=== PATIENT | female | born 1945 | race Caucasian/White ===

== ENCOUNTER 2017-10-28 09:04 | Emergency (ER) | payer MEDICARE, MEDICAID, SELFPAY ==
[2017-10-28 09:17] VITALS: BP 138/69; PULSE 60; RESP 16; TEMP 36.4; O2SAT 98
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
[2017-10-28 11:17] LABS: Abs Immature Grans 0.01 k/cumm (0.0-0.09); Absolute Basophil Count 0.02 k/cumm (0.0-0.2); Absolute Eosinophil Count 0.27 k/cumm (0.0-0.7); Absolute Lymphocyte Count 2.53 k/cumm (1.2-3.4); Absolute Monocyte Count 0.52 k/cumm (0.11-0.7); Absolute Neutrophil Count 2.47 k/cumm (1.2-6.7); Basophils % 0.3; Eosinophils % 4.6; HCT 39.9 % (36.0-46.0); HGB 12.8 g/dL (12.0-15.5); Immature Grans % 0.2; Lymphocytes % 43.5; Mean Corp. HGB Concentration 32.1 g/dL (32.0-36.0); Mean Corpuscular Hemoglobin 30.3 pg (27.0-33.0); Mean Corpuscular Volume 94.3 fL (80-95); Mean Platelet Volume 10.3 fL (8.0-11.0); Monocytes % 8.9; Neutrophils % 42.5; Platelet Count 126 x1000/uL (130-400); RBC 4.23 m/cumm (4.00-5.20); RBC Distribution Width 13.3 % (11.7-14.6); White Blood Cell Count 5.82 k/cumm (4.4-10.8)
[2017-10-28 11:35] LABS: ALT 21 U/L (12-78); AST 25 U/L (15-37); Albumin 3.7 g/dL (3.4-5.0); Alkaline Phosphatase 86 U/L (46-116); Anion Gap 8.3 mmol/L (3-11); BUN 22 mg/dL (7-18); Bilirubin, Total 0.6 mg/dL (0.2-1.0); CO2 27.7 mmol/L (21.0-32.0); CREATININE 1.34 mg/dL (0.55-1.02); Calcium 8.8 mg/dL (8.5-10.1); Chloride 104 mmol/L (98-107); Estimated GFR 38.66 (mL/min/1.73m2); Glucose 89 mg/dL (70-100); Potassium 4.3 mmol/L (3.5-5.1); Sodium 140 mmol/L (136-145); Total Protein 7.4 g/dL (6.4-8.2)
[2017-10-28 11:36] LABS: Troponin I < 0.02 ng/mL (0.00-0.06)
--- NOTE | 2017-10-28 11:37 | DI.RAD_ITS ---
SYMPTOM/DIAGNOSIS: LT ARM PAIN, NO TRAUMA LEFT SHOULDER: Five views. There are mild degenerative changes seen at the acromioclavicular joint. The glenohumeral joint appears well maintained. The bones are intact and normally mineralized. No suspicious lytic or sclerotic lesions are seen. The soft tissues are unremarkable. IMPRESSION: Mild degenerative changes of the left AC joint. LEFT HUMERUS: Two views. No bone or joint abnormality is identified. The soft tissues are unremarkable. IMPRESSION: Negative examination. PA AND LATERAL CHEST: Comparison is made with 04/23/14. Heart size and pulmonary vasculature are stable and within normal limits. The lungs appear clear. No effusions or pneumothoraces are identified. Degenerative changes are seen in the spine. IMPRESSION: No acute pulmonary process.
[2017-10-28 11:43] LABS: TSH (W/Ref FT4) 3.13 uIU/mL (0.358-3.74)
--- NOTE | 2017-10-28 14:11 | DI.US_ITS ---
SYMPTOMS/DIAGNOSIS: LEFT ARM PAIN, ? DVT LEFT UPPER EXTREMITY ULTRASOUND: The deep veins of the left upper extremity show normal compression, augmentation and color flow. No evidence of a deep venous thrombus is seen. The superficial veins of the left upper extremity are patent. IMPRESSION: No evidence of a left upper extremity deep venous thrombus.
[2017-10-28] MEDS: Ibuprofen 400 MG TAB PO (15:25)
== END 2017-10-28 15:39 | disposition home or self-care (01) ==
PROVIDERS: Emergency Provider Student in an Organized Health Care Education/Training Program; PCP Nurse Practitioner
DX: M79.602 Pain in left arm (principal); I10 Essential (primary) hypertension
CPT/HCPCS: 80053; 93005; 99284; 71046; 73030; 73060; 84443; 84484; 85025; 93010; 93971; 99285

== ENCOUNTER 2017-11-06 06:02 | Day surgery (SDC) | payer MEDICARE, MEDICAID, SELFPAY ==
[2017-11-06 06:24] VITALS: BP 158/82; PULSE 53; RESP 18; TEMP 36.3; O2SAT 98
[2017-11-06] MEDS: Lactated Ringers 1,000 ML 80 ML IV (06:35)
[2017-11-06] MEDS: Povidone-Iodine Soln. 118 ML BTL TP (06:35)
[2017-11-06] MEDS: Bupivacaine 0.5% Pres-Free 30 ML VIAL (07:51)
[2017-11-06] MEDS: Lidocaine 1% Pres-Free 5 ML VIAL 15 ML (07:51)
[2017-11-06] MEDS: Dexamethasone 4 MG/ML VIAL (07:51)
--- NOTE | 2017-11-06 08:15 | W.PM.DSUDISC ---
Discharge Plan Disposition Patient Disposition: HOME Condition: Good Discharge Details Reason For Visit: LAURAE (R) 3 Attending Provider: Uche Guzman Primary Care Provider: Kelsi Bhagat Home Meds and New Rx's Prescriptions: No Action aspirin 81 MG tablet,delayed release (DR/EC) 81 mg PO DAILY RF: 0 levothyroxine 25 MCG tablet 25 mcg PO DAILY RF: 0 furosemide 20 MG tablet 20 mg PO BID RF: 0 atenolol 50 MG tablet 50 mg PO DAILY RF: 0 aripiprazole [Abilify] 5 MG tablet 5 mg PO DAILY RF: 0 bupropion HCl [Wellbutrin XL] 300 MG tablet extended release 24 hr 300 mg PO DAILY RF: 0 calcium carbonate-vitamin D3 [Oyst-Sudhir-D 500] 1 TAB tablet 2 ea PO DAILY RF: 0 cholecalciferol (vitamin D3) [Vitamin D3] 2,000 UNIT capsule 1,000 unit PO DAILY RF: 0 ibuprofen 600 MG tablet 600 mg PO Q6H PRN PRN (Reason: Pain) Qty: 20 RF: 0 losartan 25 MG tablet 50 mg PO DAILY RF: 0 acetaminophen [Tylenol 8 Hour] 650 mg tablet extended release 650 mg PO Q8H PRN (Reason: pain) Qty: 15 RF: 0 Discharge Instructions Activity:: Activity as Tolerated Remove Dressings/Wound Care:: Do Not Remove Diet:: Normal Diet Discharge Orders Discharge Orders: Discharge Order (Routine); Ordered 11/06/17 Ordered By: Uche Guzman DS: Diagnosis Discharge Diagnosis (1) Hammertoe of right foot: Status: Acute Asessment and Plan: A: Hammertoe deformity right 3rd toe P: Arthroplasty right 3rd toe with 0.062K-wire fixation
[2017-11-06 08:44] VITALS: BP 137/73; PULSE 58; RESP 18; TEMP 36; O2SAT 100
--- NOTE | 2017-11-06 11:56 | ROE_ITS ---
DATE OF PROCEDURE: November 06, 2017 PREOPERATIVE DIAGNOSIS: Symptomatic right third hammertoe. POSTOPERATIVE DIAGNOSIS: Same. PROCEDURE: Arthroplasty of the right third toe with .062 K-Wire fixation. ANESTHESIA: Monitored Anesthesia with local block of the third ray utilizing 8 cc's of a 50/50 mixtu re 1% Lidocaine plain, 0.5% Marcaine plain. ANESTHESIA PROVIDER: Poncho Gagnon CRNA SURGEON: Uche Guzman D.P.M. OPERATIVE INDICATIONS: 72-year-old female with chronic pain associated with a right third hammertoe deformity which is exacerbated by shoe gear, interfering with comfortable ambulation. Conservative n onoperative treatments have failed to provide relief of symptoms. Arlin understands the risks and com plications of surgery pertaining to pain, scarring, infection, stiffness of the joint, floating of th e toe, over or undercorrection of the deformity. Informed consent has been obtained. There are no p romises made to the final outcome of surgery. REPORT OF OPERATION: Arlin was brought to the operative suite and placed in the supine position where the right foot is prepped and draped in the usual sterile podiatric fashion. A time-out was perform ed. The patient was appropriately identified, allergies reviewed. Anesthesia being obtained, the [facility] foot was exsanguinated; a well-padded ankle tourniquet inflated 250 mmHg. Attention was directed to the right third toe. Two converging semi-elliptical incisions were placed over the PIPJ. A skin wedge was excised. Soft tissue mobilization performed. A transverse tenotomy capsulotomy was performed at the PIPJ level. Medial and lateral collaterals were released and the h ead of the proximal phalanx delivered into the wound. Degenerative changes of the joint were appreci ated. The head was resected at its surgical neck. All rough and bony edges rasped smooth. Contract ure at the MPJ persisted. A stab incision was now made dorsomedial over the third MPJ. A 15 scalpel was inserted down to the joint level. The blade was placed against the dorsal aspect of the third M PJ and the digit was plantarflexed and a capsulotomy was achieved. The medial and lateral aspects of the joint were also teased and the toe sat in a more relaxed position. A .062 K-Wire was then utili zed in retrograde fashion to stabilize the third toe. Irrigation was performed. The extensor tendon was shortened and primarily repaired end-to-end with #3-0 Vicryl. The skin was then closed with sim ple interrupted suture #4-0 nylon. The stab incision was closed with a single #4-0 nylon suture. Fo ur milligrams of Dexamethasone Phosphate was administered IV. Betadine ointment applied to the K-wir e; Xeroform applied to the wounds. Gauze fluff compression dressings applied. The tourniquet was re leased at eighteen minutes with vascularity returning immediately to all toes. The patient left the OR with vital signs stable, vascular status intact. Sharp and sponge counts were correct. The patie nt will be followed by me in the office next week. cc: Yissel Bain N.P.
== END 2017-11-06 09:25 | disposition home or self-care (01) ==
PROVIDERS: PCP Nurse Practitioner; Visit Provider Podiatrist
PROC: (CPT 28285; principal; 2017-11-06 07:30)
DX: M20.41 Other hammer toe(s) (acquired), right foot (principal); I10 Essential (primary) hypertension
CPT/HCPCS: 28285; J1100

== ENCOUNTER → 2018-01-21 09:39 | Outpatient (BNVA) | payer MEDICARE, MEDICAID, SELFPAY | PROVIDERS: PCP Nurse Practitioner; Referring Provider Nurse Practitioner; Visit Provider Orthopaedic Surgery | DX: M65.812 Other synovitis and tenosynovitis, left shoulder (principal); M19.012 Primary osteoarthritis, left shoulder; I10 Essential (primary) hypertension | CPT/HCPCS: 20610; 99201; 99214; J1040 ==

== ENCOUNTER → 2018-03-04 09:37 | Outpatient (BNVA) | payer MEDICARE, MEDICAID, SELFPAY | PROVIDERS: PCP Nurse Practitioner; Referring Provider Nurse Practitioner; Visit Provider Orthopaedic Surgery | DX: M25.512 Pain in left shoulder (principal); M75.82 Other shoulder lesions, left shoulder | CPT/HCPCS: 99213 ==

== ENCOUNTER 2018-04-06 17:48 | Emergency (ER) | payer MEDICARE, MEDICAID, SELFPAY ==
[2018-04-06 17:54] VITALS: BP 142/72; PULSE 67; RESP 20; TEMP 36.3; O2SAT 98
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
[2018-04-06 18:25] VITALS: BP 142/72; PULSE 67; RESP 20; TEMP 36.3; O2SAT 98
== END 2018-04-06 18:26 | disposition home or self-care (01) ==
PROVIDERS: Emergency Provider Emergency Medicine; PCP Nurse Practitioner
DX: M79.674 Pain in right toe(s) (principal); S90.111A Contusion of right great toe without damage to nail, initial encounter; X58.XXXA Exposure to other specified factors, initial encounter
CPT/HCPCS: 29515; 99283; 99282

== ENCOUNTER 2018-07-20 09:17 | Outpatient (REF) | payer OTHER, MEDICAID, SELFPAY ==
[2018-07-20 14:13] LABS: ALT 34 U/L (12-78); AST 33 U/L (15-37); Albumin 3.5 g/dL (3.4-5.0); Alkaline Phosphatase 96 U/L (46-116); BUN 23 mg/dL (7-18); Bilirubin, Total 0.4 mg/dL (0.2-1.0); Chloride 105 mmol/L (98-107); Estimated GFR 48.55 (mL/min/1.73m2); Glucose 89 mg/dL (70-100); Potassium 4.5 mmol/L (3.5-5.1); Sodium 138 mmol/L (136-145); TSH (W/Ref FT4) 3.91 uIU/mL (0.358-3.74); Total Protein 6.7 g/dL (6.4-8.2)
[2018-07-20 14:32] LABS: FREE T4 1.36 ng/dL (0.76-1.46)
== END 2018-07-20 09:37 ==
LOC: NCHCN 09:17
PROVIDERS: PCP Nurse Practitioner; Visit Provider Nurse Practitioner
DX: I10 Essential (primary) hypertension (principal); E03.9 Hypothyroidism, unspecified
CPT/HCPCS: 80053; 84439; 84443

== ENCOUNTER 2018-08-20 10:00 | Emergency (ER) | payer OTHER, MEDICAID, SELFPAY ==
[2018-08-20 10:07] VITALS: BP 130/53; PULSE 58; RESP 16; TEMP 36.4; O2SAT 98
--- NOTE | 2018-08-20 10:55 | ED.GENADUL_ITS ---
Discharge Plan Disposition Patient Disposition: HOME Discharge Details Chief Complaint: Cellulitis Clinical Impression: Cellulitis of foot, left Primary Care Provider: Kelsi Bhagat ED Provider: Lamberto Song Home Meds and New Rx's Prescriptions: New amoxicillin-pot clavulanate [Augmentin] 875-125 mg tablet 1 tab PO BID Qty: 19 RF: 0 Continued aspirin 81 MG tablet,delayed release (DR/EC) 81 mg PO DAILY RF: 0 levothyroxine 25 MCG tablet 25 mcg PO DAILY RF: 0 furosemide 20 MG tablet 20 mg PO BID RF: 0 atenolol 50 MG tablet 50 mg PO DAILY RF: 0 aripiprazole [Abilify] 5 MG tablet 5 mg PO DAILY RF: 0 bupropion HCl [Wellbutrin XL] 300 MG tablet extended release 24 hr 300 mg PO DAILY RF: 0 calcium carbonate-vitamin D3 [Oyst-Sudhir-D 500] 1 TAB tablet 2 ea PO DAILY RF: 0 cholecalciferol (vitamin D3) [Vitamin D3] 2,000 UNIT capsule 1,000 unit PO DAILY RF: 0 ibuprofen 600 MG tablet 600 mg PO Q6H PRN PRN (Reason: Pain) Qty: 20 RF: 0 losartan 25 MG tablet 50 mg PO DAILY RF: 0 hydrocodone-acetaminophen 5-325 mg Tablet 1 tab PO Q4H PRN PRNQty: 7 RF: 0 ibuprofen [IBU] 600 mg Tablet 600 mg PO QID PRN PRNQty: 40 RF: 0 acetaminophen [Tylenol 8 Hour] 650 mg tablet extended release 650 mg PO Q8H PRN (Reason: pain) Qty: 15 RF: 0 Discharge Instructions Instructions: Cellulitis (ED) Additional Instructions: Please follow-up with podiatry. Call today to schedule an appointment to be seen as soon as possible next week. Return to the ER for any worsening or new concerning symptoms. Referrals: Kelsi Bhagat [Primary Care Provider] - Uche Guzman DPM [[facility] STAFF PHYSICIAN] - Discharge Data Discharge Date/Time-TO BE ENTERED AT DEPARTURE: 08/20/18 11:06 Medical Decision Making 72-year-old female resents approximately 1 month status post left great toenail removal, complicated by cellulitis, treated with Keflex and Bactrim, completed course and now having recurrent redness of the toe and swelling of her foot. She has no posterior lower leg or calf tenderness or swelling. Concern for recurrent mild cellulitis. Plan to treat Augmentin and have the patient follow-up with podiatry on Thursday. Usual customary discharge instructions were provided the patient HPI General Mode of arrival: ambulatory . Date/Time Provider Initiated Documentation: 08/20/18 10:12 . Limitations to Documentation: no limitations . Information obtained by: patient . HPI Narrative: 72-year-old female resents approximately 1 month status post left great toenail removal, complicated by cellulitis, treated with Keflex and Bactrim, completed course and now having recurrent redness of the toe and swelling of her foot. Symptoms are moderate. No modifiers. No associated numbness. No other rash. No fever. Related Data Home Medications Medication Instructions Recorded Confirmed aripiprazole [Abilify] 5 mg PO DAILY 10/19/12 08/21/18 aspirin 81 mg PO DAILY 10/19/12 08/21/18 atenolol 50 mg PO DAILY 10/19/12 08/21/18 bupropion HCl [Wellbutrin XL] 300 mg PO DAILY 10/19/12 08/21/18 calcium carbonate-vitamin D3 2 ea PO DAILY 10/19/12 08/21/18 [Oyst-Sudhir-D 500] cholecalciferol (vitamin D3) 1,000 unit PO DAILY 10/19/12 08/21/18 [Vitamin D3] furosemide 20 mg PO BID 10/19/12 08/21/18 levothyroxine 25 mcg PO DAILY 10/19/12 08/21/18 ibuprofen 600 mg PO Q6H PRN PRN #20 tab 09/29/14 08/21/18 losartan 50 mg PO DAILY 12/12/15 08/21/18 acetaminophen [Tylenol 8 Hour] 650 mg PO Q8H PRN #15 tab 10/28/17 08/21/18 hydrocodone-acetaminophen 1 tab PO Q4H PRN PRN #7 tab 11/06/17 08/21/18 ibuprofen [IBU] 600 mg PO QID PRN PRN #40 tab 11/06/17 08/21/18 amoxicillin-pot clavulanate 1 tab PO BID #19 tab 08/20/18 08/21/18 [Augmentin] Previous Rx's Medication Instructions Recorded ibuprofen 600 mg PO Q6H PRN PRN #20 tab 09/29/14 acetaminophen [Tylenol 8 Hour] 650 mg PO Q8H PRN #15 tab 10/28/17 hydrocodone-acetaminophen 1 tab PO Q4H PRN PRN #7 tab 11/06/17 ibuprofen [IBU] 600 mg PO QID PRN PRN #40 tab 11/06/17 amoxicillin-pot clavulanate 1 tab PO BID #19 tab 08/20/18 [Augmentin] Allergies Allergy/AdvReac Type Severity Reaction Status Date / Time propoxyphene HCl Allergy Intermediate rash,itchy Unverified 08/21/18 14:13 [From Darvon] lisinopril AdvReac Mild cough Unverified 08/21/18 14:13 General Stated Complaint: Cellulitis MORGAN: 3 Review of Systems Constitutional Denies fever(s) Integumentary/Breasts Reports as per HPI [facility] Social History Smoking/Tobacco Use Status: Never Alcohol Intake: never Drug use: Never Substance use type: does not use Do you feel safe at home: Yes Do you feel safe in your relationship?: Yes Exam Const General: cooperative and no acute distress HENMT Mouth: moist mucous membranes Eyes Conjunctivae: normal conjunctivae Cardio Rate: regular rate Rhythm: regular rhythm Skin Rashes: rashes noted (left great toe with erythema, no fluctuance) Neuro General: alert, awake and other (left toe sensation intact, motor intact) Extrem General: edema Laterality: left (foot mild) Course Vital Signs Temperature 36.4 C L 08/20/18 10:07 Pulse 58 L 08/20/18 10:07 Respiratory Rate 16 08/20/18 10:07 Blood Pressure 130/53 L 08/20/18 10:07 Pulse Oximetry 98 08/20/18 10:07 Temperature 36.4 C L 08/20/18 10:07 Temperature Source Skin 08/20/18 10:07 Pulse 58 L 08/20/18 10:07 Respiratory Rate 16 08/20/18 10:07 Respiratory Effort 08/20/18 10:11 Blood Pressure 130/53 L 08/20/18 10:07 Blood Pressure Position Sitting 08/20/18 10:07 Pulse Oximetry 98 08/20/18 10:07 Oxygen Delivery Method Room Air 08/20/18 10:07 Oxygen Flow Rate 0 08/20/18 10:07
[2018-08-20] MEDS: Amoxicillin 875/Clav. 125 TAB PO (11:06)
[2018-08-20 11:07] VITALS: BP 130/53; PULSE 58; RESP 16; TEMP 36.4; O2SAT 98
== END 2018-08-20 11:06 | disposition home or self-care (01) ==
PROVIDERS: Emergency Provider Student in an Organized Health Care Education/Training Program; PCP Nurse Practitioner
DX: L03.116 Cellulitis of left lower limb (principal)
CPT/HCPCS: 99283

== ENCOUNTER 2018-08-21 14:05 | Emergency (ER) | payer OTHER, MEDICAID, SELFPAY ==
[2018-08-21 14:10] VITALS: BP 167/69; PULSE 73; RESP 16; TEMP 36.8; O2SAT 97
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
[2018-08-21 14:45] VITALS: BP 123/54; PULSE 59; RESP 16; O2SAT 100
[2018-08-21] MEDS: Ibuprofen 600 MG TAB PO (14:46)
[2018-08-21] MEDS: oxyCODONE 5 MG TAB 10 MG PO (14:47)
== END 2018-08-21 14:50 | disposition home or self-care (01) ==
LOC: ER 14:35
PROVIDERS: Emergency Provider Physician Assistant; PCP Nurse Practitioner
DX: L03.032 Cellulitis of left toe (principal); I10 Essential (primary) hypertension
CPT/HCPCS: 99282

== ENCOUNTER 2018-12-30 01:20 | Outpatient (CLI) | payer MEDICARE, MEDICAID, SELFPAY ==
--- NOTE | 2018-12-30 13:30 | DI.CT_ITS ---
EXAM: CT LOWER EXTREMITY LT WO CLINICAL HISTORY: OCCULT FX, BONE LESION, DISTAL PHALANX, HALLUX, PAIN SINCE REMOVAL OF INGROWN TOEN AIL TECHNIQUE: Noncontrast COMPARISON: None are available FINDINGS: There is a smoothly marginated lucency seen in the distal phalanx of the great toe, it is slightly ex pansile. There is no visible cortical breakthrough or aggressive periosteal reaction. The bones appea r osteoporotic. There is soft tissue edema. There are degenerative changes of the 1st MTP joint and h allux valgus. There is no visible associated soft tissue mass. IMPRESSION: Smoothly marginated 9 millimeter lytic lesion in the distal phalanx of the great toe. Findings could represent a glomus tumor, hemangioma or simple bone cyst. There are no aggressive features.
== END 2018-12-30 01:40 ==
PROVIDERS: PCP Family Medicine; Visit Provider Podiatrist
DX: M81.0 Age-related osteoporosis without current pathological fracture (principal); M79.89 Other specified soft tissue disorders; M20.12 Hallux valgus (acquired), left foot; M85.872 Other specified disorders of bone density and structure, left ankle and foot
CPT/HCPCS: 73700

== ENCOUNTER 2019-01-07 08:15 | Day surgery (SDC) | payer MEDICARE, MEDICAID, SELFPAY ==
[2019-01-07 08:44] VITALS: BP 128/58; PULSE 49; RESP 16; TEMP 36; O2SAT 100
[2019-01-07] MEDS: Lactated Ringers 1,000 ML 80 ML IV (09:22)
[2019-01-07] MEDS: ceFAZolin 1 GM/50 ML BAG IVPB (10:50)
[2019-01-07] MEDS: Lidocaine 1% Multi-Dose 50 ML VIAL (10:52)
[2019-01-07] MEDS: Bupivacaine 0.5% Pres-Free 30 ML VIAL (10:52)
--- NOTE | 2019-01-07 11:08 | BONE_PTH ---
PATIENT: Arlin Almaguer V LOC: [facility] U#:[id number] AGE/SX: 73/F ROOM: RE01/07/[address]: Uche Guzman : 1945 BED: DIS: 01/07/2019 SPEC #: [id number] RECD: 01/07/19 12:53 STATUS: CARLENE REQ #: [id number] VICENTE: 01/07/19 11:[address]: Uche Guzman DEPT: Surgical Specimen RECD BY: Sima Marin ENTERED: 01/07/19 12:54 SP TYPE: Bone OTHR DR: Kelsi Bhagat Tissues: 1 - BONE BX/CURRETTE NOT PATH FRACTURE Procedures: GROSS AND MICRO LEVEL 4 DECALCIFICATION Comments: [id number]
[2019-01-07] MEDS: Dexamethasone 4 MG/ML VIAL (11:15)
--- NOTE | 2019-01-07 11:27 | W.PM.DSUDISC ---
Discharge Plan Disposition Patient Disposition: HOME Condition: Good Discharge Details Reason For Visit: amputation of left hallux thru IPJ Attending Provider: Uche Guzman Primary Care Provider: Kelsi Bhagat Home Meds and New Rx's Prescriptions: Continued aspirin 81 MG tablet,delayed release (DR/EC) 81 mg PO DAILY RF: 0 levothyroxine 25 MCG tablet 25 mcg PO DAILY RF: 0 furosemide 20 MG tablet 20 mg PO BID RF: 0 atenolol 50 MG tablet 50 mg PO DAILY RF: 0 aripiprazole [Abilify] 5 MG tablet 5 mg PO DAILY RF: 0 bupropion HCl [Wellbutrin XL] 300 MG tablet extended release 24 hr 300 mg PO DAILY RF: 0 calcium carbonate-vitamin D3 [Oyst-Sudhir-D 500] 1 TAB tablet 2 ea PO DAILY RF: 0 cholecalciferol (vitamin D3) [Vitamin D3] 2,000 UNIT capsule 1,000 unit PO DAILY RF: 0 losartan 25 MG tablet 50 mg PO DAILY RF: 0 hydrocodone-acetaminophen 5-325 mg Tablet 1 tab PO Q4H PRN PRNQty: 7 RF: 0 ibuprofen [IBU] 600 mg Tablet 600 mg PO QID PRN PRNQty: 40 RF: 0 acetaminophen [Tylenol 8 Hour] 650 mg tablet extended release 650 mg PO Q8H PRN (Reason: pain) Qty: 15 RF: 0 Discharge Instructions Activity:: Elevate Remove Dressings/Wound Care:: Do Not Remove Shower/Bathe:: Cover Diet:: Normal Diet Discharge Orders Discharge Orders: Discharge Order (Routine); Ordered 01/07/19 Ordered By: Uche Guzman DS: Diagnosis Discharge Diagnosis (1) Neoplasm of bone of foot: Start date: 01/07/19 Start time: 11:28 Status: Acute
--- NOTE | 2019-01-07 12:09 | ROE_ITS ---
DATE OF PROCEDURE: January 07, 2019 PREOPERATIVE DIAGNOSIS: Neoplasm of distal phalanx, left hallux. POSTOPERATIVE DIAGNOSIS: Same. PROCEDURE: Amputation distal phalanx, left hallux. SURGEON: Siria SuarezPUsha. ANESTHESIA: General anesthesia with local block of the great toe utilizing 8 cc's 50:50 mixture 1% L idocaine plain, 0.5% Bupivacaine plain. ANESTHESIA PROVIDER: Surjit Burton CRNA OPERATIVE INDICATIONS: 73-year-old female with a neoplasm involving the distal phalanx of the left g reat toe, which has been causing severe pain, worse at night, but present constantly. Nonsurgical tr eatments have failed to provide relief of symptoms. We discussed excision of the lesion, amputation of the digit, etc. and she has opted to go with the amputation. She understands the permanency of th e procedure. Risks and complications including pain, scarring, infection, and permanent disability w ere reviewed. Informed consent was obtained. No promises made to the final outcome of surgery. REPORT OF OPERATION: Arlin was brought to the operative suite, placed in the supine position where th e left foot is prepped and draped in the usual sterile podiatric fashion. Anesthesia being obtained , a time-out was performed, patient was properly identified, her surgical site marked. Attention was now directed to the left great toe where two converging, semi-elliptical incisions were placed dorsal and plantarly and just distal to the interphalangeal joint. The incisions were deepen ed in controlled depth fashion with a #15 scalpel; hemostasis acquired with electrocautery, as needed . The extensor tendon was transversely incised. The #15 blade was then slid down along the dorsum o f the base of the distal phalanx and the joint capsule released. This incision was now carried down plantarly from medial to lateral, going through the skin, severing the flexor tendon attachments, rel easing the joint capsule, and the distal aspect of the hallux removed from the operative field and se nt to Pathology in formalin. The wound was copiously irrigated. The plantar flap was lightly defatt ed and the deep layer was repaired with simple interrupted suture #3-0 Vicryl. The skin was then coa pted with a combination of nvsy-[id number]-near #3-0 nylon, interspersed with simple interrupted suture of #4-0 nylon. Nice approximation of the skin edges appreciated. Xeroform, gauze fluff compression dressings were applied. Four milligrams of dexamethasone phosphate was infused proximally along the first ray. She will be followed by me in the office next week. She is to keep the dressings clean, dry and intact. cc: Kelsi Bhagat N.P.
[2019-01-07 12:35] VITALS: BP 123/56; PULSE 68; RESP 17; TEMP 35.9; O2SAT 100
== END 2019-01-07 12:40 | disposition home or self-care (01) ==
PROVIDERS: PCP Nurse Practitioner; Visit Provider Podiatrist
PROC: (CPT 28825; principal; 2019-01-07 10:00)
DX: M25.572 Pain in left ankle and joints of left foot; G89.3 Neoplasm related pain (acute) (chronic); I10 Essential (primary) hypertension; E03.9 Hypothyroidism, unspecified; F41.9 Anxiety disorder, unspecified
CPT/HCPCS: 28825; 88305; 88304; 88311; J0690; J1100

== ENCOUNTER 2019-01-31 19:27 | Outpatient (REF) | payer MEDICARE, MEDICAID, SELFPAY ==
[2019-01-31 19:22] LABS: Abs Immature Grans 0.02 k/cumm (0.0-0.09); Absolute Basophil Count 0.04 k/cumm (0.0-0.2); Absolute Lymphocyte Count 2.17 k/cumm (1.2-3.4); Absolute Neutrophil Count 2.15 k/cumm (1.2-6.7); Basophils % 0.8; Eosinophils % 3.9; HCT 39.3 % (36.0-46.0); HGB 12.3 g/dL (12.0-15.5); Immature Grans % 0.4; Lymphocytes % 42.7; Mean Corp. HGB Concentration 31.3 g/dL (32.0-36.0); Mean Corpuscular Hemoglobin 30.1 pg (27.0-33.0); Mean Corpuscular Volume 96.3 fL (80-95); Mean Platelet Volume 11.5 fL (8.0-11.0); Monocytes % 9.8; Neutrophils % 42.4; Platelet Count 159 x1000/uL (130-400); RBC 4.08 m/cumm (4.00-5.20); RBC Distribution Width 14.3 % (11.7-14.6); White Blood Cell Count 5.08 k/cumm (4.4-10.8)
[2019-01-31 19:35] LABS: ALT 24 U/L (14-59); AST 24 U/L (15-37); Albumin 3.7 g/dL (3.4-5.0); Alkaline Phosphatase 105 U/L (46-116); Anion Gap 10.8 mmol/L (3-11); BUN 26 mg/dL (7-18); Bilirubin, Total 0.4 mg/dL (0.2-1.0); CO2 28.2 mmol/L (21.0-32.0); CREATININE 1.31 mg/dL (0.55-1.02); Chloride 104 mmol/L (98-107); Estimated GFR 39.58 (mL/min/1.73m2); Glucose 88 mg/dL (74-106); Potassium 4.4 mmol/L (3.5-5.1); Sodium 143 mmol/L (136-145); TSH (W/Ref FT4) 3.22 uIU/mL (0.36-3.74); Total Protein 6.9 g/dL (6.4-8.2)
== END 2019-01-31 19:47 ==
LOC: NCHCN 19:27
PROVIDERS: PCP Nurse Practitioner; Visit Provider Nurse Practitioner Family
DX: R19.5 Other fecal abnormalities (principal)
CPT/HCPCS: 80053; 84443; 85025

== ENCOUNTER 2019-03-02 20:44 | Emergency (ER) | payer MEDICARE, MEDICAID, SELFPAY ==
[2019-03-02 20:47] VITALS: BP 143/70; PULSE 72; RESP 18; TEMP 36.8; O2SAT 98
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
--- NOTE | 2019-03-02 21:31 | DI.RAD_ITS ---
EXAM: XR HIP RT COMPLETE AP PELVIS INDICATION: pain laterally. TECHNIQUE: 2D digital imaging was performed. FINDINGS: No fracture or dislocation is seen. There is artifact over the images related to clothing and soft t issue creases. There is mild spurring at the acetabulum and greater trochanter. There is some spurr ing at the inferior SI joints. More advanced degenerative changes are noted in the lower lumbar spin e. IMPRESSION: Mild degenerative changes of the hips.
--- NOTE | 2019-03-02 21:41 | DI.VRAD_ITS ---
PROCEDURE INFORMATION: Exam: XR Right Hip with Pelvis when Performed Exam date and time: 03/02/2019 9:30 PM Age: 73 years old Clinical indication: Hip pain; Patient HX: Pain in right hip, buttocks, and leg for 3 days, no known trauma. TECHNIQUE: Imaging protocol: XR Right hip with pelvis when performed. Views: 2 or 3 views. COMPARISON: No relevant prior studies available. FINDINGS: Bones/joints: Unremarkable. No acute fracture. Mild degenerative changes of the hips without joint space narrowing. Soft tissues: Unremarkable. IMPRESSION: No acute findings. Dictated and Authenticated by: Curtis Rascon MD. Ordering:ROLANDO Aburto MD
[2019-03-02 22:10] VITALS: BP 138/73; PULSE 80; RESP 16; O2SAT 98
[2019-03-02] MEDS: Lidocaine 1% Multi-Dose 50 ML VIAL IJ (22:16)
[2019-03-02] MEDS: methylPREDNISolone SUCC 125 MG VIAL (22:16)
--- NOTE | 2019-03-02 22:17 | NUR.NOTE ---
Nursing Note: In to assist MIMI Tavarez with injection of left hip. Patient tolerated well.
[2019-03-02] MEDS: Ibuprofen 600 MG TAB PO (22:53)
[2019-03-02] MEDS: Lidocaine 5% Patch 1 PATCH TP (23:21)
--- NOTE | 2019-03-02 23:25 | NUR.NOTE ---
Nursing Note: Pt able to turn self side to side in bed without difficulty. No c/o pain when washing injection site prior to applying lidoderm.
--- NOTE | 2019-03-02 23:55 | NUR.NOTE ---
Nursing Note: Pt able to get from bed to bedside commode with standby assist only. Pt wanted to sit in wheelchair instead of going back to bed. Able to take steps from commode to wheelchair with stand by assist only. Gait slow, but steady.
[2019-03-03 00:17] VITALS: BP 134/67; PULSE 80; RESP 16; O2SAT 97
== END 2019-03-03 00:10 | disposition home or self-care (01) ==
PROVIDERS: Emergency Provider Physician Assistant; PCP Nurse Practitioner
DX: M25.551 Pain in right hip (principal); M70.61 Trochanteric bursitis, right hip; I10 Essential (primary) hypertension
CPT/HCPCS: 20610; 96374; 96375; 73502; J2930

== ENCOUNTER 2019-03-05 21:31 | Inpatient (IN) | payer MEDICARE, MEDICAID, SELFPAY ==
[2019-03-05 21:35] VITALS: BP 163/73; PULSE 90; RESP 18; TEMP 36.7; O2SAT 87
--- NOTE | 2019-03-05 21:43 | W.ED.GENAD ---
Discharge Plan Disposition Patient Disposition: [facility] INPATIENT Condition: Improving Discharge Details Chief Complaint: Nk/Back Pain Clinical Impression: Acute right hip pain, CHF exacerbation Admit Date/Time: 03/05/19 23:56 Admit Provider: Mo Radford Attending Provider: Mo Radford Primary Care Provider: Kelsi Bhagat ED Provider: Erwin Solorzano Medical Decision Making This is a 73-year-old female with a past medical history of arthritis, anxiety, depression, diverticulitis, hypertension, obesity and delusional disorder who presents today for evaluation of right hip pain. She was seen and assessed here 3 days ago and had a steroid and NSAID injection into her right hip, she had mild relief at that time. That time there was also an extensive discussion about potential placement and outpatient rehab facility, however the family did not want this at that time. She was sent home per her request. She states that since then her right hip pain is gradually been worsening, and got significantly worse after going grocery shopping today, and when she got home she states that after she laid down in bed she was unable to get up because of the pain. Exam demonstrates mild reproducible right greater trochanter tenderness, but no midline spine tenderness. She has pain with range of motion in the right hip, but it does not appear overly shortened or rotated. She still demonstrates seemingly normal strength in the lower extremities bilaterally. No evidence of saddle anesthesia or cauda equina syndrome. Differential includes arthritis, nerve pain, or referred pain from a kidney stone with her right flank pain. We will get a CT scan, treat her pain, basic laboratory work-up and urinalysis and reassess. Additionally the patient is mildly hypoxic with her O2 in the 80s 70s, she does not use oxygen normally, she has no history of COPD. She does have vital crackles in the bases bilaterally. She denies any chest pain or chest symptoms whatsoever otherwise. We will get a chest x-ray to rule out acute process. 11:12 PM Laboratory work-up demonstrates no significant white count, hemoglobin stable. VBG normal aside from minimally decreased pH is 7.32. PCO2 normal. Electrolytes normal, creatinine is 1.18 which is actually better than her baseline. Troponin normal, proBNP elevated at 2700 which is atypical for the patient. Urinalysis clean. Chest x-ray shows evidence of congestive heart failure, CT scan demonstrates no evidence of acute process, no evidence of acute fracture of the hip or pelvis. No other significant abnormality. With the patient's laxative oxygen at home, and her oxygen saturation in the mid to high 80s without oxygen supplementation we will give IV Lasix. After Valium and morphine the patient still has no significant improvement in the pain in her hip or right flank. Patient does not feel that she can walk or ambulate in his current state. On her last visit there was notable discussion about potential admission to a rehab facility or care placement facility. I feel that currently at this point with the patient's CHF exacerbation, failure to thrive, continued and worsening right hip pain which is limited her mobility notably, may be beneficial to reassess this. Do feel that she would benefit from 12 to 24-hour observation for gentle diuresis, and monitoring of her oxygenation status. We will contact the hospitalist. 11:57 PM Discussed the case with the hospitalist Dr. Radford, he agrees to the assessment and plan. I have placed bridging admission orders. I have extensively reviewed the treatment plan with the patient. I have addressed all patient concerns at this time. I have also discussed the plan with the admitting physician and they agree with the current assessment and plan and have agreed to assume responsibility for the patient. All parties demonstrate verbal understanding and agreement with our assessment and plan at this time. EKG 23: 01 Rate 93, intervals normal, sinus rhythm, no significant ST elevations or depressions, Q waves noted in lead III. No evidence of STEMI. Comparison of prior EKG from 10/28/2017 demonstrates no acute changes. FINDINGS: Lungs: Mild increase interstitial markings bilaterally. Cannot exclude early interstitial edema. These features were not present on 10/28/2017. There is also mild pulmonary venous engorgement. Pleural space: No pleural effusion. Heart/Mediastinum: Mild cardiac enlargement. Bones/joints: Degenerative thoracic spine changes. IMPRESSION: 1. Findings consistent with mild congestive heart failure. Interstitial edema and pulmonary venous engorgement. 2. Mild cardiomegaly. Thank you for allowing us to participate in the care of your patient. Dictated and Authenticated by: Daryl Cohen MD 03/05/2019 10:54 PM Eastern Time ([place] & [place]) FINDINGS: Lungs: Bilateral lung base interstitial ground-glass changes may represent mild interstitial edema. Pleural space: Minimal bilateral pleural effusions. Liver: Normal. No mass. Gallbladder and bile ducts: No gallstones. Pancreas: Normal. No ductal dilation. Spleen: Normal. No splenomegaly. Adrenals: Normal. No mass. Kidneys and ureters: No hydronephrosis or renal calculi. Stomach and bowel: Unremarkable. No obstruction. No mucosal thickening. Colonic diverticulosis. Appendix: No evidence of appendicitis. Intraperitoneal space: Peritoneal space without free fluid or free air. Vasculature: Abdominal aorta with minimal atherosclerosis. No aneurysmal changes. Lymph nodes: Unremarkable. No enlarged lymph nodes. Bladder: Unremarkable as visualized. Reproductive: Previous hysterectomy. Bones/joints: Severe degenerative lumbar spine disease. Multilevel disc and facet degeneration. No lumbar fracture. No sacral fracture. Pelvis and hips are unremarkable. No fracture or diastasis. There is osteopenia. Soft tissues: Fat containing umbilical hernia without evidence of strangulation. Hernia sac is approximately 4.3 cm. IMPRESSION: 1. Minor lung base interstitial edema. Minimal pleural effusions. 2. No acute findings within the abdomen or pelvis. There is some degradation of image quality due to respiratory motion artifact. 3. Fat containing umbilical hernia without evidence of strangulation. 4. Colonic diverticulosis without acute diverticulitis, obstruction, or inflammation. Small bowel is unremarkable. 5. Degenerative lumbar spine changes. No acute fracture. No evidence of pelvic fracture or hip fracture. Thank you for allowing us to participate in the care of your patient. Dictated and Authenticated by: Daryl Cohen MD 03/05/2019 11:05 PM Eastern Time ([place] & [place]) Lab Data Lab results reviewed: Yes I reviewed the patient's lab results. Labs: Laboratory Tests Range/Units 03/05/19 03/05/19 03/05/19 22:19 22:19 22:19 WBC (4.4-10.8) k/cumm RBC (4.00-5.20) m/cumm Hgb (12.0-15.5) g/dL Hct (36.0-46.0) % MCV (80-95) fL MCH (27.0-33.0) pg MCHC (32.0-36.0) g/dL RDW (11.7-14.6) % Plt Count (130-400) x1000/uL MPV (8.0-11.0) fL Immature Gran % % Neutrophils % Lymphocytes % Monocytes % Eosinophils % Basophils % Absolute Neutrophils (1.2-6.7) k/cumm Absolute Lymphocytes (1.2-3.4) k/cumm Absolute Monocytes (0.11-0.7) k/cumm Absolute Eosinophils (0.0-0.7) k/cumm Absolute Basophils (0.0-0.2) k/cumm PT (9.3-11.0) sec INR (0.9-1.1) APTT (21.0-31.4) sec VBG pH (7.35-7.45) 7.32 L VBG pCO2 (34-47) mm/Hg 45 VBG pO2 (28-44) mm/Hg 42 VBG HCO3 (22-28) mmol/L 23 VBG Total CO2 (22-29) mmol/L 22 VBG O2 Saturation (70-80) % 74 VBG Base Excess (-3-3) mmol/L -2.6 Sodium (136-145) mmol/L 144 Potassium (3.5-5.1) mmol/L 4.2 Chloride (98-107) mmol/L 109 H Carbon Dioxide (21.0-32.0) mmol/L 24.0 Anion Gap (3-11) mmol/L 11.0 BUN (7-18) mg/dL 24 H Creatinine (0.55-1.02) mg/dL 1.18 H Estimated GFR/1.73 m2 (mL/min/1.73m2) 44.65 Glucose (74-106) mg/dL 114 H Calcium (8.5-10.1) mg/dL 8.9 Total Bilirubin (0.2-1.0) mg/dL 0.4 AST (15-37) U/L 33 ALT (14-59) U/L 23 Alkaline Phosphatase (46-116) U/L 88 Troponin I (<0.06) ng/Ml < 0.05 NT-Pro-B Natriuret Pep (<300) pg/mL 2724 H Total Protein (6.4-8.2) g/dL 6.9 Albumin (3.4-5.0) g/dL 3.5 Urine Color (Yellow) Urine Clarity (Clear) Urine pH (5-8) Ur Specific [place] (1.005-1.025) Urine Protein (Negative) mg/dL Urine Ketones (Negative) mg/dL Urine Blood (Negative) Urine Nitrite (Negative) Urine Bilirubin (Negative) Urine Urobilinogen (Up TO 0.2) EU/dL Ur Leukocyte Esterase (Negative) Urine RBC (0-2) HPF Urine WBC (0-5) HPF Ur Epithelial Cells (Negative) HPF Urine Crystals (Negative) HPF Urine Bacteria (Negative) HPF Urine Mucus (Negative) Ur Culture Indicated? Urine Glucose (Negative) mg/dL Range/Units 03/05/19 03/05/19 03/05/19 22:19 22:19 22:29 WBC (4.4-10.8) k/cumm 6.35 RBC (4.00-5.20) m/cumm 3.97 L Hgb (12.0-15.5) g/dL 12.0 Hct (36.0-46.0) % 37.5 MCV (80-95) fL 94.5 MCH (27.0-33.0) pg 30.2 MCHC (32.0-36.0) g/dL 32.0 RDW (11.7-14.6) % 13.6 Plt Count (130-400) x1000/uL 148 MPV (8.0-11.0) fL 10.5 Immature Gran % % 0.3 Neutrophils % 75.6 Lymphocytes % 17.3 Monocytes % 5.5 Eosinophils % 0.8 Basophils % 0.5 Absolute Neutrophils (1.2-6.7) k/cumm 4.80 Absolute Lymphocytes (1.2-3.4) k/cumm 1.10 L Absolute Monocytes (0.11-0.7) k/cumm 0.35 Absolute Eosinophils (0.0-0.7) k/cumm 0.05 Absolute Basophils (0.0-0.2) k/cumm 0.03 PT (9.3-11.0) sec 10.3 INR (0.9-1.1) 1.0 APTT (21.0-31.4) sec 26.2 VBG pH (7.35-7.45) VBG pCO2 (34-47) mm/Hg VBG pO2 (28-44) mm/Hg VBG HCO3 (22-28) mmol/L VBG Total CO2 (22-29) mmol/L VBG O2 Saturation (70-80) % VBG Base Excess (-3-3) mmol/L Sodium (136-145) mmol/L Potassium (3.5-5.1) mmol/L Chloride (98-107) mmol/L Carbon Dioxide (21.0-32.0) mmol/L Anion Gap (3-11) mmol/L BUN (7-18) mg/dL Creatinine (0.55-1.02) mg/dL Estimated GFR/1.73 m2 (mL/min/1.73m2) Glucose (74-106) mg/dL Calcium (8.5-10.1) mg/dL Total Bilirubin (0.2-1.0) mg/dL AST (15-37) U/L ALT (14-59) U/L Alkaline Phosphatase (46-116) U/L Troponin I (<0.06) ng/Ml NT-Pro-B Natriuret Pep (<300) pg/mL Total Protein (6.4-8.2) g/dL Albumin (3.4-5.0) g/dL Urine Color (Yellow) Yellow Urine Clarity (Clear) Clear Urine pH (5-8) 6.5 Ur Specific [place] (1.005-1.025) 1.025 Urine Protein (Negative) mg/dL Negative Urine Ketones (Negative) mg/dL Negative Urine Blood (Negative) Trace-intact H Urine Nitrite (Negative) Negative Urine Bilirubin (Negative) Negative Urine Urobilinogen (Up TO 0.2) EU/dL 0.2 Ur Leukocyte Esterase (Negative) Negative Urine RBC (0-2) HPF 0-2 Urine WBC (0-5) HPF Negative Ur Epithelial Cells (Negative) HPF Few Urine Crystals (Negative) HPF Negative Urine Bacteria (Negative) HPF Few Urine Mucus (Negative) Negative Ur Culture Indicated? No Urine Glucose (Negative) mg/dL Negative HPI General Date/Time Provider Initiated Documentation: 03/05/19 22:53. HPI Narrative: This is a 73-year-old female with a past medical history of arthritis, anxiety, depression, hypertension, obesity, who presents today for right hip and right flank pain. Patient states that over the last week and 1/2 to 2 weeks she has had mild to moderate right hip pain. She has been seen and assessed here recently on 03/02/2019 and had negative x-ray at that time. Injection of NSAID and steroid gave some relief, but pain eventually returned. At that time there were extensive discussions regarding potential placement and rehab facility versus discharge home and at the end the patient elected to go home. Patient presents today with continued pain. She states that it worsened significantly today when she was at the grocery store, when she got home she could not walk anymore and was sprawled out on the bed until EMS arrived. Pain is in the right buttock, right flank and hip. She describes it as a sharp and burning-like sensation. Worsened with movement. She has taken Tylenol and Motrin with no improvement of her symptoms. She denies any numbness or tingling. She denies any abdominal pain otherwise. EMS did note that her oxygen was low and upon arrival her O2 saturations were 87%. However she explicitly denies any chest pain, shortness of breath, chest heaviness, chest tightness, pleuritic chest pain, bandlike sensation around the chest, or other complaints. She denies any cough fever or chills. She denies any urinary symptoms. No other complaints at this time. No other modifying factors. Related Data Home Medications Medication Instructions Recorded Confirmed aspirin 81 mg PO DAILY 10/19/12 03/05/19 atenolol 50 mg PO DAILY 10/19/12 03/05/19 bupropion HCl [Wellbutrin XL] 300 mg PO DAILY 10/19/12 03/05/19 cholecalciferol (vitamin D3) 1,000 unit PO DAILY 10/19/12 03/05/19 [Vitamin D3] furosemide 20 mg PO BID 10/19/12 03/05/19 levothyroxine 25 mcg PO DAILY 10/19/12 03/05/19 acetaminophen [Tylenol 8 Hour] 650 mg PO Q8H PRN #15 tab 10/28/17 03/05/19 aripiprazole [Abilify] 2 mg PO DAILY 03/02/19 03/05/19 calcium carbonate-vitamin D3 1 tab PO DAILY 03/02/19 03/05/19 [Oyster Shell Calcium-Vit D3] diclofenac sodium [Voltaren] 1 % TOPICAL Q6H PRN PRN 03/02/19 03/05/19 ibuprofen 600 mg PO QID PRN #14 tab 03/02/19 03/05/19 loperamide [Imodium A-D] 2 mg PO Q4H PRN 03/02/19 03/05/19 losartan 25 mg PO DAILY 03/02/19 03/05/19 melatonin 5 mg PO QHS 03/02/19 03/05/19 Previous Rx's Medication Instructions Recorded acetaminophen [Tylenol 8 Hour] 650 mg PO Q8H PRN #15 tab 10/28/17 ibuprofen 600 mg PO QID PRN #14 tab 03/02/19 Allergies Allergy/AdvReac Type Severity Reaction Status Date / Time propoxyphene HCl Allergy Intermediate rash,itchy Unverified 03/05/19 22:32 [From Darvon] lisinopril AdvReac Mild cough Unverified 03/05/19 22:32 General Stated Complaint: Nk/Back Pain MORGAN: 3 Review of Systems All systems reviewed & are unremarkable except as noted in HPI and below PFSH Social History Smoking/Tobacco Use Status: Never Alcohol Intake: former Drug use: Never Substance use type: does not use Do you feel safe at home: Yes Do you feel safe in your relationship?: Yes Exam Narrative Exam Narrative: 1.Const: Well-nourished, Well-developed, appearing stated age 2.Eyes: PERRL, no conjunctival injection, and symmetrical lids. 3.ENT: Atraumatic external nose and ears. Moist MM. Neck: Symmetric, trachea midline, No thyromegaly. 4.CVS: +S1/S2, No murmurs or gallops. Peripheral pulses 2+ and equal in all extremities. Brisk capillary refill in all extremities. 5.RESP: Unlabored respiratory effort. Minimal crackles in the bases bilaterally, no wheezes or rhonchi. 6.GI: Soft, Nontender/Nondistended, No hepatosplenomegaly. No guarding or rebound. No pain at McBurney's point, negative Manuel sign, no suprapubic tenderness. No reproducible tenderness on right or left CVA, however subjective pain is present in the right flank area. 7.MSK: Normocephalic/Atraumatic, Extremities w/o deformity. No cyanosis or clubbing. No midline tenderness to palpation over the CTLS spine. Normal ROM in flexion, extension, side bend, and rotation. Patient has +5 out of 5 strength in the lower extremities in dorsiflexion and plantarflexion, knee flexion and extension, hip flexion and extension. However the patient does have notable pain with any movement in the right hip, as well as reproducible tenderness over the right greater trochanter. Normal strength for dorsiflexion and plantar flexion of the great toe bilaterally. There is +2 over 2 dorsalis pedis pulses bilaterally. No redness, warmth, drainage or discharge from the hip area. There is normal sensation to the skin with light touch at the foot, knee, and hip. Normal saddle sensation. Good sensation over the deep sural nerve area bilaterally. Rectal exam deferred. +2 pitting edema in the lower extremities bilaterally. 8.Skin: Warm, Dry. No rashes or lesions. 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 Sensation grossly intact, no focal neurologic deficits. 10.Psych: (AAO) x3. Appropriate mood and affect Course Vital Signs Vital signs: Vital Signs Temperature 36.7 C 03/05/19 21:35 Pulse 90 03/05/19 21:35 Respiratory Rate 18 03/05/19 21:35 Blood Pressure 163/73 H 03/05/19 21:35 Pulse Oximetry 87 L 03/05/19 21:35 Temperature 36.7 C 03/05/19 21:35 Temperature Source Skin 03/05/19 21:35 Pulse 90 03/05/19 21:35 Respiratory Rate 18 03/05/19 21:35 Blood Pressure 163/73 H 03/05/19 21:35 Blood Pressure Position Supine 03/05/19 21:35 Pulse Oximetry 87 L 03/05/19 21:35 Oxygen Delivery Method Room Air 03/05/19 21:35 Oxygen Flow Rate 0 03/05/19 21:35 Pain Level 10 03/05/19 21:35
[2019-03-05 22:25] LABS: BE (Venous) -2.6 mmol/L (-3-3); HCO3 (Venous) 23 mmol/L (22-28); O2 Sat (Venous) 74 % (70-80); TCO2 (Venous) 22 mmol/L (22-29); pCO2 (Venous) 45 mm/Hg (34-47); pH (Venous) 7.32 (7.35-7.45); pO2 (Venous) 42 mm/Hg (28-44)
[2019-03-05 22:26] LABS: Abs Immature Grans 0.02 k/cumm (0.0-0.09); Absolute Basophil Count 0.03 k/cumm (0.0-0.2); Absolute Eosinophil Count 0.05 k/cumm (0.0-0.7); Absolute Monocyte Count 0.35 k/cumm (0.11-0.7); Basophils % 0.5; Eosinophils % 0.8; HCT 37.5 % (36.0-46.0); Immature Grans % 0.3 %; Lymphocytes % 17.3; Mean Corpuscular Hemoglobin 30.2 pg (27.0-33.0); Mean Corpuscular Volume 94.5 fL (80-95); Mean Platelet Volume 10.5 fL (8.0-11.0); Monocytes % 5.5; Neutrophils % 75.6; Platelet Count 148 x1000/uL (130-400); RBC 3.97 m/cumm (4.00-5.20); RBC Distribution Width 13.6 % (11.7-14.6); White Blood Cell Count 6.35 k/cumm (4.4-10.8)
[2019-03-05 22:32] LABS: Bilirubin Negative (Negative); Blood Trace-intact (Negative); Clarity Clear (Clear); Glucose Negative (Negative); Ketones Negative (Negative); Leukocyte Esterase Negative (Negative); Nitrite Negative (Negative); Specific Gravity 1.025 (1.005-1.025); Urobilinogen 0.2 EU/dL (Up TO 0.2); pH 6.5 (5-8)
--- NOTE | 2019-03-05 22:35 | DI.CT_ITS ---
EXAM: CT ABDOMEN PELVIS WO CLINICAL HISTORY: right hip and flank pain TECHNIQUE: CT examination of the abdomen and pelvis was performed without contrast administration. COMPARISON: ABD PELVIS WITH CONTRAST from 02/28/2008 FINDINGS: There was marked patient motion which degrades the images. Images obtained through the lung bases s how tiny left pleural effusion and question mild interstitial infiltrates, this is difficult to confi rm due to motion. Liver and spleen grossly unremarkable, limited due to motion. Pancreas grossly un remarkable. No gross hydronephrosis. Abdominal aorta is of normal diameter. Fat containing umbilic al hernia noted. No gross adenopathy seen in the abdomen or pelvis. No gross evidence of obstructio n. IMPRESSION: Very limited study due to motion. No evidence of acute process.
[2019-03-05 22:37] LABS: PTT Activated 26.2 sec (21.0-31.4); Prothrombin Time 10.3 sec (9.3-11.0)
[2019-03-05 22:43] LABS: Bacteria Few HPF (Negative); C & S Indicated? No; Crystals Negative HPF (Negative); Epithelial Cells Few HPF (Negative); Mucus Negative (Negative); RBC 0-2 HPF (0-2); WBC Negative HPF (0-5)
[2019-03-05 22:44] LABS: ALT 23 U/L (14-59); AST 33 U/L (15-37); Albumin 3.5 g/dL (3.4-5.0); Alkaline Phosphatase 88 U/L (46-116); BUN 24 mg/dL (7-18); Bilirubin, Total 0.4 mg/dL (0.2-1.0); CREATININE 1.18 mg/dL (0.55-1.02); Calcium 8.9 mg/dL (8.5-10.1); Chloride 109 mmol/L (98-107); Estimated GFR 44.65 (mL/min/1.73m2); Glucose 114 mg/dL (74-106); Potassium 4.2 mmol/L (3.5-5.1); Sodium 144 mmol/L (136-145); Total Protein 6.9 g/dL (6.4-8.2); Troponin I < 0.05 ng/Ml (<0.06)
--- NOTE | 2019-03-05 22:44 | DI.RAD_ITS ---
EXAM: XR CHEST 1V IN DI DEPT CLINICAL HISTORY: right hip and right flank pain TECHNIQUE: COMPARISON: XR shoulder LT complete 2+V from 10/28/2017 FINDINGS: Heart is enlarged. There are mild diffuse bilateral intrapulmonary interstitial infiltrates suggesti ng mild CHF. Other causes of interstitial infiltrates not excluded. No gross pleural effusion on th is frontal film. IMPRESSION: Findings suggesting mild CHF. Appropriate follow-up studies requested.
[2019-03-05 22:48] LABS: NT-proBNP 2724 pg/mL (<300)
--- NOTE | 2019-03-05 22:55 | DI.VRAD_ITS ---
PROCEDURE INFORMATION: Exam: XR Chest, 1 View Exam date and time: 03/05/2019 10:46 PM Age: 73 years old Clinical indication: Other: Hypoxic; Additional info: 1v taken in di - PT could not tolerate sitting up for views TECHNIQUE: Imaging protocol: XR of the chest Views: 1 view. COMPARISON: CR XR CHEST 2V PA LATERAL 10/28/2017 11:13 AM FINDINGS: Lungs: Mild increase interstitial markings bilaterally. Cannot exclude early interstitial edema. These features were not present on 10/28/2017. There is also mild pulmonary venous engorgement. Pleural space: No pleural effusion. Heart/Mediastinum: Mild cardiac enlargement. Bones/joints: Degenerative thoracic spine changes. IMPRESSION: 1. Findings consistent with mild congestive heart failure. Interstitial edema and pulmonary venous engorgement. 2. Mild cardiomegaly. Dictated and Authenticated by: Daryl Cohen MD. Ordering:YOUSIF Hood MD
[2019-03-05] MEDS: diazePAM 10 MG/2 ML SYR 5 MG IVP (23:03)
[2019-03-05] MEDS: Furosemide 20 MG/2 ML VIAL IVP (23:04)
--- NOTE | 2019-03-05 23:06 | DI.VRAD_ITS ---
PROCEDURE INFORMATION: Exam: CT Abdomen And Pelvis Without Contrast Exam date and time: 03/05/2019 9:43 PM Age: 73 years old Clinical indication: Abdominal pain and other: RT hip; Patient HX: Right hip and right flank pain; Additional info: Per PT: Did not fall TECHNIQUE: Imaging protocol: Computed tomography of the abdomen and pelvis without contrast. COMPARISON: CR XR HIP RT COMPLETE AP PELVIS 03/02/2019 9:25 PM FINDINGS: Lungs: Bilateral lung base interstitial ground-glass changes may represent mild interstitial edema. Pleural space: Minimal bilateral pleural effusions. Liver: Normal. No mass. Gallbladder and bile ducts: No gallstones. Pancreas: Normal. No ductal dilation. Spleen: Normal. No splenomegaly. Adrenals: Normal. No mass. Kidneys and ureters: No hydronephrosis or renal calculi. Stomach and bowel: Unremarkable. No obstruction. No mucosal thickening. Colonic diverticulosis. Appendix: No evidence of appendicitis. Intraperitoneal space: Peritoneal space without free fluid or free air. Vasculature: Abdominal aorta with minimal atherosclerosis. No aneurysmal changes. Lymph nodes: Unremarkable. No enlarged lymph nodes. Bladder: Unremarkable as visualized. Reproductive: Previous hysterectomy. Bones/joints: Severe degenerative lumbar spine disease. Multilevel disc and facet degeneration. No lumbar fracture. No sacral fracture. Pelvis and hips are unremarkable. No fracture or diastasis. There is osteopenia. Soft tissues: Fat containing umbilical hernia without evidence of strangulation. Hernia sac is approximately 4.3 cm. IMPRESSION: 1. Minor lung base interstitial edema. Minimal pleural effusions. 2. No acute findings within the abdomen or pelvis. There is some degradation of image quality due to respiratory motion artifact. 3. Fat containing umbilical hernia without evidence of strangulation. 4. Colonic diverticulosis without acute diverticulitis, obstruction, or inflammation. Small bowel is unremarkable. 5. Degenerative lumbar spine changes. No acute fracture. No evidence of pelvic fracture or hip fracture. Dictated and Authenticated by: Daryl Cohen MD. Ordering:YOUSIF Hood MD
[2019-03-05 23:08] VITALS: BP 155/73; PULSE 83; RESP 27; O2SAT 94
[2019-03-05 23:45] VITALS: BP 108/83; PULSE 91; RESP 24; O2SAT 96
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
[2019-03-06] VITALS (12 sets, daily range): BP systolic 113–158; BP diastolic 68–94; PULSE 51–79; RESP 16–24; TEMP 36.1–36.9; O2SAT 95–100
[2019-03-06 02:39] LABS: Troponin I < 0.05 ng/Ml (<0.06)
[2019-03-06 05:50] LABS: Platelet Count 140 x1000/uL (130-400)
[2019-03-06] MEDS: Levothyroxine 25 MCG TAB PO (05:53)
[2019-03-06 05:59] LABS: Anion Gap 8.9 mmol/L (3-11); BUN 20 mg/dL (7-18); CO2 26.1 mmol/L (21.0-32.0); CREATININE 1.11 mg/dL (0.55-1.02); Calcium 8.7 mg/dL (8.5-10.1); Chloride 110 mmol/L (98-107); Estimated GFR 47.92 (mL/min/1.73m2); Glucose 103 mg/dL (74-106); Potassium 3.2 mmol/L (3.5-5.1); Sodium 145 mmol/L (136-145)
[2019-03-06 06:06] LABS: Calculated LDL 67 mg/dL; Cholesterol 140 mg/dL (<200); HDL Cholesterol 67 mg/dL (40-60); Triglyceride 33 mg/dL (<150); Troponin I < 0.05 ng/Ml (<0.06)
[2019-03-06 06:11] LABS: TSH (W/Ref FT4) 2.39 uIU/mL (0.36-3.74)
[2019-03-06 06:29] LABS: Hemoglobin A1C 5.5 % (3.8-5.6)
[2019-03-06] MEDS: Furosemide 40 MG/4 ML VIAL IVP ×2 (08:36→16:21)
[2019-03-06] MEDS: Potassium Chloride 20 MEQ TABCR 40 MEQ PO (08:36)
[2019-03-06] MEDS: Normal Saline Flush 10 ML SYR IVP ×3 (08:36→16:22)
[2019-03-06] MEDS: buPROPion-XL 150 MG TABCR 300 MG PO (08:37)
[2019-03-06] MEDS: Atenolol 50 MG TAB PO (08:37)
[2019-03-06] MEDS: ARIPiprazole 2 MG TAB PO (08:37)
[2019-03-06] MEDS: Acetaminophen 325 MG TAB PO (08:37)
[2019-03-06] MEDS: Aspirin E.C. 81 MG TABEC PO (08:37)
[2019-03-06] MEDS: Calcium 600mg/Vit D 200U TAB 1 TAB PO (08:37)
[2019-03-06] MEDS: Cholecalciferol (Vitamin D3) 1,000 UNIT TAB 1000 UNITS PO (08:37)
[2019-03-06] MEDS: traMADol 50 MG TAB 100 MG PO (08:37)
[2019-03-06] MEDS: Enoxaparin 40 MG/0.4 ML SYR SC (08:38)
[2019-03-06] MEDS: Losartan 25 MG TAB PO (08:38)
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
[2019-03-06] MEDS: HYDROmorphone 2 MG/ML VIAL IVP (12:04)
--- NOTE | 2019-03-06 15:31 | W.PM.PROGNOT ---
Date of Service Date of service: 03/06/19 Time of Service: 15:31 Assessment and Plan Assessment and plan (1) Acute congestive heart failure: Start date: 03/06/19 Start time: 15:56 Status: Acute Assessment and plan: Unclear as to the etiology of her heart failure. She has been taking Lasix for quite some time for intermittent leg edema but she denies a diagnosis of heart failure and denies skipping her Lasix. She is also on losartan for her hypertension which may have been incompletely treating her heart failure. Monitor I/O, wt. unclear what dry wt is will monitor volume status. Slight JVD. LS diminished without crackles, rhonchi or wheezing. Continue IVP lasix. Echo for tomorrow, consider inpatient nuclear stress. Qualifiers: Heart failure type: unspecified Qualified Code(s): I50.9 - Heart failure, unspecified (2) Right hip pain: Start date: 03/06/19 Start time: 16:04 Status: Acute Assessment and plan: Tramadol 100 mg not effective at this time. Continues to have pain. Switch tramadol to roxicodone po with tylenol. Add aqua k pack. Muscle relaxer for pain, lidoderm patch, steroid burst, and monitor. (3) Hyperkalemia: Start date: 03/06/19 Start time: 16:07 Status: Acute Assessment and plan: K 3.2 repleted with PO k. recheck in am Above case discussed with Dr. Jonas who is in agreement. Subjective Subjective Patient reports: still having pain Interval history since last seen: C/o pain to back and hip. Tramadol dcd, roxicodone started with tylenol prn, lidoderm patch, steroid burst for bone pain. Denies history of CHF. Has been on lasix for years for bilateral edema. Discussed with patient CHF diagnosis and what to look for. She denies CP, SOB, N/V/D, her main concern is back pain at this time. Exam Narrative Exam Narrative: Morbidly obese female who is alert and oriented to person place time and circumstance HEENT poor dentition, no dentures or teeth. Neck is supple nontender normal carotid pulses no bruits. Minimal JVD. Lungs diminished Heart is regular without S3 or S4 gallop no murmur. Abdomen is obese soft and nontender no organomegaly no palpable masses. Legs are edematous 2+ nonpitting edema from just below the knees down to the ankle. Right hip is nontender to palpation but she is tender over the right ischium. No pain with internal and external rotation of the hip. Neurologic exam is grossly intact no focal motor or sensory deficits. Objective Objective Clinical Data: Abnormal lab results 03/05/19 03/05/19 03/05/19 Range/Units 22:19 22:19 22:19 RBC (4.00-5.20) m/cumm Absolute Lymphocytes (1.2-3.4) k/cumm VBG pH 7.32 L (7.35-7.45) Potassium (3.5-5.1) mmol/L Chloride 109 H (98-107) mmol/L BUN 24 H (7-18) mg/dL Creatinine 1.18 H (0.55-1.02) mg/dL Glucose 114 H (74-106) mg/dL NT-Pro-B Natriuret Pep 2724 H (<300) pg/mL HDL Cholesterol (40-60) mg/dL Urine Blood (Negative) 03/05/19 03/05/19 03/06/19 Range/Units 22:19 22:29 05:35 RBC 3.97 L (4.00-5.20) m/cumm Absolute Lymphocytes 1.10 L (1.2-3.4) k/cumm VBG pH (7.35-7.45) Potassium 3.2 L D (3.5-5.1) mmol/L Chloride 110 H (98-107) mmol/L BUN 20 H (7-18) mg/dL Creatinine 1.11 H (0.55-1.02) mg/dL Glucose (74-106) mg/dL NT-Pro-B Natriuret Pep (<300) pg/mL HDL Cholesterol (40-60) mg/dL Urine Blood Trace-intact H (Negative) 03/06/19 Range/Units 05:35 RBC (4.00-5.20) m/cumm Absolute Lymphocytes (1.2-3.4) k/cumm VBG pH (7.35-7.45) Potassium (3.5-5.1) mmol/L Chloride (98-107) mmol/L BUN (7-18) mg/dL Creatinine (0.55-1.02) mg/dL Glucose (74-106) mg/dL NT-Pro-B Natriuret Pep (<300) pg/mL HDL Cholesterol 67 H (40-60) mg/dL Urine Blood (Negative) Vital Signs Temperature 36.9 C 03/06/19 11:55 Temperature Source Tympanic 03/06/19 11:55 Pulse 51 L 03/06/19 11:55 Pulse Rhythm Regular 03/06/19 08:20 Respiratory Rate 19 03/06/19 11:55 Respiratory Effort 03/06/19 08:20 Respiratory Depth Normal 03/06/19 08:20 Respiratory Pattern Normal 03/06/19 08:20 Blood Pressure 126/68 03/06/19 11:55 Blood Pressure Position Supine 03/05/19 21:35 Pulse Oximetry 98 03/06/19 11:55 Oxygen Delivery Method Room Air 03/06/19 11:55 Oxygen Flow Rate 0 03/06/19 11:55 Pain Level 8 03/06/19 12:04 Comment 03/06/19 08:15 Intake & Output 03/05/19 03/06/19 03/06/19 23:59 11:59 23:59 Intake Total 960 / 1160 200 / 1160 Output Total 150 / 150 1524 Balance -150 / -150 -565 / -815 -250 / -815 Weight 93.8 kg 90.5 kg Intake: Oral 960 / 1160 200 / 1160 Output: Urine 150 / 150 1524 Other: Urine Color Yellow Pale Urine Appearance Clear Clear Laboratory Results WBC 6.35 k/cumm (4.4-10.8) 03/05/19 22: RBC 3.97 m/cumm (4.00-5.20) L 03/05/19 22: Hgb 12.0 g/dL (12.0-15.5) 03/05/19 22: Hct 37.5 % (36.0-46.0) 03/05/19 22:19 MCV 94.5 fL (80-95) 03/05/19 22:19 MCH 30.2 pg (27.0-33.0) 03/05/19 22: MCHC 32.0 g/dL (32.0-36.0) 03/05/19 22:19 RDW 13.6 % (11.7-14.6) 03/05/19 22:19 Plt Count 140 x1000/uL (130-400) 03/06/19 05:35 MPV 10.5 fL (8.0-11.0) 03/05/19 22:19 Immature Gran % 0.3 % 03/05/19 22:19 Neutrophils % 75.6 03/05/19 22:19 Lymphocytes % 17.3 03/05/19 22:19 Monocytes % 5.5 03/05/19 22:19 Eosinophils % 0.8 03/05/19 22:19 Basophils % 0.5 03/05/19 22:19 Absolute Neutrophils 4.80 k/cumm (1.2-6.7) 03/05/19 22: Absolute Lymphocytes 1.10 k/cumm (1.2-3.4) L 03/05/19 22:19 Absolute Monocytes 0.35 k/cumm (0.11-0.7) 03/05/19 22:19 Absolute Eosinophils 0.05 k/cumm (0.0-0.7) 03/05/19 22:19 Absolute Basophils 0.03 k/cumm (0.0-0.2) 03/05/19 22:19 PT 10.3 sec (9.3-11.0) 03/05/19 22:19 INR 1.0 (0.9-1.1) 03/05/19 22:19 APTT 26.2 sec (21.0-31.4) 03/05/19 22:19 VBG pH 7.32 (7.35-7.45) L 03/05/19 22:19 VBG pCO2 45 mm/Hg (34-47) 03/05/19 22:19 VBG pO2 42 mm/Hg (28-44) 03/05/19 22:19 VBG HCO3 23 mmol/L (22-28) 03/05/19: VBG Total CO2 22 mmol/L (22-29) 03/05/19 22:19 VBG O2 Saturation 74 % (70-80) 03/05/19 22:19 VBG Base Excess -2.6 mmol/L (-3-3) 03/05/19 22:19 Sodium 145 mmol/L (136-145) 03/06/19 05:35 Potassium 3.2 mmol/L (3.5-5.1) L D 03/06/19 05:35 Chloride 110 mmol/L (98-107) H 03/06/19 05:35 Carbon Dioxide 26.1 mmol/L (21.0-32.0) 03/06/19 05:35 Anion Gap 8.9 mmol/L (3-11) 03/06/19 05:35 BUN 20 mg/dL (7-18) H 03/06/19 05:35 Creatinine 1.11 mg/dL (0.55-1.02) H 03/06/19 05:35 Estimated GFR/1.73 m2 47.92 (mL/min/1.73m2) 03/06/19 05:35 Glucose 103 mg/dL (74-106) 03/06/19 05:35 Hemoglobin A1c 5.5 % (3.8-5.6) 03/06/19 05:35 Calcium 8.7 mg/dL (8.5-10.1) 03/06/19 05:35 Magnesium 2.0 mg/dL (1.8-2.4) 03/06/19 05:35 Total Bilirubin 0.4 mg/dL (0.2-1.0) 03/05/19 22:19 AST 33 U/L (15-37) 03/05/19 22:19 ALT 23 U/L (14-59) 03/05/19 22:19 Alkaline Phosphatase 88 U/L (46-116) 03/05/19 22:19 Troponin I < 0.05 ng/Ml (<0.06) 03/06/19 05:35 NT-Pro-B Natriuret Pep 2724 pg/mL (<300) H 03/05/19 22:19 Total Protein 6.9 g/dL (6.4-8.2) 03/05/19 22:19 Albumin 3.5 g/dL (3.4-5.0) 03/05/19 22:19 Triglycerides 33 mg/dL (<150) 03/06/19 05:35 Total Cholesterol 140 mg/dL (<200) 03/06/19 05:35 LDL Cholesterol, Calc 67 mg/dL 03/06/19 05:35 HDL Cholesterol 67 mg/dL (40-60) H 03/06/19 05:35 TSH 2.39 uIU/mL (0.36-3.74) 03/06/19 05:35 Urine Color Yellow (Yellow) 03/05/19: Urine Clarity Clear (Clear) 03/05/19 22: Urine pH 6.5 (5-8) 03/05/19 22: Ur Specific [place] 1.025 (1.005-1.025) 03/05/19 22: Urine Protein Negative mg/dL (Negative) 03/05/19: Urine Ketones Negative mg/dL (Negative) 03/05/19: Urine Blood Trace-intact (Negative) H 03/05/19: Urine Nitrite Negative (Negative) 03/05/19: Urine Bilirubin Negative (Negative) 03/05/19: Urine Urobilinogen 0.2 EU/dL (Up TO 0.2) 03/05/19: Ur Leukocyte Esterase Negative (Negative) 03/05/19: Urine RBC 0-2 HPF (0-2) 03/05/19 22: Urine WBC Negative HPF (0-5) 03/05/19: Ur Epithelial Cells Few HPF (Negative) 03/05/19: Urine Crystals Negative HPF (Negative) 03/05/19: Urine Bacteria Few HPF (Negative) 03/05/19 22: Urine Mucus Negative (Negative) 03/05/19: Ur Culture Indicated? No 03/05/19 Urine Glucose Negative mg/dL (Negative) 03/05/19
[2019-03-06] MEDS: predniSONE 20 MG TAB 60 MG PO (16:21)
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
[2019-03-06] MEDS: Melatonin 3 MG TAB 6 MG PO (20:14)
[2019-03-06] MEDS: Lidocaine 5% Patch 1 PATCH TP (20:14)
[2019-03-06] MEDS: Potassium Chloride 20 MEQ TABCR PO (20:14)
[2019-03-07] VITALS (8 sets, daily range): BP systolic 116–144; BP diastolic 68–82; PULSE 61–70; RESP 18–20; TEMP 36–37.2; O2SAT 93–97
[2019-03-07] MEDS: Normal Saline Flush 10 ML SYR IVP ×2 (00:52→09:11)
[2019-03-07] MEDS: HYDROmorphone 2 MG/ML VIAL IVP (00:53)
[2019-03-07] MEDS: Levothyroxine 25 MCG TAB PO (06:57)
[2019-03-07 07:05] LABS: Anion Gap 6.7 mmol/L (3-11); BUN 28 mg/dL (7-18); CO2 26.3 mmol/L (21.0-32.0); CREATININE 1.14 mg/dL (0.55-1.02); Calcium 8.6 mg/dL (8.5-10.1); Chloride 110 mmol/L (98-107); Estimated GFR 46.47 (mL/min/1.73m2); Glucose 112 mg/dL (74-106); Magnesium 1.9 mg/dL (1.8-2.4); NT-proBNP 2171 pg/mL (<300); Potassium 4.2 mmol/L (3.5-5.1); Sodium 143 mmol/L (136-145)
--- NOTE | 2019-03-07 07:30 | DI.US_ITS ---
APPROVED REPORT EXAM: Comprehensive 2D, Doppler, and color-flow Echocardiogram Patient Location: In-Patient Room/Bed: 207A Beauty Specialist: Darcy Jules RDCS (AE) Indications: CHF, Evaluate LV and RV Conclusion Left Ventricle : The left ventricle is normal size. The left ventricular systolic function is normal . The left ventricular ejection fraction is within the normal range. There is normal left ventricula r wall thickness. There is normal LV segmental wall motion. The left ventricular diastolic function is normal. LVEF is 55-59%. Right Ventricle : The right ventricle is normal size. The right ventricular systolic function is norm al. Atria : The left atrium size is normal. The right atrium size is normal. Aortic Valve : Aortic valve is trileaflet. No aortic regurgitation is present. There is no aortic helena vular stenosis. Mitral Valve : There is mitral annular calcification. Mild to moderate mitral regurgitation (RV35 mL, ERO 20 mm???). No evidence of mitral valve stenosis. Tricuspid Valve : The tricuspid valve is normal in structure. Mild tricuspid regurgitation. There is no tricuspid valve stenosis. Pulmonic Valve : Pulmonic valve is not well visualized. Great Vessels : IVC is normal in size and collapses >50% with inspiration. Estimated RVSP is 30-33 m mHg. Images from prior echocardiogram in 2006 are unavailable for comparison. Wall motion Left Ventricle The left ventricle is normal size. The left ventricular systolic function is normal. The left ventric ular ejection fraction is within the normal range. There is normal left ventricular wall thickness. T here is normal LV segmental wall motion. The left ventricular diastolic function is normal. LVEF is 5 5-59%. Right Ventricle The right ventricle is normal size. The right ventricular systolic function is normal. Atria The left atrium size is normal. The right atrium size is normal. Aortic Valve Aortic valve is trileaflet. There is no aortic valvular stenosis. No aortic regurgitation is present. Mitral Valve There is mitral annular calcification. No evidence of mitral valve stenosis. Mild to moderate mitral regurgitation (RV35 mL, ERO 20 mm???). Tricuspid Valve The tricuspid valve is normal in structure. There is no tricuspid valve stenosis. Mild tricuspid regu rgitation. Pulmonic Valve Pulmonic valve is not well visualized. There is no pulmonic valvular stenosis. There is no pulmonic v alvular regurgitation. Great Vessels The aortic root is normal in size. The ascending aorta is normal in size. IVC is normal in size and c ollapses >50% with inspiration. Estimated RVSP is 30-33 mmHg. Pericardium No pericardial effusion. 2D Dimensions IVSd 0.90 cm F: 0.6-1.0 LV EDV A2C 70.9 mL PWd 0.90 cm F: 0.6 - 1.0 LV EDV A4C 88.2 mL LVDd 4.80 cm F: 3.8 - 5.2 LA Volume Index Biplane 54.5 mL/m2 LVDs 3.55 cm F: 2.2 - 3.5 LA Area A4C 27.71 cm2 Aortic Root 2.90 cm F: 2.7 - 3.3 LA Area A2C 26.43 cm2 Left Atrium 3.10 cm F: 2.7 - 3.8 LA/Aortic Root Ratio 0.94 RA Area A4C 14.16 cm2 EF AP4 51.6 % LVOT 1.85 cm (M/F) 1.5-2.5 EF AP2 59.8 % Ascending Aorta 2.97 cm F: 2.3 - 3.1 EF BP 56.0 % LVEF (Teich) 50.5 % IVC 1.83 cm LVEF (Swartz's) 55.96 % F: 54 - 74 LV Volume 60.03 mL F: 46 - 106 LV Volume Index 31.10 mL/m2 F: 29 - 61 FS 25.70 % LV Diastology E Decel Time 174.00 (160-240 msec) E/A Ratio 2.6 MV E' medial 0.112 (>0.07 m/s) LV E/e MED 10.15 (<14) MV E' lateral 0.128 (>0.1 m/s) LV E/e LAT 8.90 (<14) Aortic Valve LVOT Area 2.73 cm2 LVOT Vmax 0.97 m/s LVOT Mean Tl. 0.59 m/s LVOT Peak Gr. 3.7 mmHg AoV Area Vmax 2.13 cm2 LVOT Mean Gr. 1.7 mmHg AoV Area/ BSA (Vmax) 1.10 cm2/m2 LVOT VTI 0.216 m AoV Vmax 1.24 (0.5-1.3 m/s) CLIFTON Mean Tl. Index 1.02 cm2/m2 AoV Mean Tl. 0.82 m/s AoV Peak Grad 6.2 mmHg LVOT SV 59.04 mL AoV Mean Grad 3.0 (<5 mmHg) AoV VTI 0.262 (0.18-0.25 m) AoV Area VTI 2.26 (2.5-4.5 cm2) AoV Area/ BSA (VTI) 1.17 cm/m2 Mitral Valve MV E Max Tl. 1.15 (0.4-1.3 m/s) MV A Velocity 0.45 (0.4-1.3 m/s) E/A Ratio 2.33 MV Decel. Time 174 (160-240 msec) PISA MR 2.55 cm2 ERO A 0.15 cm2 MV PHT 50 msec MVA PHT 4.35 cm2 PISA Radius 0.64 cm Tricuspid Valve TV Regurg Vmax 2.75 m/s RAP Estimate 3.00 mmHg TR P. Gradient 30.1 mmHg RVSP 33.2 mmHg
[2019-03-07] MEDS: Aspirin E.C. 81 MG TABEC PO (09:08)
[2019-03-07] MEDS: Losartan 25 MG TAB PO (09:08)
[2019-03-07] MEDS: predniSONE 20 MG TAB 60 MG PO (09:08)
[2019-03-07] MEDS: buPROPion-XL 150 MG TABCR 300 MG PO (09:08)
[2019-03-07] MEDS: Atenolol 50 MG TAB PO (09:08)
[2019-03-07] MEDS: Cholecalciferol (Vitamin D3) 1,000 UNIT TAB 1000 UNITS PO (09:09)
[2019-03-07] MEDS: Potassium Chloride 20 MEQ TABCR PO ×2 (09:09→19:38)
[2019-03-07] MEDS: Calcium 600mg/Vit D 200U TAB 1 TAB PO (09:09)
[2019-03-07] MEDS: Furosemide 40 MG/4 ML VIAL IVP (09:10)
[2019-03-07] MEDS: Enoxaparin 40 MG/0.4 ML SYR SC (09:11)
[2019-03-07] MEDS: ARIPiprazole 2 MG TAB PO (09:21)
[2019-03-07] MEDS: Patch Removal 1 EACH TP (09:23)
--- NOTE | 2019-03-07 11:55 | W.NUTCONSULT ---
Date of service: 03/07/19 Time of Service: 11:55 Nutritional Consult ASSESSMENT: 73 year old female admitted with CHF, hyperkalemia and back pain. Following Heart Healthy Diet with adequate intake. BMI indicates class 1 obesity. Not at nutritional risk at this time. MONITORING AND EVALUATION: weight, po intake, labs Time Spent in Nutritional Counseling and Treatment: 0 times spent face to face
--- NOTE | 2019-03-07 12:18 | PHARADMIT ---
Addendum entered by John Dinero III 03/09/19 17:13: Pharmacy Note Subjective Plan was to discharge patient today, but because she is still having 8-9/10 hip/back pain, she was not ready. Patient has been confused, MD meeta Clifford. Objective VS-OK No Labs wgt-87.6 kg Assessment Patient has been refusing Oxycodone, although she received a dose today. Plan Plan is for her to go to [facility] where she has been acccepted, tomorrow Addendum entered by Oneyda Lr 03/08/19 16:50: Pharmacy Note Subjective Confused overnight per AM report Objective Echo: normal LV fxn, EF 55-59%; Wt 87.6 kg (down 6.2kg since admission); vitals ok; lytes ok Assessment Changed to PO lasix, working on rehab placement Plan TESSY cyclobenzaprine due to confusion, continue oxycodone and add gabapentin + ibuprofen for pain Original Note: Admission Pharmacy Clinical Review CHF exacerbation, right hip pain Code Status Full Code Current Weight 88.9 kg Renally Cleared and Narrow Therapeutic Index Meds Crcl ~45.1 mL/min using adjusted body weight current meds okay QTc Value / Action Taken QTc 430 BP Control, Fever BP 125/75 afebrile Electrolytes reviewed Cl 110 DVT Prophylaxis enoxaparin Opiate Usage / Scheduled Bowel Regimen Ordered prn/prn Plt/SCr for Heparin / Enoxaparin plt 140 SCr 1.14 INR for Warfarin n/a H/H stable, WBC/Bands h/h 12.0/37.5 wbc 6.35 Antibiotic appropriateness none Cultures and Sensitivities none Surgical ABX d/c within 24 hr n/a DM control / Insulin Dosing Bg 112 none Heart Failure (Check EF%) (GASTON's, B-Block, Diuretics) atenolol, furosemide,losartan IV to PO Switch n/a Home Meds Reviewed -bupropion may increase the serum concentration of aripiprazole (decrease the metabolism); consider alternatives; aripiprazole may need dose adjustment depending on indication -NSAIDs may enhance the adverse/toxic effects (bleeding risk) and decrease the cardioprotective effects of aspirin. aspirin may decrease the serum concentration of NSAIDs -multiple NSAIDs: ibuprofen and diclofenac, increases the risk of adverse/toxic effects -NSAIDs may diminish the therapeutic effect of furosemide; furosemide may enhance the nephrotoxic effect of NSAIDs -separate admin of levothyroxine from calcium carbonate/vitD Home Meds Not Ordered diclofenac, ibuprofen, loperamide (no BM since admission) Comments ECHO today, possible stress test once pt euvolemic per morning report
--- NOTE | 2019-03-07 13:41 | W.NUTRFU ---
Date of service: 03/07/19 Time of Service: 13:41 Nutritional Follow up NOTE: Provided education to Ms. Almaguer on importance of low sodium diet at discharge as with CHF. reviewed meal options and provided educational material and contact information. Time Spent in Nutritional Counseling and Treatment: 15 min spent face to face
--- NOTE | 2019-03-07 14:17 | PT.INTREAT ---
Date of service: 03/07/19 Time of Service: 14:17 PT Notes Visit Reasons: CHF EXACERBATION,RIGHT HIP PAIN Inpatient Physical Therapy Treatment Note [facility] Date: 03/07/19 PRECAUTIONS: Fall, LBP with activity SUBJECTIVE: Arlin states that she continues to have significant LBP with all activity. She does report that she felt somewhat better following manual therapy and use of heating pad yesterday. OBJECTIVE: PAIN: Patient c/o LBP with activity BED MOBILITY/TRANSFERS Rolling L/R: Mod A Supine-sit: Min A with HOB flat (instruction for use of log rolling technique) Sit-supine: Mod A with HOB flat (instruction for use of log rolling technique) Sit-stand: CGA in a.m.; SBA in p.m. with cueing for safe techniques Stand-sit: SBA with cueing for safe techniques Bed-Chair: SBA with FWW Chair-bed: SBA with FWW GAIT Assistive Device: FWW Weight bearing: Full Assist: SBA in a.m.; SBA-S in p.m. Distance: 5' x2 in a.m.; 40' in p.m. Deviation: Small, short steps, cueing for increased stride length and step height THEREX: Patient completed a LE strengthening and stabilization program, in a seated position, as per flow sheet. She c/o LBP with R LE movements. MANUAL THERAPY: With patient in side-lying , performed STM and trigger point release techniques throughout bilateral lumbar paraspinals as well as throughout R glutes and piriformis. ASSESSMENT: Patient tolerated session with complaints of LBP with transfers and gait training. Patient was able to tolerate a progression in gait distance, although demonstrates small, short steps, requiring cueing for increased stride length and step height. She would benefit from continued manual therapy for pain relief as well as continued gait and transfer training for improved mobility and activity tolerance. PLAN: Continue with PTs POC TREATMENT CODE/TIME: Session 1: 45 minutes; 15687 x3 Session 2: 30 minutes; 70903, [id number]
--- NOTE | 2019-03-07 14:36 | W.PM.PROGNOT ---
Date of Service Date of service: 03/07/19 Time of Service: 14:36 Assessment and Plan Assessment and plan (1) Acute congestive heart failure: Start date: 03/07/19 Start time: 14:39 Status: Acute Assessment and plan: Echo today with normal LV function. EF 55-59%. LV diastolic function normal. mild to moderate regurgitation. RSVP 30-33. BNP elevated at 2117. Wt at 88.9 kg, down to kg from yesterday. Appears to euvolemic no JVD, edema improving. Will place on PO lasix and monitor wts, I/O. Qualifiers: Heart failure type: unspecified Qualified Code(s): I50.9 - Heart failure, unspecified (2) Right hip pain: Start date: 03/07/19 Start time: 14:43 Status: Acute Assessment and plan: Improving but continues to have pain. PT/OT, continue heat, oral pain meds, lidocaine. (3) Hyperkalemia: Start date: 03/07/19 Start time: 14:47 Status: Acute Assessment and plan: Resolved. Continue to monitor. Above case discussed with Dr. Jonas who is in agreement. Subjective Subjective Patient reports: feels better Interval history since last seen: Feeling better, still having back pain but improving. Echo today with normal LV function. EF 55-59%. LV diastolic function normal. mild to moderate regurgitation. RSVP 30-33. Denies CP, SOB, N/V/D. Exam Narrative Exam Narrative: Morbidly obese female who is alert and oriented to person place time and circumstance sitting up in chair HEENT poor dentition, no dentures or teeth. Neck is supple nontender normal carotid pulses no bruits. Minimal JVD. Lungs diminished Heart is regular without S3 or S4 gallop no murmur. Abdomen is obese soft and nontender no organomegaly no palpable masses. Legs are edematous 1+ nonpitting edema from just below the knees down to the ankle. Right hip is nontender to palpation but she is tender over the right ischium. No pain with internal and external rotation of the hip. Neurologic exam is grossly intact no focal motor or sensory deficits. Objective Objective Clinical Data: Abnormal lab results 03/07/19 Range/Units 06:16 Chloride 110 H (98-107) mmol/L BUN 28 H (7-18) mg/dL Creatinine 1.14 H (0.55-1.02) mg/dL Glucose 112 H (74-106) mg/dL NT-Pro-B Natriuret Pep 2171 H (<300) pg/mL Vital Signs Temperature 36.5 C 03/07/19 07:15 Temperature Source Tympanic 03/07/19 07:15 Pulse 63 03/07/19 07:15 Pulse Rhythm Regular 03/07/19 10:35 Respiratory Rate 20 03/07/19 07:15 Respiratory Effort 03/07/19 10:35 Respiratory Depth Normal 03/07/19 10:35 Respiratory Pattern Normal 03/07/19 10:35 Blood Pressure 125/75 03/07/19 07:15 Blood Pressure Position Supine 03/05/19 21:35 Pulse Oximetry 96 03/07/19 07:15 Oxygen Delivery Method Room Air 03/07/19 07:15 Oxygen Flow Rate 0 03/07/19 07:15 Pain Level 8 03/07/19 00:53 Comment 03/06/19 08:15 Intake & Output 03/06/19 03/07/19 03/07/19 23:59 11:59 23:59 Intake Total 450 / 1410 225 / 465 240 / 465 Output Total 1750 / 3275 475 / 475 Balance -1300 / -1865 -250 / -10 240 / -10 Weight 88.9 kg Intake: IV Oral 440 / 1400 225 / 465 240 / 465 Output: Urine 1750 / 3275 475 / 475 Other: Urine Color Pale Yellow Urine Appearance Clear Clear Laboratory Results WBC 6.35 k/cumm (4.4-10.8) 03/05/19 22: RBC 3.97 m/cumm (4.00-5.20) L 03/05/19 22: Hgb 12.0 g/dL (12.0-15.5) 03/05/19 22: Hct 37.5 % (36.0-46.0) 03/05/19 22: MCV 94.5 fL (80-95) 03/05/19 22: MCH 30.2 pg (27.0-33.0) 03/05/19 22: MCHC 32.0 g/dL (32.0-36.0) 03/05/19 22: RDW 13.6 % (11.7-14.6) 03/05/19 22:19 Plt Count 140 x1000/uL (130-400) 03/06/19 05:35 MPV 10.5 fL (8.0-11.0) 03/05/19 22:19 Immature Gran % 0.3 % 03/05/19 22:19 Neutrophils % 75.6 03/05/19 22:19 Lymphocytes % 17.3 03/05/19 22:19 Monocytes % 5.5 03/05/19 22:19 Eosinophils % 0.8 03/05/19 22:19 Basophils % 0.5 03/05/19 22:19 Absolute Neutrophils 4.80 k/cumm (1.2-6.7) 03/05/19 22:19 Absolute Lymphocytes 1.10 k/cumm (1.2-3.4) L 03/05/19 22:19 Absolute Monocytes 0.35 k/cumm (0.11-0.7) 03/05/19 22:19 Absolute Eosinophils 0.05 k/cumm (0.0-0.7) 03/05/19 22:19 Absolute Basophils 0.03 k/cumm (0.0-0.2) 03/05/19 22:19 PT 10.3 sec (9.3-11.0) 03/05/19 22:19 INR 1.0 (0.9-1.1) 03/05/19 22:19 APTT 26.2 sec (21.0-31.4) 03/05/19 22:19 VBG pH 7.32 (7.35-7.45) L 03/05/19 22:19 VBG pCO2 45 mm/Hg (34-47) 03/05/19 22:19 VBG pO2 42 mm/Hg (28-44) 03/05/19 22:19 VBG HCO3 23 mmol/L (22-28) 03/05/19 22:19 VBG Total CO2 22 mmol/L (22-29) 03/05/19 22:19 VBG O2 Saturation 74 % (70-80) 03/05/19 22:19 VBG Base Excess -2.6 mmol/L (-3-3) 03/05/19 22:19 Sodium 143 mmol/L (136-145) 03/07/19 06:16 Potassium 4.2 mmol/L (3.5-5.1) D 03/07/19 06:16 Chloride 110 mmol/L (98-107) H 03/07/19 06:16 Carbon Dioxide 26.3 mmol/L (21.0-32.0) 03/07/19 06:16 Anion Gap 6.7 mmol/L (3-11) 03/07/19 06:16 BUN 28 mg/dL (7-18) H 03/07/19 06:16 Creatinine 1.14 mg/dL (0.55-1.02) H 03/07/19 06:16 Estimated GFR/1.73 m2 46.47 (mL/min/1.73m2) 03/07/19 06:16 Glucose 112 mg/dL (74-106) H 03/07/19 06:16 Hemoglobin A1c 5.5 % (3.8-5.6) 03/06/19 05:35 Calcium 8.6 mg/dL (8.5-10.1) 03/07/19 06:16 Magnesium 1.9 mg/dL (1.8-2.4) 03/07/19 06:16 Total Bilirubin 0.4 mg/dL (0.2-1.0) 03/05/19 22:19 AST 33 U/L (15-37) 03/05/19 22:19 ALT 23 U/L (14-59) 03/05/19 22:19 Alkaline Phosphatase 88 U/L (46-116) 03/05/19 22:19 Troponin I < 0.05 ng/Ml (<0.06) 03/06/19 05:35 NT-Pro-B Natriuret Pep 2171 pg/mL (<300) H 03/07/19 06:16 Total Protein 6.9 g/dL (6.4-8.2) 03/05/19 22:19 Albumin 3.5 g/dL (3.4-5.0) 03/05/19 22:19 Triglycerides 33 mg/dL (<150) 03/06/19 05:35 Total Cholesterol 140 mg/dL (<200) 03/06/19 05:35 LDL Cholesterol, Calc 67 mg/dL 03/06/19 05:35 HDL Cholesterol 67 mg/dL (40-60) H 03/06/19 05:35 TSH 2.39 uIU/mL (0.36-3.74) 03/06/19 05:35 Urine Color Yellow (Yellow) 03/05/19 22: Urine Clarity Clear (Clear) 03/05/19 22: Urine pH 6.5 (5-8) 03/05/19 22: Ur Specific [place] 1.025 (1.005-1.025) 03/05/19 22: Urine Protein Negative mg/dL (Negative) 03/05/19 22: Urine Ketones Negative mg/dL (Negative) 03/05/19 22: Urine Blood Trace-intact (Negative) H 03/05/19 22: Urine Nitrite Negative (Negative) 03/05/19: Urine Bilirubin Negative (Negative) 03/05/19 22: Urine Urobilinogen 0.2 EU/dL (Up TO 0.2) 03/05/19 22:29 Ur Leukocyte Esterase Negative (Negative) 03/05/19 22: Urine RBC 0-2 HPF (0-2) 03/05/19 22: Urine WBC Negative HPF (0-5) 03/05/19 22: Ur Epithelial Cells Few HPF (Negative) 03/05/19 22: Urine Crystals Negative HPF (Negative) 03/05/19 22: Urine Bacteria Few HPF (Negative) 03/05/19 22: Urine Mucus Negative (Negative) 03/05/19 22: Ur Culture Indicated? No 03/05/19: Urine Glucose Negative mg/dL (Negative) 03/05/19
[2019-03-07] MEDS: Furosemide 20 MG TAB PO (15:18)
[2019-03-07] MEDS: oxyCODONE 5 MG TAB PO ×2 (15:27→21:18)
[2019-03-07] MEDS: Acetaminophen 325 MG TAB PO (15:27)
--- NOTE | 2019-03-07 15:37 | CMPROGNOTE_ITS ---
- If Service Date Differs Date of service: 03/07/19 Time of Service: 15:37 Care Management Progress Note S/O: Arlin was sitting up in her chair when CM met with her. She reported that she was interested in MOW when she returns home, which CM sent referral to [facility] for. Arlin is also interested in HH RN for med management, CM will inform the provider, who will determine if it is appropriate. Arlin expressed that her daughter, Cass, would like to be updated if possible. Arlin asked if she would be able to have a recliner in her home, CM advised that we would not be able to get that for her at no cost, but she can contact her porter sample case at the [facility] to see if they have funding for it. Per provider, Arlin was transitioned to PO medications today, and may be ready for discharge home tomorrow. A: Arlin is a 73 year old female admitted to [facility] on 03/05/2019 for CHF exacerbation. P: Anticipate Arlin will return home with no new services vs HH RN, if needed. CM sent referral to [facility] for MOW. Arlin will transport home via [facility], coordinated by [facility]. She will follow up with her PCP, as recommended. CM will continue to follow.
[2019-03-07] MEDS: Cyclobenzaprine 10 MG TAB PO (18:16)
[2019-03-07] MEDS: Lidocaine 5% Patch 1 PATCH TP (19:39)
[2019-03-07] MEDS: Melatonin 3 MG TAB 6 MG PO (21:18)
[2019-03-08] VITALS (8 sets, daily range): BP systolic 98–142; BP diastolic 62–81; PULSE 54–81; RESP 18–20; TEMP 36–36.7; O2SAT 94–97
[2019-03-08] MEDS: Acetaminophen 325 MG TAB PO ×3 (01:29→09:38)
[2019-03-08] MEDS: Cyclobenzaprine 10 MG TAB PO (01:29)
[2019-03-08] MEDS: Levothyroxine 25 MCG TAB PO (06:01)
[2019-03-08 07:04] LABS: Abs Immature Grans 0.01 k/cumm (0.0-0.09); Absolute Basophil Count 0.01 k/cumm (0.0-0.2); Absolute Eosinophil Count 0.02 k/cumm (0.0-0.7); Absolute Lymphocyte Count 2.09 k/cumm (1.2-3.4); Absolute Monocyte Count 0.68 k/cumm (0.11-0.7); Basophils % 0.1; Eosinophils % 0.3; HGB 11.5 g/dL (12.0-15.5); Immature Grans % 0.1 %; Lymphocytes % 31.1; Mean Corp. HGB Concentration 31.1 g/dL (32.0-36.0); Mean Corpuscular Hemoglobin 29.1 pg (27.0-33.0); Mean Corpuscular Volume 93.7 fL (80-95); Mean Platelet Volume 10.7 fL (8.0-11.0); Monocytes % 10.1; Neutrophils % 58.3; Platelet Count 154 x1000/uL (130-400); RBC 3.95 m/cumm (4.00-5.20); RBC Distribution Width 13.8 % (11.7-14.6); White Blood Cell Count 6.71 k/cumm (4.4-10.8)
[2019-03-08 07:11] LABS: Anion Gap 9.7 mmol/L (3-11); BUN 36 mg/dL (7-18); CO2 25.3 mmol/L (21.0-32.0); Calcium 9.2 mg/dL (8.5-10.1); Chloride 107 mmol/L (98-107); Estimated GFR 48.42 (mL/min/1.73m2); Glucose 83 mg/dL (74-106); Potassium 4.1 mmol/L (3.5-5.1); Sodium 142 mmol/L (136-145)
[2019-03-08] MEDS: Enoxaparin 40 MG/0.4 ML SYR SC (09:37)
[2019-03-08] MEDS: Potassium Chloride 20 MEQ TABCR PO ×2 (09:38→19:45)
[2019-03-08] MEDS: Furosemide 20 MG TAB PO ×2 (09:38→15:31)
[2019-03-08] MEDS: ARIPiprazole 2 MG TAB PO (09:38)
[2019-03-08] MEDS: Aspirin E.C. 81 MG TABEC PO (09:38)
[2019-03-08] MEDS: Calcium 600mg/Vit D 200U TAB 1 TAB PO (09:38)
[2019-03-08] MEDS: Cholecalciferol (Vitamin D3) 1,000 UNIT TAB 1000 UNITS PO (09:38)
[2019-03-08] MEDS: buPROPion-XL 150 MG TABCR 300 MG PO (09:38)
[2019-03-08] MEDS: Losartan 25 MG TAB PO (09:38)
[2019-03-08] MEDS: Atenolol 50 MG TAB PO (09:38)
[2019-03-08] MEDS: Patch Removal 1 EACH TP (09:39)
[2019-03-08] MEDS: oxyCODONE 5 MG TAB PO (10:28)
[2019-03-08] MEDS: Milk of Magnesia 30 ML CUP PO (13:06)
[2019-03-08] MEDS: Docusate Sodium 100 MG CAP PO (13:07)
--- NOTE | 2019-03-08 14:32 | PT.INTREAT ---
Date of service: 03/08/19 Time of Service: 14:32 PT Notes Visit Reasons: CHF EXACERBATION,RIGHT HIP PAIN Inpatient Physical Therapy Treatment Note [facility] Date: 03/08/19 PRECAUTIONS: Fall. LBP with activity. Activity as tolerated. SUBJECTIVE: Arlin has agreed to go to the rehab instead of home as she feels that she continues to be unable to get in and out of bed. She feels that mobility [place] she is the same as when she first came in here and she feels that she needs more time to recover prior to going back home. She reported abdominal pain towards the end of physical therapy session which may be related to the last pain pill she took within the last hour. Nurse and MD were notified. OBJECTIVE: Patient seen sitting on bedside reclining chair with legs elevated. Heating pad on low back area. Right paraspinals and gluteal muscles continue to be in guarding mode and and are tight to palpation. PAIN: Complains of significant pain in low back mostly aggravated during movement transitions from sit to supine and vice versa. BED MOBILITY/TRANSFERS Rolling L/R: Minimal assist Supine-sit: Moderate assist with HOB at 30 degrees Sit-supine: Moderate assist with HOB at 30 degrees Sit-stand: SBA Stand-sit: SBA Bed-Chair: SBA Chair-bed: SBA GAIT Assistive Device: FWW Weight bearing: Full Assist: SBA Distance: 10 feet +10 feet Deviation: Hip flexion significantly reduced on the right side due to pain on the right low back with considerable reduction and step height and length. Patient almost shuffles to avoid single limb stance resulted from pain. THEREX: Patient was instructed with slow posterior pelvic tilting with bilateral hips and knees in flexion followed by pelvic rocking by PT with hip and knee flexion at 3 different angles and then with active assistive unilateral [id number] on the right side to allow relaxation of right paraspinals and right gluteal muscles. MANUAL THERAPY: With patient in side-lying , sustained pressure and STM provided throughout the length of the right paraspinals, right gluteal muscles, and right piriformis following Thera ex. ASSESSMENT: Patient will continue to benefit from progressive functional mobility training, manual therapy, and therapeutic exercise in order to address mobility limb limitations resulting from low back pain. PLAN: Continue with PTs POC. Patient will benefit from group home facility placement for continued skilled physical therapy services in order to progress mobility level, strength, and balance in preparation for a safe discharge to home. TREATMENT CODE/TIME: 00393, 62402, [id number] x43 minutes beginning at 14:32 PM.
--- NOTE | 2019-03-08 15:07 | W.PM.PROGNOT ---
Date of Service Date of service: 03/08/19 Time of Service: 15:07 Assessment and Plan Assessment and plan (1) Acute congestive heart failure: Status: Acute Assessment and plan: Likely on chronic, most likely due to pulmonary hypertension. Highly suspicious for underlying sleep apnea. EF 55-59%, RSVP 30-33. Euvolemic. Continue PO lasix, monitoring I/O's, daily weights. D/c tele. Qualifiers: Heart failure type: unspecified Qualified Code(s): I50.9 - Heart failure, unspecified (2) Hyperkalemia: Status: Resolved Assessment and plan: Recheck in am. (3) Spasm of right piriformis muscle: Status: Acute Assessment and plan: Add ibuprofen and neurontin to regimen. Unfortunately, has not been able to tolerate flexeril due to getting confused. Continue lidocaine patches, heat, prn oxycodone, PT. (4) Back pain: Status: Acute Assessment and plan: As above. Has significant muscle spasm in paraspinal muscles. (5) DVT prophylaxis: Status: Acute Assessment and plan: enoxaparin (6) Discharge planning issues: Status: Acute Assessment and plan: Full code Agrees to go to subacute rehab Care management is working on placement. Subjective Subjective Interval history since last seen: Reportedly, became confused last night after receiving flexeril and oxycodone together. Today, after receiving just oxycodone, patient's mental status is at her baseline. Continues to report severe pain in her mid/R-lower back/buttocks. Denies dizziness, chest pain, shortness of breath, nausea, vomiting. Exam Narrative Exam Narrative: General: Obese female, laying comfortably nearly flat in bed, no evidence of respiratory distress while speaking in very lengthy sentences, multiple in a row, A&Ox3 HEENT: EOMI, MMM Heart: RRR, no m/r/g Lungs: CTAB Abdomen: soft, nontender, nondistended Extremities: +2 BLE edema, no c/c Objective Objective Clinical Data: Abnormal lab results 03/08/19 03/08/19 Range/Units 06:11 06:11 RBC 3.95 L (4.00-5.20) m/cumm Hgb 11.5 L (12.0-15.5) g/dL MCHC 31.1 L (32.0-36.0) g/dL BUN 36 H (7-18) mg/dL Creatinine 1.10 H (0.55-1.02) mg/dL Vital Signs Temperature 36.6 C 03/08/19 11:18 Temperature Source Tympanic 03/08/19 11:18 Pulse 81 03/08/19 12:59 Pulse Rhythm Regular 03/08/19 10:30 Respiratory Rate 19 03/08/19 11:18 Respiratory Effort Non-Labored 03/08/19 10:30 Respiratory Depth Normal 03/08/19 10:30 Respiratory Pattern Normal 03/08/19 10:30 Blood Pressure 121/77 03/08/19 12:59 Blood Pressure Position Supine 03/05/19 21:35 Pulse Oximetry 97 03/08/19 11:18 Oxygen Delivery Method Room Air 03/08/19 11:18 Oxygen Flow Rate 0 03/08/19 11:18 Pain Level 10 03/08/19 11:18 Comment 03/06/19 08:15 Intake & Output 03/07/19 03/08/19 03/08/19 23:59 11:59 23:59 Intake Total 480 / 705 450 / 450 Output Total 1100 / 1575 650 / 1450 800 / 1450 Balance -620 / -870 -650 / -1000 -350 / -1000 Weight 87.6 kg Intake: Oral 480 / 705 450 / 450 Output: Urine 1100 / 1575 650 / 1450 800 / 1450 Other: Urine Color Pale Pale Yellow Yellow Yellow Urine Appearance Clear Clear Clear Comment d/c'd per MD verbal order in room. Stool Size Large Stool Characteristics Formed Laboratory Results WBC 6.71 k/cumm (4.4-10.8) 03/08/19 06:11 RBC 3.95 m/cumm (4.00-5.20) L 03/08/19 06:11 Hgb 11.5 g/dL (12.0-15.5) L 03/08/19 06:11 Hct 37.0 % (36.0-46.0) 03/08/19 06:11 MCV 93.7 fL (80-95) 03/08/19 06:11 MCH 29.1 pg (27.0-33.0) 03/08/19 06:11 MCHC 31.1 g/dL (32.0-36.0) L 03/08/19 06:11 RDW 13.8 % (11.7-14.6) 03/08/19 06:11 Plt Count 154 x1000/uL (130-400) 03/08/19 06:11 MPV 10.7 fL (8.0-11.0) 03/08/19 06:11 Immature Gran % 0.1 % 03/08/19 06:11 Neutrophils % 58.3 03/08/19 06:11 Lymphocytes % 31.1 03/08/19 06:11 Monocytes % 10.1 03/08/19 06:11 Eosinophils % 0.3 03/08/19 06:11 Basophils % 0.1 03/08/19 06:11 Absolute Neutrophils 3.90 k/cumm (1.2-6.7) 03/08/19 06:11 Absolute Lymphocytes 2.09 k/cumm (1.2-3.4) 03/08/19 06:11 Absolute Monocytes 0.68 k/cumm (0.11-0.7) 03/08/19 06:11 Absolute Eosinophils 0.02 k/cumm (0.0-0.7) 03/08/19 06:11 Absolute Basophils 0.01 k/cumm (0.0-0.2) 03/08/19 06:11 PT 10.3 sec (9.3-11.0) 03/05/19 22:19 INR 1.0 (0.9-1.1) 03/05/19 22:19 APTT 26.2 sec (21.0-31.4) 03/05/19 22:19 VBG pH 7.32 (7.35-7.45) L 03/05/19 22:19 VBG pCO2 45 mm/Hg (34-47) 03/05/19 22:19 VBG pO2 42 mm/Hg (28-44) 03/05/19 22:19 VBG HCO3 23 mmol/L (22-28) 03/05/19 22:19 VBG Total CO2 22 mmol/L (22-29) 03/05/19 22:19 VBG O2 Saturation 74 % (70-80) 03/05/19 22:19 VBG Base Excess -2.6 mmol/L (-3-3) 03/05/19 22:19 Sodium 142 mmol/L (136-145) 03/08/19 06:11 Potassium 4.1 mmol/L (3.5-5.1) 03/08/19 06:11 Chloride 107 mmol/L (98-107) 03/08/19 06:11 Carbon Dioxide 25.3 mmol/L (21.0-32.0) 03/08/19 06:11 Anion Gap 9.7 mmol/L (3-11) 03/08/19 06:11 BUN 36 mg/dL (7-18) H 03/08/19 06:11 Creatinine 1.10 mg/dL (0.55-1.02) H 03/08/19 06:11 Estimated GFR/1.73 m2 48.42 (mL/min/1.73m2) 03/08/19 06:11 Glucose 83 mg/dL (74-106) 03/08/19 06:11 Hemoglobin A1c 5.5 % (3.8-5.6) 03/06/19 05:35 Calcium 9.2 mg/dL (8.5-10.1) 03/08/19 06:11 Magnesium 2.0 mg/dL (1.8-2.4) 03/08/19 06:11 Total Bilirubin 0.4 mg/dL (0.2-1.0) 03/05/19 22:19 AST 33 U/L (15-37) 03/05/19 22:19 ALT 23 U/L (14-59) 03/05/19 22:19 Alkaline Phosphatase 88 U/L (46-116) 03/05/19 22:19 Troponin I < 0.05 ng/Ml (<0.06) 03/06/19 05:35 NT-Pro-B Natriuret Pep 2171 pg/mL (<300) H 03/07/19 06:16 Total Protein 6.9 g/dL (6.4-8.2) 03/05/19 22:19 Albumin 3.5 g/dL (3.4-5.0) 03/05/19 22:19 Triglycerides 33 mg/dL (<150) 03/06/19 05:35 Total Cholesterol 140 mg/dL (<200) 03/06/19 05:35 LDL Cholesterol, Calc 67 mg/dL 03/06/19 05:35 HDL Cholesterol 67 mg/dL (40-60) H 03/06/19 05:35 TSH 2.39 uIU/mL (0.36-3.74) 03/06/19 05:35 Urine Color Yellow (Yellow) 03/05/19: Urine Clarity Clear (Clear) 03/05/19: Urine pH 6.5 (5-8) 03/05/19 22: Ur Specific [place] 1.025 (1.005-1.025) 03/05/19 22: Urine Protein Negative mg/dL (Negative) 03/05/19: Urine Ketones Negative mg/dL (Negative) 03/05/19: Urine Blood Trace-intact (Negative) H 03/05/19: Urine Nitrite Negative (Negative) 03/05/19: Urine Bilirubin Negative (Negative) 03/05/19: Urine Urobilinogen 0.2 EU/dL (Up TO 0.2) 03/05/19: Ur Leukocyte Esterase Negative (Negative) 03/05/19: Urine RBC 0-2 HPF (0-2) 03/05/19 22: Urine WBC Negative HPF (0-5) 03/05/19: Ur Epithelial Cells Few HPF (Negative) 03/05/19: Urine Crystals Negative HPF (Negative) 03/05/19: Urine Bacteria Few HPF (Negative) 03/05/19: Urine Mucus Negative (Negative) 03/05/19: Ur Culture Indicated? No 03/05/19 Urine Glucose Negative mg/dL (Negative) 03/05/19
[2019-03-08] MEDS: Ibuprofen 600 MG TAB PO ×2 (15:31→20:52)
--- NOTE | 2019-03-08 17:05 | CMPROGNOTE_ITS ---
- If Service Date Differs Date of service: 03/08/19 Time of Service: 17:05 Care Management Progress Note S/O: Arlin was sitting up in her chair when CM met with her. She asked to speak to CM because she has decided that she is too weak to be able to go home alone. She is requesting that referrals be sent to area SNFs for short term rehab. CM also discussed the request with Cass, Arlin's daughter, who is in agreement with the plan. After discussion, Arlin decided that she would like to go to either [facility] or the [facility] since they are nearby. She stated that it would be a hardship to be further away and that her daughter would not be able to visit as often. A: Arlin is a 73 year old female admitted to [facility] on 03/05/2019 for CHF exacerbation. P: Anticipate Arlin will transfer to a local SNF for short term rehab before returning home. CM sent referrals to [facility] and [facility]. [facility] has made a bed offer but [facility] is still reviewing the referral. Arlin will transport via [facility] or facility van, depending on where she goes. CM will continue to support patient, family and discharge planning concerns.
[2019-03-08] MEDS: Lidocaine 5% Patch 1 PATCH TP (19:44)
[2019-03-08] MEDS: Gabapentin 100 MG CAP PO (19:45)
[2019-03-08] MEDS: Melatonin 3 MG TAB 6 MG PO (20:52)
[2019-03-09] VITALS (7 sets, daily range): BP systolic 100–167; BP diastolic 61–88; PULSE 55–72; RESP 18–20; TEMP 36.4–36.9; O2SAT 96–100
[2019-03-09] MEDS: Ibuprofen 600 MG TAB PO ×4 (03:20→21:34)
[2019-03-09] MEDS: Acetaminophen 325 MG TAB PO (05:00)
[2019-03-09] MEDS: Levothyroxine 25 MCG TAB PO (05:00)
[2019-03-09] MEDS: Potassium Chloride 20 MEQ TABCR PO ×2 (09:52→20:02)
[2019-03-09] MEDS: ARIPiprazole 2 MG TAB PO (09:52)
[2019-03-09] MEDS: Aspirin E.C. 81 MG TABEC PO (09:52)
[2019-03-09] MEDS: Cholecalciferol (Vitamin D3) 1,000 UNIT TAB 1000 UNITS PO (09:52)
[2019-03-09] MEDS: buPROPion-XL 150 MG TABCR 300 MG PO (09:52)
[2019-03-09] MEDS: Furosemide 20 MG TAB PO ×2 (09:54→16:20)
[2019-03-09] MEDS: Atenolol 50 MG TAB PO (09:54)
[2019-03-09] MEDS: Losartan 25 MG TAB PO (09:54)
[2019-03-09] MEDS: Pantoprazole 40 MG TABCR PO (09:54)
[2019-03-09] MEDS: Enoxaparin 40 MG/0.4 ML SYR SC (09:55)
[2019-03-09] MEDS: Gabapentin 100 MG CAP PO ×3 (09:55→20:01)
[2019-03-09] MEDS: Patch Removal 1 EACH TP (09:55)
[2019-03-09] MEDS: Calcium 600mg/Vit D 200U TAB 1 TAB PO (09:55)
--- NOTE | 2019-03-09 10:52 | PGE_ITS ---
Date of Service Date of service: 03/09/19 Time of Service: 10:52 Assessment and Plan Assessment and plan (1) Acute congestive heart failure: Status: Acute Assessment and plan: stable after diuresis. Highly suspicious for underlying sleep apnea also. EF 55-59%, RSVP 30-33. Euvolemic. Continue PO lasix, monitoring I/O's, daily weights. Qualifiers: Heart failure type: unspecified Qualified Code(s): I50.9 - Heart failure, unspecified (2) Hyperkalemia: Status: Resolved Assessment and plan: d/t diuresis, repleted and now has normalized. should be check periodically while on lasix. (3) Spasm of right piriformis muscle: Status: Acute Assessment and plan: still reporting pain but objectively participating in rehab and sleeping. will continue current pain regimen. she can have oxycodone which she has been refusing. (4) DVT prophylaxis: Status: Acute Assessment and plan: continue enoxaparin, add teds. is ambulatory (5) Discharge planning issues: Status: Acute Assessment and plan: case management has been following. referrals placed for skilled level care, she has been accepted and will be discharge tomorrow. Subjective Subjective Patient reports: feels better and still having pain Interval history since last seen: patient states she is eating and drinking well. bowels and bladder functioning. she reports ongoing hip/leg pain but it does not keep her from sleeping or ambulating. she has declined oxycodone. she has some mild confusion in the evenings but this is improved during the day. no fevers and hemodynamically stable. Exam Const General: cooperative, healthy appearing, comfortable, no acute distress and well developed Nutritional Appearance: overweight Orientation: alert, awake and oriented x3 [facility] Head: normal to inspection, normocephalic and atraumatic Mouth: oral mucosae normal Resp Effort & Inspection: normal respiratory effort Auscultation: clear to auscultation bilaterally Cardio Rate: regular rate Rhythm: regular rhythm GI Inspection: normal to inspection and obesity Palpation: soft Auscultation: normal bowel sounds Skin General skin exam: no rashes or lesions noted Neuro General: alert, awake and oriented x3 Speech: speech normal Gait: gait assisted Method: walker Extrem General: normal to inspection, full ROM and pedal edema bilaterally Objective Objective Clinical Data: Vital Signs Temperature 36.9 C 03/09/19 07:28 Temperature Source Tympanic 03/09/19 07:28 Pulse 72 03/09/19 07:28 Pulse Rhythm Regular 03/09/19 03:15 Respiratory Rate 18 03/09/19 09:50 Respiratory Effort 03/09/19 09:50 Respiratory Depth Normal 03/09/19 09:50 Respiratory Pattern Normal 03/09/19 09:50 Blood Pressure 167/88 H 03/09/19 07:28 Blood Pressure Position Supine 03/05/19 21:35 Pulse Oximetry 96 03/09/19 09:50 Oxygen Delivery Method Room Air 03/09/19 09:50 Oxygen Flow Rate 0 03/09/19 09:50 Pain Level 9 03/09/19 09:53 Comment 03/06/19 08:15 Intake & Output 03/08/19 03/08/19 03/09/19 11:59 23:59 11:59 Intake Total 450 / 450 Output Total 650 / 1900 1250 / 1900 900 / 900 Balance -650 / -1450 -800 / -1450 -900 / -900 Weight 87.6 kg 87.6 kg Intake: Oral 450 / 450 Output: Urine 650 / 1900 1250 / 1900 900 / 900 Other: Urine Color Pale Yellow Yellow Yellow Urine Appearance Clear Clear Clear Urine Odor Normal Comment d/c'd per MD verbal order in room. Stool Size Large Stool Characteristics Formed Voiding Methods Toilet Toilet Laboratory Results WBC 6.71 k/cumm (4.4-10.8) 03/08/19 06:11 RBC 3.95 m/cumm (4.00-5.20) L 03/08/19 06:11 Hgb 11.5 g/dL (12.0-15.5) L 03/08/19 06:11 Hct 37.0 % (36.0-46.0) 03/08/19 06:11 MCV 93.7 fL (80-95) 03/08/19 06:11 MCH 29.1 pg (27.0-33.0) 03/08/19 06:11 MCHC 31.1 g/dL (32.0-36.0) L 03/08/19 06:11 RDW 13.8 % (11.7-14.6) 03/08/19 06:11 Plt Count 154 x1000/uL (130-400) 03/08/19 06:11 MPV 10.7 fL (8.0-11.0) 03/08/19 06:11 Immature Gran % 0.1 % 03/08/19 06:11 Neutrophils % 58.3 03/08/19 06:11 Lymphocytes % 31.1 03/08/19 06:11 Monocytes % 10.1 03/08/19 06:11 Eosinophils % 0.3 03/08/19 06:11 Basophils % 0.1 03/08/19 06:11 Absolute Neutrophils 3.90 k/cumm (1.2-6.7) 03/08/19 06:11 Absolute Lymphocytes 2.09 k/cumm (1.2-3.4) 03/08/19 06:11 Absolute Monocytes 0.68 k/cumm (0.11-0.7) 03/08/19 06:11 Absolute Eosinophils 0.02 k/cumm (0.0-0.7) 03/08/19 06:11 Absolute Basophils 0.01 k/cumm (0.0-0.2) 03/08/19 06:11 PT 10.3 sec (9.3-11.0) 03/05/19 22:19 INR 1.0 (0.9-1.1) 03/05/19 22:19 APTT 26.2 sec (21.0-31.4) 03/05/19 22:19 VBG pH 7.32 (7.35-7.45) L 03/05/19 22:19 VBG pCO2 45 mm/Hg (34-47) 03/05/19 22:19 VBG pO2 42 mm/Hg (28-44) 03/05/19 22:19 VBG HCO3 23 mmol/L (22-28) 03/05/19 22:19 VBG Total CO2 22 mmol/L (22-29) 03/05/19 22:19 VBG O2 Saturation 74 % (70-80) 03/05/19 22:19 VBG Base Excess -2.6 mmol/L (-3-3) 03/05/19 22:19 Sodium 142 mmol/L (136-145) 03/08/19 06:11 Potassium 4.1 mmol/L (3.5-5.1) 03/08/19 06:11 Chloride 107 mmol/L (98-107) 03/08/19 06:11 Carbon Dioxide 25.3 mmol/L (21.0-32.0) 03/08/19 06:11 Anion Gap 9.7 mmol/L (3-11) 03/08/19 06:11 BUN 36 mg/dL (7-18) H 03/08/19 06:11 Creatinine 1.10 mg/dL (0.55-1.02) H 03/08/19 06:11 Estimated GFR/1.73 m2 48.42 (mL/min/1.73m2) 03/08/19 06:11 Glucose 83 mg/dL (74-106) 03/08/19 06:11 Hemoglobin A1c 5.5 % (3.8-5.6) 03/06/19 05:35 Calcium 9.2 mg/dL (8.5-10.1) 03/08/19 06:11 Magnesium 2.0 mg/dL (1.8-2.4) 03/08/19 06:11 Total Bilirubin 0.4 mg/dL (0.2-1.0) 03/05/19 22:19 AST 33 U/L (15-37) 03/05/19 22:19 ALT 23 U/L (14-59) 03/05/19 22:19 Alkaline Phosphatase 88 U/L (46-116) 03/05/19 22:19 Troponin I < 0.05 ng/Ml (<0.06) 03/06/19 05:35 NT-Pro-B Natriuret Pep 2171 pg/mL (<300) H 03/07/19 06:16 Total Protein 6.9 g/dL (6.4-8.2) 03/05/19 22:19 Albumin 3.5 g/dL (3.4-5.0) 03/05/19 22:19 Triglycerides 33 mg/dL (<150) 03/06/19 05:35 Total Cholesterol 140 mg/dL (<200) 03/06/19 05:35 LDL Cholesterol, Calc 67 mg/dL 03/06/19 05:35 HDL Cholesterol 67 mg/dL (40-60) H 03/06/19 05:35 TSH 2.39 uIU/mL (0.36-3.74) 03/06/19 05:35 Urine Color Yellow (Yellow) 03/05/19: Urine Clarity Clear (Clear) 03/05/19: Urine pH 6.5 (5-8) 03/05/19 Ur Specific [place] 1.025 (1.005-1.025) 03/05/19 22: Urine Protein Negative mg/dL (Negative) 03/05/19: Urine Ketones Negative mg/dL (Negative) 03/05/19 Urine Blood Trace-intact (Negative) H 03/05/19: Urine Nitrite Negative (Negative) 03/05/19: Urine Bilirubin Negative (Negative) 03/05/19 Urine Urobilinogen 0.2 EU/dL (Up TO 0.2) 03/05/19 Ur Leukocyte Esterase Negative (Negative) 03/05/19: Urine RBC 0-2 HPF (0-2) 03/05/19: Urine WBC Negative HPF (0-5) 03/05/19 Ur Epithelial Cells Few HPF (Negative) 03/05/19: Urine Crystals Negative HPF (Negative) 03/05/19: Urine Bacteria Few HPF (Negative) 03/05/19: Urine Mucus Negative (Negative) 03/05/19 Ur Culture Indicated? No 03/05/19 Urine Glucose Negative mg/dL (Negative) 03/05/19
--- NOTE | 2019-03-09 14:14 | PTTR_ITS ---
Date of service: 03/09/19 Time of Service: 11:42 PT Notes Visit Reasons: CHF EXACERBATION,RIGHT HIP PAIN Inpatient Physical Therapy Treatment Note [facility] Date: 03/09/2019 PRECAUTIONS: Fall. Activity as tolerated. SUBJECTIVE: Patient continues to report pain in the back at 9/10 with ambulation activity. She is however happy to realize that compared to when she first came in she is able to tolerate longer distances with gait activity, and has been demonstrating increasing independence with bed mobility performance. OBJECTIVE: Patient seen sitting on bedside chair with legs elevated. Heating pad on low back area. Right paraspinals and gluteal muscles continue to be in guarding mode and and are tight to palpation albeit to a lesser extent today. Patient is happy about being able to [facility] morning. PAIN: Patient did not report any increase pain duirng ambulation activity but complained of pain during supine<>sit movement transitions. BED MOBILITY/TRANSFERS Rolling L/R: SBA Supine-sit: SBA Sit-supine: Minimal assist. In the afternoon, SBA Sit-stand: Supervision Stand-sit: Supervision Bed-Chair: Supervision Chair-bed: Supervision GAIT Assistive Device: FWW Weight bearing: Full Assist: SBA Distance: 45 feet +120 feet +45 feet. In the afternoo, 25 feet + 150 feet + 25 feet. Deviation: Hip flexion beginning to increased on the right side resulting to much improved step height and length as well as increased ashli. THEREX: In the morning session, patient continued with slow posterior pelvic tilting with bilateral hips and knees in flexion followed by pelvic rocking by student PT with hip and knee flexed. MANUAL THERAPY: In the morning session, with patient in side-lying , sustained pressure and STM provided throughout the length of the right paraspinals, right gluteal muscles, and right piriformis following Thera ex. ASSESSMENT: Patient will continue to benefit from progressive functional mobility training, manual therapy, and therapeutic exercise in order to address mobility limb limitations resulting from low back pain. PLAN: Continue with PTs POC. Patient will benefit from halfway facility placement for continued skilled physical therapy services in order to progress mobility level, strength, and balance in preparation for a safe discharge to home. TREATMENT CODE/TIME: Session 1?30952, [id number], [id number] x 53' minutes beginning at 11:42 AM. Session 2- 15811 x 35 minutes beginning at 15:55 PM.
[2019-03-09] MEDS: oxyCODONE 5 MG TAB PO ×2 (14:26→23:24)
--- NOTE | 2019-03-09 16:01 | CMPROGNOTE_ITS ---
- If Service Date Differs Date of service: 03/09/19 Time of Service: 16:01 Care Management Progress Note S/O: Arlin was sitting up in her chair when CM met with her. She is still having hip/back pain at a level of 8 or 9 and her provider is adjusting her pain medicine accordingly. Arlin is trying hard to work with PT. She was able to rise from a lying to sitting position for the first time this afternoon. [facility] has made a bed offer and the plan will be for Arlin to transfer there tomorrow. She is very happy with the plan as this is her facility of choice. A: Arlin is a 73 year old female admitted to [facility] on 03/05/2019 for CHF exacerbation. P: Anticipate Arlin will [facility] The wheelchair van from the facility will pick her up at 1pm. CM will continue to support patient, family and discharge planning concerns.
[2019-03-09] MEDS: Lidocaine 5% Patch 1 PATCH TP (20:02)
[2019-03-09] MEDS: Melatonin 3 MG TAB 6 MG PO (21:35)
[2019-03-10 03:45] VITALS: BP 125/64; PULSE 58; RESP 19; TEMP 36.7; O2SAT 95
[2019-03-10] MEDS: Ibuprofen 600 MG TAB PO ×2 (04:45→10:11)
[2019-03-10] MEDS: Levothyroxine 25 MCG TAB PO (04:45)
[2019-03-10 04:55] VITALS: BP 150/79; PULSE 62; RESP 22; TEMP 36.1; O2SAT 99
[2019-03-10 07:13] LABS: Anion Gap 8.5 mmol/L (3-11); BUN 42 mg/dL (7-18); CO2 26.5 mmol/L (21.0-32.0); CREATININE 1.56 mg/dL (0.55-1.02); Calcium 8.4 mg/dL (8.5-10.1); Chloride 106 mmol/L (98-107); Estimated GFR 32.36 (mL/min/1.73m2); Glucose 99 mg/dL (74-106); Potassium 4.6 mmol/L (3.5-5.1); Sodium 141 mmol/L (136-145)
[2019-03-10 07:51] VITALS: BP 150/86; PULSE 62; RESP 18; TEMP 36.7; O2SAT 98
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
[2019-03-10] MEDS: Gabapentin 100 MG CAP PO (08:38)
[2019-03-10] MEDS: Pantoprazole 40 MG TABCR PO (08:38)
[2019-03-10] MEDS: ARIPiprazole 2 MG TAB PO (08:38)
[2019-03-10] MEDS: Calcium 600mg/Vit D 200U TAB 1 TAB PO (08:38)
[2019-03-10] MEDS: Furosemide 20 MG TAB PO (08:38)
[2019-03-10] MEDS: Aspirin E.C. 81 MG TABEC PO (08:38)
[2019-03-10] MEDS: Cholecalciferol (Vitamin D3) 1,000 UNIT TAB 1000 UNITS PO (08:38)
[2019-03-10] MEDS: Losartan 25 MG TAB PO (08:38)
[2019-03-10] MEDS: Potassium Chloride 20 MEQ TABCR PO (08:39)
[2019-03-10] MEDS: Atenolol 50 MG TAB PO (08:39)
[2019-03-10] MEDS: buPROPion-XL 150 MG TABCR 300 MG PO (08:39)
[2019-03-10] MEDS: Patch Removal 1 EACH TP (08:41)
--- NOTE | 2019-03-10 10:35 | PDOC.CMDIS ---
LACE Index Scoring Tool - Questions: Length of Stay (in days): 3 Acuity (Admit via E.D.?): Yes Comorbidities: Mild Liver/Renal Disease E.D. Visits: 5 - Answers: Total Score: 12 Risk of Readmission: High Risk Care Management Discharge Reason for Hospitalization: CHF exacerbation, right hip pain Discharge Plan: Arlin will transfer to [facility] for a short rehab stay prior to returning home. The facility will chiropractic practice manager her further service and equipment needs and provide transportation upon discharge with their W/C van. Patient/Family Education Needs: Review discharge instructions, discuss Ask Me Three. Services Needed at Discharge: Chcf Facility ([facility]), Transportation ([facility] W/C Van coordinated with the facility. )
[2019-03-10 11:13] VITALS: BP 139/82; PULSE 58; RESP 18; TEMP 36.6; O2SAT 97
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
== END 2019-03-10 13:12 | disposition skilled nursing facility (03) | DRG 293 ==
LOC: ER 03-06 00:07 → MS 03-06 00:55
PROVIDERS: Nurse Practitioner Acute Care; Nurse Practitioner Family; Admitting Provider Internal Medicine; Emergency Provider Student in an Organized Health Care Education/Training Program; PCP Nurse Practitioner; Visit Provider Internal Medicine
DX: I50.9 Heart failure, unspecified (principal); I11.0 Hypertensive heart disease with heart failure; I27.20 Pulmonary hypertension, unspecified; M25.551 Pain in right hip; E66.9 Obesity, unspecified; F32.9 Major depressive disorder, single episode, unspecified; E87.6 Hypokalemia; I08.1 Rheumatic disorders of both mitral and tricuspid valves; E03.9 Hypothyroidism, unspecified
CPT/HCPCS: 36415; 80048; 80053; 80061; 82805; 93005; 93306; 96374; 96375; 97110; 97140; 97162; 97530; 99220; 99232; 99233; 99239; 99285; J1650; 71045; 74176; 81003; 81015; 83036; 83735; 83880; 84443; 84484; 85025; 85049; 85610; 85730; 93010; 99226; 99284; G0378; J1940; J1941; J3360; J3490; J7512

== ENCOUNTER 2019-04-07 11:19 | Outpatient (REF) | payer MEDICARE, MEDICAID, SELFPAY ==
[2019-04-07 18:59] LABS: ALT 28 U/L (14-59); AST 23 U/L (15-37); Albumin 3.7 g/dL (3.4-5.0); Alkaline Phosphatase 95 U/L (46-116); BUN 28 mg/dL (7-18); Bilirubin, Total 0.6 mg/dL (0.2-1.0); CREATININE 1.43 mg/dL (0.55-1.02); Calcium 8.8 mg/dL (8.5-10.1); Chloride 104 mmol/L (98-107); Estimated GFR 35.77 (mL/min/1.73m2); Glucose 118 mg/dL (74-106); Potassium 4.2 mmol/L (3.5-5.1); Sodium 143 mmol/L (136-145); Total Protein 7.2 g/dL (6.4-8.2)
== END 2019-04-07 11:39 ==
LOC: NCHCN 11:19
PROVIDERS: PCP Nurse Practitioner; Visit Provider Nurse Practitioner
DX: I50.9 Heart failure, unspecified (principal); I10 Essential (primary) hypertension
CPT/HCPCS: 80053

== ENCOUNTER 2019-04-10 10:55 | Emergency (ER) | payer MEDICARE, MEDICAID, SELFPAY ==
[2019-04-10] VITALS (65 sets, daily range): BP systolic 69–124; BP diastolic 52–86; PULSE 68–90; RESP 12–26; TEMP 36.5–37; O2SAT 87–100
--- NOTE | 2019-04-10 11:15 | DI.RAD_ITS ---
EXAM: XR WRIST RT COMPLETE CLINICAL HISTORY: Fall, pain TECHNIQUE: COMPARISON: No exams were available for comparison FINDINGS: Three views were obtained. There are degenerative changes most prominent at the greater multangular 1st metacarpal and navicular multangular joints. No evidence of acute fracture. IMPRESSION:
--- NOTE | 2019-04-10 11:15 | DI.RAD_ITS ---
EXAM: XR ELBOW RT COMPLETE CLINICAL HISTORY: Fall, pain TECHNIQUE: COMPARISON: No exams were available for comparison FINDINGS: Four views were obtained. There is no evidence of an elbow joint effusion or hemarthrosis. No fract ure is seen. There are moderate degenerative changes of the joints of the elbow with prominent osteo phyte formation of the lateral epicondyle of the humerus. IMPRESSION:
--- NOTE | 2019-04-10 11:15 | DI.RAD_ITS ---
EXAM: XR CHEST 2V PA LATERAL CLINICAL HISTORY: General weakness TECHNIQUE: COMPARISON: XR CHEST 1V IN DI DEPT from 03/05/2019 FINDINGS: The heart is not enlarged. The lungs are clear with calcified pulmonary granuloma of the left lung b ase. No pleural effusion. No pneumothorax. IMPRESSION: No evidence of acute process. Interval resolution of presumed CHF noted on prior film of March 05t h.
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
[2019-04-10] MEDS: Normal Saline 1,000 ML 150 ML IV (12:07)
[2019-04-10 12:29] LABS: Abs Immature Grans 0.04 k/cumm (0.0-0.09); Absolute Basophil Count 0.02 k/cumm (0.0-0.2); Absolute Eosinophil Count 0.03 k/cumm (0.0-0.7); Absolute Lymphocyte Count 0.92 k/cumm (1.2-3.4); Absolute Neutrophil Count 8.43 k/cumm (1.2-6.7); Basophils % 0.2; Eosinophils % 0.3; HCT 42.9 % (36.0-46.0); HGB 13.9 g/dL (12.0-15.5); Immature Grans % 0.4 %; Lymphocytes % 8.9; Mean Corp. HGB Concentration 32.4 g/dL (32.0-36.0); Mean Corpuscular Hemoglobin 29.7 pg (27.0-33.0); Mean Corpuscular Volume 91.7 fL (80-95); Mean Platelet Volume 10.5 fL (8.0-11.0); Monocytes % 8.7; Neutrophils % 81.5; Platelet Count 168 x1000/uL (130-400); RBC 4.68 m/cumm (4.00-5.20); RBC Distribution Width 14.3 % (11.7-14.6); White Blood Cell Count 10.34 k/cumm (4.4-10.8)
[2019-04-10 12:34] LABS: ALT 24 U/L (14-59); AST 49 U/L (15-37); Albumin 3.6 g/dL (3.4-5.0); Alkaline Phosphatase 91 U/L (46-116); BUN 27 mg/dL (7-18); Bilirubin, Total 0.6 mg/dL (0.2-1.0); CREATININE 1.75 mg/dL (0.55-1.02); Calcium 9.2 mg/dL (8.5-10.1); Chloride 104 mmol/L (98-107); Estimated GFR 28.34 (mL/min/1.73m2); Glucose 100 mg/dL (74-106); Magnesium 2.6 mg/dL (1.8-2.4); Potassium 4.4 mmol/L (3.5-5.1); Sodium 141 mmol/L (136-145); Total Protein 7.5 g/dL (6.4-8.2)
[2019-04-10 12:42] LABS: Bilirubin Negative (Negative); Blood Moderate (Negative); Clarity Clear (Clear); Glucose Negative (Negative); Ketones Negative (Negative); Leukocyte Esterase Negative (Negative); Nitrite Positive (Negative); Urobilinogen 0.2 EU/dL (Up TO 0.2); pH 6.5 (5-8)
[2019-04-10 12:43] LABS: Troponin I 2.42 ng/Ml (<0.06)
--- NOTE | 2019-04-10 12:46 | DI.VRAD_ITS ---
PROCEDURE INFORMATION: Exam: XR Chest, 2 Views Exam date and time: 04/10/2019 11:40 AM Age: 73 years old Clinical indication: Condition or disease; Other: General weakness; Prior surgery TECHNIQUE: Imaging protocol: XR of the chest Views: 2 views. COMPARISON: XR CHEST 1V IN DI DEPT 03/05/2019 10:44 PM FINDINGS: Lungs: Calcified granuloma left base. No focal consolidation Pleural space: Unremarkable. No pleural effusion. No pneumothorax. Heart/Mediastinum: Stable cardiac silhouette Bones/joints: Osseous structures are stable IMPRESSION: No acute process Dictated and Authenticated by: Garcia Ramos MD. Ordering:CHRIS Christine MD
--- NOTE | 2019-04-10 12:47 | DI.VRAD_ITS ---
PROCEDURE INFORMATION: Exam: XR Right Wrist Exam date and time: 04/10/2019 11:44 AM Age: 73 years old Clinical indication: Injury or trauma; Fall; Initial encounter; Abrasion; Wrist; Right TECHNIQUE: Imaging protocol: XR Right wrist. Views: 3 or more views. COMPARISON: No relevant prior studies available. FINDINGS: Bones/joints: Degenerative changes in the radiocarpal joint and thumb carpometacarpal joint. There is no evidence of acute fracture.There is no evidence of malalignment or dislocation. Soft tissues: Normal. IMPRESSION: 1. Degenerative changes in the radiocarpal joint and thumb carpometacarpal joint. 2. There is no evidence of acute fracture.There is no evidence of malalignment or dislocation. Dictated and Authenticated by: Garcia Ramos MD. Ordering:CHRIS Christine MD
--- NOTE | 2019-04-10 12:48 | DI.VRAD_ITS ---
PROCEDURE INFORMATION: Exam: XR Right Elbow Exam date and time: 04/10/2019 11:46 AM Age: 73 years old Clinical indication: Pain; Elbow; Right TECHNIQUE: Imaging protocol: XR Right elbow. Views: 3 or more views. COMPARISON: No relevant prior studies available. FINDINGS: Bones/joints: Degenerative changes in the lateral condyle and humeral ulnar joint There is no evidence of acute fracture.There is no evidence of malalignment or dislocation. Soft tissues: Soft tissue swelling of the elbow IMPRESSION: There is no evidence of acute fracture.There is no evidence of malalignment or dislocation. Dictated and Authenticated by: Garcia Ramos MD. Ordering:CHRIS Christine MD
[2019-04-10 13:21] LABS: Bacteria Many HPF (Negative); C & S Indicated? Yes; Casts Negative LPF (Negative); Crystals Negative HPF (Negative); Epithelial Cells Rare HPF (Negative); Mucus Negative (Negative); RBC 0-2 HPF (0-2)
[2019-04-10 13:26] LABS: Creatine Kinase 1194 U/L (26-192)
[2019-04-10 13:48] LABS: D-Dimer 4145 ng/mlFEU (<500)
[2019-04-10] MEDS: Aspirin 325 MG TAB PO (14:08)
[2019-04-10 14:16] LABS: PTT Activated 23.1 sec (21.0-31.4)
[2019-04-10] MEDS: Normal Saline 250 ML IV (14:29)
[2019-04-10 15:26] LABS: Troponin I 4.54 ng/Ml (<0.06)
[2019-04-10] MEDS: Clopidogrel 300 MG TAB PO (15:38)
--- NOTE | 2019-04-12 08:53 | NUR.NOTE ---
[place] [facility] [place] [facility] Urine culture report faxed to [phone].Nursing Note:
== END 2019-04-10 17:16 | disposition short-term general hospital (02) ==
PROVIDERS: Emergency Provider Emergency Medicine; PCP Nurse Practitioner
DX: I21.4 Non-ST elevation (NSTEMI) myocardial infarction (principal); R53.1 Weakness; S50.311A Abrasion of right elbow, initial encounter; S60.811A Abrasion of right wrist, initial encounter; W18.2XXA Fall in (into) shower or empty bathtub, initial encounter; I12.9 Hypertensive chronic kidney disease with stage 1 through stage 4 chronic kidney disease, or unspecified chronic kidney disease; N18.9 Chronic kidney disease, unspecified
CPT/HCPCS: 36415; 51701; 80053; 82550; 87077; 93005; 96361; 96365; 96366; 96376; 99285; 71046; 73080; 73110; 81003; 81015; 83735; 84484; 85025; 85379; 85730; 87086; 87186; 93010

== ENCOUNTER → 2019-05-23 10:58 | Outpatient (BNVA) | payer MEDICARE, MEDICAID, SELFPAY | PROVIDERS: PCP Nurse Practitioner; Referring Provider Nurse Practitioner; Visit Provider Internal Medicine Cardiovascular Disease | DX: I21.4 Non-ST elevation (NSTEMI) myocardial infarction (principal); I50.9 Heart failure, unspecified; I34.0 Nonrheumatic mitral (valve) insufficiency; I11.0 Hypertensive heart disease with heart failure | CPT/HCPCS: 99214; 99443 ==

== ENCOUNTER → 2019-05-24 10:58 | Outpatient (BNVA) | payer MEDICARE, MEDICAID, SELFPAY | PROVIDERS: PCP Nurse Practitioner; Referring Provider Nurse Practitioner; Visit Provider Internal Medicine Cardiovascular Disease | DX: R69 Illness, unspecified (principal) | CPT/HCPCS: 99204 ==

== ENCOUNTER 2019-07-07 13:03 | Outpatient (REF) | payer MEDICARE, MEDICAID, SELFPAY ==
[2019-07-07 17:03] LABS: ALT 31 U/L (14-59); AST 32 U/L (15-37); Albumin 3.4 g/dL (3.4-5.0); Alkaline Phosphatase 78 U/L (46-116); Anion Gap 8.6 mmol/L (3-11); BUN 21 mg/dL (7-18); Bilirubin, Total 0.4 mg/dL (0.2-1.0); CO2 26.4 mmol/L (21.0-32.0); CREATININE 1.44 mg/dL (0.55-1.02); Calcium 8.9 mg/dL (8.5-10.1); Chloride 104 mmol/L (98-107); Estimated GFR 35.49 (mL/min/1.73m2); Glucose 84 mg/dL (74-106); Potassium 3.5 mmol/L (3.5-5.1); Sodium 139 mmol/L (136-145); Total Protein 6.5 g/dL (6.4-8.2)
== END 2019-07-07 13:23 ==
LOC: NCHCN 13:03
PROVIDERS: PCP Nurse Practitioner; Visit Provider Nurse Practitioner
DX: I10 Essential (primary) hypertension (principal); N18.3 Chronic kidney disease, stage 3 (moderate)
CPT/HCPCS: 80053

== ENCOUNTER → 2019-08-03 10:01 | Outpatient (BNVA) | payer MEDICARE, MEDICAID, SELFPAY | PROVIDERS: PCP Nurse Practitioner; Referring Provider Nurse Practitioner; Visit Provider Orthopaedic Surgery | DX: M70.61 Trochanteric bursitis, right hip (principal); I10 Essential (primary) hypertension | CPT/HCPCS: 20610; 99214; J1040 ==

== ENCOUNTER → 2019-09-06 10:41 | Outpatient (BNVA) | payer MEDICARE, MEDICAID, SELFPAY | PROVIDERS: PCP Nurse Practitioner; Referring Provider Nurse Practitioner; Visit Provider Orthopaedic Surgery | DX: M70.61 Trochanteric bursitis, right hip (principal); M25.551 Pain in right hip; Z98.890 Other specified postprocedural states ==

== ENCOUNTER 2019-10-04 14:33 | Outpatient (CLI) | payer MEDICARE, MEDICAID, SELFPAY ==
--- NOTE | 2019-10-04 11:30 | DI.RAD_ITS ---
EXAM: XR LUMBAR SPINE AP, LAT CLINICAL HISTORY: pain. TECHNIQUE: 2D digital imaging was performed. COMPARISON: No exams were available for comparison FINDINGS: There are endplate osteophytes throughout, most prominent in the lower thoracic, upper lumbar region. There is multilevel disc space narrowing. There are severe facet joint degenerative changes through out. No compression fracture or significant scoliosis is seen. Degenerative changes are also noted at the inferior SI joints. IMPRESSION: Severe degenerative changes. DATA REPOSITORY: RADIATION DOSE DELIVERED:
== END 2019-10-04 14:53 ==
PROVIDERS: PCP Nurse Practitioner; Referring Provider Nurse Practitioner; Visit Provider Orthopaedic Surgery
DX: M47.816 Spondylosis without myelopathy or radiculopathy, lumbar region (principal); M47.815 Spondylosis without myelopathy or radiculopathy, thoracolumbar region; M25.551 Pain in right hip
CPT/HCPCS: 99214; 72100

== ENCOUNTER 2019-10-11 13:07 | Outpatient (REF) | payer MEDICARE, MEDICAID, SELFPAY ==
[2019-10-11 19:20] LABS: Anion Gap 9.9 mmol/L (3-11); BUN 20 mg/dL (7-18); CO2 26.1 mmol/L (21.0-32.0); CREATININE 1.21 mg/dL (0.55-1.02); Calcium 8.9 mg/dL (8.5-10.1); Chloride 104 mmol/L (98-107); Estimated GFR 43.26 (mL/min/1.73m2); Glucose 89 mg/dL (74-106); Potassium 3.6 mmol/L (3.5-5.1); Sodium 140 mmol/L (136-145)
== END 2019-10-11 13:27 ==
LOC: NCHCN 13:07
PROVIDERS: PCP Nurse Practitioner; Visit Provider Nurse Practitioner
DX: R60.0 Localized edema (principal); N18.3 Chronic kidney disease, stage 3 (moderate)
CPT/HCPCS: 80048

== ENCOUNTER 2019-10-14 18:10 | Emergency (ER) | payer MEDICARE, MEDICAID, SELFPAY ==
[2019-10-14 18:10] VITALS: BP 147/77; PULSE 72; RESP 20; TEMP 36.4; O2SAT 98
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
[2019-10-14] MEDS: Apixaban 5 MG TAB 10 MG PO (18:44)
[2019-10-14 19:07] VITALS: BP 147/77; PULSE 72; RESP 18; RESP 20; TEMP 36.4; O2SAT 98
== END 2019-10-14 19:55 | disposition home or self-care (01) ==
PROVIDERS: Emergency Provider Student in an Organized Health Care Education/Training Program; PCP Nurse Practitioner
DX: R60.0 Localized edema (principal); N18.9 Chronic kidney disease, unspecified
CPT/HCPCS: 99283

== ENCOUNTER 2019-10-15 06:50 | Emergency (ER) | payer MEDICARE, MEDICAID, SELFPAY ==
[2019-10-15 06:55] VITALS: BP 148/81; PULSE 77; TEMP 36.4; O2SAT 97
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
--- NOTE | 2019-10-15 07:00 | DI.US_ITS ---
EXAM: US LOWER EXTREMITY VENOUS LT CLINICAL HISTORY: increase/worse swelling in last 24 hours TECHNIQUE: Left lower extremity venous ultrasound performed using grayscale, color-flow, and spectra l Doppler analysis. COMPARISON: No exams were available for comparison FINDINGS: The left common femoral, femoral and popliteal veins demonstrate normal compressibility, augmentation , and color Doppler. The posterior tibial veins are patent. The saphenofemoral junction is unremarka ble. There is no evidence of a Lopez cyst. The soft tissues are unremarkable. IMPRESSION: No DVT. DATA REPOSITORY:
[2019-10-15 07:01] VITALS: RESP 18
--- NOTE | 2019-10-15 08:09 | DI.VRAD_ITS ---
PROCEDURE INFORMATION: Exam: US Duplex Left Lower Extremity Veins, Limited Exam date and time: 10/15/2019 7:54 AM Age: 74 years old Clinical indication: Edema, localized; Lower extremity, left; Patient HX: Left leg swelling. TECHNIQUE: Imaging protocol: Real-time Duplex ultrasound of the Left Lower Extremity with 2-D banks scale, color Doppler flow and spectral waveform analysis with image documentation. Limited exam focused on the left lower extremity veins. COMPARISON: No relevant prior studies available. FINDINGS: Left deep veins: Unremarkable. The common femoral, femoral, proximal profunda femoral and popliteal veins are patent without thrombus. Normal Doppler waveforms. Normal compressibility and/or augmentation response. Left superficial veins: Unremarkable. Saphenofemoral junction is patent without thrombus. Soft tissues: Unremarkable. IMPRESSION: No evidence of deep vein thrombosis. Dictated and Authenticated by: Christen Moreno MD. Ordering:JENNY Alvarado MD
== END 2019-10-15 08:15 | disposition home or self-care (01) ==
PROVIDERS: Emergency Provider Student in an Organized Health Care Education/Training Program; PCP Nurse Practitioner
DX: R60.0 Localized edema (principal); Z71.1 Person with feared health complaint in whom no diagnosis is made
CPT/HCPCS: 93971

== ENCOUNTER → 2019-11-25 09:44 | Outpatient (BNVA) | payer MEDICARE, MEDICAID, SELFPAY | PROVIDERS: PCP Nurse Practitioner; Referring Provider Nurse Practitioner; Visit Provider Internal Medicine Cardiovascular Disease | DX: I21.4 Non-ST elevation (NSTEMI) myocardial infarction (principal); I34.0 Nonrheumatic mitral (valve) insufficiency; I10 Essential (primary) hypertension | CPT/HCPCS: 99214 ==

== ENCOUNTER 2020-02-21 23:32 | Emergency (ER) | payer MEDICARE, MEDICAID, SELFPAY ==
[2020-02-21 23:43] VITALS: BP 149/73; PULSE 72; RESP 18; TEMP 36.1; O2SAT 100
--- NOTE | 2020-02-21 23:45 | DI.RAD_ITS ---
EXAM: XR HUMERUS LT CLINICAL HISTORY: left humerus pain s/p fall. TECHNIQUE: 2D digital imaging was performed. COMPARISON: No exams were available for comparison FINDINGS: There is no evidence of fracture of the left humerus. No osseous lesions. Bone density is age-appro priate. No dislocation at the glenohumeral joint. IMPRESSION: No fracture evident. DATA REPOSITORY: RADIATION DOSE DELIVERED:
--- NOTE | 2020-02-21 23:45 | DI.RAD_ITS ---
EXAM: XR SHOULDER LT COMPLETE 2+V CLINICAL HISTORY: pain s/p fall. TECHNIQUE: 2D digital imaging was performed. COMPARISON: CR XR shoulder LT complete 2+V from 10/28/2017 CR,XR XR CHEST 2V PA LATERAL from 04/10/2019 FINDINGS: BONES: No acute fracture is present. No bony destructive lesion is seen. JOINTS: No dislocation present. SOFT TISSUE: Normal. Incidental note is again made of a calcified granuloma in the left lung. This w as present on the chest x-ray from 04/10/2019 IMPRESSION: No acute fracture or dislocation. DATA REPOSITORY: RADIATION DOSE DELIVERED:
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
--- NOTE | 2020-02-22 00:15 | DI.CT_ITS ---
EXAM: CT HEAD CERVICAL SPINE WO CLINICAL HISTORY: pain s/p fall. TECHNIQUE: Imaging Protocol: Axial computed tomography images with coronal and sagittal reformatted images were created and reviewed COMPARISON: No exams were available for comparison FINDINGS: BRAIN: There are no skull fractures nor fluid in the visualized paranasal sinuses. There is no evidence of intracranial hemorrhage, mass effect, or shift of midline structures. There are no extra-axial fluid collections. The ventricles are not enlarged or shifted and there is no blo od within the ventricular system nor within the basal cisterns. There is abundant bilateral periventricular hypodensity consistent with chronic small vessel disease. No obvious acute appearing infarcts. CERVICAL SPINE: There is no evidence of fracture nor listhesis. No significant prevertebral soft tissue swelling. N o facet malalignment evident. No significant osseous lesions evident. There is chronic multilevel disc space narrowing. Also multilevel facet arthropathy but no facet mal alignment. Calcification is noted in the supraspinous ligament over the lower cervical spine. IMPRESSION: No acute intracranial findings on this noninfused CT scan of the brain. No evidence of cervical spine fracture, malalignment, nor acute compromise of the cervical spinal can al. RADIATION DOSE DELIVERED: 1,227.68mGy.cm Total DLP DATA REPOSITORY: All CT scans at this facility are submitted to the National Radiology Data Registry (NRDR) Dose Index Registry (DIR) with the [employer] (ACR). RADIATION OPTIMIZATION: All CT scans at this facility use at least one of these dose optimization te chniques: automated exposure control; mA and/or kV adjustment per patient size (includes targeted exa ms where dose is matched to clinical indication); or iterative reconstruction.
[2020-02-22] MEDS: Acetaminophen 500 MG TAB 1000 MG PO (00:30)
--- NOTE | 2020-02-22 01:12 | DI.VRAD_ITS ---
PROCEDURE INFORMATION: Exam: XR Left Humerus Exam date and time: 02/21/2020 1:05 AM Age: 74 years old Clinical indication: Injury or trauma; Blunt trauma (contusions or hematomas); Arm, upper; Left; Injury date: 02/21/20; Injury details: Fall from recliner, arm pain TECHNIQUE: Imaging protocol: XR Left humerus Views: 2 or more views. COMPARISON: CR XR humerus LT 10/28/2017 11:13 AM FINDINGS: Bones/joints: No suspicious osseous lytic or blastic lesion. No acute fracture or dislocation. Soft tissues: No focal abnormality. IMPRESSION: No acute fracture or dislocation. Dictated and Authenticated by: Poncho Birmingham MD. Ordering:AD Swain MD
--- NOTE | 2020-02-22 01:13 | DI.VRAD_ITS ---
PROCEDURE INFORMATION: Exam: XR Left Shoulder Exam date and time: 02/21/2020 1:05 AM Age: 74 years old Clinical indication: Pain; Shoulder; Left; Patient HX: Fall from recliner TECHNIQUE: Imaging protocol: XR Left shoulder. Views: 2 or more views. COMPARISON: CR XR shoulder LT complete 2+V 10/28/2017 11:13 AM FINDINGS: Bones/joints: No suspicious osseous lytic or blastic lesion. No acute fracture or dislocation. Acromioclavicular and coracoclavicular intervals within normal limits. Lungs: Note is made of benign left lung calcified granuloma. Soft tissues: No focal abnormality. IMPRESSION: No acute fracture or dislocation. Dictated and Authenticated by: Poncho Birmingham MD. Ordering:AD Swain MD
--- NOTE | 2020-02-22 01:17 | DI.VRAD_ITS ---
PROCEDURE INFORMATION: Exam: CT Head Without Contrast Exam date and time: 02/22/2020 12:33 AM Age: 74 years old Clinical indication: Injury or trauma; Blunt trauma (contusions or hematomas); Consciousness not specified; Injury date: 02/21/20; Injury details: Fall from recliner, head and neck pain TECHNIQUE: Imaging protocol: Computed tomography of the head without contrast. Radiation optimization: All CT scans at this facility use at least one of these dose optimization techniques: automated exposure control; mA and/or kV adjustment per patient size (includes targeted exams where dose is matched to clinical indication); or iterative reconstruction. COMPARISON: No relevant prior studies available. FINDINGS: Brain: There are areas of diminished density in the white matter bilaterally consistent with chronic small vessel ischemic changes. Perry-white matter differentiation is intact and unremarkable. No mass lesion. No acute intracranial hemorrhage. Perry/white matter differentiation is unremarkable. Cisterns are unremarkable. Brainstem is unremarkable. No suprasellar mass. No mass lesion. No mass effect. Thalamus and hypothalamus are unremarkable. Cerebellum is unremarkable. Cerebral ventricles: No ventriculomegaly. Bones/joints: No evidence of fracture. Paranasal sinuses: Visualized sinuses are unremarkable. No fluid levels. Mastoid air cells: Visualized mastoid air cells are well aerated. Soft tissues: Unremarkable. IMPRESSION: 1. No evidence of fracture. No evidence of acute intracranial bleed. 2. Chronic ischemic changes bilaterally. PROCEDURE INFORMATION: Exam: CT Cervical Spine Without Contrast Exam date and time: 02/22/2020 12:33 AM Age: 74 years old Clinical indication: Injury or trauma; Blunt trauma (contusions or hematomas); Consciousness not specified; Injury date: 02/21/20; Injury details: Fall from recliner, head and neck pain TECHNIQUE: Imaging protocol: Computed tomography images of the cervical spine without contrast. Radiation optimization: All CT scans at this facility use at least one of these dose optimization techniques: automated exposure control; mA and/or kV adjustment per patient size (includes targeted exams where dose is matched to clinical indication); or iterative reconstruction. COMPARISON: No relevant prior studies available. FINDINGS: Bones/joints: No fracture or dislocation. Discs/Spinal canal/Neural foramina: Degenerative disc disease and facet arthropathy at multiple levels in cervical spine with areas of degenerative canal and neural foraminal narrowing which appear chronic. Lungs: Lung apices are normal. Soft tissues: Unremarkable. IMPRESSION: No fracture or dislocation. Dictated and Authenticated by: Nayla Dickinson MD. Ordering:AD Swain MD
[2020-02-22 01:34] VITALS: BP 138/71; PULSE 85; RESP 18; TEMP 36.2; O2SAT 100
== END 2020-02-22 01:48 | disposition home or self-care (01) ==
LOC: ER 02-22 01:48
PROVIDERS: Emergency Provider Emergency Medicine; PCP Nurse Practitioner
DX: S16.1XXA Strain of muscle, fascia and tendon at neck level, initial encounter (principal); S40.022A Contusion of left upper arm, initial encounter; W07.XXXA Fall from chair, initial encounter; R51.9 Headache, unspecified
CPT/HCPCS: 99284; 70450; 72125; 73030; 73060

== ENCOUNTER 2020-02-23 21:42 | Outpatient (REF) | payer MEDICARE, MEDICAID, SELFPAY ==
[2020-02-23 18:52] LABS: Anion Gap 7.9 mmol/L (3-11); BUN 18 mg/dL (7-18); CO2 27.1 mmol/L (21.0-32.0); CREATININE 1.54 mg/dL (0.55-1.02); Chloride 106 mmol/L (98-107); Estimated GFR 32.75 (mL/min/1.73m2); Glucose 101 mg/dL (74-106); NT-proBNP 1120 pg/mL (<300); Potassium 4.1 mmol/L (3.5-5.1); Sodium 141 mmol/L (136-145); TSH (W/Ref FT4) 3.27 uIU/mL (0.36-3.74)
== END 2020-02-23 22:02 ==
LOC: NCHCN 21:42
PROVIDERS: PCP Nurse Practitioner; Visit Provider Family Medicine
DX: E03.9 Hypothyroidism, unspecified (principal); Z86.79 Personal history of other diseases of the circulatory system
CPT/HCPCS: 80048; 83880; 84443

== ENCOUNTER 2020-02-28 12:13 | Emergency (ER) | payer MEDICARE, MEDICAID, SELFPAY ==
[2020-02-28] VITALS (38 sets, daily range): BP systolic 147–160; BP diastolic 57–142; PULSE 58–102; RESP 12–22; TEMP 36.1–36.3; O2SAT 98–100
--- NOTE | 2020-02-28 12:00 | RT.EKG_ITS ---
APPROVED REPORT Exam: Resting ECG Patient Location: E HR:79 bpm ECG Measurements Heart Rate 79 AXIS CA 158 P 59 QRSd 97 QRS -17 QT 401 T 47 QTc 460 Conclusion Sinus rhythm...normal P axis, V-rate 60- 99 Inferior infarct, old...Q >35mS, II III aVF no stemi
[2020-02-28 12:33] LABS: Abs Immature Grans 0.01 10^3/uL (0.0-0.06); Absolute Basophil Count 0.04 10^3/uL (0.0-0.2); Absolute Eosinophil Count 0.17 10^3/uL (0.0-0.7); Absolute Lymphocyte Count 2.22 10^3/uL (1.2-3.4); Absolute Monocyte Count 0.61 10^3/uL (0.1-0.8); Absolute Neutrophil Count 2.42 10^3/uL (1.2-6.7); Basophils % 0.7; Eosinophils % 3.1; HCT 36.6 % (36.0-46.0); HGB 11.5 g/dL (11.2-15.7); Immature Grans % 0.2; Lymphocytes % 40.6; MCH 30.3 pg (27.0-33.0); MCHC 31.4 % (32.0-36.0); MCV 96.3 fL (80-95); MPV 10.3 fL (8.0-11.0); Monocytes % 11.2; Neutrophils % 44.2; Nucleated RBC 0 %; Platelet Count 154 10^3/uL (130-400); RDW 14.7 % (11.7-14.6); RDW-SD 52.3 fL; WBC 5.47 10^3/uL (4.4-10.8)
--- NOTE | 2020-02-28 12:45 | DI.CT_ITS ---
EXAM: CT HEAD CERVICAL SPINE WO CLINICAL HISTORY: fall, hit frontal/parietal head 4 days ago. TECHNIQUE: Imaging Protocol: Axial computed tomography images with coronal and sagittal reformatted images were created and reviewed COMPARISON: CT CT HEAD CERVICAL SPINE WO from 02/22/2020 FINDINGS: Head CT Ventricles and Extra axial spaces: Normal in size and morphology for the patient's age. Hemorrhage: None. Cerebral parenchyma: White matter changes consistent with small vessel disease. Midline shift: None. Brainstem/Cerebellum: A small area of encephalomalacia in the left cerebellar hemisphere. Calvarium: Normal. Visualized Paranasal sinuses/Mastoids: Clear. Cervical Spine CT BONES: Vertebral body heights are maintained. Alignment is normal. There is no evidence of acute frac ture. Degenerative disc changes and facet degenerative changes are seen . SOFT TISSUES: No paraspinal hematoma. The airway appears intact. No pneumothorax is seen at the lung apices. IMPRESSION: Head CT: No acute abnormality. C-spine CT: Degenerative changes, no acute abnormality. RADIATION DOSE DELIVERED: LINK-TO-SR Total DLP DATA REPOSITORY: All CT scans at this facility are submitted to the National Radiology Data Registry (NRDR) Dose Index Registry (DIR) with the [employer] (ACR). RADIATION OPTIMIZATION: All CT scans at this facility use at least one of these dose optimization te chniques: automated exposure control; mA and/or kV adjustment per patient size (includes targeted exa ms where dose is matched to clinical indication); or iterative reconstruction.
[2020-02-28 12:50] LABS: ALT 35 U/L (14-59); AST 38 U/L (15-37); Albumin 3.5 g/dL (3.4-5.0); Alkaline Phosphatase 87 U/L (46-116); Anion Gap 8.8 mmol/L (3-11); BUN 24 mg/dL (7-18); Bilirubin, Total 0.5 mg/dL (0.2-1.0); CO2 27.2 mmol/L (21.0-32.0); CREATININE 1.33 mg/dL (0.55-1.02); Chloride 104 mmol/L (98-107); Estimated GFR 38.79 (mL/min/1.73m2); Glucose 93 mg/dL (74-106); NT-proBNP 1121 pg/mL (<300); Potassium 3.8 mmol/L (3.5-5.1); Sodium 140 mmol/L (136-145); Total Protein 7.4 g/dL (6.4-8.2)
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
[2020-02-28 12:51] LABS: Troponin I < 0.05 ng/mL (<0.06)
[2020-02-28 13:18] LABS: TSH (W/Ref FT4) 3.24 uIU/mL (0.36-3.74)
[2020-02-28] MEDS: Normal Saline Flush 10 ML SYR IVP (15:15)
[2020-02-28] MEDS: Furosemide 20 MG/2 ML VIAL IVP (15:16)
== END 2020-02-28 16:54 | disposition home or self-care (01) ==
PROVIDERS: Emergency Provider Student in an Organized Health Care Education/Training Program; PCP Nurse Practitioner
DX: R60.0 Localized edema (principal); I50.9 Heart failure, unspecified; R51.9 Headache, unspecified; W19.XXXA Unspecified fall, initial encounter
CPT/HCPCS: 80053; 93005; 96374; 99285; 70450; 72125; 83880; 84443; 84484; 85025; 93010; 99284; J1941

== ENCOUNTER 2020-03-06 17:23 | Outpatient (REF) | payer MEDICARE, MEDICAID, SELFPAY ==
[2020-03-06 19:17] LABS: Anion Gap 7.5 mmol/L (3-11); BUN 32 mg/dL (7-18); CO2 28.5 mmol/L (21.0-32.0); Calcium 8.6 mg/dL (8.5-10.1); Chloride 104 mmol/L (98-107); Ferritin 81 ng/mL (8-252); Glucose 96 mg/dL (74-106); Potassium 4.4 mmol/L (3.5-5.1); Sodium 140 mmol/L (136-145); Vitamin B12 286 pg/mL (193-986)
== END 2020-03-06 17:43 ==
LOC: NCHCN 17:23
PROVIDERS: PCP Nurse Practitioner; Visit Provider Family Medicine
DX: R60.9 Edema, unspecified (principal); N18.9 Chronic kidney disease, unspecified
CPT/HCPCS: 80048; 82607; 82728

== ENCOUNTER 2020-03-13 | Outpatient (REF) | payer MEDICARE, MEDICAID, SELFPAY ==
[2020-03-13 14:34] LABS: Anion Gap 6.2 mmol/L (3-11); BUN 28 mg/dL (7-18); CO2 29.8 mmol/L (21.0-32.0); CREATININE 1.38 mg/dL (0.55-1.02); Calcium 8.8 mg/dL (8.5-10.1); Chloride 105 mmol/L (98-107); Estimated GFR 37.17 (mL/min/1.73m2); Glucose 101 mg/dL (74-106); Potassium 3.9 mmol/L (3.5-5.1); Sodium 141 mmol/L (136-145)
[2020-03-14 10:51] LABS: Hepatitis B Surface Ag Negative (Negative)
[2020-03-14 11:16] LABS: Hepatitis C Ab w Rflx HCV PCR Negative (Negative)
== END 2020-03-13 00:20 ==
LOC: NCHCN
PROVIDERS: PCP Nurse Practitioner; Visit Provider Family Medicine
DX: N28.9 Disorder of kidney and ureter, unspecified (principal); R94.5 Abnormal results of liver function studies
CPT/HCPCS: 80048; 86803; 87340

== ENCOUNTER 2020-04-16 01:53 | Outpatient (CLI) | payer MEDICARE, MEDICAID, SELFPAY ==
--- NOTE | 2020-04-16 | DI.US_ITS ---
EXAM: US ABDOMEN CLINICAL HISTORY: RUQ ABD TENDERNESS, R10.811,ABNL LIVER FUNCTION TESTS,R94.5,?FATTY LIVER OR TECHNIQUE: Ultrasound abdomen performed using standard protocol. COMPARISON: No exams were available for comparison FINDINGS: ABDOMINAL AORTA AND IVC: Visualized portions normal caliber. PANCREAS: Normal where visualized. LIVER: Normal echogenicity. The liver measures 13.0 cm in length. Hepatopedal flow in the Portal Ve in. GALLBLADDER: No evidence of cholelithiasis. No evidence of wall thickening. No pericholecystic fluid identified. BILIARY SYSTEM: Common bile duct measures < 7 mm. No intrahepatic biliary ductal dilation. DELONG'S SIGN: Negative. KIDNEYS: Kidneys are symmetric in size. No evidence of renal calculi. No evidence of hydronephrosis. No renal mass or cyst identified. SPLEEN: Not enlarged. ASCITES: None seen. IMPRESSION: Normal sonographic appearance of the upper abdomen. DATA REPOSITORY:
== END 2020-04-16 02:13 ==
PROVIDERS: PCP Family Medicine; Visit Provider Family Medicine
DX: R10.811 Right upper quadrant abdominal tenderness (principal); R94.5 Abnormal results of liver function studies
CPT/HCPCS: 76700

== ENCOUNTER 2020-06-08 08:32 | Emergency (ER) | payer MEDICARE, MEDICAID, SELFPAY ==
[2020-06-08] VITALS (38 sets, daily range): BP systolic 130–161; BP diastolic 65–95; PULSE 49–78; RESP 10–24; TEMP 36.4; O2SAT 97–100
--- NOTE | 2020-06-08 08:15 | RT.EKG_ITS ---
APPROVED REPORT Exam: Resting ECG Patient Location: E HR:57 bpm ECG Measurements Heart Rate 57 AXIS AL 94 P 0 QRSd 100 QRS -18 QT 436 T 36 QTc 426 Conclusion Sinus bradycardia...rate< 60 Inferior infarct, old...Q >35mS, II III aVF I have reviewed and interpreted ECG and agree with software generated interpretation.
[2020-06-08] MEDS: Aspirin 81 MG CHEW 243 MG CH (08:57)
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
[2020-06-08 09:18] LABS: Abs Immature Grans 0.01 10^3/uL (0.0-0.06); Absolute Basophil Count 0.03 10^3/uL (0.0-0.2); Absolute Eosinophil Count 0.13 10^3/uL (0.0-0.7); Absolute Lymphocyte Count 1.56 10^3/uL (1.2-3.4); Absolute Monocyte Count 0.45 10^3/uL (0.1-0.8); Absolute Neutrophil Count 2.24 10^3/uL (1.2-6.7); Basophils % 0.7; Eosinophils % 2.9; HCT 41.5 % (36.0-46.0); HGB 13.3 g/dL (11.2-15.7); Immature Grans % 0.2; Lymphocytes % 35.3; MCV 93.7 fL (80-95); MPV 11.2 fL (8.0-11.0); Monocytes % 10.2; Neutrophils % 50.7; Nucleated RBC 0 %; Platelet Count 117 10^3/uL (130-400); RBC 4.43 10^6/uL (3.93-5.22); RDW 15.6 % (11.7-14.6); RDW-SD 54.3 fL; WBC 4.42 10^3/uL (4.4-10.8)
--- NOTE | 2020-06-08 09:30 | DI.RAD_ITS ---
EXAM: XR CHEST 2V PA LATERAL CLINICAL HISTORY: R sided chest pain TECHNIQUE: 2D digital imaging was performed. COMPARISON: CR,XR XR CHEST 2V PA LATERAL from 04/10/2019 FINDINGS: The heart is mildly enlarged, unchanged. Calcification is seen at the aortic arch. There is stable calcified granulomas in the left lower lobe. The lungs are otherwise clear. No infiltrate, effusion or pneumothorax is seen. There are degenerative changes in the thoracic spine. IMPRESSION: No acute pulmonary findings. DATA REPOSITORY: RADIATION DOSE DELIVERED:
[2020-06-08 09:35] LABS: Prothrombin Time 10.1 sec (9.3-11.0)
--- NOTE | 2020-06-08 09:45 | RT.EKG_ITS ---
APPROVED REPORT Exam: Resting ECG Patient Location: E HR:55 bpm ECG Measurements Heart Rate 55 AXIS NV 186 P 39 QRSd 97 QRS -21 QT 450 T 32 QTc 431 Conclusion Sinus bradycardia...rate< 60 Low voltage, precordial leads...precordial leads <1.0mV I have reviewed and interpreted ECG and agree with software generated interpretation.
--- NOTE | 2020-06-08 09:45 | DI.CT_ITS ---
EXAM: CT CHEST PE CTA CLINICAL HISTORY: R sided chest pain, elevated dimer. TECHNIQUE: Imaging Protocol: Axial CT angiography was performed with multi-slice acquisition and mu lti-planar and/or 3D reconstructions. CONTRAST MATERIAL: Intravenous: Visipaque 320 contrast volume:73 ml COMPARISON: CT CT ABDOMEN PELVIS WO from 03/05/2019 CR XR CHEST 2V PA LATERAL from 06/08/2020 CR XR CHEST 2V PA LATERAL from 06/08/2020 FINDINGS: Pulmonary Arteries: No evidence of filling defect to suggest pulmonary emboli. Tracheobronchial tree: Patent where visualized. Mediastinum and Aisha: No dominant adenopathy or fluid collection. Pulmonary parenchyma: Mild respiratory motion. No consolidation or dominant measurable mass. No arch itectural distortion. Granuloma left lower lobe. Pleura: No effusion or pneumothorax. Heart: The heart is moderately dilated, particularly left atrium and left ventricle.. No coronary ar anne calcifications are seen. Aorta: Thoracic aorta non-dilated. Mild atherosclerotic changes. No dissection. Upper abdomen: Unremarkable. Bones: Prominent flowing osteophytes in the thoracic spine. IMPRESSION: No evidence of pulmonary embolism or other acute abnormality.. RADIATION DOSE DELIVERED: 210.31mGy.cm Total DLP DATA REPOSITORY: All CT scans at this facility are submitted to the National Radiology Data Registry (NRDR) Dose Index Registry (DIR) with the [employer] ([employer]). RADIATION OPTIMIZATION: All CT scans at this facility use at least one of these dose optimization te chniques: automated exposure control; mA and/or kV adjustment per patient size (includes targeted exa ms where dose is matched to clinical indication); or iterative reconstruction.
[2020-06-08 09:53] LABS: D-Dimer 966 ng/mlFEU (<500)
[2020-06-08 10:00] LABS: ALT 25 U/L (14-59); AST 28 U/L (15-37); Albumin 3.5 g/dL (3.4-5.0); Alkaline Phosphatase 89 U/L (46-116); Anion Gap 9.1 mmol/L (3-11); BUN 23 mg/dL (7-18); Bilirubin, Total 0.6 mg/dL (0.2-1.0); CO2 27.9 mmol/L (21.0-32.0); CREATININE 1.6 mg/dL (0.55-1.02); Chloride 107 mmol/L (98-107); Estimated GFR 31.34 (mL/min/1.73m2); Glucose 95 mg/dL (74-106); Magnesium 2.2 mg/dL (1.8-2.4); NT-proBNP 371 pg/mL (<300); Potassium 4.1 mmol/L (3.5-5.1); Sodium 144 mmol/L (136-145); Total Protein 6.7 g/dL (6.4-8.2)
[2020-06-08 10:03] LABS: Troponin I < 0.05 ng/mL (<0.06)
[2020-06-08] MEDS: Aspirin 81 MG CHEW (10:23)
[2020-06-08] MEDS: Normal Saline 1,000 ML 125 ML IV (10:23)
[2020-06-08] MEDS: Lidocaine 5% Patch 1 PATCH TP (10:23)
[2020-06-08 12:41] LABS: Troponin I < 0.05 ng/mL (<0.06)
== END 2020-06-08 14:45 | disposition home or self-care (01) ==
PROVIDERS: Emergency Provider Physician Assistant; PCP Family Medicine
DX: R07.9 Chest pain, unspecified (principal); R79.89 Other specified abnormal findings of blood chemistry
CPT/HCPCS: 71275; 80053; 93005; 96360; 96361; 99285; 71046; 83735; 83880; 84484; 85025; 85379; 85610; 85730; 93010; 99283

== ENCOUNTER 2020-06-19 09:01 | Emergency (ER) | payer MEDICARE, MEDICAID, SELFPAY ==
[2020-06-19 09:02] VITALS: BP 117/104; PULSE 71; RESP 20; TEMP 36.9; O2SAT 98
--- NOTE | 2020-06-19 09:15 | DI.CT_ITS ---
Exam(s) CT CERVICAL SPINE WO EXAM: CT CERVICAL SPINE WO CLINICAL HISTORY: fall, tender. TECHNIQUE: Imaging Protocol: Axial computed tomography images with coronal and sagittal reformatted images were created and reviewed COMPARISON: CT CT HEAD CERVICAL SPINE WO from 02/28/2020 FINDINGS: Bones: No fracture or dislocations are seen. The alignment of the cervical spine is normal including the cervicovertebral junction and cervicothoracic junction. Multilevel degenerative changes are prese nt throughout the cervical spine. There is a mild left convex curvature of the cervical spine. Soft Tissues: The soft tissues of the neck are unremarkable. Thyroid gland: There is a stable 0.8 cm hypodense nodule in the left lobe of the thyroid gland. No a ssociated suspicious findings are present. No follow-up is recommended. Lung apices: No acute abnormality. IMPRESSION: 1. No acute fracture or subluxation in the cervical spine. 2. 0.8 cm left thyroid nodule. No follow-up is recommended. 3. Results of this exam have been verbally communicated with provider. In patients >18 years with an incidental thyroid nodule (ITN) detected on CT,MRI, or extrathyroidal u ltrasound, no further evaluation is recommended if the nodule is 1 cm or less and has no suspicious i maging features. In patients<35 years with an (ITN) detected on CT, MRI, or extrathyroidal ultrasound, further evaluat ion with dedicated thyroid ultrasound is recommended if the nodule > 1 cm and has no suspicious imaga ing features, and if the patient has normal life expectancy. In patients >35 years with an ITN detected on CT MRI or extrathyroidal ultrasound, further evaluation with dedicated thyroid ultrasound is recommended if the nodule is > 1.5 cm and has no suspicious remington ging features, and if the patient has normal life expenctancy. (KAY, 2009 and ACR, 2014) RADIATION DOSE DELIVERED: Total DLP Total DLP DATA REPOSITORY: All CT scans at this facility are submitted to the National Radiology Data Registry (NRDR) Dose Index Registry (DIR) with the [employer] (ACR). RADIATION OPTIMIZATION: All CT scans at this facility use at least one of these dose optimization te chniques: automated exposure control; mA and/or kV adjustment per patient size (includes targeted exa ms where dose is matched to clinical indication); or iterative reconstruction.
--- NOTE | 2020-06-19 09:15 | DI.RAD_ITS ---
Exam(s) XR ELBOW RT COMPLETE EXAM: XR ELBOW RT COMPLETE CLINICAL HISTORY: fall, pain. TECHNIQUE: 2D digital imaging was performed. COMPARISON: CR,XR XR ELBOW RT COMPLETE from 04/10/2019 FINDINGS: BONES: No acute fracture is present. No bony destructive lesion is seen. There is a tiny calcificati on adjacent to the olecranon likely reflecting calcific tendinitis. JOINTS: The elbow is normally aligned. No joint effusion is seen. SOFT TISSUE: Normal. IMPRESSION: No acute fracture or dislocation. DATA REPOSITORY: RADIATION DOSE DELIVERED:
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
--- NOTE | 2020-06-19 09:35 | DI.CT_ITS ---
Exam(s) CT THORACIC SPINE WO EXAM: CT THORACIC SPINE WO CLINICAL HISTORY: trauma, fall, ttp t2. TECHNIQUE: Imaging Protocol: Axial computed tomography images with coronal and sagittal reformatted images were created and reviewed. COMPARISON: CR XR CHEST 2V PA LATERAL from 06/08/2020 FINDINGS: Bones: No fractures or dislocations are seen. The alignment of the spine is normal including the cerv icothoracic junction. There are degenerative changes throughout the thoracic spine. Soft tissues: The soft tissues of the chest are unremarkable. The lungs are clear. No large disk he rniations are identified. IMPRESSION: 1. No acute fracture or subluxation in the thoracic spine. 2. Results of this exam have been verbally communicated with provider. RADIATION DOSE DELIVERED: 1,539.91mGy.cm Total DLP 1,539.91mGy.cm Total DLP DATA REPOSITORY: All CT scans at this facility are submitted to the National Radiology Data Registry (NRDR) Dose Index Registry (DIR) with the [employer] (A[employer]). RADIATION OPTIMIZATION: All CT scans at this facility use at least one of these dose optimization te chniques: automated exposure control; mA and/or kV adjustment per patient size (includes targeted exa ms where dose is matched to clinical indication); or iterative reconstruction.
[2020-06-19 09:42] VITALS: BP 120/73; PULSE 59
[2020-06-19 11:02] VITALS: BP 124/63; PULSE 65
[2020-06-19 11:37] VITALS: O2SAT 99
[2020-06-19 11:38] VITALS: BP 130/76; PULSE 73; PULSE 77; RESP 16; TEMP 36.9; O2SAT 97
[2020-06-19 13:47] VITALS: BP 130/76; PULSE 73; RESP 20; TEMP 36.4; O2SAT 98
== END 2020-06-19 11:42 | disposition home or self-care (01) ==
PROVIDERS: Emergency Provider Student in an Organized Health Care Education/Training Program; PCP Family Medicine
DX: S16.1XXA Strain of muscle, fascia and tendon at neck level, initial encounter (principal); S51.011A Laceration without foreign body of right elbow, initial encounter; W01.198A Fall on same level from slipping, tripping and stumbling with subsequent striking against other object, initial encounter
CPT/HCPCS: 90471; 99284; 72125; 72128; 73080

== ENCOUNTER 2020-08-17 13:50 | Outpatient (REF) | payer MEDICARE, MEDICAID, SELFPAY ==
[2020-08-22 18:38] LABS: Mitochondrial Ab, M2 1.5 U
== END 2020-08-17 13:51 | disposition home or self-care (01) ==
LOC: NCHCN 13:50
PROVIDERS: PCP Family Medicine; Visit Provider Family Medicine
DX: R94.5 Abnormal results of liver function studies (principal)
CPT/HCPCS: 83516

== ENCOUNTER 2020-08-22 04:52 | Observation (INO) | payer MEDICARE, MEDICAID, SELFPAY ==
[2020-08-22] VITALS (27 sets, daily range): BP systolic 92–146; BP diastolic 40–98; PULSE 64–81; RESP 14–23; TEMP 35.8–36.4; O2SAT 94–99
--- NOTE | 2020-08-22 04:45 | DI.CT_ITS ---
Exam(s) CT HEAD CERVICAL SPINE WO EXAM: CT HEAD CERVICAL SPINE WO CLINICAL HISTORY: fall, headache. TECHNIQUE: Imaging Protocol: Axial computed tomography images with coronal and sagittal reformatted images were created and reviewed COMPARISON: CT CT CERVICAL SPINE WO from 06/19/2020 FINDINGS: CT Head: Ventricles and Extra axial spaces: Normal in size and morphology for the patient's age. Hemorrhage: None. Cerebral parenchyma: No acute territorial infarct. There are areas of decreased attenuation in the w ray matter most consistent with chronic microvascular ischemic disease. Midline shift: None. Brainstem/Cerebellum: Normal. Calvarium: Normal. Visualized Paranasal sinuses/Mastoids: Clear. Soft Tissues: Unremarkable. CT Cervical Spine: Bones: No acute fracture or subluxation. Degenerative changes are seen in the cervical spine. Soft Tissues: Unremarkable. Lung Apices: Clear. Thyroid gland: Unremarkable. IMPRESSION: 1. No acute intracranial process. 2. No acute fracture or subluxation in the cervical spine. RADIATION DOSE DELIVERED: 1,104.74mGy.cm Total DLP DATA REPOSITORY: All CT scans at this facility are submitted to the National Radiology Data Registry (NRDR) Dose Index Registry (DIR) with the [employer] (ACR). RADIATION OPTIMIZATION: All CT scans at this facility use at least one of these dose optimization te chniques: automated exposure control; mA and/or kV adjustment per patient size (includes targeted exa ms where dose is matched to clinical indication); or iterative reconstruction.
--- NOTE | 2020-08-22 04:45 | RT.EKG_ITS ---
APPROVED REPORT Exam: Resting ECG Reason for Exam: dizzy Patient Location: E HR:73 bpm ECG Measurements Heart Rate 73 AXIS MO 181 P 81 QRSd 102 QRS -14 QT 438 T 45 QTc 483 Conclusion Sinus rhythm...normal P axis, V-rate 60- 99 Inferior infarct, old...Q >35mS, II III aVF
--- NOTE | 2020-08-22 05:00 | DI.RAD_ITS ---
Exam(s) XR HUMERUS RT EXAM: XR HUMERUS RT CLINICAL HISTORY: pain, fall. TECHNIQUE: 2D digital imaging was performed. COMPARISON: CR RIGHT SHOULDER COMPLETE from 03/21/2008 FINDINGS: BONES: No acute fracture is present. There is a questionable cortical defect in the medial aspect of the proximal humeral diaphysis. There may be periosteal reaction at this level. Degenerative change s at the AC joint are noted. SOFT TISSUE: Normal. IMPRESSION: 1. Question of a cortical defect in the medial aspect of the proximal right humeral diaphysis. An ac alma fracture or possible neoplasm should be considered. A follow-up x-ray or CT scan may be consider ed for further evaluation. Depending on the results in MRI or bone scan may then be considered. Incidental Findings DATA REPOSITORY: RADIATION DOSE DELIVERED:
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
--- NOTE | 2020-08-22 05:31 | DI.VRAD_ITS ---
PROCEDURE INFORMATION: Exam: CT Head Without Contrast Exam date and time: 08/22/2020 4:55 AM Age: 74 years old Clinical indication: Injury or trauma; Blunt trauma (contusions or hematomas); Consciousness not specified; Injury date: 08/22/20; Injury details: Fall, headache TECHNIQUE: Imaging protocol: Computed tomography of the head without contrast. Radiation optimization: All CT scans at this facility use at least one of these dose optimization techniques: automated exposure control; mA and/or kV adjustment per patient size (includes targeted exams where dose is matched to clinical indication); or iterative reconstruction. COMPARISON: CT HEAD CERVICAL SPINE WO 02/28/2020 1:30 PM FINDINGS: Brain:Mild volume loss No hemorrhage.Moderate white matter disease. No mass effect. Cerebral ventricles: No ventriculomegaly. Paranasal sinuses: Visualized sinuses are unremarkable. No fluid levels. Mastoid air cells: Visualized mastoid air cells are well aerated. Bones/joints: Unremarkable. No acute fracture. Soft tissues: Unremarkable. IMPRESSION: No acute intracranial hemorrhage. PROCEDURE INFORMATION: Exam: CT Cervical Spine Without Contrast Exam date and time: 08/22/2020 4:55 AM Age: 74 years old Clinical indication: Injury or trauma; Blunt trauma (contusions or hematomas); Consciousness not specified; Injury date: 08/22/20; Injury details: Fall, headache TECHNIQUE: Imaging protocol: Computed tomography images of the cervical spine without contrast. Radiation optimization: All CT scans at this facility use at least one of these dose optimization techniques: automated exposure control; mA and/or kV adjustment per patient size (includes targeted exams where dose is matched to clinical indication); or iterative reconstruction. COMPARISON: CT HEAD CERVICAL SPINE WO 02/28/2020 1:30 PM FINDINGS: Bones/joints: No acute fracture. Loss of cervical lordosis is presumably on a degenerative basis. Discs/Spinal canal/Neural foramina: No significant spinal canal stenosis. No significant neural foraminal narrowing. Lungs: Lung apices are grossly clear Soft tissues: Unremarkable. IMPRESSION: No acute cervical fracture Dictated and Authenticated by: Matt Payne MD. Ordering:SAMIA Orantes MD
--- NOTE | 2020-08-22 05:45 | DI.VRAD_ITS ---
PROCEDURE INFORMATION: Exam: XR Right Humerus Exam date and time: 08/22/2020 5:01 AM Age: 74 years old Clinical indication: Upper arm; Right; Patient HX: Pain after fall TECHNIQUE: Imaging protocol: XR Right humerus. Views: 2 or more views. COMPARISON: CR XR ELBOW RT COMPLETE 06/19/2020 10:02 AM FINDINGS: Bones/joints: Mild degenerative changes in the humerus. No acute fracture or dislocation noted Soft tissues: Normal. IMPRESSION: No acute findings. Dictated and Authenticated by: Matt Payne MD. Ordering:SAMIA Orantes MD
[2020-08-22 06:00] LABS: Abs Immature Grans 0.01 10^3/uL (0.0-0.06); Absolute Basophil Count 0.04 10^3/uL (0.0-0.2); Absolute Eosinophil Count 0.12 10^3/uL (0.0-0.7); Absolute Lymphocyte Count 1.89 10^3/uL (1.2-3.4); Absolute Monocyte Count 0.57 10^3/uL (0.1-0.8); Absolute Neutrophil Count 3.31 10^3/uL (1.2-6.7); Basophils % 0.7; HCT 37.7 % (36.0-46.0); HGB 12.3 g/dL (11.2-15.7); Immature Grans % 0.2; Lymphocytes % 31.8; MCH 31.5 pg (27.0-33.0); MCHC 32.6 % (32.0-36.0); MCV 96.7 fL (80-95); MPV 10.4 fL (8.0-11.0); Monocytes % 9.6; Neutrophils % 55.7; Nucleated RBC 0 %; Platelet Count 133 10^3/uL (130-400); RDW 13.6 % (11.7-14.6); RDW-SD 48.6 fL; WBC 5.94 10^3/uL (4.4-10.8)
[2020-08-22 06:18] LABS: ALT 38 U/L (14-59); AST 73 U/L (15-37); Albumin 3.5 g/dL (3.4-5.0); Alkaline Phosphatase 76 U/L (46-116); BUN 24 mg/dL (7-18); Bilirubin, Total 0.6 mg/dL (0.2-1.0); CREATININE 1.7 mg/dL (0.55-1.02); Calcium 8.9 mg/dL (8.5-10.1); Chloride 103 mmol/L (98-107); Estimated GFR 29.22 (mL/min/1.73m2); Glucose 90 mg/dL (74-106); Potassium 3.3 mmol/L (3.5-5.1); Sodium 142 mmol/L (136-145); Total Protein 6.8 g/dL (6.4-8.2); Troponin I < 0.05 ng/mL (<0.06)
[2020-08-22] MEDS: Potassium Chloride 20 MEQ TABCR PO (06:30)
[2020-08-22 07:14] LABS: Source Nasal/Nares
[2020-08-22 09:24] LABS: COVID-19 PCR Negative (Negative)
--- NOTE | 2020-08-22 09:58 | NUR.NOTE ---
Nursing Note: Med surg staff down in ED stating that patient states her walker was left in ED. ED staff searched for patient's walker which was not found in ED. Patient brought in by maninder who were contacted by ED staff who stated patient's walker was left in her apartment. This nurse spoke with Saloni who was informed that patient's waker was left at her apartment.
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
[2020-08-22] MEDS: Metoprolol 12.5 MG TAB PO (11:35)
[2020-08-22] MEDS: ARIPiprazole 2 MG TAB PO (11:35)
[2020-08-22] MEDS: Spironolactone 25 MG TAB PO (11:35)
--- NOTE | 2020-08-22 11:44 | CHAPLAIN ---
Arlin was sitting up in her chair, telling me about her fall. She said she was cleaning her floors and fell and hit her head. She added that she was also told later (in the ED?) that the combination of bus and rail operator she was using could cause a chemical explosion or bad fumes. She said she was not aware of this. She asked that I pray for her, all day. While we were talking, her phone rang and it was her son calling. I told here I would try to visit again later.
[2020-08-22 12:09] LABS: Troponin I < 0.05 ng/mL (<0.06)
[2020-08-22 13:36] LABS: Bilirubin Negative (Negative); Blood Negative (Negative); Clarity Clear (Clear); Glucose Negative (Negative); Ketones Negative (Negative); Leukocyte Esterase Negative (Negative); Nitrite Negative (Negative); Specific Gravity 1.015 (1.005-1.025)
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
[2020-08-22 16:52] LABS: Troponin I < 0.05 ng/mL (<0.06)
[2020-08-22] MEDS: Acetaminophen 325 MG TAB PO ×2 (17:01→22:30)
[2020-08-22] MEDS: Normal Saline Flush 10 ML SYR IVP ×3 (17:02→20:46)
[2020-08-22] MEDS: Furosemide 20 MG/2 ML VIAL IVP (17:02)
[2020-08-22 17:37] LABS: Creatine Kinase 892 U/L (26-192)
--- NOTE | 2020-08-22 20:30 | NUR.NOTE ---
Nursing Note: Pt reports new onset headache to frontal aspect of head during bedside report. A quarter sized blue bruise was noted to center of forehead. Off-going RN states these are new findings; charge nurse was notified by this RN.
[2020-08-22] MEDS: Ketorolac 15 MG/ML VIAL IVP (20:44)
[2020-08-22] MEDS: Melatonin 3 MG TAB 6 MG PO (22:30)
[2020-08-22] MEDS: Gabapentin 100 MG CAP PO (22:30)
[2020-08-22] MEDS: Atorvastatin 40 MG TAB PO (22:30)
[2020-08-23] VITALS (13 sets, daily range): BP systolic 91–144; BP diastolic 54–82; PULSE 65–90; RESP 17–18; TEMP 35.9–36.8; O2SAT 97–99
--- NOTE | 2020-08-23 | DI.RAD_ITS ---
Exam(s) XR HUMERUS RT EXAM: XR HUMERUS RT CLINICAL HISTORY: cortical defect. TECHNIQUE: 2D digital imaging was performed. COMPARISON: CR,XR XR HUMERUS RT from 08/22/2020 FINDINGS: BONES: No acute fracture is present. No bony destructive lesion is seen. Previously questioned area of cortical defect in the medial proximal humeral diaphysis not evident on the current exam. Spurrin g at AC joint. Mild spurring at the margin of the glenoid. Mild spurring at the epicondyles.. SOFT TISSUE: Normal. IMPRESSION: Degenerative changes. No visible fracture or suspicious cortical defect. If there is continued clin ical concern, a CT could be considered. DATA REPOSITORY: RADIATION DOSE DELIVERED:
[2020-08-23] MEDS: Acetaminophen 325 MG TAB PO ×2 (03:54→09:41)
[2020-08-23] MEDS: Levothyroxine 25 MCG TAB PO (06:19)
[2020-08-23 07:22] LABS: Anion Gap 9.7 mmol/L (3-11); BUN 29 mg/dL (7-18); CO2 27.3 mmol/L (21.0-32.0); CREATININE 1.8 mg/dL (0.55-1.02); Calcium 8.3 mg/dL (8.5-10.1); Calculated LDL 48 mg/dL (<100); Chloride 108 mmol/L (98-107); Cholesterol 118 mg/dL (<200); Estimated GFR 27.36 (mL/min/1.73m2); Glucose 96 mg/dL (74-106); HDL Cholesterol 62 mg/dL (40-60); Magnesium 1.9 mg/dL (1.8-2.4); Potassium 3.6 mmol/L (3.5-5.1); Sodium 145 mmol/L (136-145); Triglyceride 43 mg/dL (<150)
--- NOTE | 2020-08-23 08:00 | DI.NM_ITS ---
APPROVED REPORT Exam: Exercise Treadmill Patient Location: In-Patient Room/Bed: 208 Stress Nurse: Adeline Borrero RN Ordering Provider:OLYA MCKEE, Contact Number: [phone] BMI: 29.52 Baseline Rhythm: Accelerated Junctional Rhythm Indications: CAD, recurrent syncopal episodes Medical History Medical History: Hypertension, hyperlipidemia, CAD, CHF, mitral regurgitation, NSTEMI (2019), hypothy roidism, obesity Cardiac Medications: Aspirin, metoprolol tartrate, atorvastatin, gabapentin, furosemide, spironolacto ne, levothyroxine Allergies: Lisinopril, propoxyphene Cardiac Risk Factors: Hypertension, hyperlipidemia, obesity, CAD, family hx Previous Cardiac Procedures: None reported Pretest Chest Pain Characteristics: Mild CP 2/10 R side Exercise History: None Physical Disabilities: Balance, gait Lung Sounds: Clear to auscultation Heart Sounds: Regular Stress Test Details Test: Pharmacologic stress testing performed using 0.4 mg of regadenoson per 5 mL given IV over 10 s econds. Reason for pharmacologic stress test: physical limitation. Nuclear Acquisition: Rest Tc-99m/Stress Tc-99m 1 day Rest Isotope: Tc-99m Sestamibi. Dose: 10 Date: 08/23/2020 Injection Time: 1145 Stress Isotope: Tc-99m Sestamibi. Dose: 32 Date: 08/23/2020 Injection Time: 1410 HR Resting HR Supine: 64 bpm Max Heart Rate (APMHR): 144.257060 bpm Target HR (85% APMHR): 122.836853 bpm Max HR Achieved: 73 bpm % of APMHR: 50.69 Recovery HR: 70 bpm Comment: metoprolol tartrate not held BP Resting BP Supine: 154/78 mmHg Max BP: 154/78 mmHg Recovery BP: 146/74 mmHg ECG Resting ECG: Accelerated Junctional Rhythm Ectopy: Rare PVC Stress ECG: Accelerated Junctional Rhythm ST Change: No significant ST segment changes noted Arrhythmia: Occasional PACs, occasional multifocal PVCs Recovery ECG: Accelerated Junctional Rhythm Recovery ST Change: No significant ST segment changes noted Recovery Arrhythmia: None Clinical Stress Symptoms: None Rate Pressure Product: 28930 Stress ECG Conclusion 1. This is a pharmacological stress test. 2. EKG portion of this exam is nondiagnostic. Stress Test Summary STAGE HR BP Symptoms NOTES Supine 64 154/78 SpO2 98% 1 min post Lexiscan injection 65 150/72 SpO2 98% 3 min post Lexiscan injection 63 144/76 SpO2 98% 6 min post Lexiscan injection 70 146/74 SpO2 98% Pt's baseline at rest 2/10 CP R side. No changes in symptoms during test. MPI Conclusion Technicallly suboptimal There is no significiant ischemia identified Wall motion appears normal EF is 58%
--- NOTE | 2020-08-23 08:00 | RT.EKG_ITS ---
APPROVED REPORT Exam: Resting ECG Reason for Exam: chest pain Patient Location: I HR:64 bpm ECG Measurements Heart Rate 64 AXIS OR 82 P 0 QRSd 99 QRS -15 QT 453 T 46 QTc 468 Conclusion Sinus rhythm...normal P axis, V-rate 60- 99 Low voltage, extremity leads...all extremity leads <0.5mV
[2020-08-23] MEDS: Calcium 600mg/Vit D 200U TAB 1 TAB PO (08:11)
[2020-08-23] MEDS: Aspirin E.C. 81 MG TABEC PO (08:11)
[2020-08-23] MEDS: buPROPion-XL 150 MG TABCR 300 MG PO (08:11)
[2020-08-23] MEDS: Cholecalciferol (Vitamin D3) 1,000 UNIT TAB 1000 UNITS PO (08:11)
--- NOTE | 2020-08-23 10:15 | DI.RAD_ITS ---
Exam(s) XR WRIST LT COMPLETE EXAM: XR WRIST LT COMPLETE CLINICAL HISTORY: pain post fall. TECHNIQUE: 2D digital imaging was performed. COMPARISON: CR,XR XR WRIST RT COMPLETE from 04/10/2019 FINDINGS: BONES: No acute fracture is present. No bony destructive lesion is seen. JOINTS: The carpal bones are normally aligned. Severe degenerative changes 1st carpometacarpal joint. SOFT TISSUE: Soft tissue defect distal dorsal forearm. IMPRESSION: Degenerative changes. No evidence of fracture. DATA REPOSITORY: RADIATION DOSE DELIVERED:
--- NOTE | 2020-08-23 10:15 | DI.RAD_ITS ---
Exam(s) XR WRIST RT COMPLETE EXAM: XR WRIST RT COMPLETE CLINICAL HISTORY: pain post fall. TECHNIQUE: 2D digital imaging was performed. COMPARISON: CR XR WRIST LT COMPLETE from 08/23/2020 FINDINGS: BONES: No acute fracture is present. No bony destructive lesion is seen. JOINTS: The carpal bones are normally aligned. Degenerative changes 1st carpometacarpal joint. SOFT TISSUE: Normal. IMPRESSION: Degenerative changes. No evidence of fracture. DATA REPOSITORY: RADIATION DOSE DELIVERED:
[2020-08-23] MEDS: oxyCODONE 5 MG TAB 2.5 MG PO ×2 (10:35→22:38)
--- NOTE | 2020-08-23 10:56 | PT.INTREAT ---
Date of service: 08/23/20 Time of Service: 10:56 PT Notes Visit Reasons: Syncope Physical Therapy Inpatient Treatment Note Date: 08/23/2020 Precautions: Fall. Standard. Activity as tolerated. Subjective: Complains of mild chest pain that stayed at same intensity even after ambulation activity. Reported pain in B hands and fingers which she says started about a week ago. Objective: General Observation: Telemetry monitoring in place. IV access in left UE. Mental Status: Alert and oriented as to person, place, time, and purpose. Able to pay attention but has a hard time focusing on the topic at hand, patient frequently went off tangent several times during PT session but was able to continue with redirection. Pain: 2-3 in B fingers Vital Signs: Closely monitored via telemetry Bed Mobility/Transfers: Rolling supervision Supine to sit supervision Sit to supine supervision Sit to stand supervision Stand to sit supervision Bed to reclining chair supervision Reclining chair to bed supervision Gait: Instructed patient with level surface ambulation of 300 feet requiring supervision. Nelly increased. Step height decreased. Step length decreased. Denies dizziness. No LOB. No path deviation. No report of increased chest pain. Mild SOB. THERA EX: Initiated strengthening exercises for B LE using 1.5 lb AW for 10 reps. Please refer to exercise sheet for details. Balance: Static Sitting: Normal Dynamic Sitting: Normal Static Standing: Fair Dynamic Standing: Fair Assessment: Was able to do more in the afternoon without increase in chest pain that she has had earlier on. Will continue to assess response to exercises with successive treatments. DISCHARGE RECOMMENDATIONS: Patient will benefit from home health PT services in order to progress mobility level using least restrictive assistive ambulatory device, assess home safety, identify additional equipment needs, and establish a functional maintenance program that will increase ability of patient to remain at home. TREATMENT CODE/TIME: 63275 x 16 minutes, 45786 x 15 min utes beginning at 10:56 AM.
[2020-08-23] MEDS: Regadenoson 0.4 MG/5 ML SYR IVP (14:38)
--- NOTE | 2020-08-23 14:58 | CHAPLAIN ---
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 We had a conversation yesterday, and she continued that today. She is a member of the [employer], but has been unable to attend for a while because of COVID. [employer] members give her rides to evangelical and also visit, fairly regularly it sounds. She talked about the of her granddaughter a few years ago. Arlin's daughter had been caring for the granddaughter's to children (Arlin's great granddaughters) but the fathers of the two girls then took custody of the girls and this is very hurtful to Arlin as she doesn't get to see them and the girls aren't together because they have different fathers. Arlin also talked about a friend, with whom she traveled to [place], and to [place] to visit Arlin's son. She requested a daily devotional, so I brought that to her.
--- NOTE | 2020-08-23 16:40 | W.PM.PROGNOT ---
Date of Service Date of service: 08/23/20 Time of Service: 16:40 Assessment and Plan Assessment and plan (1) Syncope: Status: Chronic Assessment and plan: Continue to monitor on tele. Await MPI results (prior NSTEMI presented as syncope). No ACS per troponins. (2) Chest pain: Status: Acute Assessment and plan: Known underlying CAD, NSTEMI in the past presenting as syncope. Trops negative x3. As above - await MPI. Monitor on tele. Importantly, the patient also has a musculoskeletal chest pain component, but this is different than the chest pain she reported at the time of the fall. (3) Acute on chronic systolic CHF (congestive heart failure): Status: Acute Assessment and plan: Diurese, low sodium diet. Monitor I/O's, daily weights. (4) Abnormal x-ray of humerus: Status: Acute Assessment and plan: The patient does endorse pain in her R arm now. C/s ortho. (5) Contusion of scalp: Status: Acute Assessment and plan: Avoid chemical DVT ppx. Monitor for expansion (6) Hallucinations: Status: Resolved Assessment and plan: Possible post-concussive syndrome. Outpatient records do not show a h/o psychotic d/o or hallucinations. The patient states that she does still take abilify and that she takes it at night. I am not sure why it is not on her PCP's latest records, but pharmacy records do prove that the patient picked a 3 month supply this spring. Restart abilify. (7) DVT prophylaxis: Status: Acute Assessment and plan: TEDs/SCDs due to scalp hematoma (8) Discharge planning issues: Status: Acute Assessment and plan: DNR/DNI per COLST form. PT c/s Anticipate discharge home tomorrow. Subjective Subjective Interval history since last seen: C/o B wrist pain and R arm pain. She states she was previously told she had arthritis in her hands. Denies dizziness, endorses R-sided chest pain reproducible with palpation. Denies n/v. Endorses abdominal pain (after finishing everything on her tray, which had double portions). Not seeing bugs today. MPI still in process - will be finished tonight. Exam Narrative Exam Narrative: General: Pleasant elderly female, A&Ox3, speaking very quickly HEENT: Scalp hematoma essentially unchanged, EOMI, MMM Cardiovascular: RRR, no m/r/g Lungs: CTAB Gastrointestinal: soft, nontender, nondistended Extremities: 1+ pitting edema BLE's, in LEXI stockings, +1 pedal pulses B Objective Last Vital Signs Temp 36.8 C 08/23/20 15:59 Pulse 84 08/23/20 15:59 Resp 18 08/23/20 15:59 BP 135/82 08/23/20 15:59 Pulse Ox 97 08/23/20 15:59 Laboratory Results - last 24 hr 08/22/20 08/22/20 08/23/20 16:25 16:25 06:19 Sodium 145 Potassium 3.6 Chloride 108 H Carbon Dioxide 27.3 Anion Gap 9.7 BUN 29 H Creatinine 1.8 H Estimated GFR/1.73 m2 27.36 Glucose 96 Calcium 8.3 L Magnesium 1.9 Creatine Kinase 892 H Troponin I < 0.05 Triglycerides 43 Total Cholesterol 118 LDL Cholesterol, Calc 48 HDL Cholesterol 62
--- NOTE | 2020-08-23 17:38 | CMPROGNOTE_ITS ---
- If Service Date Differs Date of service: 08/23/20 Time of Service: 17:38 Care Management Progress Note S/O: Arlin was having a stress test today when CM attempted to visit with her. Per RN, she was very hungry when she returned, and was given double portions of food, and later stated that she had abdominal pain. CM will discuss Life Alert prior to her discharge, as recommended by MD, since she lives alone. CM will also send a referral for HH RN, PT, OT and [employer], as recommended by PT and prov ider. CM will continue to follow. A: Arlin is a 74 year old female admitted to [facility] on 08/22/20 with syncope. P: Anticipate Arlin will return home with new orders for HH RN, PT, OT, [employer]. She will be driven home via private vehicle by her [facility]. She will follow up with her PCP and discharge plan of care. CM will continue to follow.
--- NOTE | 2020-08-23 20:30 | DI.VRAD_ITS ---
PROCEDURE INFORMATION: Exam: XR Right Humerus Exam date and time: 08/23/2020 7:42 PM Age: 74 years old Clinical indication: Other: Cortical defect; Patient HX: Fall TECHNIQUE: Imaging protocol: XR Right humerus. Views: 2 or more views. COMPARISON: CR XR HUMERUS RT 08/22/2020 5:34 AM FINDINGS: Bones/joints: No evidence of fracture. No evidence of focal bony lesion. Shoulder and elbow appear appropriately located. Degenerative changes noted at the acromioclavicular joint. Soft tissues: Soft tissues are unremarkable, without embedded radiopaque foreign body or soft tissue air. IMPRESSION: No acute osseous abnormality. Dictated and Authenticated by: Wiliam Robertson MD. Ordering:SUAD Chavira MD
[2020-08-23] MEDS: Normal Saline Flush 10 ML SYR IVP (22:36)
[2020-08-23] MEDS: Gabapentin 100 MG CAP PO (22:38)
[2020-08-23] MEDS: Atorvastatin 40 MG TAB PO (22:39)
[2020-08-23] MEDS: ARIPiprazole 2 MG TAB PO (22:39)
[2020-08-23] MEDS: Melatonin 3 MG TAB 6 MG PO (22:39)
--- NOTE | 2020-08-24 | HOLTER_ITS ---
APPROVED REPORT Conclusion This is a 48-hour monitor ordered for indication of syncope. The patient was in normal sinus rhythm for the majority the recording with an average heart rate of 8 7 bpm. There were no episodes of ventricular tachycardia and occasional (4%) PVCs. There were 4 episodes of supraventricular tachycardia the longest lasting 8 beats. None of these wer e recorded as symptomatic. There were rare PACs. There was no evidence of atrial fibrillation, no pauses greater than 3 seconds and no evidence of hig h degree heart block. There was 1 patient recorded event. Just prior to that there was a PVC couplet and just after the ev ent there was a single PAC.
[2020-08-24 03:16] VITALS: BP 124/70; PULSE 88; RESP 16; TEMP 36.3; O2SAT 97
[2020-08-24] MEDS: oxyCODONE 5 MG TAB 2.5 MG PO (06:20)
[2020-08-24] MEDS: Levothyroxine 25 MCG TAB PO (06:21)
[2020-08-24 07:01] LABS: Abs Immature Grans 0.01 10^3/uL (0.0-0.06); Absolute Basophil Count 0.02 10^3/uL (0.0-0.2); Absolute Eosinophil Count 0.11 10^3/uL (0.0-0.7); Absolute Lymphocyte Count 1.18 10^3/uL (1.2-3.4); Absolute Monocyte Count 0.44 10^3/uL (0.1-0.8); Absolute Neutrophil Count 3.26 10^3/uL (1.2-6.7); Basophils % 0.4; Eosinophils % 2.2; HCT 35.1 % (36.0-46.0); HGB 11.3 g/dL (11.2-15.7); Immature Grans % 0.2; Lymphocytes % 23.5; MCH 31.6 pg (27.0-33.0); MCHC 32.2 % (32.0-36.0); MPV 10.5 fL (8.0-11.0); Monocytes % 8.8; Neutrophils % 64.9; Nucleated RBC 0 %; Platelet Count 122 10^3/uL (130-400); RBC 3.58 10^6/uL (3.93-5.22); RDW 13.8 % (11.7-14.6); RDW-SD 49.8 fL; WBC 5.02 10^3/uL (4.4-10.8)
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
[2020-08-24 07:06] VITALS: PULSE 86; RESP 19; TEMP 36.3; O2SAT 98
[2020-08-24 07:13] LABS: Anion Gap 9.4 mmol/L (3-11); BUN 26 mg/dL (7-18); CO2 25.6 mmol/L (21.0-32.0); CREATININE 1.5 mg/dL (0.55-1.02); Calcium 8.7 mg/dL (8.5-10.1); Chloride 108 mmol/L (98-107); Estimated GFR 33.76 (mL/min/1.73m2); Glucose 152 mg/dL (74-106); Magnesium 2.3 mg/dL (1.8-2.4); Potassium 4.1 mmol/L (3.5-5.1); Sodium 143 mmol/L (136-145)
[2020-08-24 07:38] VITALS: BP 111/73; BP 98/64; PULSE 74; PULSE 89
[2020-08-24] MEDS: Acetaminophen 325 MG TAB PO (09:16)
[2020-08-24] MEDS: Aspirin E.C. 81 MG TABEC PO (09:17)
[2020-08-24] MEDS: Calcium 600mg/Vit D 200U TAB 1 TAB PO (09:17)
[2020-08-24] MEDS: buPROPion-XL 150 MG TABCR 300 MG PO (09:17)
[2020-08-24] MEDS: Cholecalciferol (Vitamin D3) 1,000 UNIT TAB 1000 UNITS PO (09:17)
[2020-08-24 10:30] VITALS: PULSE 87
--- NOTE | 2020-08-24 11:32 | PT.INTREAT ---
Date of service: 08/24/20 Time of Service: 11:32 PT Notes Visit Reasons: Syncope Physical Therapy Inpatient Treatment Note Date: 08/24/2020 Precautions: Fall. Standard. Activity as tolerated. Subjective: No report of chest pain. Does state that the top of her head hurts today. Objective: General Observation: Telemetry monitoring in place. IV access in left UE. Mental Status: Alert and oriented as to person, place, time, and purpose. Pain: 2/10 top of head Vital Signs:telemetry discharged as of this morning. Negative stress test per Nurse Genie. Bed Mobility/Transfers: Rolling independent Supine to sit independent Sit to supine independent Sit to stand independent Stand to sit independent Bed to reclining chair independent Reclining chair to bed independent Gait: Instructed patient with level surface ambulation of 200 feet with FWW and another 200 feet with SPC requiring supervision. Nelly increased. Step height decreased. Step length increased. Denies dizziness. No LOB. No path deviation. No report of increased chest pain. No SOB. Balance: Static Sitting: Normal Dynamic Sitting: Normal Static Standing: Fair Dynamic Standing: Fair Assessment: Tolerated use of SPC without undue pain nor dicomfort. DISCHARGE RECOMMENDATIONS: Patient will benefit from home health PT services in order to progress mobility level using least restrictive assistive ambulatory device, assess home safety, identify additional equipment needs, and establish a functional maintenance program that will increase ability of patient to remain at home. TREATMENT CODE/TIME: 17407 x 23 minutes beginning at 11:32 AM.
--- NOTE | 2020-08-24 13:03 | PDOC.HHF2F ---
Home Health Certification Home Health Certification: 1. Encounter Date and Reason I certify that Arlin Almaguer was seen by Wiliam Riley on 08/24/20 and that I had a [id number] encounter with this patient that meets the physician face to face encounter requirements. 2. Clinical Findings Supporting Skilled Need and Homebound Status I certify that home health services are medically necessary, include either intermittent intermediate and/or physical/speech therapy, and that this patient is homebound in that absences from the home require considerable and taxing effort and are infrequent or of short duration, or are attributable to the need to receive medical care. [X] (a) Attached documentation from encounter provides clinical findings supporting skilled need and homebound status (including what assistance patient requires to leave the home). The encounter with the patient was in whole, or in part, for the following medical condition, which is the primary reason for home health care: Syncope Senior Care: Monitor orthostatic VS Physical Therapy: Safety eval, frquent falls, instability OT: Loss of ADLs Speech Therapy: [employer]: Ongoing issues accessing services and using services optimally Homebound: Pt is unable to leave home unassisted, frequent falls, syncope 3. Certification and Authentication I certify that I composed the above information based on my clinical judgement relating to this patient's medical condition and, if applicable, clinical findings communicated to me by the NPP or inpatient physician who performed the Home Health Referral. All further orders will be obtained through ____Hemanth Chaudhary MD (Community Based Physician - PCP)
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
--- NOTE | 2020-08-24 15:41 | CMDISCH_ITS ---
- If Service Date Differs Date of service: 08/24/20 Time of Service: 15:41 LACE Index Scoring Tool - Questions: Length of Stay (in days): 2 Acuity (Admit via E.D.?): Yes Comorbidities: Congestive Heart Failure E.D. Visits: 7 - Answers: Total Score: 11 Risk of Readmission: High Risk Care Management Discharge Reason for Hospitalization: Dizzy, Syncope Discharge Plan: Arlin will return home today with new orders for HH RN, PT, OT, [employer] SUPERVISOR. called [facility] to inform them of her discharge. Her daughter will drive her home via private vehicle when ready. She will follow up with her PCP and discharge plan of care. Patient/Family Education Needs: Review discharge instructions regarding activity levels and medications, discussion of self care needs including ask me three and goals of care. Services Needed at Discharge: Home Health Care Services (HH RN, PT, OT, GENERAL [employer] SUPER[employer]OR)
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
== END 2020-08-24 16:26 | disposition home health service (06) ==
LOC: ER 07:40 → MS 08:02
PROVIDERS: Admitting Provider Internal Medicine; Emergency Provider Student in an Organized Health Care Education/Training Program; PCP Family Medicine; Visit Provider Internal Medicine
DX: R55 Syncope and collapse (principal); S00.03XA Contusion of scalp, initial encounter; R44.1 Visual hallucinations; I50.23 Acute on chronic systolic (congestive) heart failure; R07.89 Other chest pain; R51.9 Headache, unspecified; F41.9 Anxiety disorder, unspecified; Z20.822 Contact with and (suspected) exposure to COVID-19; I25.10 Atherosclerotic heart disease of native coronary artery without angina pectoris; G56.00 Carpal tunnel syndrome, unspecified upper limb; F32.9 Major depressive disorder, single episode, unspecified; E03.9 Hypothyroidism, unspecified; Z79.899 Other long term (current) drug therapy; E66.9 Obesity, unspecified; K57.30 Diverticulosis of large intestine without perforation or abscess without bleeding; M70.61 Trochanteric bursitis, right hip; N28.9 Disorder of kidney and ureter, unspecified; Z91.81 History of falling; W19.XXXA Unspecified fall, initial encounter; I25.2 Old myocardial infarction; I11.0 Hypertensive heart disease with heart failure; I27.20 Pulmonary hypertension, unspecified; M79.621 Pain in right upper arm; R93.6 Abnormal findings on diagnostic imaging of limbs
CPT/HCPCS: 36415; 78452; 80048; 80053; 80061; 82550; 87635; 93005; 93306; 97110; 97162; 97530; 99213; 99285; 70450; 72125; 73060; 73110; 81003; 83735; 84484; 85025; 87086; 93010; 93017; 93225; 99217; 99220; 99225; 99284; G0378; J1885; J1941; J2785; J3490

== ENCOUNTER 2020-08-27 13:33 | Outpatient (CLI) | payer MEDICARE, MEDICAID, SELFPAY ==
--- NOTE | 2020-08-27 | DI.US_ITS ---
Exam(s) US LOWER EXTREMITY VENOUS LT EXAM: US LOWER EXTREMITY VENOUS LT CLINICAL HISTORY: LT LEG SWELLING, M79.89 TECHNIQUE: Grayscale, color, and doppler imaging of the deep venous system of the left lower extremi ty was performed. COMPARISON: No exams were available for comparison FINDINGS: There is no evidence of intraluminal thrombus and there is normal compression and augmentation demons trated within the common femoral vein, femoral vein, and popliteal vein. In the ipsilateral calf the interrogated veins also exhibit normal compression/ augmentation properti es. The ipsilateral saphenofemoral junction is patent. IMPRESSION: 1. No evidence of DVT in the left lower extremity. 2. DATA REPOSITORY:
== END 2020-08-27 13:53 ==
PROVIDERS: PCP Family Medicine; Visit Provider Nurse Practitioner Family
DX: R22.42 Localized swelling, mass and lump, left lower limb (principal)
CPT/HCPCS: 93971

== ENCOUNTER 2020-08-27 16:32 | Inpatient (IN) | payer MEDICARE, MEDICAID, SELFPAY ==
[2020-08-27] VITALS (41 sets, daily range): BP systolic 99–155; BP diastolic 40–118; PULSE 51–116; RESP 14–32; TEMP 36.6; O2SAT 86–100
--- NOTE | 2020-08-27 16:30 | RT.EKG_ITS ---
APPROVED REPORT Exam: Resting ECG Reason for Exam: Chest Pressure, Patient Location: E HR:91 bpm ECG Measurements Heart Rate 91 AXIS TX 65 P 58 QRSd 96 QRS -18 QT 375 T 46 QTc 459 Conclusion Sinus rhythm...normal P axis, V-rate 60- 99 Atrial premature complex...SV complex w/ short R-R interval Inferior infarct, old...Q >35mS, II III aVF. Sinus w/ rate variation. No STEMI. I have reviewed and interpreted ECG and agree with software generated interpretation.
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
[2020-08-27 17:35] LABS: Abs Immature Grans 0.01 10^3/uL (0.0-0.06); Absolute Basophil Count 0.03 10^3/uL (0.0-0.2); Absolute Eosinophil Count 0.09 10^3/uL (0.0-0.7); Absolute Lymphocyte Count 1.92 10^3/uL (1.2-3.4); Absolute Monocyte Count 0.63 10^3/uL (0.1-0.8); Absolute Neutrophil Count 2.44 10^3/uL (1.2-6.7); Basophils % 0.6; Eosinophils % 1.8; HCT 35.7 % (36.0-46.0); HGB 11.5 g/dL (11.2-15.7); Immature Grans % 0.2; Lymphocytes % 37.5; MCH 31.1 pg (27.0-33.0); MCHC 32.2 % (32.0-36.0); MCV 96.5 fL (80-95); MPV 10.2 fL (8.0-11.0); Monocytes % 12.3; Neutrophils % 47.6; Nucleated RBC 0 %; Platelet Count 136 10^3/uL (130-400); RDW 13.6 % (11.7-14.6); RDW-SD 48.2 fL; WBC 5.12 10^3/uL (4.4-10.8)
[2020-08-27 17:55] LABS: ALT 39 U/L (14-59); AST 46 U/L (15-37); Albumin 3.9 g/dL (3.4-5.0); Alkaline Phosphatase 67 U/L (46-116); Anion Gap 14.3 mmol/L (3-11); BUN 25 mg/dL (7-18); Bilirubin, Total 0.7 mg/dL (0.2-1.0); CO2 22.7 mmol/L (21.0-32.0); CREATININE 1.6 mg/dL (0.55-1.02); Calcium 9.3 mg/dL (8.5-10.1); Chloride 104 mmol/L (98-107); Estimated GFR 31.34 (mL/min/1.73m2); Glucose 103 mg/dL (74-106); Magnesium 2.2 mg/dL (1.8-2.4); Potassium 3.5 mmol/L (3.5-5.1); Sodium 141 mmol/L (136-145); Total Protein 7.5 g/dL (6.4-8.2)
[2020-08-27 18:14] LABS: Troponin I 0.08 ng/mL (<0.06)
[2020-08-27 18:16] LABS: NT-proBNP 916 pg/mL (<300)
[2020-08-27] MEDS: Aspirin 81 MG CHEW 243 MG CH (18:49)
--- NOTE | 2020-08-27 19:15 | RT.EKG_ITS ---
APPROVED REPORT Exam: Resting ECG Reason for Exam: Repeat Patient Location: E HR:97 bpm ECG Measurements Heart Rate 97 AXIS OR 187 P 74 QRSd 89 QRS -20 QT 374 T 59 QTc 469 Conclusion Sinus rhythm...normal P axis, V-rate 60- 99 Atrial premature complex...SV complex w/ short R-R interval Low voltage, extremity and precordial leads...extremity<0.5mV, precordial<1.0mV I have reviewed and interpreted ECG and agree with software generated interpretation.
[2020-08-27 20:57] LABS: Troponin I 0.08 ng/mL (<0.06)
[2020-08-27] MEDS: Furosemide 20 MG TAB PO (21:26)
--- NOTE | 2020-08-27 22:00 | DI.RAD_ITS ---
Exam(s) XR CHEST 2V PA LATERAL EXAM: XR CHEST 2V PA LATERAL CLINICAL HISTORY: SOB TECHNIQUE: 2D digital imaging was performed. COMPARISON: CT CT CHEST PE CTA from 06/08/2020 FINDINGS: MEDIASTINUM: Normal. HEART: Cardiomegaly, stable. PULMONARY VASCULATURE: Normal. LUNGS: Left lower lobe calcified granulomas, otherwise clear. PLEURAL SPACE: No pleural effusion or pneumothorax. BONE:Degenerative disc changes with flowing osteophytes. IMPRESSION: Cardiomegaly. No acute abnormality. DATA REPOSITORY: RADIATION DOSE DELIVERED:
--- NOTE | 2020-08-27 22:10 | NUR.NOTE ---
pt actively talking on phone, dr vela now in at bedside. :
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
[2020-08-27 23:08] LABS: Source Nasal/Nares
--- NOTE | 2020-08-27 23:52 | DI.VRAD_ITS ---
PROCEDURE INFORMATION: Exam: XR Chest Exam date and time: 08/27/2020 10:08 PM Age: 74 years old Clinical indication: Pain; Other: SOB TECHNIQUE: Imaging protocol: XR of the chest. Views: 2 views. COMPARISON: CR XR CHEST 2V PA LATERAL 06/08/2020 9:15 AM FINDINGS: Lungs: Calcified granulomas in lower left lung. No consolidation. Pleural spaces: Unremarkable. No pleural effusion. No pneumothorax. Heart/Mediastinum: Heart top normal in size. Bones/joints: Degenerative changes IMPRESSION: No acute findings. Dictated and Authenticated by: Timo Ortega MD. Ordering:ROLANDO Aburto MD
[2020-08-27 23:59] LABS: COVID-19 PCR Negative (Negative)
[2020-08-28] VITALS (117 sets, daily range): BP systolic 69–126; BP diastolic 33–99; PULSE 60–114; RESP 10–35; TEMP 36–36.5; O2SAT 94–100
--- NOTE | 2020-08-28 | DI.US_ITS ---
APPROVED REPORT EXAM: Comprehensive 2D, Doppler, and color-flow Echocardiogram Patient Location: In-Patient Room/Bed: [id number] [employer] Manager: Darcy Jules RDCS (AE) Indications: NSTEMI Other Information Study Quality: Technically Difficult. Technically limited study due to inability to position patient. Conclusion Left Ventricle : The left ventricle is normal size. The left ventricular systolic function is normal. The left ventricular ejection fraction is within the normal range. There is normal left ventricular wall thickness. There is normal LV segmental wall motion. The left ventricular diastolic function is normal. LVEF is 59%. Right Ventricle : The right ventricle is normal size. The right ventricular systolic function is norm al. The RVSP is 23.7 mmHg. Atria : The left atrium size is normal. The right atrium size is normal. Mitral Valve : The mitral valve is normal in structure. Mild to moderate mitral regurgitation. No aman dence of mitral valve stenosis. Great Vessels : The aortic root is normal in size. The ascending aorta is normal in size. Aortic arch is normal in caliber. IVC is normal in size and collapses >50% with inspiration. Compared to report from echocardiogram at [facility] in 2020, regional wall motion abnormali ties are no longer present. Wall motion Left Ventricle The left ventricle is normal size. The left ventricular systolic function is normal. The left ventric ular ejection fraction is within the normal range. There is normal left ventricular wall thickness. T here is normal LV segmental wall motion. The left ventricular diastolic function is normal. There is no ventricular septal defect visualized. LVEF is 59%. Right Ventricle The right ventricle is normal size. The right ventricular systolic function is normal. The RVSP is 23 .7 mmHg. Atria The left atrium size is normal. The right atrium size is normal. The interatrial septum is intact wit h no evidence for an atrial septal defect. Aortic Valve The Aortic valve is sclerotic. Aortic valve is trileaflet. There is no aortic valvular stenosis. No a ortic regurgitation is present. Mitral Valve The mitral valve is normal in structure. No evidence of mitral valve stenosis. Mild to moderate loli l regurgitation. Tricuspid Valve The tricuspid valve is normal in structure. There is no tricuspid valve stenosis. Mild tricuspid regu rgitation. Pulmonic Valve Pulmonic valve is not well visualized. There is no pulmonic valvular stenosis. There is no pulmonic v alvular regurgitation. Great Vessels The aortic root is normal in size. The ascending aorta is normal in size. Aortic arch is normal in ca liber. IVC is normal in size and collapses >50% with inspiration. Pericardium There is no pericardial effusion. 2D Dimensions IVSD d PLAX 0.97 cm F: 0.6-1.0 LV Vol A2C d MOD 68.9 mL LVPW d PLAX 0.95 cm F: 0.6 - 1.0 LV Vol A4C d MOD 84.6 mL LVID d PLAX 4.66 cm F: 3.8 - 5.2 LA vol/ BSA A2C s A-L 22.2 mL/m2 LVDs 3.00 cm F: 2.2 - 3.5 LA vol/ BSA A4C s A-L 41.5 mL/m2 Ao Root d 2.81 cm F: 2.7 - 3.3 LA Vol/ BSA Biplane s A-L 31.8 mL/m2 RA Area A4C 14.91 cm2 LA Area A4C s MOD 22.63 cm2 RA Vol/ BSA A4C s A-L 24.1 mL/m2 LA Area A2C s MOD 15.84 cm2 Ao Asc Diam d 2.87 cm F: 2.3 - 3.1 LV EF A4C MOD 58.6 % LV EF Teichholz 64.0 % LV EF A2C MOD 59.8 % LVEF (Swartz's) 57.05 % F: 54 - 74 LV EF Biplane MOD 57.1 % LV Volume 62.22 mL F: 46 - 106 SV 45.49 mL LV Volume Index 34.95 mL/m2 F: 29 - 61 SV Index 25.50 mL/m2 LV Vol Biplane MOD 79.7 mL FS 34.80 % M-Mode TAPSE 2.00 cm (M/F) >1.7 LV Diastology MV E' medial 0.077 (>0.07 m/s) E/A Ratio 0.8 LV E/e MED 10.15 (<14) MV E Vmax 0.78 (0.4-1.3 m/s) MV E' lateral 0.109 (>0.1 m/s) MV A Vmax 1.00 (0.4-1.3 m/s) LV E/e LAT 7.15 (<14) MV E/A Ratio 0.77 MV E/E' medial 10.16 MV E/E' lateral 7.19 Aortic Valve LVOT Area 3.25 cm2 AoV Area Vmax 2.78 cm2 LVOT Vmax 1.13 m/s AoV Area/ BSA (Vmax) 1.56 cm2/m2 LVOT Mean Tl. 0.68 m/s CLIFTON Mean Tl. 2.54 cm2 LVOT Peak Grad 5.1 mmHg CLIFTON Mean Tl. Index 1.42 cm2/m2 LVOT Mean Grad 2.3 mmHg LVOT VTI 0.258 m LVOT Diam s 2.00 cm AoV Vmax 1.32 m/s Velocity Ratio 0.85 AoV Mean Tl. 0.87 m/s AoV Peak Grad 7.0 mmHg LVOT SV 83.86 mL AoV Mean Grad 3.4 mmHg AoV VTI 0.302 m AoV Area VTI 2.78 cm2 AoV Area/ BSA (VTI) 1.56 cm/m2 Mitral Valve MV DT 214 (160-240 msec) MR Vmax 4.16 m/s MV PHT 62 msec MR VTI 1.287 m MV Area PHT 3.55 cm2 MR Peak Grad 69.1 mmHg MV VTI 0.288 m MR Mean Grad 46.8 mmHg MV VTI Annulus 0.288 m MR PISA Radius 0.48 cm MV Area VTI 2.91 (4.0-6.0 cm2) MR EROA 0.12 cm2 MR Aliasing Velocity 0.35 m/s MR PISA 1.43 cm2 Pulmonary Valve PV Vmax 0.91 (0.5-1.5 m/s) RVOT Peak Gr. 2.15 mmHg PV Peak Grad 3.3 mmHg RVOT Mean Gr. 1.10 mmHg PV Mean Grad 1.6 mmHg RVOT VTI 0.175 m PV VTI 0.171 m RVOT Vmax 0.73 m/s Tricuspid Valve TR Peak Grad 20.6 mmHg TR Vmax 2.27 m/s RA Pressure 3.00 mmHg RVSP (TR) 23.7 mmHg
[2020-08-28] MEDS: Metoprolol 25 MG TAB PO (00:40)
[2020-08-28] MEDS: Melatonin 3 MG TAB 6 MG PO ×2 (00:40→21:23)
[2020-08-28] MEDS: Clopidogrel 300 MG TAB PO (00:40)
[2020-08-28 01:06] LABS: PTT Activated 24.1 sec (21.0-27.5)
[2020-08-28] MEDS: Normal Saline 250 ML IV (04:30)
[2020-08-28] MEDS: Levothyroxine 25 MCG TAB PO (06:19)
[2020-08-28] MEDS: Acetaminophen 325 MG TAB 650 MG PO (06:20)
[2020-08-28 07:34] LABS: Troponin I 0.07 ng/mL (<0.06)
[2020-08-28] MEDS: Clopidogrel 75 MG TAB PO (07:50)
[2020-08-28] MEDS: buPROPion-XL 150 MG TABCR 300 MG PO (07:50)
[2020-08-28] MEDS: Aspirin E.C. 81 MG TABEC PO (07:50)
[2020-08-28] MEDS: ARIPiprazole 2 MG TAB PO (07:50)
[2020-08-28] MEDS: Furosemide 20 MG TAB PO (07:51)
[2020-08-28 09:02] LABS: PTT Activated 139.1 sec (21.0-27.5)
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
--- NOTE | 2020-08-28 11:54 | W.PM.PROGNOT ---
Date of Service Date of service: 08/28/20 Time of Service: 11:54 Assessment and Plan Assessment and plan (1) NSTEMI (non-ST elevated myocardial infarction): Status: Acute Assessment and plan: Continue aspirin heparin and Plavix. Patient is presently euvolemic and does not require diuretics. We will check echocardiogram looking for any new LV wall motion abnormalities. Dr. Raya indicated that he will facilitate arranging outpatient cardiac catheterization upon discharge. Patient has no further chest pain or pressure should be discharged home tomorrow. Subjective Subjective Interval history since last seen: 74-year-old white female prior history of NSTEMI secondary to type II ischemia after mechanical fall in March 2019 for which she was transferred to [facility] hospitalized from April 10 through April 13, 2019. During that hospitalization serial troponins were monitored and were found to be elevated with a peak of 0.39 and trended down to 0.2. She underwent treatment with IV heparin and loaded with aspirin Plavix. She underwent echocardiogram as well as a nuclear stress test. Echocardiogram showed preserved left ventricular function with ejection fraction 52%. She did have some wall abnormalities. RV size and function was within normal limits. Left atrium severely dilated. She has mild to moderate mitral regurgitation. Nuclear stress test performed April 12, 2019 suggested a small area of apical ischemia. She was discharged home with recommendation for medical management of presumed atherosclerotic heart disease. Her other comorbidities include essential hypertension hypothyroidism and pulmonary hypertension. She also has chronic kidney disease stage III as well as a history of depression. She was recently hospitalized at [facility] from August 22, 2020 through August 24, 2020 after sustaining 2 falls prior to admission associated with near syncope. During that hospitalization she also endorsed symptoms of right-sided chest pain that was felt to be chest wall pain. Serials troponin levels were monitored and were negative x3. Telemetry monitoring showed no significant supraventricular or ventricular arrhythmias. Because of her fall x-rays were obtained of her right humerus that initially suggested a slight abnormality repeat film was performed and orthopedic consultation was obtained and it was felt the initial film showed artifact and repeat x-ray showed no bony abnormality and no further treatment per orthopedic service other than follow her clinically and if she has continued pain repeat the x-ray of the humerus and/or an MRI in 3 months if she continues to have symptoms. Patient's falls were felt to be due to orthostatic hypotension. During hospitalization her furosemide and spironolactone and metoprolol were withheld. At the time of discharge her furosemide was resumed at a reduced dose of 20 mg twice a day from her previous dose of 40 mg twice a day. She was told to discontinue her metoprolol and spironolactone. Lexiscan stress MPI was performed prior to her discharge and was a poor study and inconclusive. She was readmitted last night because of symptoms of her chest feeling funny and she was complaining of shortness of breath and complaining of increasing leg swelling. Patient already had a Holter monitor which she been placed at the time of her discharge. Work-up in the emergency department clued EKG and routine labs including CMP CBC troponin levels and proBNP as well as chest x-ray. Troponin is found to be elevated at 0.08 and her proBNP was elevated at 916 from her previous value of 371 in May. She was treated with Lasix 20 mg orally and given aspirin 324 mg. Chest x-ray showed no pulmonary edema. Patient was started on heparin drip and started on Plavix and admitted to the intensive care unit as an NSTEMI. ECG demonstrated normal sinus rhythm at a rate of 91 bpm with PACs. She has a QS pattern in limb lead III and aVF c/w prior infarct.No acute ST/T wave changes. Present patient is currently not short of breath she is able to talk in full paragraphs. She has no chest pain or tightness at the present time. Her troponins have plateaued at 0.07. I have discussed her case with Dr. Hernesto Raya, recovery analyst from [facility] and he agrees that the patient needs a cardiac catheterization to definitively evaluate her for ischemic heart disease. Present time he recommends continuation of aspirin and Plavix and heparin. Heparin will be continued for 48 hours. Upon discharge he will be discharged home on Plavix and aspirin. We will resume her beta-blockers at a low dose. Present time he feels she is euvolemic and I concur with this. I will withhold her furosemide present time but may resume at a reduced dose. Exam Narrative Exam Narrative: Talkative elderly female who is difficult to understand as she is edentulous and she is very tangential in her conversations. She is alert and oriented. Lungs are clear to auscultation Heart is regular rate and rhythm with a soft systolic murmur over the apex no thrill heave Abdomen soft and nontender Chest wall is nontender to palpation Lower extremities reveal large calfs but no pitting edema there is no calf tenderness. Objective Last Vital Signs Temp 36.5 C 08/28/20 09:32 Pulse 72 08/28/20 09:32 Resp 16 08/28/20 09:32 BP 101/52 L 08/28/20 09:32 Pulse Ox 97 08/28/20 09:32 Laboratory Results - last 24 hr 08/27/20 08/27/20 08/27/20 17:20 17:20 17:20 WBC 5.12 RBC 3.70 L Hgb 11.5 Hct 35.7 L MCV 96.5 H MCH 31.1 MCHC 32.2 RDW 13.6 Plt Count 136 MPV 10.2 Immature Gran % 0.2 Neutrophils % 47.6 Lymphocytes % 37.5 Monocytes % 12.3 Eosinophils % 1.8 Basophils % 0.6 Nucleated RBC % 0 Absolute Neutrophils 2.44 Absolute Lymphocytes 1.92 Absolute Monocytes 0.63 Absolute Eosinophils 0.09 Absolute Basophils 0.03 APTT Sodium 141 Potassium 3.5 Chloride 104 Carbon Dioxide 22.7 Anion Gap 14.3 H BUN 25 H Creatinine 1.6 H Estimated GFR/1.73 m2 31.34 Glucose 103 Calcium 9.3 Magnesium 2.2 Total Bilirubin 0.7 AST 46 H ALT 39 Alkaline Phosphatase 67 Troponin I 0.08 H* NT-Pro-B Natriuret Pep 916 H Total Protein 7.5 Albumin 3.9 COVID-19 Source SARS-CoV-2 (PCR) 08/27/20 08/27/20 08/28/20 20:10 23:00 00:20 WBC RBC Hgb Hct MCV MCH MCHC RDW Plt Count MPV Immature Gran % Neutrophils % Lymphocytes % Monocytes % Eosinophils % Basophils % Nucleated RBC % Absolute Neutrophils Absolute Lymphocytes Absolute Monocytes Absolute Eosinophils Absolute Basophils APTT 24.1 Sodium Potassium Chloride Carbon Dioxide Anion Gap BUN Creatinine Estimated GFR/1.73 m2 Glucose Calcium Magnesium Total Bilirubin AST ALT Alkaline Phosphatase Troponin I 0.08 H* NT-Pro-B Natriuret Pep Total Protein Albumin COVID-19 Source Nasal/Nares SARS-CoV-2 (PCR) Negative 08/28/20 08/28/20 06:18 08:17 WBC RBC Hgb Hct MCV MCH MCHC RDW Plt Count MPV Immature Gran % Neutrophils % Lymphocytes % Monocytes % Eosinophils % Basophils % Nucleated RBC % Absolute Neutrophils Absolute Lymphocytes Absolute Monocytes Absolute Eosinophils Absolute Basophils APTT 139.1 H* D Sodium Potassium Chloride Carbon Dioxide Anion Gap BUN Creatinine Estimated GFR/1.73 m2 Glucose Calcium Magnesium Total Bilirubin AST ALT Alkaline Phosphatase Troponin I 0.07 H NT-Pro-B Natriuret Pep Total Protein Albumin COVID-19 Source SARS-CoV-2 (PCR)
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
[2020-08-28] MEDS: busPIRone 5 MG TAB PO ×2 (14:11→20:01)
[2020-08-28 14:55] LABS: PTT Activated 58.6 sec (21.0-27.5)
[2020-08-28] MEDS: Gabapentin 100 MG CAP PO (21:23)
[2020-08-29] VITALS (63 sets, daily range): BP systolic 79–120; BP diastolic 39–72; PULSE 62–83; RESP 13–28; TEMP 36.1–36.4; O2SAT 92–100
[2020-08-29] MEDS: Levothyroxine 25 MCG TAB PO (06:00)
[2020-08-29 07:07] LABS: Anion Gap 11.5 mmol/L (3-11); BUN 22 mg/dL (7-18); CO2 23.5 mmol/L (21.0-32.0); CREATININE 1.3 mg/dL (0.55-1.02); Calcium 8.4 mg/dL (8.5-10.1); Chloride 109 mmol/L (98-107); Estimated GFR 39.82 (mL/min/1.73m2); Glucose 97 mg/dL (74-106); PTT Activated 47.6 sec (21.0-27.5); Potassium 3.5 mmol/L (3.5-5.1); Sodium 144 mmol/L (136-145); Troponin I < 0.05 ng/mL (<0.06)
[2020-08-29] MEDS: Metoprolol 12.5 MG TAB PO ×2 (07:32→20:38)
[2020-08-29] MEDS: Acetaminophen 325 MG TAB 650 MG PO ×2 (07:32→14:58)
[2020-08-29 08:03] LABS: Abs Immature Grans 0.01 10^3/uL (0.0-0.06); Absolute Basophil Count 0.02 10^3/uL (0.0-0.2); Absolute Eosinophil Count 0.08 10^3/uL (0.0-0.7); Absolute Lymphocyte Count 1.62 10^3/uL (1.2-3.4); Absolute Monocyte Count 0.45 10^3/uL (0.1-0.8); Absolute Neutrophil Count 1.96 10^3/uL (1.2-6.7); Basophils % 0.5; Eosinophils % 1.9; HCT 32.7 % (36.0-46.0); HGB 10.6 g/dL (11.2-15.7); Immature Grans % 0.2; Lymphocytes % 39.1; MCH 31.8 pg (27.0-33.0); MCHC 32.4 % (32.0-36.0); MCV 98.2 fL (80-95); Monocytes % 10.9; Neutrophils % 47.4; Nucleated RBC 0 %; Platelet Count 122 10^3/uL (130-400); RBC 3.33 10^6/uL (3.93-5.22); RDW 13.9 % (11.7-14.6); RDW-SD 49.8 fL; WBC 4.14 10^3/uL (4.4-10.8)
--- NOTE | 2020-08-29 08:38 | W.PM.PROGNOT ---
Date of Service Date of service: 08/29/20 Time of Service: 08:38 Assessment and Plan Assessment and plan (1) NSTEMI (non-ST elevated myocardial infarction): Status: Acute Subjective Subjective Interval history since last seen: Patient w/ no further CP. Troponin I has normalized. BP better this morning and patient able to take her lopressor. I have discontinued her lasix. She does have some pitting pedal and lower leg edema however, I think that she needs thigh high TEDS as I feel that her leg edema is primary d/t chronic venous insufficienty and dependent edema rather than CHF. As for her NSTEMI, she will finish out her 48 hr of heparin tonight and she will be discharged home tomorrow. I will ask P.T. to evaluate her for safe discharge for tomorrow. Dr. Raya saw the patient yesterday and he spoke w/ me and indicated that he would arrange [place] [facility] [place] felt this can be done as outpatient and she should not need direct transfer unless she were to worsen. Patient has mild headache today but has been given Tylenol for this. Patient is not any nitrates at present. We will transfer her to med/surg, ambulate her and check her gait/balance and if she has no symptoms of unstable angina w/ activity then she can return home tomorrow. Cont. DAPT and low dose lopressor. Exam Narrative Exam Narrative: Elderly female sitting up in her chair, just having finished breakfast. She is alert and oriented. Lungs: clear Heart: RRR w/o murmur, rub or gallops Abdomen: soft, nondistended w/ active bowel sounds Legs/feet: bilateral lower leg edema; 2+ pitting Objective Last Vital Signs Temp 36.4 C L 08/29/20 07:37 Pulse 73 08/29/20 07:19 Resp 28 H 08/29/20 07:30 BP 120/72 08/29/20 07:19 Pulse Ox 97 08/29/20 07:20 Laboratory Results - last 24 hr 08/28/20 08/28/20 08/29/20 08:17 14:15 06:30 WBC RBC Hgb Hct MCV MCH MCHC RDW Plt Count MPV Immature Gran % Neutrophils % Lymphocytes % Monocytes % Eosinophils % Basophils % Nucleated RBC % Absolute Neutrophils Absolute Lymphocytes Absolute Monocytes Absolute Eosinophils Absolute Basophils APTT 139.1 H* D 58.6 H D 47.6 H Sodium Potassium Chloride Carbon Dioxide Anion Gap BUN Creatinine Estimated GFR/1.73 m2 Glucose Calcium Troponin I 08/29/20 08/29/20 06:30 06:30 WBC 4.14 L RBC 3.33 L Hgb 10.6 L Hct 32.7 L MCV 98.2 H MCH 31.8 MCHC 32.4 RDW 13.9 Plt Count 122 L MPV 11.0 Immature Gran % 0.2 Neutrophils % 47.4 Lymphocytes % 39.1 Monocytes % 10.9 Eosinophils % 1.9 Basophils % 0.5 Nucleated RBC % 0 Absolute Neutrophils 1.96 Absolute Lymphocytes 1.62 Absolute Monocytes 0.45 Absolute Eosinophils 0.08 Absolute Basophils 0.02 APTT Sodium 144 Potassium 3.5 Chloride 109 H Carbon Dioxide 23.5 Anion Gap 11.5 H BUN 22 H Creatinine 1.3 H Estimated GFR/1.73 m2 39.82 Glucose 97 Calcium 8.4 L Troponin I < 0.05 Reviewed Pertinent PMH: Yes Objective Narrative Objective Narrative: Echocardiogram from 08/28/2020 Conclusion Left Ventricle : The left ventricle is normal size. The left ventricular systolic function is normal. The left ventricular ejection fraction is within the normal range. There is normal left ventricular wall thickness. There is normal LV segmental wall motion. The left ventricular diastolic function is normal. LVEF is 59%. Right Ventricle : The right ventricle is normal size. The right ventricular systolic function is normal. The RVSP is 23.7 mmHg. Atria : The left atrium size is normal. The right atrium size is normal. Mitral Valve : The mitral valve is normal in structure. Mild to moderate mitral regurgitation. No evidence of mitral valve stenosis. Great Vessels : The aortic root is normal in size. The ascending aorta is normal in size. Aortic arch is normal in caliber. IVC is normal in size and collapses >50% with inspiration. Compared to report from echocardiogram at [facility] in 2019, regional wall motion abnormalities are no longer present.
[2020-08-29] MEDS: Aspirin E.C. 81 MG TABEC PO (09:14)
[2020-08-29] MEDS: buPROPion-XL 150 MG TABCR 300 MG PO (09:14)
[2020-08-29] MEDS: Clopidogrel 75 MG TAB PO (09:15)
[2020-08-29] MEDS: ARIPiprazole 2 MG TAB PO (09:15)
[2020-08-29] MEDS: busPIRone 5 MG TAB PO ×3 (09:15→20:38)
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
--- NOTE | 2020-08-29 13:59 | PT.INTREAT ---
Date of service: 08/29/20 Time of Service: 13:00 PT Notes Visit Reasons: NSTEMI Inpatient Physical Therapy Treatment Note [facility] Date: 08/29/2020 PRECAUTIONS: Fall SUBJECTIVE: Arlin is pleasant and agreeable to participating in PT. She reports that she has had good care here while in the hospital, however she is excited to return home tomorrow. She reports that she feels she can no longer use just a cane even with short distance ambulation, as she has fallen twice recently and cannot get up on her own. OBJECTIVE: PAIN: No complaints of pain BED MOBILITY/TRANSFERS Sit-stand: I Stand-sit: I GAIT Assistive Device: 4WW Weight bearing: Full Assist: S Distance: 450' +200' Deviation: Stand rest x3 due to fatigue NEURO RE-ED: Patient completes high knee march, backward walk, lateral walk, mini squats, and heel raise exercises in parallel bars for continued beginner level balance training. ASSESSMENT: Patient tolerated session well, with some complaint of increased fatigue. She was able to tolerate a progression in gait distance with 4WW support and supervision, although requiring standing rest x3 due to fatigue. PLAN: Continue with balance retraining and global strengthening for improved stability and safety with mobility. TREATMENT CODE/TIME: 40 minutes; 99474 x3 (13:00)
--- NOTE | 2020-08-29 14:52 | PHACLINREV_ITS ---
Pharmacy Admission Review - Admission Clinical Review (Last Reviewed 08/28/20 @ 12:54 by Hernesto Raya MD) NSTEMI (non-ST elevated myocardial infarction) (Acute) Acute on chronic systolic CHF (congestive heart failure) (Acute) propoxyphene HCl [From Darvon] Allergy (Intermediate, Unverified 08/22/20 05:01) rash,itchy lisinopril Adverse Reaction (Mild, Unverified 08/22/20 05:01) cough Resuscitation Status DNR/DNI Height 5 ft 2 in Weight 77.5 kg - Renal Dosing Renal Dosing: BUN 22 mg/dL (7-18) H 08/29/20 06:30 Creatinine 1.3 mg/dL (0.55-1.02) H 08/29/20 06:30 Medications needing adjustments: Reviewed (eCrCl is 35.5 ml/min using adjusted bw) - Anticoagulation Anticoagulation: Hgb 10.6 g/dL (11.2-15.7) L 08/29/20 06:30 Hct 32.7 % (36.0-46.0) L 08/29/20 06:30 Plt Count 122 10^3/uL (130-400) L 08/29/20 06:30 Creatinine 1.3 mg/dL (0.55-1.02) H 08/29/20 06:30 Therapeutic Anticoagulation: Reviewed Medications: Heparin - Opiate Usage Evaluate Pain Scale/Pains Meds: N/A - Relevant Labs Sodium 144 mmol/L (136-145) 08/29/20 06:30 Potassium 3.5 mmol/L (3.5-5.1) 08/29/20 06:30 Chloride 109 mmol/L (98-107) H 08/29/20 06:30 Magnesium 2.2 mg/dL (1.8-2.4) 08/27/20 17:20 Electrolytes, C-Reactive P, ESR: Reviewed - DM Control DM Control: Glucose 97 mg/dL (74-106) 08/29/20 06:30 Insulin Dosing: N/A - Heart Failure/NC Heart Failure/NC: Troponin I < 0.05 ng/mL (<0.06) 08/29/20 06:30 NT-Pro-B Natriuret Pep 916 pg/mL (<300) H 08/27/20 17:20 EF%, GASTON's, B-Blockers, Diuretics: Reviewed - BP Control BP Control: Blood Pressure [Right Arm] 97/50 Blood Pressure 120/72 Blood Pressure 110/58 Blood Pressure 97/50 Blood Pressure 79/39 Blood Pressure 85/43 If elevated: Reviewed - Qtc Review If Elevated: Reviewed List meds needing interventions: QTc 459 on admission - IV to PO Switch IV Medications: Reviewed - Home Meds Home Med List reviewed: Intervened Relevent Home Meds Not ordered & why?: Not ordered: atorvastatin -- just re- added to list, it had been dc'd by ED RN with reason of patient stopped taking (last filled 90 day supply in late May, given cardiac hx should be on a statin, was ordered last admission a few days ago and was to be continued per that discharge summary) - Current meds Current Medication Order Review: Reviewed - Comments Comments/Follow Ups: anticipate DC tomorrow per PT agata
--- NOTE | 2020-08-29 17:41 | PDOC.CMPRO ---
Care Management Progress Note S/O: Arlin was quite talkative and expressed her desire to relocate with her son in [place], which she reports is in the works. She reported understanding her treatment plan and anticipating she would return home tomorrow. CM continues to follow. A: 74 year old female admitted to [facility] 08/27/20 for NSTEMI P: Arlin reports anticipating she will return home tomorrow. She will follow up with her PCP and Cardiology and transport with family. CM continues to follow.
[2020-08-29] MEDS: Gabapentin 100 MG CAP PO (22:21)
[2020-08-29] MEDS: Melatonin 3 MG TAB 6 MG PO (22:50)
[2020-08-30] VITALS (7 sets, daily range): BP systolic 105–121; BP diastolic 54–66; PULSE 58–74; RESP 17–20; TEMP 35.3–36.7; O2SAT 97–99
[2020-08-30] MEDS: Levothyroxine 25 MCG TAB PO (06:08)
[2020-08-30] MEDS: Acetaminophen 325 MG TAB 650 MG PO (06:14)
[2020-08-30 06:59] LABS: Abs Immature Grans 0.01 10^3/uL (0.0-0.06); Absolute Basophil Count 0.02 10^3/uL (0.0-0.2); Absolute Lymphocyte Count 1.63 10^3/uL (1.2-3.4); Absolute Monocyte Count 0.51 10^3/uL (0.1-0.8); Absolute Neutrophil Count 1.85 10^3/uL (1.2-6.7); Basophils % 0.5; Eosinophils % 2.4; HCT 32.2 % (36.0-46.0); HGB 10.4 g/dL (11.2-15.7); Immature Grans % 0.2; Lymphocytes % 39.6; MCH 31.4 pg (27.0-33.0); MCHC 32.3 % (32.0-36.0); MCV 97.3 fL (80-95); MPV 10.6 fL (8.0-11.0); Monocytes % 12.4; Neutrophils % 44.9; Nucleated RBC 0 %; Platelet Count 122 10^3/uL (130-400); RBC 3.31 10^6/uL (3.93-5.22); RDW 13.9 % (11.7-14.6); RDW-SD 49.5 fL; WBC 4.12 10^3/uL (4.4-10.8)
[2020-08-30 07:16] LABS: Anion Gap 5.9 mmol/L (3-11); BUN 21 mg/dL (7-18); CO2 25.1 mmol/L (21.0-32.0); CREATININE 1.4 mg/dL (0.55-1.02); Calcium 8.7 mg/dL (8.5-10.1); Chloride 109 mmol/L (98-107); Estimated GFR 36.56 (mL/min/1.73m2); Glucose 99 mg/dL (74-106); Potassium 3.8 mmol/L (3.5-5.1); Sodium 140 mmol/L (136-145)
[2020-08-30] MEDS: Metoprolol 12.5 MG TAB PO (07:46)
[2020-08-30] MEDS: buPROPion-XL 150 MG TABCR 300 MG PO (07:46)
[2020-08-30] MEDS: Aspirin E.C. 81 MG TABEC PO (07:46)
[2020-08-30] MEDS: ARIPiprazole 2 MG TAB PO (07:46)
[2020-08-30] MEDS: Clopidogrel 75 MG TAB PO (07:46)
[2020-08-30] MEDS: busPIRone 5 MG TAB PO ×2 (07:46→13:52)
--- NOTE | 2020-08-30 09:25 | PT.INTREAT ---
Date of service: 08/30/20 Time of Service: 08:40 PT Notes Visit Reasons: NSTEMI Inpatient Physical Therapy Treatment Note [facility] Date: 08/30/2020 PRECAUTIONS: Fall SUBJECTIVE: Arlin is pleasant and agreeable to participating in PT. She states that she will be going home later today. OBJECTIVE: PAIN: No complaints of pain BED MOBILITY/TRANSFERS Sit-stand: I Stand-sit: I GAIT Assistive Device: 4WW Weight bearing: Full Assist: S Distance: 300' + 150' Deviation: Stand rest x1 due to fatigue NEURO RE-ED: Patient completes high knee march, backward walk, lateral walk, mini squats, and heel raise exercises in parallel bars with U UE support for continued beginner level balance training. ASSESSMENT: Patient tolerated session well, with some complaint of increased fatigue. She was able to tolerate a progression in gait distance with 4WW support and supervision, although requiring standing rest x1 due to fatigue. PLAN: Patient likely to discharge to home later today with resumption of PT, per provider TREATMENT CODE/TIME: 30 minutes; 74310 x2 (08:40)
--- NOTE | 2020-08-30 09:41 | CMDISCH_ITS ---
- If Service Date Differs Date of service: 08/30/20 Time of Service: 16:14 LACE Index Scoring Tool - Questions: Length of Stay (in days): 3 Acuity (Admit via E.D.?): Yes Comorbidities: Congestive Heart Failure E.D. Visits: 8 - Answers: Total Score: 12 Risk of Readmission: High Risk Care Management Discharge Reason for Hospitalization: NSTEMI Discharge Plan: Arlin will return home when ready per MD. She will have new orders for RN/PT through [facility], follow up with his PCP and transport home via private vehicle with [facility], coordinated by this public relations writer. Patient/Family Education Needs: Review discharge instructions, discuss Ask Me Three. Services Needed at Discharge: Home Health Care Services (New RN/PT), Transportation ([facility])
--- NOTE | 2020-08-30 12:00 | RT.EKG_ITS ---
APPROVED REPORT Exam: Resting ECG Reason for Exam: CP Patient Location: I HR:58 bpm ECG Measurements Heart Rate 58 AXIS MA 191 P 61 QRSd 96 QRS -12 QT 435 T 59 QTc 428 Conclusion Sinus bradycardia...rate< 60 Low voltage, extremity and precordial leads...extremity<0.5mV, precordial<1.0mV I have reviewed and I agree with the emergency room physician's ECG interpretation.
[2020-08-30 12:49] LABS: Troponin I < 0.05 ng/mL (<0.06)
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
--- NOTE | 2020-08-30 13:59 | PDOC.HHF2F ---
Home Health Certification Home Health Certification: 1. Encounter Date and Reason I certify that Arlin Almaguer was seen by Mo Radford on 08/30/20 and that I had a [id number] encounter with this patient that meets the physician face to face encounter requirements. 2. Clinical Findings Supporting Skilled Need and Homebound Status I certify that home health services are medically necessary, include either intermittent long term and/or physical/speech therapy, and that this patient is homebound in that absences from the home require considerable and taxing effort and are infrequent or of short duration, or are attributable to the need to receive medical care. [X] (a) Attached documentation from encounter provides clinical findings supporting skilled need and homebound status (including what assistance patient requires to leave the home). The encounter with the patient was in whole, or in part, for the following medical condition, which is the primary reason for home health care: NSTEMI Care Home: monitor and treat for orthostatic hypotension, angina, and volume status and monitor medication compliance and effectiveness; obtain follow up labs including BMP and BNP and coordinate w/ PCP any changes. Physical Therapy: Evaluate and treat for orthostatic hypotension and gait instability and weakness caused by recent hospitalizations. Speech Therapy: Homebound: patient's gait instability and recent orthostatic hypotension and recent NSTEMI make travel outside her home to obtain medical services an unacceptable risk to her health 3. Certification and Authentication I certify that I composed the above information based on my clinical judgement relating to this patient's medical condition and, if applicable, clinical findings communicated to me by the NPP or inpatient physician who performed the Home Health Referral. All further orders will be obtained through ___Hemanth Chaudhary M.D. (Community Based Physician - PCP)
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
== END 2020-08-30 15:43 | disposition home health service (06) | DRG 280 ==
LOC: ER 22:58 → ICU 23:56 → MS 08-29 20:15
PROVIDERS: Internal Medicine; Registered Nurse Emergency; Admitting Provider General Practice; Emergency Provider Physician Assistant; PCP Family Medicine; Visit Provider General Practice
DX: I21.4 Non-ST elevation (NSTEMI) myocardial infarction (principal); I50.23 Acute on chronic systolic (congestive) heart failure; I25.10 Atherosclerotic heart disease of native coronary artery without angina pectoris; F41.9 Anxiety disorder, unspecified; E03.9 Hypothyroidism, unspecified; E66.9 Obesity, unspecified; K57.30 Diverticulosis of large intestine without perforation or abscess without bleeding; I25.2 Old myocardial infarction; I34.0 Nonrheumatic mitral (valve) insufficiency; N18.30 Chronic kidney disease, stage 3 unspecified; Z20.822 Contact with and (suspected) exposure to COVID-19
CPT/HCPCS: 36410; 36415; 80048; 80053; 87635; 93005; 93227; 93306; 97162; 97530; 99222; 99285; 71046; 83735; 83880; 84484; 85025; 85730; 93010; 93226; 93971; 99232; J3490

== ENCOUNTER 2020-08-27 18:58 | Outpatient (RCR) | payer MEDICARE, MEDICAID, SELFPAY | END 2020-09-15 23:59 | LOC: RT 18:58 | PROVIDERS: PCP Family Medicine; Visit Provider Internal Medicine | DX: R55 Syncope and collapse (principal); I49.1 Atrial premature depolarization; I47.1 Supraventricular tachycardia; I49.3 Ventricular premature depolarization | CPT/HCPCS: 93227; 93226 ==

== ENCOUNTER → 2020-08-28 09:43 | Outpatient (BNVA) | payer MEDICARE, MEDICAID, SELFPAY | PROVIDERS: PCP Family Medicine; Referring Provider Family Medicine; Visit Provider Internal Medicine Cardiovascular Disease | DX: R69 Illness, unspecified (principal) ==

== ENCOUNTER 2020-09-14 08:39 | Outpatient (REF) | payer MEDICARE, MEDICAID, SELFPAY ==
[2020-09-14 16:10] LABS: HCT 32.5 % (36.0-46.0); MCH 30.7 pg (27.0-33.0); MCHC 30.8 % (32.0-36.0); MCV 99.7 fL (80-95); Platelet Count 154 10^3/uL (130-400); RBC 3.26 10^6/uL (3.93-5.22); RDW 13.6 % (11.7-14.6); RDW-SD 50.5 fL; WBC 4.59 10^3/uL (4.4-10.8)
[2020-09-14 16:58] LABS: Anion Gap 10.6 mmol/L (3-11); BUN 15 mg/dL (7-18); CO2 23.4 mmol/L (21.0-32.0); CREATININE 1.3 mg/dL (0.55-1.02); Calcium 8.5 mg/dL (8.5-10.1); Chloride 110 mmol/L (98-107); Estimated GFR 39.72 (mL/min/1.73m2); Glucose 91 mg/dL (74-106); NT-proBNP 1290 pg/mL (<300); Potassium 4.1 mmol/L (3.5-5.1); Sodium 144 mmol/L (136-145)
== END 2020-09-14 08:40 | disposition home or self-care (01) ==
LOC: LBN 08:39
PROVIDERS: PCP Family Medicine; Visit Provider Family Medicine
DX: D64.9 Anemia, unspecified (principal); I50.9 Heart failure, unspecified; Z86.79 Personal history of other diseases of the circulatory system
CPT/HCPCS: 80048; 85027; 83880; 85025

== ENCOUNTER 2020-09-16 10:42 | Emergency (ER) | payer MEDICARE, MEDICAID, SELFPAY ==
[2020-09-16] VITALS (22 sets, daily range): BP systolic 105–156; BP diastolic 51–73; PULSE 59–80; RESP 15–30; TEMP 36.4; O2SAT 97–100
--- NOTE | 2020-09-16 10:45 | RT.EKG_ITS ---
APPROVED REPORT Exam: Resting ECG Reason for Exam: edema Patient Location: E HR:68 bpm ECG Measurements Heart Rate 68 AXIS TX 79 P 0 QRSd 98 QRS -10 QT 415 T 55 QTc 442 Conclusion Sinus rhythm. Low voltage, extremity and precordial leads.
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
[2020-09-16 11:14] LABS: Abs Immature Grans 0.02 10^3/uL (0.0-0.06); Absolute Basophil Count 0.04 10^3/uL (0.0-0.2); Absolute Eosinophil Count 0.12 10^3/uL (0.0-0.7); Absolute Lymphocyte Count 2.06 10^3/uL (1.2-3.4); Absolute Monocyte Count 0.72 10^3/uL (0.1-0.8); Absolute Neutrophil Count 2.81 10^3/uL (1.2-6.7); Basophils % 0.7; Eosinophils % 2.1; HGB 10.8 g/dL (11.2-15.7); Immature Grans % 0.3; Lymphocytes % 35.7; MCH 30.4 pg (27.0-33.0); MCHC 30.9 % (32.0-36.0); MCV 98.6 fL (80-95); Monocytes % 12.5; Neutrophils % 48.7; Nucleated RBC 0 %; Platelet Count 167 10^3/uL (130-400); RBC 3.55 10^6/uL (3.93-5.22); RDW 13.5 % (11.7-14.6); RDW-SD 48.7 fL; WBC 5.77 10^3/uL (4.4-10.8)
[2020-09-16 11:32] LABS: PTT Activated 24.5 sec (21.0-27.5); Prothrombin Time 10.1 sec (9.3-11.0)
[2020-09-16] MEDS: Normal Saline Flush 10 ML SYR IVP (12:41)
[2020-09-16] MEDS: Furosemide 20 MG/2 ML VIAL IVP (12:41)
[2020-09-16 13:22] LABS: ALT 25 U/L (14-59); AST 28 U/L (15-37); Albumin 3.2 g/dL (3.4-5.0); Alkaline Phosphatase 80 U/L (46-116); Anion Gap 7.8 mmol/L (3-11); BUN 16 mg/dL (7-18); Bilirubin, Total 0.5 mg/dL (0.2-1.0); CO2 28.2 mmol/L (21.0-32.0); CREATININE 1.2 mg/dL (0.55-1.02); Calcium 8.7 mg/dL (8.5-10.1); Chloride 108 mmol/L (98-107); Estimated GFR 43.56 (mL/min/1.73m2); Glucose 80 mg/dL (74-106); Magnesium 2.2 mg/dL (1.8-2.4); NT-proBNP 1898 pg/mL (<300); Sodium 144 mmol/L (136-145); Total Protein 6.9 g/dL (6.4-8.2); Troponin I < 0.05 ng/mL (<0.06)
--- NOTE | 2020-09-16 13:33 | DI.RAD_ITS ---
Exam(s) XR CHEST 2V PA LATERAL EXAM: XR CHEST 2V PA LATERAL CLINICAL HISTORY: edema, SOB TECHNIQUE: 2D digital imaging was performed. COMPARISON: CR,XR XR CHEST 2V PA LATERAL from 08/27/2020 FINDINGS: The heart is not enlarged. The lungs are clear except for an apparent calcified left basilar granulom a. And well expanded. No pleural effusion seen. Mediastinal contours appear intact. IMPRESSION: No evidence of acute process RADIATION DOSE DELIVERED: Total DLP
--- NOTE | 2020-09-16 14:53 | DI.VRAD_ITS ---
PROCEDURE INFORMATION: Exam: XR Chest Exam date and time: 09/16/2020 10:54 AM Age: 75 years old Clinical indication: Other: Edema, SOB TECHNIQUE: Imaging protocol: XR of the chest. Views: 2 views. COMPARISON: 1. CR XR CHEST 2V PA LATERAL 08/27/2020 10:[address] CHEST PE CTA 06/08/2020 11:34:27 AM FINDINGS: Lungs: Calcified granulomata again noted in the left lung base. No congestion or focal area of consolidation. Pleural spaces: Unremarkable. No pleural effusion. No pneumothorax. Heart/Mediastinum: Unremarkable. No cardiomegaly. Bones/joints: Degenerative disc disease thoracic spine and AC joints greater on the right than the left. IMPRESSION: No acute findings. Dictated and Authenticated by: Dewey Redmond MD. Ordering:ROLANDO Aburto MD
== END 2020-09-16 14:57 | disposition home or self-care (01) ==
PROVIDERS: Emergency Provider Physician Assistant; PCP Family Medicine
DX: I50.23 Acute on chronic systolic (congestive) heart failure (principal); R06.02 Shortness of breath
CPT/HCPCS: 80053; 93005; 96374; 99284; 71046; 83735; 83880; 84484; 85025; 85610; 85730; 93010; J1941

== ENCOUNTER 2020-09-20 16:00 | Emergency (ER) | payer MEDICARE, MEDICAID, SELFPAY ==
[2020-09-20] VITALS (37 sets, daily range): BP systolic 88–132; BP diastolic 43–78; PULSE 64–78; RESP 14–24; TEMP 36.1–36.7; O2SAT 95–100
--- NOTE | 2020-09-20 16:00 | RT.EKG_ITS ---
APPROVED REPORT Exam: Resting ECG Reason for Exam: dizzy Patient Location: E HR:73 bpm ECG Measurements Heart Rate 73 AXIS MO 82 P 0 QRSd 95 QRS -11 QT 406 T 51 QTc 447 Conclusion Sinus rhythm Low voltage, extremity and precordial lead
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
[2020-09-20 17:10] LABS: ALT 22 U/L (14-59); AST 22 U/L (15-37); Alkaline Phosphatase 90 U/L (46-116); Anion Gap 4.9 mmol/L (3-11); BUN 17 mg/dL (7-18); Bilirubin, Total 0.3 mg/dL (0.2-1.0); CO2 30.1 mmol/L (21.0-32.0); CREATININE 1.3 mg/dL (0.55-1.02); Calcium 8.7 mg/dL (8.5-10.1); Chloride 108 mmol/L (98-107); Estimated GFR 39.72 (mL/min/1.73m2); Glucose 92 mg/dL (74-106); Potassium 3.8 mmol/L (3.5-5.1); Sodium 143 mmol/L (136-145); Total Protein 6.5 g/dL (6.4-8.2)
[2020-09-20 17:18] LABS: Magnesium 2.3 mg/dL (1.8-2.4); NT-proBNP 1472 pg/mL (<300); Troponin I < 0.05 ng/mL (<0.06)
--- NOTE | 2020-09-20 17:23 | DI.RAD_ITS ---
Exam(s) XR CHEST 2V PA LATERAL EXAM: XR CHEST 2V PA LATERAL CLINICAL HISTORY: Chest Pain, Hx CHF TECHNIQUE: COMPARISON: CR,XR XR CHEST 2V PA LATERAL from 09/16/2020 FINDINGS: The heart appears mildly enlarged. Lungs are predominantly clear with presumed calcified pulmonary g ranuloma in the left lower lobe. No pleural effusion seen. IMPRESSION: No evidence of acute process. RADIATION DOSE DELIVERED: Total DLP
[2020-09-20 17:26] LABS: Abs Immature Grans 0.02 10^3/uL (0.0-0.06); Absolute Basophil Count 0.04 10^3/uL (0.0-0.2); Absolute Eosinophil Count 0.14 10^3/uL (0.0-0.7); Absolute Lymphocyte Count 1.89 10^3/uL (1.2-3.4); Absolute Monocyte Count 0.67 10^3/uL (0.1-0.8); Absolute Neutrophil Count 2.05 10^3/uL (1.2-6.7); Basophils % 0.8; Eosinophils % 2.9; HCT 31.3 % (36.0-46.0); HGB 9.6 g/dL (11.2-15.7); Immature Grans % 0.4; Lymphocytes % 39.3; MCHC 30.7 % (32.0-36.0); MCV 97.8 fL (80-95); MPV 10.5 fL (8.0-11.0); Monocytes % 13.9; Neutrophils % 42.7; Nucleated RBC 0 %; Platelet Count 148 10^3/uL (130-400); RDW 13.3 % (11.7-14.6); RDW-SD 47.7 fL; WBC 4.81 10^3/uL (4.4-10.8)
--- NOTE | 2020-09-20 17:37 | DI.VRAD_ITS ---
PROCEDURE INFORMATION: Exam: XR Chest Exam date and time: 09/20/2020 4:20 PM Age: 75 years old Clinical indication: Chest pressure; Patient HX: Chest pain, HX of chf. TECHNIQUE: Imaging protocol: XR of the chest. Views: 2 views. COMPARISON: CR XR CHEST 2V PA LATERAL 09/16/2020 1:33 PM FINDINGS: Lungs: The pulmonary vascularity appears slightly increased compared to previous study. No focal infiltrates. Pleural spaces: Unremarkable. No pleural effusion. No pneumothorax. Heart/Mediastinum: Cardiomegaly again noted. Bones/joints: Moderate thoracic spondylosis again noted. IMPRESSION: Findings consistent with early congestive heart failure. Dictated and Authenticated by: Wendi Espinal MD. Ordering:RITA Tirado MD
--- NOTE | 2020-09-20 18:30 | DI.CT_ITS ---
Exam(s) CT CHEST PE ABD PELVIS W EXAM: CT CHEST PE ABD PELVIS W CLINICAL HISTORY: Left sided chest pain, Left sided abd pain TECHNIQUE: CT examination of the chest, abdomen, and pelvis was performed with intravenous infusion of 100 cc of Omnipaque 350. COMPARISON: CT,NM,TMT NM MPI REST STRESS GRP from 08/23/2020 FINDINGS: The lungs are predominantly clear with left-sided calcified granuloma noted period. There is no pleural effusion seen. There is no mediastinal or hilar adenopathy. Pulmonary arteries are unremarkable with no evidence of pulmonary embolic disease. Thoracic aorta and major branches appear intact with no evidence of aneurysm or dissection. No bony abnormality seen in the thorax. The liver is normal appearance. Gallbladder and bile ducts are CT normal. No abnormality seen involving the spleen. Pancreas appears intact with an incidental 7 millimeter probable tiny Annel pancreatic tail cyst.. The adrenals are unremarkable in appearance. The kidneys appear intact with no evidence of hydroneph rosis or nephrolithiasis. Abdominal aorta and major visceral branches appear intact. Fat containing ventral hernia noted period. No significant abdominal or pelvic adenopathy. No focal bowel pathology. No evidence of appendicitis or diverticulitis. Uterus is atrophic or absent. IMPRESSION: No evidence of acute process. RADIATION DOSE DELIVERED: 1,158.53mGy.cm Total DLP 1,158.53mGy.cm Total DLP CTDIvol
[2020-09-20] MEDS: Normal Saline - Diluent 50 ML VIAL IV (18:42)
[2020-09-20] MEDS: Omnipaque 350 MG/ML 100 ML BTL IJ (18:45)
--- NOTE | 2020-09-20 19:07 | DI.VRAD_ITS ---
PROCEDURE INFORMATION: Exam: CTA Chest With Contrast Exam date and time: 09/20/2020 5:28 PM Age: 75 years old Clinical indication: On breathing; Abdominal pain; Flank; Left upper quadrant (luq); Patient HX: Left sided chest pain, left sided abd. Pain. TECHNIQUE: Imaging protocol: Computed tomographic angiography of the chest with contrast. 3D rendering (Not supervised by radiologist): MIP and/or 3D reconstructed images were created by the technologist. Radiation optimization: All CT scans at this facility use at least one of these dose optimization techniques: automated exposure control; mA and/or kV adjustment per patient size (includes targeted exams where dose is matched to clinical indication); or iterative reconstruction. Contrast material: OMNI-PAQUE 350; Contrast volume: 100 ml; Contrast route: INTRAVENOUS (IV); COMPARISON: CT CHEST PE CTA 06/08/2020 11:34 AM FINDINGS: Pulmonary arteries: Normal. No pulmonary emboli. Aorta: Mild atherosclerotic change present in the vasculature. Lungs: Calcified granuloma noted at the left lung base. Pleural spaces: Unremarkable. No pneumothorax. No pleural effusion. Heart: Cardiomegaly. Mediastinal space: Small hiatal hernia. Lymph nodes: Unremarkable. No enlarged lymph nodes. Bones/joints: Unremarkable. No acute fracture. Soft tissues: Unremarkable. Other findings: Respiratory motion slightly limits the exam. IMPRESSION: No evidence for pulmonary embolus. PROCEDURE INFORMATION: Exam: CT Angiography Abdomen With Contrast Exam date and time: 09/20/2020 5:28 PM Age: 75 years old Clinical indication: On breathing; Abdominal pain; Flank; Left upper quadrant (luq); Patient HX: Left sided chest pain, left sided abd. Pain. TECHNIQUE: Imaging protocol: Computed tomographic angiography images of the abdomen with intravenous contrast material. 3D rendering (Not supervised by radiologist): MIP and/or 3D reconstructed images were created by the technologist. Radiation optimization: All CT scans at this facility use at least one of these dose optimization techniques: automated exposure control; mA and/or kV adjustment per patient size (includes targeted exams where dose is matched to clinical indication); or iterative reconstruction. Contrast material: OMNI-PAQUE 350; Contrast volume: 100 ml; Contrast route: INTRAVENOUS (IV); COMPARISON: CT CHEST PE CTA 06/08/2020 11:34 AM FINDINGS: Aorta: No aortic aneurysm. No aortic dissection. Celiac trunk and mesenteric arteries: No occlusion or significant stenosis. Renal arteries: No occlusion or significant stenosis. Liver: Normal. No mass. Gallbladder and bile ducts: Normal. No calcified stones. No ductal dilation. Pancreas: There is a tiny low-density focus series 12, image 21 measuring 7 mm in diameter which may be adjacent to or involving the pancreatic tail region, unchanged from previous chest CTA allowing for technical differences. Suspect small adjacent cyst. Spleen: Normal. No splenomegaly. Adrenals: Normal. No mass. Kidneys and ureters: Normal. No hydronephrosis. Stomach and bowel: Moderate fecal retention pattern. Diverticulosis noted without acute diverticulitis. Lymph nodes: Unremarkable. No enlarged lymph nodes. Intraperitoneal space: Unremarkable. No free air. No significant fluid collection. Reproductive: Status post hysterectomy. Bones/joints: Moderate lumbar spondylosis. Soft tissues: There is a moderate-sized, fat containing periumbilical hernia. IMPRESSION: No acute abnormality seen to account for symptoms. Dictated and Authenticated by: Wendi Espinal MD. Ordering:RITA Tirado MD
[2020-09-20 20:30] LABS: Troponin I < 0.05 ng/mL (<0.06)
== END 2020-09-20 21:10 | disposition home or self-care (01) ==
PROVIDERS: Emergency Provider Registered Nurse Emergency; PCP Family Medicine
DX: I50.9 Heart failure, unspecified (principal); R07.89 Other chest pain; R10.9 Unspecified abdominal pain
CPT/HCPCS: 36415; 71275; 74177; 80053; 93005; 99285; 71046; 83735; 83880; 84484; 85025; 93010; 99284; J3490

== ENCOUNTER → 2020-09-21 09:28 | Outpatient (BNVA) | payer MEDICARE, MEDICAID, SELFPAY | PROVIDERS: PCP Family Medicine; Referring Provider Family Medicine; Visit Provider Internal Medicine Cardiovascular Disease | DX: I25.10 Atherosclerotic heart disease of native coronary artery without angina pectoris (principal); I50.9 Heart failure, unspecified; I21.4 Non-ST elevation (NSTEMI) myocardial infarction; Z98.890 Other specified postprocedural states; Z79.899 Other long term (current) drug therapy | CPT/HCPCS: 99213 ==

== ENCOUNTER 2020-09-25 14:40 | Outpatient (REF) | payer MEDICARE, MEDICAID, SELFPAY ==
[2020-09-25 21:16] LABS: Vitamin B12 466 pg/mL (193-986)
[2020-09-25 21:31] LABS: Iron 45 ug/dL (50-170); Total Iron Binding Capacity 361 ug/dL (250-450); Transferrin Sat 12 % (15-50)
== END 2020-09-25 14:41 | disposition home or self-care (01) ==
LOC: LBN 14:40
PROVIDERS: PCP Family Medicine; Visit Provider Family Medicine
DX: D75.89 Other specified diseases of blood and blood-forming organs (principal); D64.9 Anemia, unspecified
CPT/HCPCS: 82607; 83540; 83550

== ENCOUNTER → 2020-11-23 09:40 | Outpatient (BNVA) | payer MEDICARE, MEDICAID, SELFPAY | PROVIDERS: PCP Family Medicine; Referring Provider Family Medicine; Visit Provider Internal Medicine Cardiovascular Disease | DX: I50.9 Heart failure, unspecified (principal); I34.0 Nonrheumatic mitral (valve) insufficiency | CPT/HCPCS: 99214; 99213 ==

== ENCOUNTER 2020-11-25 10:18 | Emergency (ER) | payer MEDICARE, MEDICAID, SELFPAY ==
[2020-11-25 10:23] VITALS: BP 144/71; PULSE 86; RESP 17; TEMP 36.3; O2SAT 96
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
[2020-11-25 10:54] VITALS: BP 140/70; PULSE 84; RESP 17; TEMP 36.6; O2SAT 94
== END 2020-11-25 11:48 | disposition home or self-care (01) ==
PROVIDERS: Emergency Provider Physician Assistant; PCP Family Medicine
DX: L85.3 Xerosis cutis (principal)
CPT/HCPCS: 99281

== ENCOUNTER 2021-01-11 19:05 | Outpatient (REF) | payer MEDICARE, MEDICAID, SELFPAY ==
[2021-01-11 20:05] LABS: TSH (W/Ref FT4) 2.02 uIU/mL (0.36-3.74)
== END 2021-01-11 19:06 | disposition home or self-care (01) ==
LOC: NCHCN 19:05
PROVIDERS: PCP Family Medicine; Visit Provider Family Medicine
DX: E03.9 Hypothyroidism, unspecified (principal)
CPT/HCPCS: 84443

== ENCOUNTER 2021-02-24 09:45 | Emergency (ER) | payer MEDICARE, MEDICAID, SELFPAY ==
[2021-02-24 09:49] VITALS: BP 161/81; PULSE 75; RESP 18; TEMP 36.7; O2SAT 98
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
== END 2021-02-24 10:26 | disposition home or self-care (01) ==
PROVIDERS: Emergency Provider Emergency Medicine; PCP Family Medicine
DX: S61.217A Laceration without foreign body of left little finger without damage to nail, initial encounter (principal); W18.39XA Other fall on same level, initial encounter
CPT/HCPCS: 99282

== ENCOUNTER 2021-04-27 00:21 | Emergency (ER) | payer MEDICARE, MEDICAID, SELFPAY ==
[2021-04-27 00:21] VITALS: BP 153/73; PULSE 87; RESP 18; TEMP 36.8; O2SAT 98
--- NOTE | 2021-04-27 00:30 | DI.CT_ITS ---
Exam(s) CT HEAD CERVICAL SPINE WO EXAM: CT HEAD CERVICAL SPINE WO CLINICAL HISTORY: fall, pain. TECHNIQUE: Imaging Protocol: Axial computed tomography images with coronal and sagittal reformatted images were created and reviewed COMPARISON: CT CT HEAD CERVICAL SPINE WO from 08/22/2020 FINDINGS: BRAIN: There are no skull fractures nor fluid in the visualized paranasal sinuses. There is no evidence of intracranial hemorrhage, mass effect, or shift of midline structures. There are no extra-axial fluid collections. The ventricles are not enlarged or shifted and there is no blo od within the ventricular system nor within the basal cisterns. Two adjacent lacunar infarcts in the left cerebellar hemisphere are unchanged. In addition there is abundant bilateral periventricular hypodensity consistent with chronic small vessel disease, unchange d from the prior study is. No new obvious territorial infarction. CERVICAL SPINE: There is no evidence of fracture nor listhesis. No significant prevertebral soft tissue swelling. There is chronic-type disc space narrowing at C5-6 and C6-7 levels. There is multilevel facet arthropathy. There is no significant facet joint malalignment. No significant osseous lesions evident. Calcification noted in the supraspinous ligament. No spinous process fractures. IMPRESSION: No acute intracranial findings on this noninfused CT scan of the brain.Chronic ischemic white matter disease as described above, unchanged from August 2020. No evidence of cervical spine fracture, malalignment, nor acute compromise of the cervical spinal can al. RADIATION DOSE DELIVERED: 1,469.93mGy.cm Total DLP DATA REPOSITORY: All CT scans at this facility are submitted to the National Radiology Data Registry (NRDR) Dose Index Registry (DIR) with the [employer] ([employer]). RADIATION OPTIMIZATION: All CT scans at this facility use at least one of these dose optimization te chniques: automated exposure control; mA and/or kV adjustment per patient size (includes targeted exa ms where dose is matched to clinical indication); or iterative reconstruction.
--- NOTE | 2021-04-27 00:30 | DI.RAD_ITS ---
Exam(s) XR FEMUR LT EXAM: XR FEMUR LT CLINICAL HISTORY: pain s/p fall. TECHNIQUE: 2D digital imaging was performed. COMPARISON: No exams were available for comparison FINDINGS: Two views of the left femur reveal no evidence of fracture nor osseous lesions. In no obvious knee j oint effusion. However, there appears to be mild generalized soft tissue swelling. There is no radi opaque foreign body. IMPRESSION: No fracture. There appears to be generalized soft tissue swelling. No radiopaque foreign body. DATA REPOSITORY: RADIATION DOSE DELIVERED:
--- NOTE | 2021-04-27 00:30 | DI.RAD_ITS ---
Exam(s) XR HIP LT COMPLETE AP PELVIS EXAM: XR HIP LT COMPLETE AP PELVIS CLINICAL HISTORY: pain s/p fall. TECHNIQUE: 2D digital imaging was performed. COMPARISON: CR,XR XR HIP RT COMPLETE AP PELVIS from 03/02/2019 FINDINGS: There is no evidence of pelvic nor hip fracture. No degenerative changes in the hips. No osseous le sions. Bone density normal. Left hip unremarkable. IMPRESSION: No fracture evident. DATA REPOSITORY: RADIATION DOSE DELIVERED:
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
[2021-04-27] MEDS: Ibuprofen 600 MG TAB PO (00:42)
--- NOTE | 2021-04-27 01:35 | DI.VRAD_ITS ---
PROCEDURE INFORMATION: Exam: CT Head Without Contrast Exam date and time: 04/27/2021 12:35 AM Age: 75 years old Clinical indication: Injury or trauma; Concussion/head injury; Without loss of consciousness; Injury date: 04/26/21; Injury details: Fall, head injury TECHNIQUE: Imaging protocol: Computed tomography of the head without contrast. Radiation optimization: All CT scans at this facility use at least one of these dose optimization techniques: automated exposure control; mA and/or kV adjustment per patient size (includes targeted exams where dose is matched to clinical indication); or iterative reconstruction. COMPARISON: CT HEAD CERVICAL SPINE WO 08/22/2020 5:19 AM FINDINGS: Brain: Mild volume loss within the brain parenchyma. Confluent areas of low attenuation are seen throughout the subcortical and periventricular white matter. No intracranial hemorrhage. No midline shift. No extra-axial fluid collection. Chronic cerebellar infarcts, unchanged. Cerebral ventricles: No ventriculomegaly. Paranasal sinuses: Visualized sinuses are unremarkable. No fluid levels. Mastoid air cells: Visualized mastoid air cells are well aerated. Orbital cavity: Bilateral lens replacements. The skull and skull base are normal appearance. Bones/joints: See Orbital cavity finding. Soft tissues: Unremarkable. IMPRESSION: 1. No acute intracranial abnormality. 2. Mild volume loss with confluent white matter changes most consistent with chronic microvascular ischemic disease. 3. Chronic bilateral cerebellar infarcts, unchanged. PROCEDURE INFORMATION: Exam: CT Cervical Spine Without Contrast Exam date and time: 04/27/2021 12:35 AM Age: 75 years old Clinical indication: Injury or trauma; Concussion/head injury; Without loss of consciousness; Injury date: 04/26/21; Injury details: Fall, head injury TECHNIQUE: Imaging protocol: Computed tomography images of the cervical spine without contrast. Radiation optimization: All CT scans at this facility use at least one of these dose optimization techniques: automated exposure control; mA and/or kV adjustment per patient size (includes targeted exams where dose is matched to clinical indication); or iterative reconstruction. COMPARISON: CT HEAD CERVICAL SPINE WO 08/22/2020 5:19 AM FINDINGS: Bones/joints: No acute fracture. Normal alignment. Moderate pannus is seen along the tip of the dens. Discs/Spinal canal/Neural foramina: Diffuse cervical spondylosis, most pronounced at C5-C6 and C6-C7 where varying degrees of [id number] neural foraminal stenosis are present. Lungs: Lung apices are normal. Soft tissues: Unremarkable. IMPRESSION: No evidence for an acute cervical spine fracture. Dictated and Authenticated by: Christen Hoyt MD. Ordering:AD Swain MD
--- NOTE | 2021-04-27 01:36 | DI.VRAD_ITS ---
PROCEDURE INFORMATION: Exam: XR Left Femur Exam date and time: 04/27/2021 12:35 AM Age: 75 years old Clinical indication: Injury or trauma; Blunt trauma; Hip and thigh or upper leg and knee; Injury date: 04/26/21; Injury details: Fall, left leg pain TECHNIQUE: Imaging protocol: XR Left femur. Views: 2 views. Total images: 4 COMPARISON: CT LOWER EXTREMITY LT WO 12/30/2018 12:53 PM FINDINGS: Bones/joints: Osteopenia. No fractures. No dislocation. No blastic or lytic lesions. Left hip joint spaces grossly well maintained. No gross joint effusion. Mild-moderate osteoarthritic sclerosis in the left SI joint and pubic symphysis. No pelvic/acetabular fractures. Soft tissues: No periostitis or osteolysis. Question mild generalized soft tissue swelling. No radiopaque foreign bodies. IMPRESSION: 1. No acute osseous injuries. 2. Osteopenia. 3. Question mild generalized soft tissue swelling. No foreign body. Dictated and Authenticated by: Hemanth Avelar MD. Ordering:AD Swain MD
--- NOTE | 2021-04-27 01:37 | DI.VRAD_ITS ---
PROCEDURE INFORMATION: Exam: XR Left Hip Exam date and time: 04/27/2021 12:35 AM Age: 75 years old Clinical indication: Injury or trauma; Blunt trauma (contusions or hematomas); Pelvic region; Injury date: 04/26/21; Injury details: Fall, left leg pain TECHNIQUE: Imaging protocol: XR Left hip. Views: 2 or 3 views hip with pelvis when performed. Total images: 3 COMPARISON: CT CHEST PE ABD PELVIS W 09/20/2020 6:29 PM FINDINGS: Bones/joints: Osteopenia. No fracture. Hip joint spaces and articular surfaces are grossly well-maintained. No radiographic evidence to suggest transient osteoporosis or avascular necrosis. No blastic or lytic lesions. The SI joints and pubic symphysis demonstrate mild osteoarthritic sclerosis without traumatic diastasis. Soft tissues: No gross soft tissue abnormalities. Other findings: Normal alignment. IMPRESSION: No acute findings. Dictated and Authenticated by: Hemanth Avelar MD. Ordering:AD Swain MD
[2021-04-27 01:45] VITALS: BP 145/69; PULSE 78; RESP 18; O2SAT 98
== END 2021-04-27 02:16 | disposition home or self-care (01) ==
PROVIDERS: Emergency Provider Emergency Medicine; PCP Family Medicine
DX: S09.8XXA Other specified injuries of head, initial encounter (principal); S70.02XA Contusion of left hip, initial encounter; S70.12XA Contusion of left thigh, initial encounter; W07.XXXA Fall from chair, initial encounter
CPT/HCPCS: 73552; 99284; 70450; 72125; 73502; 99283

== ENCOUNTER 2021-04-29 01:53 | Emergency (ER) | payer MEDICARE, MEDICAID, SELFPAY ==
[2021-04-29 02:02] VITALS: BP 155/79; PULSE 84; RESP 18; TEMP 37.1; O2SAT 100
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
[2021-04-29] MEDS: Acetaminophen 500 MG TAB 1000 MG PO (02:27)
--- NOTE | 2021-04-29 02:30 | DI.RAD_ITS ---
Exam(s) XR HIP LT COMPLETE AP PELVIS EXAM: XR HIP LT COMPLETE AP PELVIS INDICATION: left hip pain. COMPARISON: CR,XR XR HIP RT COMPLETE AP PELVIS from 03/02/2019 CR,XR XR FEMUR LT from 04/27/2021 CR,XR XR HIP LT COMPLETE AP PELVIS from 04/27/2021 TECHNIQUE: 2D digital imaging was performed. FINDINGS: There is no evidence of fracture or dislocation. Degenerative changes are noted at the SI joints and lower lumbar spine. There is mild acetabular spurring. IMPRESSION: Degenerative changes. No acute abnormality. DATA REPOSITORY: RADIATION DOSE DELIVERED:
[2021-04-29] MEDS: Lidocaine 5% Patch 1 PATCH TP (02:45)
[2021-04-29] MEDS: Diclofenac 1% Gel 100 GM TUBE TP (02:50)
--- NOTE | 2021-04-29 03:27 | DI.VRAD_ITS ---
PROCEDURE INFORMATION: Exam: XR Left Hip Exam date and time: 04/29/2021 2:33 AM Age: 75 years old Clinical indication: Patient HX: Left hip pain TECHNIQUE: Imaging protocol: XR Left hip. Views: 2 or 3 views hip with pelvis when performed. COMPARISON: CR XR HIP LT COMPLETE AP PELVIS 04/27/2021 1:10 AM FINDINGS: Bones/joints: There are degenerative changes of the visualized lower lumbosacral spine. There is no fracture or dislocation. Hip joint is maintained. There is mild pubic symphyseal arthrosis. There is bilateral sacroiliac arthrosis. Soft tissues: Unremarkable. IMPRESSION: Degenerative changes. No acute fracture or dislocation. Dictated and Authenticated by: Poncho Eastman MD. Ordering:YOUSIF Hood MD
[2021-04-29 05:00] VITALS: BP 142/76; PULSE 80; RESP 16; O2SAT 100
== END 2021-04-29 05:36 | disposition home or self-care (01) ==
PROVIDERS: Emergency Provider Student in an Organized Health Care Education/Training Program; PCP Family Medicine
DX: M25.552 Pain in left hip (principal); G89.29 Other chronic pain
CPT/HCPCS: 99283; 73502

== ENCOUNTER → 2021-05-16 10:44 | Outpatient (BNVA) | payer MEDICARE, MEDICAID, SELFPAY | PROVIDERS: PCP Family Medicine; Visit Provider Internal Medicine Cardiovascular Disease | DX: I50.32 Chronic diastolic (congestive) heart failure (principal); I34.0 Nonrheumatic mitral (valve) insufficiency; R29.6 Repeated falls | CPT/HCPCS: 99214; 99213 ==

== ENCOUNTER 2021-09-22 18:30 | Emergency (ER) | payer OTHER, MEDICAID, SELFPAY ==
[2021-09-22] VITALS (19 sets, daily range): BP systolic 46–122; BP diastolic 31–81; PULSE 64–106; RESP 16–23; TEMP 36.7; O2SAT 96–100
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
--- NOTE | 2021-09-22 18:30 | DI.RAD_ITS ---
Exam(s) XR RIBS RT W PA LAT CHEST EXAM: XR RIBS RT W PA LAT CHEST CLINICAL HISTORY: Fall, Right side rib pain, R/O FX TECHNIQUE: 2D digital imaging was performed. COMPARISON: CR,XR XR CHEST 2V PA LATERAL from 09/20/2020 FINDINGS: Four views: There are no acute right rib fractures evident. No lytic rib lesions identified. Scoliosis noted. No lung contusion or pneumothorax. There is no pleural effusion evident. Heart size is normal and there is no significant mediastinal widening. IMPRESSION: 1. No right rib fractures evident. Also no obvious rib lesions. 2. No ipsilateral lung nor pleural abnormality evident. No pneumothorax. DATA REPOSITORY: RADIATION DOSE DELIVERED:
--- NOTE | 2021-09-22 18:30 | DI.RAD_ITS ---
Exam(s) XR SHOULDER RT COMPLETE 2+V EXAM: XR SHOULDER RT COMPLETE 2+V CLINICAL HISTORY: Fall, R/O Fracture. TECHNIQUE: 2D digital imaging was performed. COMPARISON: CR,XR XR SHOULDER LT COMPLETE 2+V from 02/22/2020 FINDINGS: Four views No evidence of fracture or dislocation. Diminution of the subacromial space may indicate rotator cuf f pathology. Bone density age-appropriate. No osseous lesions evident. IMPRESSION: No acute fracture nor dislocation. Suspect rotator cuff pathology. DATA REPOSITORY: RADIATION DOSE DELIVERED:
--- NOTE | 2021-09-22 18:30 | DI.CT_ITS ---
Exam(s) CT HEAD WO EXAM: CT HEAD WO CLINICAL HISTORY: Fall, Unknown LOC. TECHNIQUE: Imaging Protocol: Axial computed tomography images with coronal and sagittal reformatted images were created and reviewed COMPARISON: CT CT HEAD CERVICAL SPINE WO from 04/27/2021 FINDINGS: There are no skull fractures nor fluid in the visualized paranasal sinuses. There is no evidence of intracranial hemorrhage, mass effect, or shift of midline structures. There are no extra-axial fluid collections. The ventricles are not enlarged or shifted and there is no blo od within the ventricular system nor within the basal cisterns. There is an unchanged lacunar infarct in the left cerebellar hemisphere. There is also abundant bila teral periventricular hypodensity consistent with chronic small vessel disease, also previously prese nt. However, on the present study there appears to be some asymmetric hypodensity in the central and left side of the midbrain, extending upwards towards the left thalamus. This appears more evident o n the prior study. MRI recommended. IMPRESSION: Abundant bilateral chronic white matter periventricular ischemic changes. However, there is also a s uggestion of subtle abnormal hypodensity in the central left side the midbrain and left thalamus. Th is may be related to acute or acute subacute ischemic event. Recommend MRI. Study 1st read by [facility]. Final report called by myself to ER 09/23/2021 7:58 a.m. RADIATION DOSE DELIVERED: 732.93mGy.cm Total DLP DATA REPOSITORY: All CT scans at this facility are submitted to the National Radiology Data Registry (NRDR) Dose Index Registry (DIR) with the [employer] ([employer]). RADIATION OPTIMIZATION: All CT scans at this facility use at least one of these dose optimization te chniques: automated exposure control; mA and/or kV adjustment per patient size (includes targeted exa ms where dose is matched to clinical indication); or iterative reconstruction.
--- NOTE | 2021-09-22 18:45 | NUR.NOTE ---
Nursing Note: Joel [phone] son
--- NOTE | 2021-09-22 19:33 | DI.VRAD_ITS ---
PROCEDURE INFORMATION: Exam: CT Head Without Contrast Exam date and time: 09/22/2021 7:19 PM Age: 76 years old Clinical indication: Injury or trauma; Blunt trauma (contusions or hematomas); With loss of consciousness; Not specified; Injury date: 09/22/21; Injury details: Fall, loc unknown TECHNIQUE: Imaging protocol: Computed tomography of the head without contrast. Radiation optimization: All CT scans at this facility use at least one of these dose optimization techniques: automated exposure control; mA and/or kV adjustment per patient size (includes targeted exams where dose is matched to clinical indication); or iterative reconstruction. COMPARISON: CT HEAD CERVICAL SPINE WO 04/27/2021 12:59 AM FINDINGS: Brain: Prominence of cerebral sulci reflects diffuse cerebral atrophy. Poorly marginated hypodensities seen throughout the deep and periventricular white matter of both cerebral hemispheres are consistent with microvascular ischemic changes with chronic ischemic insults also again seen involving the cerebellar hemispheres bilaterally. Brainstem is unremarkable. There is no evidence of acute transcortical infarction or recent intracranial hemorrhage. Cerebral ventricles: Dilatation of the 3rd and lateral ventricles is commensurate with the degree of cerebral atrophy and there is no midline shift or hydrocephalus. Paranasal sinuses: Grossly clear throughout. Mastoid air cells: Grossly clear bilaterally. Bones/joints: Bony calvarium and skull base are intact and no acute fractures are detected. Soft tissues: Unremarkable. IMPRESSION: Cerebral atrophy and chronic ischemic changes are similar in appearance with no evidence of acute infarct, recent hemorrhage or hydrocephalus. No acute intracranial process is detected. Dictated and Authenticated by: Rick Garrison MD. Ordering:RITA Tirado MD
--- NOTE | 2021-09-22 20:11 | DI.VRAD_ITS ---
PROCEDURE INFORMATION: Exam: XR Right Shoulder Exam date and time: 09/22/2021 7:40 PM Age: 76 years old Clinical indication: Injury or trauma; Blunt trauma (contusions or hematomas); Right; Injury date: 09/22/21; Injury details: Fall, shoulder pain TECHNIQUE: Imaging protocol: Radiologic exam of the Right shoulder. Views: 2 or more views. COMPARISON: CR XR HUMERUS RT 08/23/2020 8:00 PM FINDINGS: Bones/joints: Acromioclavicular arthropathy is evident and no acute glenohumeral fracture is detected. Soft tissues: Unremarkable. IMPRESSION: No acute fracture is seen. Dictated and Authenticated by: Rick Garrison MD. Ordering:RITA Tirado MD
--- NOTE | 2021-09-22 20:11 | DI.VRAD_ITS ---
PROCEDURE INFORMATION: Exam: XR Right Ribs Exam date and time: 09/22/2021 7:32 PM Age: 76 years old Clinical indication: Injury or trauma; Blunt trauma (contusions or hematomas); Rib area; Injury date: 09/22/21; Injury details: Fall, R sided rib paiin TECHNIQUE: Imaging protocol: Radiologic exam of the Right ribs. Views: 2 views. COMPARISON: CR XR CHEST 2V PA LATERAL 09/20/2020 5:21 PM FINDINGS: Bones/joints: Normal trabecular architecture is seen throughout and no displaced right rib fractures or other acute osseous lesions are detected. Soft tissues: Unremarkable IMPRESSION: No acute findings. PROCEDURE INFORMATION: Exam: XR Chest Exam date and time: 09/22/2021 7:32 PM Age: 76 years old Clinical indication: Injury or trauma; Blunt trauma (contusions or hematomas); Rib area; Injury date: 09/22/21; Injury details: Fall, R sided rib paiin TECHNIQUE: Imaging protocol: Radiologic exam of the chest. Views: 2 views. COMPARISON: CR XR CHEST 2V PA LATERAL 09/20/2020 5:21 PM FINDINGS: Lungs: Lungs are clear throughout with no mass or consolidation detected. Pleural spaces: No pneumothorax or pleural effusion detected. Heart/Mediastinum: Cardiac silhouette is enlarged and vessel margins are sharply defined. Bones/joints: No acute osseous lesions are detected. IMPRESSION: No acute findings. Dictated and Authenticated by: Rick Garrison MD. Ordering:RITA Tirado MD
[2021-09-22] MEDS: Acetaminophen 325 MG TAB 650 MG PO (20:19)
--- NOTE | 2021-09-23 09:00 | W.ED.FU ---
Date of service: 09/23/21 Time of Service: 09:00 Follow Up Plan: Radiologist Dr. Freeman called after reviewing images performed last night, over read of head CT concerning for possible acute versus subacute ischemic stroke in the left midbrain/left thalamus. I have attempted to contact patient as well as patient's family in order to relay this message to have patient follow-up for MRI. No answer on either line, voice mailbox was full.
--- NOTE | 2021-09-26 14:45 | RT.EKG_ITS ---
APPROVED REPORT Exam: Resting ECG Reason for Exam: afib Patient Location: E HR:104 bpm ECG Measurements Heart Rate 104 AXIS NH [id number] P [id number] QRSd 89 QRS -26 QT 364 T 148 QTc 478 Conclusion Atrial fibrillation...? atrial activity Ventricular premature complex...V complex w/ short R-R interval InferiorQ >35mS, II III aVF Nonspecific T abnormalities, lateral leads.
== END 2021-09-22 21:00 | disposition home or self-care (01) ==
PROVIDERS: Emergency Provider Registered Nurse Emergency; PCP Family Medicine
DX: G89.11 Acute pain due to trauma; M79.621 Pain in right upper arm; R07.81 Pleurodynia; W19.XXXA Unspecified fall, initial encounter; G31.9 Degenerative disease of nervous system, unspecified; Y93.89 Activity, other specified
CPT/HCPCS: 99285; 70450; 71046; 71100; 73030; 99284

== ENCOUNTER 2021-09-26 15:57 | Inpatient (IN) | payer OTHER, MEDICAID, SELFPAY ==
[2021-09-26] VITALS (32 sets, daily range): BP systolic 63–123; BP diastolic 45–85; PULSE 79–121; RESP 15–37; TEMP 36.4–36.8; O2SAT 94–100
--- NOTE | 2021-09-26 17:00 | DI.RAD_ITS ---
Exam(s) XR CHEST 2V PA LATERAL EXAM: XR CHEST 2V PA LATERAL CLINICAL HISTORY: afib TECHNIQUE: 2D digital imaging was performed. COMPARISON: CR,XR XR RIBS RT W PA LAT CHEST from 09/22/2021 FINDINGS: MEDIASTINUM: Normal. HEART: Mildly enlarged. PULMONARY VASCULATURE: Normal. LUNGS: Stable scattered small calcifications consistent with prior granulomatous disease, otherwise c lear. PLEURAL SPACE: No pleural effusion or pneumothorax. BONE:Scoliosis and degenerative changes. IMPRESSION: No acute abnormality. DATA REPOSITORY: RADIATION DOSE DELIVERED:
[2021-09-26 17:29] LABS: Source Nasal/Nares
[2021-09-26 18:01] LABS: Bilirubin Negative (Negative); Blood Negative (Negative); Clarity Clear (Clear); Glucose Negative (Negative); Ketones Negative (Negative); Leukocyte Esterase Negative (Negative); Nitrite Negative (Negative); Specific Gravity <= 1.005 (1.005-1.025); Urobilinogen 0.2 EU/dL (Up TO 0.2)
[2021-09-26 18:03] LABS: COVID-19 PCR Negative (Negative)
--- NOTE | 2021-09-26 18:06 | DI.VRAD_ITS ---
PROCEDURE INFORMATION: Exam: XR Chest Exam date and time: 09/26/2021 5:29 PM Age: 76 years old Clinical indication: Other: Afib TECHNIQUE: Imaging protocol: Radiologic exam of the chest. Views: 2 views. COMPARISON: CR XR RIBS RT W PA LAT CHEST 09/22/2021 7:32 PM FINDINGS: Lungs: Pulmonary parenchymal calcification consistent with remote granulomatous organism exposure. Mild linear airspace disease and/or atelectasis left base. Pleural spaces: Unremarkable. No pleural effusion. No pneumothorax. Heart/Mediastinum: Unremarkable. No cardiomegaly. Bones/joints: Thoracolumbar scoliosis. IMPRESSION: Mild linear airspace disease and/or atelectasis left base. Dictated and Authenticated by: Hernesto Whalen MD. Ordering:MELE Hassan MD
[2021-09-26 18:17] LABS: Abs Immature Grans 0.01 10^3/uL (0.0-0.06); Absolute Basophil Count 0.03 10^3/uL (0.0-0.2); Absolute Eosinophil Count 0.15 10^3/uL (0.0-0.7); Absolute Lymphocyte Count 2.41 10^3/uL (1.2-3.4); Absolute Monocyte Count 0.56 10^3/uL (0.1-0.8); Absolute Neutrophil Count 1.98 10^3/uL (1.2-6.7); Basophils % 0.6; Eosinophils % 2.9; HCT 36.8 % (36.0-46.0); HGB 11.8 g/dL (11.2-15.7); Immature Grans % 0.2; Lymphocytes % 46.9; MCH 30.7 pg (27.0-33.0); MCHC 32.1 % (32.0-36.0); MCV 96 fL (80-95); MPV 10.1 fL (8.0-11.0); Monocytes % 10.9; Neutrophils % 38.5; Platelet Count 129 10^3/uL (130-400); RBC 3.84 10^6/uL (3.93-5.22); RDW-SD 52.4 fL; WBC 5.14 10^3/uL (4.4-10.8)
[2021-09-26 18:18] LABS: PTT Activated 19.4 sec (21.0-27.5)
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
[2021-09-26 18:24] LABS: ALT 30 U/L (14-59); AST 38 U/L (15-37); Albumin 3.7 g/dL (3.4-5.0); Alkaline Phosphatase 76 U/L (46-116); Anion Gap 9.3 mmol/L (3-11); BUN 22 mg/dL (7-18); Bilirubin, Total 0.6 mg/dL (0.2-1.0); CO2 26.7 mmol/L (21.0-32.0); CREATININE 1.4 mg/dL (0.55-1.02); Chloride 107 mmol/L (98-107); Estimated GFR 36.37 (mL/min/1.73m2); Glucose 90 mg/dL (74-106); Magnesium 2.3 mg/dL (1.8-2.4); NT-proBNP 3770 pg/mL (<300); Potassium 3.7 mmol/L (3.5-5.1); Sodium 143 mmol/L (136-145); TSH (W/Ref FT4) 2.13 uIU/mL (0.36-3.74); Total Protein 7.1 g/dL (6.4-8.2); Troponin I < 50 ng/L (<or=60)
[2021-09-26 18:33] LABS: D-Dimer 812 ng/mlFEU (<500)
--- NOTE | 2021-09-26 18:45 | DI.CT_ITS ---
Exam(s) CT CHEST PE CTA EXAM: CT CHEST PE CTA CLINICAL HISTORY: a fib, elevated bnp and dimer. TECHNIQUE: Imaging Protocol: Axial CT angiography was performed with multi-slice acquisition and mu lti-planar reconstructions as well as axial, coronal and sagittal MIP reconstructions. CONTRAST MATERIAL: Intravenous: Omnipaque 350 Contrast volume:100 ml COMPARISON: CT CT CHEST PE ABD PELVIS W from 09/20/2020 CR,XR XR CHEST 2V PA LATERAL from 09/26/2021 FINDINGS: Pulmonary Arteries: No evidence of filling defect to suggest pulmonary emboli. Tracheobronchial tree: Patent where visualized. Mediastinum and Aisha: No dominant adenopathy or fluid collection. Pulmonary parenchyma: No consolidation or dominant measurable mass. Small scattered calcified pulmona ry nodules. No suspicious nodules. No significant emphysematous or fibrotic changes. Pleura: No effusion or pneumothorax. Heart: The heart is [id number] dilated. No coronary artery calcifications are seen. Aorta: Thoracic aorta non-dilated. No aneurysm. No dissection. Mild calcification. Upper abdomen: Unremarkable. Bones: Degenerative changes with flowing disc osteophytes. Scoliosis. IMPRESSION: No evidence of pulmonary embolism or other acute abnormality.. RADIATION DOSE DELIVERED: 417.78mGy.cm Total DLP DATA REPOSITORY: All CT scans at this facility are submitted to the National Radiology Data Registry (NRDR) Dose Index Registry (DIR) with the [employer] (ACR). RADIATION OPTIMIZATION: All CT scans at this facility use at least one of these dose optimization te chniques: automated exposure control; mA and/or kV adjustment per patient size (includes targeted exa ms where dose is matched to clinical indication); or iterative reconstruction.
[2021-09-26] MEDS: Omnipaque 350 MG/ML 100 ML BTL IJ (21:06)
[2021-09-26] MEDS: Apixaban 5 MG TAB 10 MG PO (21:11)
[2021-09-26] MEDS: Furosemide 40 MG/4 ML VIAL IVP (21:12)
[2021-09-26 21:13] LABS: Troponin I < 50 ng/L (<or=60)
--- NOTE | 2021-09-26 21:25 | DI.VRAD_ITS ---
PROCEDURE INFORMATION: Exam: CTA Chest With Contrast Exam date and time: 09/26/2021 9:01 PM Age: 76 years old Clinical indication: Other: Afib, elevated bnp and dimer TECHNIQUE: Imaging protocol: Computed tomographic angiography of the chest with contrast. 3D rendering (Not supervised by radiologist): MIP and/or 3D reconstructed images were created by the technologist. Radiation optimization: All CT scans at this facility use at least one of these dose optimization techniques: automated exposure control; mA and/or kV adjustment per patient size (includes targeted exams where dose is matched to clinical indication); or iterative reconstruction. Contrast material: OMNI 350; Contrast volume: 100 ml; Contrast route: INTRAVENOUS (IV); COMPARISON: CT CHEST PE ABD PELVIS W 09/20/2020 6:29 PM FINDINGS: Pulmonary arteries: No pulmonary embolism identified. Aorta: Aorta demonstrates mild atherosclerotic calcification. Lungs: Pulmonary parenchymal calcification consistent with remote granulomatous organism exposure. No consolidation. Pleural spaces: Unremarkable. No pneumothorax. No pleural effusion. Heart: No coronary artery calcification. Lymph nodes: Unremarkable. No enlarged lymph nodes. Bones/joints: Unremarkable. No acute fracture. Soft tissues: Unremarkable. IMPRESSION: No pulmonary embolism identified. Dictated and Authenticated by: Hernesto Whalen MD. Ordering:MELE Hassan MD
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
[2021-09-26] MEDS: Melatonin 3 MG TAB PO (23:44)
[2021-09-27] VITALS (9 sets, daily range): BP systolic 96–123; BP diastolic 55–93; PULSE 77–97; RESP 16–20; TEMP 36–36.8; O2SAT 94–99
--- NOTE | 2021-09-27 03:15 | NUR.NOTE ---
Nursing Note: HR up to 130 while ambulating to bathroom. Patient denies cp or palpitations while exerting herself. HR returned to normal rate once back in bed.
[2021-09-27] MEDS: Levothyroxine 25 MCG TAB PO (05:17)
--- NOTE | 2021-09-27 06:00 | DI.MRI_ITS ---
Exam(s) MR BRAIN WO EXAM: MR BRAIN WO CLINICAL HISTORY: confusion after fall, new afib, abnormal CT TECHNIQUE: Multiplanar multisequence MRI of the brain was performed. COMPARISON: CT CT HEAD WO from 09/22/2021 FINDINGS: VENTRICLES AND EXTRA AXIAL SPACES: Normal in size and morphology for the patient's age. MIDLINE SHIFT: None. CEREBRAL PARENCHYMA: Atrophy. No focus of restricted diffusion to suggest acute infarct. No space-oc cupying lesion identified. Prominent bilateral areas of high signal in the white matter, likely refl ecting chronic microvascular ischemia. HEMORRHAGE: None. 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 VISUALIZED PARANASAL SINUSES/MASTOIDS:Clear. [place]: Normal flow void. [place]: Unremarkable. OTHER FINDINGS: None. IMPRESSION: Atrophy and white matter changes small vessel disease. No acute abnormality DATA REPOSITORY:
[2021-09-27] MEDS: Potassium Chloride 20 MEQ TABCR PO (08:07)
[2021-09-27] MEDS: Furosemide 20 MG TAB 40 MG PO (08:07)
[2021-09-27] MEDS: Aspirin E.C. 81 MG TABEC PO (08:07)
[2021-09-27] MEDS: Atorvastatin 40 MG TAB PO (08:07)
[2021-09-27] MEDS: Omeprazole 20 MG CAPCR PO (08:07)
[2021-09-27] MEDS: buPROPion-XL 150 MG TABCR 300 MG PO (08:08)
[2021-09-27] MEDS: Metoprolol CR 25 MG TABCR PO (08:08)
[2021-09-27] MEDS: Apixaban 5 MG TAB PO ×2 (08:08→19:46)
[2021-09-27] MEDS: Loperamide 2 MG CAP PO ×2 (08:11→19:46)
[2021-09-27] MEDS: ARIPiprazole 2 MG TAB PO (09:16)
[2021-09-27] MEDS: Cyanocobalamin 500 MCG TAB 1000 MCG PO (09:16)
[2021-09-27] MEDS: LORazepam 20 MG/10 ML VIAL IVP (10:17)
[2021-09-27] MEDS: Normal Saline Flush 10 ML SYR IVP (10:18)
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
--- NOTE | 2021-09-27 17:03 | PGE_ITS ---
Date of Service Date of service: 09/27/21 Time of Service: 17:03 Assessment and Plan Assessment and plan (1) A-fib: Status: Chronic Assessment and plan: Newly diagnosed atrial fibrillation. Given an association with mild CHF and a concern for CVA on CT on 09/22 after a fall event. She should be anticoagulated per [id number]. Cont apixiban initiated upon admission. Rate is 80s-90s now, on metoprolol. (2) Abnormal CT of brain: Status: Acute Assessment and plan: Concern for acute/subacute brainstem/thalamic CVA on 09/22 CT. With new Afib we know she is at risk. MRI head negative for acute findings. + atrophy and small vessel disease. Cont. ASA/statin therapy already. Neurologic exam non-focal currently. (3) CHF exacerbation: Status: Acute Assessment and plan: H/o HFpEF with LVEF 60% 08/2011. Clinically mild fluid excess based on some increased SOB, LE edema, and elevated BNP. She was given additional IV furosemide in the ED. Cont outpatient furosemide dosing and monitoring. BP improved; restart Spironolactone in AM. (4) Renal insufficiency: Assessment and plan: Creatinine is at her baseline chronic renal insufficiency stage 3a. (5) Hypothyroid: Assessment and plan: Normal TSH, continue outpatient levothyroxine (6) Abnormal liver enzymes: Status: Acute Assessment and plan: Mild elevation of AST; concerning for cirrhosis given low platelets as well, but patient had normal fibroscan at [facility] last year. Sister with PBC. Denies heavy ETOH. Continue to monitor. (7) CAD (coronary artery disease): Assessment and plan: She is on high intensity statin and ASA therapy. Continue both now even though she is also on apixaban now. (8) DVT prophylaxis: Status: Acute Assessment and plan: On apixaban. (9) Discharge planning issues: Status: Acute Assessment and plan: Planning to d/c tomorrow. Home w/o services. Subjective Subjective Patient reports: no new complaints, feels better and afebrile; denies nausea or vomiting Interval history since last seen: Walked unassisted in hallway with PT. Exam Narrative Exam Narrative: GEN: Alert and oriented x 3, pleasent and cooperative. Difficult to understand d/t being edentulous. HEENT: Head atraumatic. Conjunctiva clear, no icterus LUNGS: CTAB . Normal work of breathing. CV: irregularly irregular with no murmurs ABD: +BS, soft, NT/ND EXT: 1+ BLE edema. No calf tenderness. MSK: No joint redness or swelling NEURO: CN 2-12 intact. Normal movement of 4 extremities SKIN: No rashs or open wounds. PSYCH: normal mood and affect, very talkative. Objective Last Vital Signs Temp 36.2 C L 09/27/21 15:27 Pulse 80 09/27/21 15:27 Resp 16 09/27/21 15:27 BP 114/76 09/27/21 15:27 Pulse Ox 99 09/27/21 15:27 Laboratory Results - last 24 hr 09/26/21 09/26/21 09/26/21 17:20 17:37 17:37 WBC RBC Hgb Hct MCV MCH MCHC RDW Plt Count MPV Immature Gran % Neutrophils % Lymphocytes % Monocytes % Eosinophils % Basophils % Nucleated RBC % Absolute Neutrophils Absolute Lymphocytes Absolute Monocytes Absolute Eosinophils Absolute Basophils PT 10.0 INR 1.0 APTT 19.4 L D-Dimer 812 H Sodium 143 Potassium 3.7 Chloride 107 Carbon Dioxide 26.7 Anion Gap 9.3 BUN 22 H Creatinine 1.4 H Estimated GFR/1.73 m2 36.37 Glucose 90 Calcium 9.0 Magnesium 2.3 Total Bilirubin 0.6 AST 38 H ALT 30 Alkaline Phosphatase 76 Troponin I < 50 NT-Pro-B Natriuret Pep 3770 H Total Protein 7.1 Albumin 3.7 TSH 2.13 Urine Color Urine Clarity Urine pH Ur Specific [place] Urine Protein Urine Ketones Urine Blood Urine Nitrite Urine Bilirubin Urine Urobilinogen Ur Leukocyte Esterase Urine Glucose COVID-19 Source Nasal/Nares SARS-CoV-2 (PCR) Negative 09/26/21 09/26/21 09/26/21 17:44 18:15 20:40 WBC 5.14 RBC 3.84 L Hgb 11.8 Hct 36.8 MCV 96 H MCH 30.7 MCHC 32.1 RDW 15.0 H Plt Count 129 L MPV 10.1 Immature Gran % 0.2 Neutrophils % 38.5 Lymphocytes % 46.9 Monocytes % 10.9 Eosinophils % 2.9 Basophils % 0.6 Nucleated RBC % 0.0 Absolute Neutrophils 1.98 Absolute Lymphocytes 2.41 Absolute Monocytes 0.56 Absolute Eosinophils 0.15 Absolute Basophils 0.03 PT INR APTT D-Dimer Sodium Potassium Chloride Carbon Dioxide Anion Gap BUN Creatinine Estimated GFR/1.73 m2 Glucose Calcium Magnesium Total Bilirubin AST ALT Alkaline Phosphatase Troponin I < 50 NT-Pro-B Natriuret Pep Total Protein Albumin TSH Urine Color Yellow Urine Clarity Clear Urine pH 6.0 Ur Specific [place] <= 1.005 Urine Protein Negative Urine Ketones Negative Urine Blood Negative Urine Nitrite Negative Urine Bilirubin Negative Urine Urobilinogen 0.2 Ur Leukocyte Esterase Negative Urine Glucose Negative COVID-19 Source SARS-CoV-2 (PCR)
--- NOTE | 2021-09-27 17:03 | CHAPLAIN ---
Arlin was in the chair watching tv when I visited. She easily engaged in a conversation. Family members and friends know she is here.
[2021-09-27] MEDS: Melatonin 3 MG TAB PO (21:18)
[2021-09-28 05:55] VITALS: BP 102/67; PULSE 74; RESP 18; TEMP 36.3; O2SAT 98
[2021-09-28] MEDS: Levothyroxine 25 MCG TAB PO (06:04)
[2021-09-28 06:09] LABS: Anion Gap 9.6 mmol/L (3-11); BUN 28 mg/dL (7-18); CO2 26.4 mmol/L (21.0-32.0); CREATININE 1.2 mg/dL (0.55-1.02); Calcium 8.9 mg/dL (8.5-10.1); Chloride 107 mmol/L (98-107); Estimated GFR 43.45 (mL/min/1.73m2); Glucose 109 mg/dL (74-106); Potassium 3.9 mmol/L (3.5-5.1); Sodium 143 mmol/L (136-145)
[2021-09-28 07:49] VITALS: BP 113/60; PULSE 80
[2021-09-28] MEDS: Furosemide 20 MG TAB 40 MG PO (07:55)
[2021-09-28] MEDS: Cyanocobalamin 500 MCG TAB 1000 MCG PO (07:56)
[2021-09-28] MEDS: Spironolactone 25 MG TAB PO (07:56)
[2021-09-28] MEDS: buPROPion-XL 150 MG TABCR 300 MG PO (07:56)
[2021-09-28] MEDS: ARIPiprazole 2 MG TAB PO (07:57)
[2021-09-28] MEDS: Metoprolol CR 25 MG TABCR PO (07:57)
[2021-09-28] MEDS: Omeprazole 20 MG CAPCR PO (07:57)
[2021-09-28] MEDS: Atorvastatin 40 MG TAB PO (07:57)
[2021-09-28] MEDS: Apixaban 5 MG TAB PO (07:57)
[2021-09-28] MEDS: Aspirin E.C. 81 MG TABEC PO (07:57)
[2021-09-28] MEDS: Loperamide 2 MG CAP PO (07:57)
[2021-09-28] MEDS: Potassium Chloride 20 MEQ TABCR PO (07:58)
--- NOTE | 2021-09-28 08:49 | PT.INTREAT ---
PT Notes Visit Reasons: AFIB, CHF SUBJECTIVE: ?Pt is pleasant and agreeable to participating in PT.? ?Pt feels strong and is asking if she could go home today or any time soon.?Pt is very talkative requiring redirection to et pt to focus on task. OBJECTIVE: ? PAIN: No c/o pain ? BED MOBILITY/TRANSFERS? Sit to stand supervision Stand to sit supervision Bed to reclining chair supervision Reclining chair to bed supervision? GAIT? Assistive Device: SPC/ no AD inside pt room? Weight bearing: Full Assist: SBA ? Distance:? 130' x2/ 5x around pt room without AD? Deviation: Cueing for increased step length/height, slow pacing, Proper SPC placement to prevent pt from dragging SPC? ASSESSMENT:? Patient showed good tolerance with activity with pt completing entire loop before taking seated rest breaks. pt able to maneuver around her room without AD. PLAN: Continue with global strengthening and general conditioning for improved mobility and activity tolerance. TREATMENT CODE/TIME: ?30 minutes;? [id number] (8:50)
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
--- NOTE | 2021-09-28 12:58 | PDOC.CMDIS ---
- If Service Date Differs Date of service: 09/28/21 Time of Service: 12:58 LACE Index Scoring Tool - Questions: Length of Stay (in days): 2 Acuity (Admit via E.D.?): Yes Comorbidities: Congestive Heart Failure E.D. Visits: 6 - Answers: Total Score: 11 Risk of Readmission: High Risk Care Management Discharge Reason for Hospitalization: AFIB, CHF Discharge Plan: Arlin will return home when ready per MD. She will follow up with her PCP and plan of care as precribed. CM provided prescription support as [facility] is closed. [facility] pharmacy provided Eliquis to get through the weekend. Patient/Family Education Needs: Review discharge instructions, discuss Ask Me Three.
== END 2021-09-28 11:23 | disposition home or self-care (01) | DRG 308 ==
LOC: ER 21:58 → MS 09-27 09:44
PROVIDERS: Family Medicine; Admitting Provider Family Medicine; Emergency Provider Physician Assistant; PCP Family Medicine; Visit Provider Family Medicine
DX: I48.91 Unspecified atrial fibrillation (principal); I50.33 Acute on chronic diastolic (congestive) heart failure; I67.89 Other cerebrovascular disease; I25.10 Atherosclerotic heart disease of native coronary artery without angina pectoris; E03.9 Hypothyroidism, unspecified; N18.31 Chronic kidney disease, stage 3a; I34.0 Nonrheumatic mitral (valve) insufficiency; R29.6 Repeated falls; R51.9 Headache, unspecified; R42 Dizziness and giddiness; W06.XXXA Fall from bed, initial encounter; M70.61 Trochanteric bursitis, right hip; I25.2 Old myocardial infarction; M54.9 Dorsalgia, unspecified; F41.9 Anxiety disorder, unspecified; F32.A Depression, unspecified; R79.89 Other specified abnormal findings of blood chemistry; Z79.01 Long term (current) use of anticoagulants; R90.89 Other abnormal findings on diagnostic imaging of central nervous system
CPT/HCPCS: 36415; 71275; 80048; 80053; 87635; 93005; 96374; 97110; 97162; 97530; 99285; 70551; 71046; 81003; 83735; 83880; 84443; 84484; 85025; 85379; 85610; 85730; 93010; 99232; 99239; J1940; J3490

== ENCOUNTER 2021-10-14 09:58 | Outpatient (REF) | payer OTHER, MEDICAID, SELFPAY | END 2021-10-14 09:59 | disposition home or self-care (01) | LOC: LBO 09:58 | PROVIDERS: PCP Family Medicine; Visit Provider Podiatrist Foot & Ankle Surgery | DX: L02.612 Cutaneous abscess of left foot (principal) | CPT/HCPCS: 87077; 87070; 87186; 87205 ==

== ENCOUNTER 2021-10-15 15:21 | Outpatient (REF) | payer OTHER, MEDICAID, SELFPAY ==
[2021-10-15 18:54] LABS: ESR 19 mm/hr (0-30)
[2021-10-15 19:26] LABS: ALT 38 U/L (14-59); AST 42 U/L (15-37); Albumin 3.7 g/dL (3.4-5.0); Alkaline Phosphatase 94 U/L (46-116); Anion Gap 5.6 mmol/L (3-11); BUN 22 mg/dL (7-18); Bilirubin, Total 0.6 mg/dL (0.2-1.0); CO2 26.4 mmol/L (21.0-32.0); CREATININE 1.6 mg/dL (0.55-1.02); Calcium 8.8 mg/dL (8.5-10.1); Chloride 102 mmol/L (98-107); Estimated GFR 32.81 (mL/min/1.73m2); Glucose 95 mg/dL (74-106); NT-proBNP 4587 pg/mL (<300); Potassium 4.2 mmol/L (3.5-5.1); Sodium 134 mmol/L (136-145); Total Protein 6.8 g/dL (6.4-8.2)
== END 2021-10-15 15:22 | disposition home or self-care (01) ==
LOC: NCHCN 15:21
PROVIDERS: PCP Family Medicine; Visit Provider Family Medicine
DX: L08.9 Local infection of the skin and subcutaneous tissue, unspecified (principal); N18.30 Chronic kidney disease, stage 3 unspecified; R60.0 Localized edema; Z86.79 Personal history of other diseases of the circulatory system; Z87.898 Personal history of other specified conditions
CPT/HCPCS: 80053; 85652; 83880

== ENCOUNTER 2021-10-16 06:39 | Emergency (ER) | payer OTHER, MEDICAID, SELFPAY ==
[2021-10-16 06:46] VITALS: BP 150/134; PULSE 94; RESP 16; TEMP 36.4; O2SAT 100
--- NOTE | 2021-10-16 08:30 | DI.RAD_ITS ---
Exam(s) XR CHEST 2V PA LATERAL EXAM: XR CHEST 2V PA LATERAL CLINICAL HISTORY: concern for chf, dizzy, edema. TECHNIQUE: 2D digital imaging was performed. COMPARISON: CR,XR XR RIBS RT W PA LAT CHEST from 09/22/2021 CR,XR XR CHEST 2V PA LATERAL from 09/26/2021 FINDINGS: 2 views: Mild cardiomegaly again noted. Mediastinum not widened. Platelike atelectasis adjacent to the left heart border in the lingular segment of the left lung. No infiltrates. No pleural effusions. No pulmonary edema. No pneumothorax Small calcified granuloma in the left lower lobe again noted, unchanged. IMPRESSION: Mild platelike atelectasis in the left lung adjacent to the left heart border. DATA REPOSITORY: RADIATION DOSE DELIVERED:
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
--- NOTE | 2021-10-16 08:30 | RT.EKG_ITS ---
APPROVED REPORT Exam: Resting ECG Reason for Exam: leg swelling, dizzy Patient Location: E HR:89 bpm ECG Measurements Heart Rate 89 AXIS DE [id number] P [id number] QRSd 98 QRS -24 QT 391 T 6 QTc 477 Conclusion Atrial fibrillation...? atrial activity Low voltage, extremity and precordial leads...extremity<0.5mV, precordial<1.0mV afib
[2021-10-16 08:32] LABS: ESR 23 mm/hr (0-30)
[2021-10-16 08:34] LABS: Abs Immature Grans 0.02 10^3/uL (0.0-0.06); Absolute Basophil Count 0.04 10^3/uL (0.0-0.2); Absolute Eosinophil Count 0.09 10^3/uL (0.0-0.7); Absolute Lymphocyte Count 1.43 10^3/uL (1.2-3.4); Absolute Monocyte Count 0.57 10^3/uL (0.1-0.8); Absolute Neutrophil Count 2.66 10^3/uL (1.2-6.7); Basophils % 0.8; Eosinophils % 1.9; HCT 34.6 % (36.0-46.0); HGB 11.3 g/dL (11.2-15.7); Immature Grans % 0.4; Lymphocytes % 29.7; MCH 31.2 pg (27.0-33.0); MCHC 32.7 % (32.0-36.0); MCV 96 fL (80-95); MPV 9.8 fL (8.0-11.0); Monocytes % 11.9; Neutrophils % 55.3; Platelet Count 147 10^3/uL (130-400); RBC 3.62 10^6/uL (3.93-5.22); RDW 14.2 % (11.7-14.6); RDW-SD 50.1 fL; WBC 4.81 10^3/uL (4.4-10.8)
[2021-10-16 08:40] LABS: Bilirubin Negative (Negative); Blood Negative (Negative); Clarity Clear (Clear); Glucose Negative (Negative); Ketones Negative (Negative); Leukocyte Esterase Negative (Negative); Nitrite Negative (Negative); Urobilinogen 0.2 EU/dL (Up TO 0.2); pH 5.5 (5-8)
[2021-10-16 09:31] LABS: ALT 36 U/L (14-59); AST 41 U/L (15-37); Albumin 3.6 g/dL (3.4-5.0); Alkaline Phosphatase 86 U/L (46-116); Anion Gap 7.1 mmol/L (3-11); BUN 28 mg/dL (7-18); Bilirubin, Total 0.7 mg/dL (0.2-1.0); C-Reactive Protein 0.71 mg/dL (0.0-0.3); CO2 23.9 mmol/L (21.0-32.0); CREATININE 1.7 mg/dL (0.55-1.02); Calcium 8.9 mg/dL (8.5-10.1); Chloride 102 mmol/L (98-107); Glucose 99 mg/dL (74-106); Magnesium 2.4 mg/dL (1.8-2.4); Sodium 133 mmol/L (136-145); Total Protein 6.7 g/dL (6.4-8.2)
[2021-10-16 09:41] LABS: Source Nasal/Nares
[2021-10-16 09:56] LABS: NT-proBNP 4719 pg/mL (<300); Troponin I < 50 ng/L (<or=60)
[2021-10-16] MEDS: Furosemide 20 MG/2 ML VIAL IVP ×2 (10:22→10:40)
[2021-10-16 11:17] VITALS: BP 136/118; PULSE 120; RESP 19; TEMP 36.6; O2SAT 100
[2021-10-16 11:26] VITALS: PULSE 96
[2021-10-16] MEDS: Gabapentin 100 MG CAP PO (11:42)
[2021-10-16 14:20] LABS: COVID-19 PCR Negative (Negative)
== END 2021-10-16 13:10 | disposition home or self-care (01) ==
PROVIDERS: Emergency Provider Student in an Organized Health Care Education/Training Program; PCP Family Medicine
DX: I50.9 Heart failure, unspecified (principal); S16.1XXA Strain of muscle, fascia and tendon at neck level, initial encounter; N17.9 Acute kidney failure, unspecified; R42 Dizziness and giddiness; R60.0 Localized edema; I48.91 Unspecified atrial fibrillation; I25.10 Atherosclerotic heart disease of native coronary artery without angina pectoris; Z79.82 Long term (current) use of aspirin; Z20.822 Contact with and (suspected) exposure to COVID-19; W07.XXXA Fall from chair, initial encounter
CPT/HCPCS: 36415; 80053; 85652; 87635; 93005; 96374; 99284; 99285; 71046; 81003; 83735; 83880; 84484; 85025; 86140; 93010; J1941

== ENCOUNTER 2021-10-19 07:18 | Emergency (ER) | payer OTHER, MEDICAID, SELFPAY ==
[2021-10-19] VITALS (7 sets, daily range): BP systolic 106–112; BP diastolic 62–88; PULSE 89–129; RESP 20–27; TEMP 36.6; O2SAT 97–99
--- NOTE | 2021-10-19 07:15 | RT.EKG_ITS ---
APPROVED REPORT Exam: Resting ECG Reason for Exam: fluid around heart Patient Location: E HR:108 bpm ECG Measurements Heart Rate 108 AXIS RI [id number] P [id number] QRSd 94 QRS -21 QT 346 T [id number] QTc 464 Conclusion Atrial fibrillation...? atrial activity Ventricular premature complex...V complex w/ short R-R interval Inferior infarct, old...Q >35mS, II III aVF Nonspecific T abnormalities, lateral leads...T <-0.10mV, I aVL V5 V6 PHysician: Rate 108, atrial fibrillation, no significant ST elevation or depression. No STEMI. Unch anged from prior EKG on 09/28/21
--- NOTE | 2021-10-19 07:30 | DI.RAD_ITS ---
Exam(s) XR PORTABLE CHEST AP EXAM: XR PORTABLE CHEST AP CLINICAL HISTORY: sob and chest pain TECHNIQUE: 2D digital imaging was performed. COMPARISON: CR XR CHEST 2V PA LATERAL from 10/16/2021 FINDINGS: Exam is limited by poor pulmonary inflation and semi-erect positioning. LUNGS: Mild fibrotic changes. Lungs otherwise grossly clear. No pleural abnormality seen. HEART: Enlarged, stable. AORTA: Normal diameter. Calcification at the arch.. BONES: Unremarkable for age. Soft tissues: Unremarkable. IMPRESSION: Limited exam. No acute findings. DATA REPOSITORY: RADIATION DOSE DELIVERED:
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
[2021-10-19 07:58] LABS: Source Nasal/Nares
[2021-10-19 08:02] LABS: Abs Immature Grans 0.01 10^3/uL (0.0-0.06); Absolute Basophil Count 0.04 10^3/uL (0.0-0.2); Absolute Lymphocyte Count 1.13 10^3/uL (1.2-3.4); Absolute Monocyte Count 0.75 10^3/uL (0.1-0.8); Absolute Neutrophil Count 4.35 10^3/uL (1.2-6.7); Basophils % 0.6; Eosinophils % 1.6; HCT 34.1 % (36.0-46.0); HGB 11.2 g/dL (11.2-15.7); Immature Grans % 0.2; Lymphocytes % 17.7; MCHC 32.8 % (32.0-36.0); MCV 95 fL (80-95); MPV 9.8 fL (8.0-11.0); Monocytes % 11.8; Neutrophils % 68.1; Platelet Count 161 10^3/uL (130-400); RBC 3.61 10^6/uL (3.93-5.22); RDW 14.5 % (11.7-14.6); RDW-SD 50.5 fL; WBC 6.38 10^3/uL (4.4-10.8)
[2021-10-19 08:24] LABS: ALT 35 U/L (14-59); AST 34 U/L (15-37); Albumin 3.3 g/dL (3.4-5.0); Alkaline Phosphatase 84 U/L (46-116); Anion Gap 10.3 mmol/L (3-11); BUN 22 mg/dL (7-18); Bilirubin, Total 0.8 mg/dL (0.2-1.0); CO2 26.7 mmol/L (21.0-32.0); CREATININE 1.6 mg/dL (0.55-1.02); Calcium 8.6 mg/dL (8.5-10.1); Chloride 104 mmol/L (98-107); Estimated GFR 32.81 (mL/min/1.73m2); Glucose 110 mg/dL (74-106); NT-proBNP 3798 pg/mL (<300); Potassium 3.4 mmol/L (3.5-5.1); Sodium 141 mmol/L (136-145); Troponin I < 50 ng/L (<or=60)
[2021-10-19 08:40] LABS: COVID-19 PCR Negative (Negative)
[2021-10-19 08:47] LABS: D-Dimer 883 ng/mlFEU (<500)
--- NOTE | 2021-10-19 08:47 | DI.VRAD_ITS ---
PROCEDURE INFORMATION: Exam: XR Chest Exam date and time: 10/19/2021 8:12 AM Age: 76 years old Clinical indication: Shortness of breath TECHNIQUE: Imaging protocol: Radiologic exam of the chest. Views: 1 view. COMPARISON: CR XR CHEST 2V PA LATERAL 10/16/2021 9:48 AM FINDINGS: Limitations: Lordotic projection Lungs: There are low lung volumes. A few small calcified granulomas are again noted in the left lung base. There is no new consolidation or overt pulmonary edema. The pulmonary vasculature is normal in caliber. Pleural spaces: Unremarkable. No pleural effusion or pneumothorax. Heart/Mediastinum: When accounting for or portable AP technique, lordotic projection and low lung volumes the cardiac silhouette appears top normal in size. Cardiomediastinal contours are grossly stable. Bones/joints: Degenerative changes. No acute osseous abnormality. IMPRESSION: No acute cardiopulmonary abnormality suspected. Study limited by low lung volumes and suboptimal technique. Dictated and Authenticated by: Carrie Banerjee MD. Ordering:YOUSIF Hood MD
[2021-10-19 11:05] LABS: Troponin I < 50 ng/L (<or=60)
--- NOTE | 2021-10-19 11:27 | ED.PROG_ITS ---
Date of service: 10/19/21 Time of Service: 11:27 Medical Decision Making Received signout from Dr. Solorzano. Please see his note regarding details of initial presentation, exam and plan of care. The patient's laboratories remained stable with mild acute chronic renal insufficiency and BNP which is not significantly changed. She ruled out with negative troponin x2. As per her previous visit to the ER on October 16, I do feel she would benefit from a single additional dose of diuretic and she is given 40 mg IV x1. She continues to take antibiotics for mild lower extremity cellulitis. We will have her follow-up with Dr. Parikh in clinic this week. She is stable and improved at this time. Sign Out Sign Out Data: Sign Out Comment: History of congestive heart failure, presents with chest pain, mild shortness of breath, notable pitting edema. Repeat visit in the last 3 days. Follow-up on labs and imaging and D-dimer Last updated by Erwin Solorzano DO at 10/19/21 07:55 Discharge Plan Disposition Patient Disposition: HOME Condition: Stable Discharge Details Clinical Impression: Chest pain, Breath shortness Primary Care Provider: Hemanth Chaudhary ED Provider: Emmett Navarro Home Meds and New Rx's Prescriptions: Continued gabapentin 100 mg capsule 100 mg PO TID PRN omeprazole 20 mg capsule,delayed release(DR/EC) 20 mg PO DAILY clindamycin HCl 300 mg capsule 300 mg PO TID 7 Days Qty: 21 0RF furosemide [Lasix] 20 mg tablet 40 mg PO DAILY Qty: 180 3RF aspirin 81 MG tablet,delayed release (DR/EC) 81 mg PO DAILY levothyroxine 25 MCG tablet 25 mcg PO DAILY acetaminophen [Tylenol 8 Hour] 650 mg tablet extended release 650 mg PO Q8H PRN (Reason: pain) Qty: 15 0RF bupropion HCl 300 mg tablet extended release 24 hr 300 mg PO DAILY Label Comments: TK 1 T PO D atorvastatin 40 mg tablet 40 mg PO DAILY Label Comments: TAKE 1 TABLET BY MOUTH DAILY AT BEDTIME clotrimazole 1 % cream 1 applic TOPICAL BID Label Comments: APPLY A SMALL AMOUNT TOPICALLY TWICE DAILY NEEDED TO BELLY BUTTON Eliquis 5 mg Tablet 5 mg PO BID Qty: 60 0RF calcium carbonate-vitamin D3 [Oyster Shell Calcium-Vit D3] 500 mg(1,250mg) - 200 unit Tablet 1 tab PO DAILY aripiprazole [Abilify] 2 mg Tablet 2 mg PO DAILY melatonin 5 mg Tablet 5 - 10 mg PO QHS Rx Instructions: TAKE 1-2 TABS QHS cyanocobalamin (vitamin B-12) 1,000 mcg tablet 1,000 mcg PO DAILY Label Comments: TAKE 1 TABLET BY MOUTH DAILY spironolactone 25 mg tablet 25 mg PO DAILY metoprolol succinate 25 mg tablet extended release 24 hr 25 mg PO DAILY Label Comments: TAKE 1/2 TABLET BY MOUTH EVERY DAY ferrous gluconate 324 mg (38 mg iron) tablet 324 mg PO DAILY Label Comments: TAKE ONE TABLET BY MOUTH ONCE DAILY Discharge Instructions Instructions: Leg Edema (ED) Additional Instructions: Continue your previously prescribed antibiotics. Elevate your legs above the level of the heart to reduce discomfort and swelling. You were given an additional dose of Lasix today and may have increased urine output. We will ask our care management team to arrange a follow-up for you with Dr. Parikh in clinic for recheck this week.
--- NOTE | 2021-10-19 13:37 | NUR.NOTE ---
Nursing Note: Referral faxed to PCP for fluid overload/peripheral edema this next week.
== END 2021-10-19 18:28 | disposition home or self-care (01) ==
PROVIDERS: Student in an Organized Health Care Education/Training Program; Emergency Provider Emergency Medicine; PCP Family Medicine
DX: R07.9 Chest pain, unspecified (principal); R06.02 Shortness of breath; I48.91 Unspecified atrial fibrillation; I50.9 Heart failure, unspecified; I25.10 Atherosclerotic heart disease of native coronary artery without angina pectoris; R60.0 Localized edema; Z20.822 Contact with and (suspected) exposure to COVID-19; Z79.01 Long term (current) use of anticoagulants; Z79.82 Long term (current) use of aspirin
CPT/HCPCS: 36415; 80053; 87635; 93005; 93308; 96374; 99284; 99285; 71045; 83880; 84484; 85025; 85379; 93010

== ENCOUNTER 2021-10-19 20:39 | Emergency (ER) | payer OTHER, MEDICAID, SELFPAY ==
[2021-10-19] VITALS (32 sets, daily range): BP systolic 66–106; BP diastolic 34–60; PULSE 73–114; RESP 16–35; TEMP 36.6; O2SAT 100
--- NOTE | 2021-10-19 20:30 | RT.EKG_ITS ---
APPROVED REPORT Exam: Resting ECG Reason for Exam: chest pain Patient Location: E HR:99 bpm ECG Measurements Heart Rate 99 AXIS [place] [id number] P [id number] QRSd 93 QRS -26 QT 388 T 9 QTc 498 Conclusion Atrial fibrillation...? atrial activity Inferior infarct, old...Q >35mS, II III aVF Physician: no stemi, unchanged from earlier today
--- NOTE | 2021-10-19 20:45 | DI.CT_ITS ---
Exam(s) CT CHEST WO EXAM: CT CHEST WO CLINICAL HISTORY: left-sided chest pain, renal failure, chf TECHNIQUE: Imaging Protocol: Axial computed tomography images with coronal and sagittal reformatted images were created and reviewed CONTRAST MATERIAL: Intravenous: Omnipaque 350 Contrast volume:structured data in ml. COMPARISON: CT CT CHEST PE CTA from 09/26/2021 CR XR CHEST 2V PA LATERAL from 10/16/2021 CR,XR XR PORTABLE CHEST AP from 10/19/2021 FINDINGS: Tracheobronchial tree: No bronchiectasis or mucous plugging. Mediastinum and Aisha: No dominant adenopathy or fluid collection. Pulmonary parenchyma: No infiltrate or evidence of pulmonary edema. A few calcified granulomas. No dominant measurable mass. Pleura: No effusion or pneumothorax. Heart: The heart is dilated. No coronary artery calcifications are seen. No pericardial effusion. Aorta: Thoracic aorta non-dilated. Minimal calcification. Minimal calcification at aortic valve. Upper abdomen: Unremarkable. Lymph nodes: Within normal limits. Bones: Prominent thoracic kyphosis and flowing osteophytes Tubes, Catheters, and Lines: None Soft tissues: Unremarkable. IMPRESSION: Cardiomegaly. No acute abnormality. RADIATION DOSE DELIVERED: 552.57mGy.cm Total DLP DATA REPOSITORY: All CT scans at this facility are submitted to the National Radiology Data Registry (NRDR) Dose Index Registry (DIR) with the [employer] ([employer]). RADIATION OPTIMIZATION: All CT scans at this facility use at least one of these dose optimization te chniques: automated exposure control; mA and/or kV adjustment per patient size (includes targeted exa ms where dose is matched to clinical indication); or iterative reconstruction.
[2021-10-19 21:23] LABS: Abs Immature Grans 0.03 10^3/uL (0.0-0.06); Absolute Basophil Count 0.03 10^3/uL (0.0-0.2); Absolute Eosinophil Count 0.09 10^3/uL (0.0-0.7); Absolute Monocyte Count 0.98 10^3/uL (0.1-0.8); Basophils % 0.4; Eosinophils % 1.3; HCT 34.8 % (36.0-46.0); HGB 11.1 g/dL (11.2-15.7); Immature Grans % 0.4; Lymphocytes % 21.3; MCH 30.7 pg (27.0-33.0); MCHC 31.9 % (32.0-36.0); MCV 96 fL (80-95); MPV 9.8 fL (8.0-11.0); Monocytes % 13.9; Neutrophils % 62.7; Platelet Count 156 10^3/uL (130-400); RBC 3.61 10^6/uL (3.93-5.22); RDW 14.4 % (11.7-14.6); WBC 7.03 10^3/uL (4.4-10.8)
[2021-10-19 21:41] LABS: ALT 27 U/L (14-59); AST 31 U/L (15-37); Albumin 3.3 g/dL (3.4-5.0); Alkaline Phosphatase 82 U/L (46-116); Anion Gap 9.6 mmol/L (3-11); BUN 22 mg/dL (7-18); Bilirubin, Total 0.7 mg/dL (0.2-1.0); CO2 28.4 mmol/L (21.0-32.0); CREATININE 1.6 mg/dL (0.55-1.02); Calcium 8.5 mg/dL (8.5-10.1); Chloride 104 mmol/L (98-107); Estimated GFR 32.81 (mL/min/1.73m2); Glucose 110 mg/dL (74-106); Lipase 107 U/L (73-393); Potassium 3.2 mmol/L (3.5-5.1); Sodium 142 mmol/L (136-145); Total Protein 6.9 g/dL (6.4-8.2); Troponin I < 50 ng/L (<or=60)
--- NOTE | 2021-10-19 22:05 | DI.VRAD_ITS ---
PROCEDURE INFORMATION: Exam: CT Chest Without Contrast; Diagnostic Exam date and time: 10/19/2021 21:37 Age: 76 years old Clinical indication: Other: Lt sided chest pain, chf, renal failure TECHNIQUE: Imaging protocol: Diagnostic computed tomography of the chest without contrast. 3D rendering (Not supervised by radiologist): MIP and/or 3D reconstructed images were created by the technologist. Radiation optimization: All CT scans at this facility use at least one of these dose optimization techniques: automated exposure control; mA and/or kV adjustment per patient size (includes targeted exams where dose is matched to clinical indication); or iterative reconstruction. COMPARISON: CT CHEST PE CTA 09/26/2021 21:01 FINDINGS: Thyroid: A small right thyroid nodule is suspected and would be statistically benign at this patient's age. Follow-up as per institutional protocol. Lungs: Scattered microatelectasis. No airspace consolidation. There are benign, calcified pulmonary granulomas. No significant pulmonary edema. Pleural spaces: No pneumothorax. No pleural effusion. Heart: Stable moderate cardiomegaly. Lymph nodes: No enlarged lymph nodes. Vasculature: No aortic aneurysm. Bones/joints: Ankylosis and kyphosis in the thoracic spine. No acute fracture or subluxation. Soft tissues: No suspicious lesions. IMPRESSION: 1. No acute findings. 2. Stable moderate cardiomegaly. 3. Incidental findings as described. Dictated and Authenticated by: Davina Lakhani MD. Ordering:YOUSIF Hood MD
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
[2021-10-19] MEDS: Lidocaine 5% Patch 1 PATCH TP (22:30)
[2021-10-20] VITALS (18 sets, daily range): BP systolic 63–94; BP diastolic 33–59; PULSE 78–117; RESP 15–31; TEMP 36.6; O2SAT 100
[2021-10-20] MEDS: Melatonin 3 MG TAB 6 MG PO (00:25)
[2021-10-20 00:37] LABS: Troponin I < 50 ng/L (<or=60)
[2021-10-20] MEDS: Acetaminophen 500 MG TAB 1000 MG PO (05:20)
[2021-10-20] MEDS: Mylanta Suspension 30 ML CUP (06:30)
== END 2021-10-20 06:50 | disposition home or self-care (01) ==
PROVIDERS: Emergency Provider Student in an Organized Health Care Education/Training Program; PCP Family Medicine
DX: R07.89 Other chest pain (principal); I48.91 Unspecified atrial fibrillation; I50.9 Heart failure, unspecified; I25.10 Atherosclerotic heart disease of native coronary artery without angina pectoris; L08.9 Local infection of the skin and subcutaneous tissue, unspecified; Z79.01 Long term (current) use of anticoagulants; Z79.82 Long term (current) use of aspirin
CPT/HCPCS: 71250; 80053; 83690; 93005; 93308; 99284; 84484; 85025; 93010; 99285

== ENCOUNTER 2021-10-21 21:11 | Emergency (ER) | payer OTHER, MEDICAID, SELFPAY ==
--- NOTE | 2021-10-21 21:00 | RT.EKG_ITS ---
APPROVED REPORT Exam: Resting ECG Reason for Exam: chest pain Patient Location: E HR:89 bpm ECG Measurements Heart Rate [address] [id number] P [id number] QRSd 96 QRS -21 QT 381 T 7 QTc 482 Conclusion Atrial flutter with varied AV block,...A-rate 286, varied AV conduction Low voltage, extremity leads...all extremity leads <0.5mV Physician: stable, no stemi
[2021-10-21 21:12] VITALS: BP 124/65; PULSE 104; RESP 22; TEMP 36.5; O2SAT 97
[2021-10-21 21:30] LABS: Abs Immature Grans 0.01 10^3/uL (0.0-0.06); Absolute Basophil Count 0.02 10^3/uL (0.0-0.2); Absolute Eosinophil Count 0.17 10^3/uL (0.0-0.7); Absolute Lymphocyte Count 1.71 10^3/uL (1.2-3.4); Absolute Monocyte Count 0.61 10^3/uL (0.1-0.8); Absolute Neutrophil Count 3.47 10^3/uL (1.2-6.7); Basophils % 0.3; Eosinophils % 2.8; HCT 34.8 % (36.0-46.0); HGB 10.9 g/dL (11.2-15.7); Immature Grans % 0.2; Lymphocytes % 28.5; MCH 30.1 pg (27.0-33.0); MCHC 31.3 % (32.0-36.0); MCV 96 fL (80-95); MPV 9.6 fL (8.0-11.0); Monocytes % 10.2; Platelet Count 163 10^3/uL (130-400); RBC 3.62 10^6/uL (3.93-5.22); RDW 14.4 % (11.7-14.6); RDW-SD 50.7 fL; WBC 5.99 10^3/uL (4.4-10.8)
[2021-10-21 21:42] VITALS: RESP 22
[2021-10-21 21:48] LABS: ALT 30 U/L (14-59); AST 32 U/L (15-37); Albumin 3.2 g/dL (3.4-5.0); Alkaline Phosphatase 82 U/L (46-116); BUN 29 mg/dL (7-18); Bilirubin, Total 0.5 mg/dL (0.2-1.0); CREATININE 1.8 mg/dL (0.55-1.02); Calcium 8.6 mg/dL (8.5-10.1); Chloride 102 mmol/L (98-107); Estimated GFR 28.48 (mL/min/1.73m2); Glucose 116 mg/dL (74-106); Lipase 154 U/L (73-393); Potassium 3.2 mmol/L (3.5-5.1); Sodium 140 mmol/L (136-145); Troponin I < 50 ng/L (<or=60)
[2021-10-21] MEDS: Ondansetron 4 MG/2 ML VIAL IVP (21:54)
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
[2021-10-21] MEDS: Normal Saline 1,000 ML 250 ML IV (22:36)
[2021-10-21] MEDS: POTASSIUM CHLORIDE 20 MEQ/100 ML BAG 50 MEQ IVPB (22:37)
[2021-10-21] MEDS: Lidocaine 5% Patch 1 PATCH TP (23:42)
--- NOTE | 2021-10-22 00:35 | NUR.NOTE ---
Referral to Care Management for additional resources at home due to multiple ER visits.Nursing Note:
[2021-10-22 01:03] VITALS: PULSE 85; RESP 20; O2SAT 96
== END 2021-10-22 01:00 | disposition home or self-care (01) ==
PROVIDERS: Emergency Provider Student in an Organized Health Care Education/Training Program; PCP Family Medicine
DX: R07.9 Chest pain, unspecified (principal); N17.9 Acute kidney failure, unspecified; E87.6 Hypokalemia; I50.9 Heart failure, unspecified; R00.0 Tachycardia, unspecified
CPT/HCPCS: 80053; 83690; 93005; 96361; 96365; 96366; 96375; 99284; 84484; 85025; 93010; J2405; J3480

== ENCOUNTER 2021-10-25 17:25 | Outpatient (REF) | payer OTHER, MEDICAID, SELFPAY ==
[2021-10-25 19:55] LABS: Anion Gap 6.6 mmol/L (3-11); BUN 23 mg/dL (7-18); CO2 33.4 mmol/L (21.0-32.0); CREATININE 1.6 mg/dL (0.55-1.02); Calcium 8.8 mg/dL (8.5-10.1); Chloride 101 mmol/L (98-107); Estimated GFR 32.81 (mL/min/1.73m2); Glucose 117 mg/dL (74-106); NT-proBNP 3166 pg/mL (<300); Potassium 3.9 mmol/L (3.5-5.1); Sodium 141 mmol/L (136-145)
== END 2021-10-25 17:26 | disposition home or self-care (01) ==
LOC: NCHCN 17:25
PROVIDERS: PCP Family Medicine; Visit Provider Family Medicine
DX: I50.9 Heart failure, unspecified (principal)
CPT/HCPCS: 80048; 83880

== ENCOUNTER 2021-11-06 18:05 | Outpatient (REF) | payer OTHER, MEDICAID, SELFPAY ==
[2021-11-06 19:44] LABS: Anion Gap 7.8 mmol/L (3-11); BUN 27 mg/dL (7-18); CO2 30.2 mmol/L (21.0-32.0); CREATININE 1.7 mg/dL (0.55-1.02); Calcium 9.2 mg/dL (8.5-10.1); Chloride 102 mmol/L (98-107); Glucose 100 mg/dL (74-106); Magnesium 2.2 mg/dL (1.8-2.4); Sodium 140 mmol/L (136-145)
== END 2021-11-06 18:06 | disposition home or self-care (01) ==
LOC: NCHCN 18:05
PROVIDERS: PCP Family Medicine; Visit Provider Family Medicine
DX: I50.9 Heart failure, unspecified (principal)
CPT/HCPCS: 80048; 83735

== ENCOUNTER → 2021-12-31 02:47 | Outpatient (CLI) | payer OTHER, MEDICAID, SELFPAY ==
--- NOTE | 2021-12-31 10:00 | DI.RAD_ITS ---
Exam(s) XR SHOULDER RT COMPLETE 2+V EXAM: XR SHOULDER RT COMPLETE 2+V CLINICAL HISTORY: RT SHOULDER PAIN, M25.511. TECHNIQUE: 2D digital imaging was performed. COMPARISON: CR,XR XR SHOULDER RT COMPLETE 2+V from 09/22/2021 FINDINGS: Five views: No evidence of fracture or dislocation. No calcifications subacromial space. Subacromial space appe ars slightly diminished although there is no upward subluxation of the humeral head in the glenoid fo ssa evident. Moderate degenerative changes in the AC joint. Mild degenerative changes glenohumeral joint. IMPRESSION: Mild degenerative changes. DATA REPOSITORY: RADIATION DOSE DELIVERED:
--- NOTE | 2021-12-31 10:00 | DI.RAD_ITS ---
Exam(s) XR HUMERUS RT EXAM: XR HUMERUS RT CLINICAL HISTORY: RT ARM PAIN, M79.601. TECHNIQUE: 2D digital imaging was performed. COMPARISON: CR,XR XR HUMERUS RT from 08/23/2020 FINDINGS: Views: No evidence of fracture or dislocation. No osseous lesions. No obvious elbow joint effusion. Bone density normal. No osseous lesions. IMPRESSION: No obvious abnormality in the humerus. DATA REPOSITORY: RADIATION DOSE DELIVERED:
== END ==
PROVIDERS: PCP Family Medicine; Visit Provider Nurse Practitioner Family
DX: M19.011 Primary osteoarthritis, right shoulder (principal); M79.601 Pain in right arm
CPT/HCPCS: 73030; 73060

== ENCOUNTER 2022-01-10 14:32 | Inpatient (IN) | payer OTHER, MEDICAID, SELFPAY ==
[2022-01-10] VITALS (36 sets, daily range): BP systolic 103–129; BP diastolic 58–106; PULSE 80–141; RESP 13–35; TEMP 36.4; O2SAT 96–100
--- NOTE | 2022-01-10 14:45 | RT.EKG_ITS ---
APPROVED REPORT Exam: Resting ECG Reason for Exam: tachycardia Patient Location: E HR:109 bpm ECG Measurements Heart Rate 109 AXIS OR [id number] P [id number] QRSd 91 QRS -24 QT 349 T 46 QTc 471 Conclusion Atrial fibrillation...V-rate 83-140, irreg A-activity Low voltage, extremity and precordial leads...extremity<0.5mV, precordial<1.0mV
[2022-01-10 15:23] LABS: Abs Immature Grans 0.01 10^3/uL (0.0-0.06); Absolute Basophil Count 0.02 10^3/uL (0.0-0.2); Absolute Eosinophil Count 0.12 10^3/uL (0.0-0.7); Absolute Lymphocyte Count 2.07 10^3/uL (1.2-3.4); Absolute Monocyte Count 0.52 10^3/uL (0.1-0.8); Absolute Neutrophil Count 2.28 10^3/uL (1.2-6.7); Basophils % 0.4; Eosinophils % 2.4; HCT 38.6 % (36.0-46.0); HGB 12.2 g/dL (11.2-15.7); Immature Grans % 0.2; Lymphocytes % 41.2; MCH 29.2 pg (27.0-33.0); MCHC 31.6 % (32.0-36.0); MCV 92 fL (80-95); MPV 9.9 fL (8.0-11.0); Monocytes % 10.4; Neutrophils % 45.4; Platelet Count 129 10^3/uL (130-400); RBC 4.18 10^6/uL (3.93-5.22); RDW-SD 54.6 fL; WBC 5.02 10^3/uL (4.4-10.8)
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
[2022-01-10 16:00] LABS: ALT 24 U/L (14-59); AST 35 U/L (15-37); Albumin 3.6 g/dL (3.4-5.0); Alkaline Phosphatase 94 U/L (46-116); Anion Gap 9.4 mmol/L (3-11); BUN 31 mg/dL (7-18); Bilirubin, Total 0.7 mg/dL (0.2-1.0); CO2 26.6 mmol/L (21.0-32.0); CREATININE 1.7 mg/dL (0.55-1.02); Calcium 8.8 mg/dL (8.5-10.1); Chloride 104 mmol/L (98-107); Glucose 94 mg/dL (74-106); NT-proBNP 2751 pg/mL (<300); Potassium 3.3 mmol/L (3.5-5.1); Sodium 140 mmol/L (136-145); Total Protein 7.3 g/dL (6.4-8.2); Troponin I < 50 ng/L (<or=60)
--- NOTE | 2022-01-10 16:00 | DI.RAD_ITS ---
Exam(s) XR CHEST 2V PA LATERAL EXAM: XR CHEST 2V PA LATERAL CLINICAL HISTORY: shetty, chf TECHNIQUE: 2D digital imaging was performed. COMPARISON: CT CT CHEST WO from 10/19/2021 FINDINGS: HEART: Moderately enlarged. Aorta: Not dilated. PULMONARY VASCULATURE: Normal. LUNGS: Clear. PLEURAL SPACE: No pleural effusion or pneumothorax. BONE:Unremarkable for age. IMPRESSION: Cardiomegaly. No acute abnormality. DATA REPOSITORY: RADIATION DOSE DELIVERED:
[2022-01-10] MEDS: Potassium Chloride 20 MEQ TABCR PO (16:25)
[2022-01-10] MEDS: Metoprolol 5 MG/5 ML VIAL 2.5 MG IVP (16:25)
[2022-01-10] MEDS: Furosemide 20 MG/2 ML VIAL IVP (16:25)
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
--- NOTE | 2022-01-10 17:46 | DI.VRAD_ITS ---
PROCEDURE INFORMATION: Exam: XR Chest Exam date and time: 01/10/2022 5:13 PM Age: 76 years old Clinical indication: Other: Chf, shetty TECHNIQUE: Imaging protocol: Radiologic exam of the chest. Views: 2 views. COMPARISON: CT CHEST WO 04/24/2021 21:37 FINDINGS: Lungs: Low lung volumes. Prominent central pulmonary vasculature. Pleural spaces: Unremarkable. No pleural effusion. No pneumothorax. Heart/Mediastinum: Cardiomegaly. Bones/joints: Multilevel degenerative changes of the spine. IMPRESSION: Cardiomegaly. Pulmonary vascular congestion. Dictated and Authenticated by: Marianela Kauffman MD. Ordering:SAMIA Orantes MD
[2022-01-10 18:00] LABS: Source Nasal/Nares
[2022-01-10 18:31] LABS: COVID-19 PCR Negative (Negative)
[2022-01-10] MEDS: Metoprolol 12.5 MG TAB PO (21:03)
[2022-01-10] MEDS: Melatonin 3 MG TAB 6 MG PO (21:03)
[2022-01-10] MEDS: Apixaban 5 MG TAB PO (21:04)
[2022-01-10] MEDS: Normal Saline Flush 10 ML SYR IVP (21:04)
[2022-01-10] MEDS: Potassium Chloride 20 MEQ TABCR 40 MEQ PO (21:04)
[2022-01-10 21:18] LABS: Troponin I < 50 ng/L (<or=60)
[2022-01-11] VITALS (59 sets, daily range): BP systolic 93–115; BP diastolic 61–78; PULSE 0–106; RESP 14–33; TEMP 35.9–36.7; O2SAT 94–100
[2022-01-11] MEDS: Levothyroxine 25 MCG TAB PO (06:04)
[2022-01-11 06:12] LABS: Abs Immature Grans 0.01 10^3/uL (0.0-0.06); Absolute Basophil Count 0.02 10^3/uL (0.0-0.2); Absolute Eosinophil Count 0.15 10^3/uL (0.0-0.7); Absolute Lymphocyte Count 1.49 10^3/uL (1.2-3.4); Absolute Monocyte Count 0.49 10^3/uL (0.1-0.8); Absolute Neutrophil Count 3.27 10^3/uL (1.2-6.7); Basophils % 0.4; Eosinophils % 2.8; HCT 35.6 % (36.0-46.0); HGB 11.3 g/dL (11.2-15.7); Immature Grans % 0.2; Lymphocytes % 27.4; MCH 29.4 pg (27.0-33.0); MCHC 31.7 % (32.0-36.0); MCV 93 fL (80-95); MPV 10.4 fL (8.0-11.0); Neutrophils % 60.2; Platelet Count 130 10^3/uL (130-400); RBC 3.85 10^6/uL (3.93-5.22); RDW 16.5 % (11.7-14.6); WBC 5.43 10^3/uL (4.4-10.8)
[2022-01-11 06:33] LABS: Anion Gap 6.9 mmol/L (3-11); BUN 30 mg/dL (7-18); CO2 28.1 mmol/L (21.0-32.0); CREATININE 1.6 mg/dL (0.55-1.02); Calcium 8.6 mg/dL (8.5-10.1); Chloride 106 mmol/L (98-107); Estimated GFR 32.81 (mL/min/1.73m2); Glucose 141 mg/dL (74-106); Potassium 3.8 mmol/L (3.5-5.1); Sodium 141 mmol/L (136-145); Troponin I < 50 ng/L (<or=60)
[2022-01-11] MEDS: Furosemide 40 MG/4 ML VIAL IVP ×2 (08:48→16:46)
[2022-01-11] MEDS: Ferrous Gluconate 324 MG TAB PO (08:48)
[2022-01-11] MEDS: Metoprolol 12.5 MG TAB PO ×2 (08:49→21:08)
[2022-01-11] MEDS: ARIPiprazole 2 MG TAB PO (08:49)
[2022-01-11] MEDS: buPROPion-XL 150 MG TABCR 300 MG PO (08:49)
[2022-01-11] MEDS: Atorvastatin 40 MG TAB PO (08:50)
[2022-01-11] MEDS: Calcium 600mg/Vit D 200U TAB 1 TAB PO (08:50)
[2022-01-11] MEDS: Spironolactone 25 MG TAB PO (08:51)
[2022-01-11] MEDS: Cyanocobalamin 500 MCG TAB 1000 MCG PO (08:51)
[2022-01-11] MEDS: Apixaban 5 MG TAB PO ×2 (08:51→21:08)
[2022-01-11] MEDS: Aspirin E.C. 81 MG TABEC PO (08:51)
[2022-01-11] MEDS: Omeprazole 20 MG CAPCR PO (08:51)
[2022-01-11] MEDS: Normal Saline Flush 10 ML SYR IVP ×3 (08:52→21:08)
[2022-01-11] MEDS: Gabapentin 100 MG CAP PO (08:54)
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
--- NOTE | 2022-01-11 09:43 | NUR.NOTE ---
Nursing Note: pt transferred from ICU to med/surg at this time.
--- NOTE | 2022-01-11 11:17 | W.PM.PROGNOT ---
Date of Service Date of service: 01/11/22 Time of Service: 11:18 Assessment and Plan Assessment and plan (1) A-fib: Status: Chronic Assessment and plan: admit to telemetry rate controlled now after lopressor 2.5 mg IVP will continue home metoprolol anticoagulated on apixiban troponin remains negative, stop trending (2) CHF exacerbation: Status: Acute Assessment and plan: H/o HFpEF with LVEF 60% 08/2011. BNP 2700 and clinically fluid overloaded, she was given IV furosemide in the ED. Cont diuresis and close monitoring. I&O and daily weights (3) Renal insufficiency: Assessment and plan: Creatinine is at her baseline chronic renal insufficiency stage 3a. (4) Hypothyroid: Assessment and plan: TSH 3.1, continue outpatient levothyroxine (5) CAD (coronary artery disease): Assessment and plan: continue statin, beta carmela and ASA. stop cycling troponin, was negative (6) Hypokalemia: Status: Acute Assessment and plan: repleted and follow mag ok at 2 on spironalactone already repeat level in am (7) DVT prophylaxis: Status: Deleted Assessment and plan: On apixaban. (8) Discharge planning issues: Status: Deleted Assessment and plan: Planning to d/c home when medically stable +/-Home services. discussed with DR Radford Subjective Subjective Patient reports: no new complaints, feels better, tolerating liquids well, tolerating a regular diet, voiding w/o difficulty, shortness of breath (improved) and afebrile Exam Const General: cooperative and no acute distress Eyes Conjunctivae: normal conjunctivae Sclera: normal sclerae Neck Neck: trachea midline and supple Resp Auscultation: diminished lung sounds, rales (fine rales bases), no rhonchi and no wheezes Cardio Rhythm: abnormal rhythm irregularly irregular GI Palpation: soft, no guarding, no masses and nontender Skin Rashes: rashes noted (Mild erythema bilateral lower extremities) Neuro General: patient alert, patient awake and patient oriented x3 Extrem General: no calf tenderness and edema Laterality: bilateral (1+ up to prox LEs) Psych Appearance: grossly normal Mental Status: mental status grossly normal Objective Last Vital Signs Temp 35.9 C L 01/11/22 08:32 Pulse 84 01/11/22 04:05 Resp 22 01/11/22 08:32 BP 103/71 01/11/22 04:05 Pulse Ox 94 01/11/22 08:32 Laboratory Results - last 24 hr 01/10/22 01/10/22 01/10/22 15:18 15:18 15:18 WBC 5.02 RBC 4.18 Hgb 12.2 Hct 38.6 MCV 92 MCH 29.2 MCHC 31.6 L RDW 16.0 H Plt Count 129 L MPV 9.9 Immature Gran % 0.2 Neutrophils % 45.4 Lymphocytes % 41.2 Monocytes % 10.4 Eosinophils % 2.4 Basophils % 0.4 Nucleated RBC % 0.0 Absolute Neutrophils 2.28 Absolute Lymphocytes 2.07 Absolute Monocytes 0.52 Absolute Eosinophils 0.12 Absolute Basophils 0.02 Sodium 140 Potassium 3.3 L Chloride 104 Carbon Dioxide 26.6 Anion Gap 9.4 BUN 31 H Creatinine 1.7 H Est GFR (CKD-EPI 2020) 30.50 Glucose 94 Calcium 8.8 Magnesium 2.0 Total Bilirubin 0.7 AST 35 ALT 24 Alkaline Phosphatase 94 Troponin I < 50 NT-Pro-B Natriuret Pep 2751 H Cancelled Total Protein 7.3 Albumin 3.6 TSH 3.10 COVID-19 Source SARS-CoV-2 (PCR) 01/10/22 01/10/22 01/10/22 15:18 17:53 20:50 WBC RBC Hgb Hct MCV MCH MCHC RDW Plt Count MPV Immature Gran % Neutrophils % Lymphocytes % Monocytes % Eosinophils % Basophils % Nucleated RBC % Absolute Neutrophils Absolute Lymphocytes Absolute Monocytes Absolute Eosinophils Absolute Basophils Sodium Potassium Chloride Carbon Dioxide Anion Gap BUN Creatinine Est GFR (CKD-EPI 2020) Glucose Calcium Magnesium Total Bilirubin AST ALT Alkaline Phosphatase Troponin I < 50 NT-Pro-B Natriuret Pep Total Protein Albumin TSH Cancelled COVID-19 Source Nasal/Nares SARS-CoV-2 (PCR) Negative 01/11/22 01/11/22 05:45 05:45 WBC 5.43 RBC 3.85 L Hgb 11.3 Hct 35.6 L MCV 93 MCH 29.4 MCHC 31.7 L RDW 16.5 H Plt Count 130 MPV 10.4 Immature Gran % 0.2 Neutrophils % 60.2 Lymphocytes % 27.4 Monocytes % 9.0 Eosinophils % 2.8 Basophils % 0.4 Nucleated RBC % 0.0 Absolute Neutrophils 3.27 Absolute Lymphocytes 1.49 Absolute Monocytes 0.49 Absolute Eosinophils 0.15 Absolute Basophils 0.02 Sodium 141 Potassium 3.8 Chloride 106 Carbon Dioxide 28.1 Anion Gap 6.9 BUN 30 H Creatinine 1.6 H Est GFR (CKD-EPI 2020) 32.81 Glucose 141 H Calcium 8.6 Magnesium Total Bilirubin AST ALT Alkaline Phosphatase Troponin I < 50 NT-Pro-B Natriuret Pep Total Protein Albumin TSH COVID-19 Source SARS-CoV-2 (PCR)
[2022-01-11] MEDS: Potassium Chloride 20 MEQ TABCR PO ×2 (12:26→21:07)
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
[2022-01-11] MEDS: Acetaminophen 325 MG TAB 650 MG PO (15:58)
[2022-01-11] MEDS: Melatonin 3 MG TAB 6 MG PO (21:07)
[2022-01-12] VITALS (11 sets, daily range): BP systolic 91–117; BP diastolic 57–81; PULSE 60–116; RESP 12–18; TEMP 36.1–36.5; O2SAT 80–100
[2022-01-12] MEDS: Levothyroxine 25 MCG TAB PO (05:23)
[2022-01-12 06:53] LABS: Abs Immature Grans 0.02 10^3/uL (0.0-0.06); Absolute Basophil Count 0.04 10^3/uL (0.0-0.2); Absolute Eosinophil Count 0.16 10^3/uL (0.0-0.7); Absolute Lymphocyte Count 1.79 10^3/uL (1.2-3.4); Absolute Monocyte Count 0.62 10^3/uL (0.1-0.8); Absolute Neutrophil Count 3.61 10^3/uL (1.2-6.7); Basophils % 0.6; Eosinophils % 2.6; HCT 40.7 % (36.0-46.0); HGB 12.9 g/dL (11.2-15.7); Immature Grans % 0.3; Lymphocytes % 28.7; MCH 29.1 pg (27.0-33.0); MCHC 31.7 % (32.0-36.0); MCV 92 fL (80-95); MPV 10.4 fL (8.0-11.0); Monocytes % 9.9; Neutrophils % 57.9; Platelet Count 118 10^3/uL (130-400); RBC 4.44 10^6/uL (3.93-5.22); RDW 16.3 % (11.7-14.6); RDW-SD 55.4 fL; WBC 6.24 10^3/uL (4.4-10.8)
[2022-01-12 07:19] LABS: Anion Gap 8.8 mmol/L (3-11); BUN 39 mg/dL (7-18); CO2 26.2 mmol/L (21.0-32.0); CREATININE 1.6 mg/dL (0.55-1.02); Chloride 102 mmol/L (98-107); Estimated GFR 32.81 (mL/min/1.73m2); Glucose 136 mg/dL (74-106); Magnesium 2.2 mg/dL (1.8-2.4); Potassium 4.2 mmol/L (3.5-5.1); Sodium 137 mmol/L (136-145)
[2022-01-12] MEDS: ARIPiprazole 2 MG TAB PO (08:05)
[2022-01-12] MEDS: Calcium 600mg/Vit D 200U TAB 1 TAB PO (08:05)
[2022-01-12] MEDS: Cyanocobalamin 500 MCG TAB 1000 MCG PO (08:05)
[2022-01-12] MEDS: Atorvastatin 40 MG TAB PO (08:05)
[2022-01-12] MEDS: Aspirin E.C. 81 MG TABEC PO (08:05)
[2022-01-12] MEDS: Potassium Chloride 20 MEQ TABCR PO (08:05)
[2022-01-12] MEDS: Metoprolol 12.5 MG TAB PO (08:05)
[2022-01-12] MEDS: Omeprazole 20 MG CAPCR PO (08:05)
[2022-01-12] MEDS: buPROPion-XL 150 MG TABCR 300 MG PO (08:05)
[2022-01-12] MEDS: Apixaban 5 MG TAB PO ×2 (08:06→22:05)
[2022-01-12] MEDS: Normal Saline Flush 10 ML SYR IVP ×2 (08:06→16:17)
[2022-01-12] MEDS: Spironolactone 25 MG TAB PO (08:06)
[2022-01-12] MEDS: Ferrous Gluconate 324 MG TAB PO (08:06)
[2022-01-12] MEDS: Furosemide 40 MG/4 ML VIAL IVP ×2 (08:08→16:17)
[2022-01-12] MEDS: Acetaminophen 325 MG TAB 650 MG PO ×2 (09:49→16:31)
--- NOTE | 2022-01-12 09:52 | W.PM.PROGNOT ---
Date of Service Date of service: 01/12/22 Time of Service: 09:53 Assessment and Plan Assessment and plan (1) A-fib: Status: Chronic Assessment and plan: admit to telemetry Afib 80's-110's rate controlled now after one dose of lopressor 2.5 mg IVP 01/10/2022 will continue home metoprolol anticoagulated on apixiban (2) CHF exacerbation: Status: Acute Assessment and plan: H/o HFpEF with LVEF 60% 08/2011. BNP 2700 and clinically fluid overloaded, she was given IV furosemide in the ED. Cont diuresis and close monitoring. I&O and daily weights flat ~ 80 kg Ex Ox ordered (3) Renal insufficiency: Assessment and plan: Creatinine is at her baseline chronic renal insufficiency stage 3a. (4) Hypothyroid: Assessment and plan: TSH 3.1, continue outpatient levothyroxine (5) CAD (coronary artery disease): Assessment and plan: continue statin, beta carmela and ASA. (6) Hypokalemia: Status: Resolved Assessment and plan: K+ 4.2 mag ok at 2.2 on spironalactone already repeat levels in am (7) DVT prophylaxis: Status: Deleted Assessment and plan: On apixaban. (8) Discharge planning issues: Status: Deleted Assessment and plan: Planning to d/c home when medically stable +/-Home services. discussed with Dr Radford Subjective Subjective Patient reports: no new complaints, feels better, tolerating a regular diet, voiding w/o difficulty, bowel movement and afebrile; denies diarrhea, nausea, vomiting or shortness of breath Exam Const General: cooperative and no acute distress Eyes Conjunctivae: normal conjunctivae Sclera: normal sclerae Neck Neck: trachea midline and supple Resp Auscultation: diminished lung sounds, rales (fine rales bases), no rhonchi and no wheezes Cardio Rhythm: abnormal rhythm irregularly irregular GI Palpation: soft, no guarding, no masses and nontender Skin Rashes: rashes noted (Mild erythema bilateral lower extremities) Neuro General: patient alert, patient awake and patient oriented x3 Extrem General: no calf tenderness and edema Laterality: bilateral (1+ up to prox LEs) Psych Appearance: grossly normal Mental Status: mental status grossly normal Objective Last Vital Signs Temp 36.5 C 01/12/22 07:22 Pulse 86 01/12/22 07:50 Resp 16 01/12/22 07:22 BP 116/81 01/12/22 07:22 Pulse Ox 97 01/12/22 07:22 Laboratory Results - last 24 hr 01/12/22 01/12/22 06:25 06:25 WBC 6.24 RBC 4.44 Hgb 12.9 Hct 40.7 MCV 92 MCH 29.1 MCHC 31.7 L RDW 16.3 H Plt Count 118 L MPV 10.4 Immature Gran % 0.3 Neutrophils % 57.9 Lymphocytes % 28.7 Monocytes % 9.9 Eosinophils % 2.6 Basophils % 0.6 Nucleated RBC % 0.0 Absolute Neutrophils 3.61 Absolute Lymphocytes 1.79 Absolute Monocytes 0.62 Absolute Eosinophils 0.16 Absolute Basophils 0.04 Sodium 137 Potassium 4.2 Chloride 102 Carbon Dioxide 26.2 Anion Gap 8.8 BUN 39 H Creatinine 1.6 H Est GFR (CKD-EPI 2020) 32.81 Glucose 136 H Calcium 9.0 Magnesium 2.2
--- NOTE | 2022-01-12 12:28 | PT.INTREAT ---
PT Notes Visit Reasons: CHF, AFIB RVR Inpatient Physical Therapy Treatment Note [facility] Date: 01/12/22 SUBJECTIVE: Arlin states that she is doing well. No complaints offered to me this am. OBJECTIVE: [] BED MOBILITY/TRANSFERS pt sitting in recliner. Sit-stand: SBA Stand-sit: SBA GAIT Assistive Device:SPC Weight bearing: full Assist:SBA Distance: 200' Deviation: frequent stops to converse. Decreased ashli and shortened stride length ASSESSMENT: tolerated session well. No LOB noted PLAN: will continue to progress adding in strength and balance ex next session. TREATMENT CODE/TIME: 20 min. [id number]
[2022-01-12] MEDS: Melatonin 3 MG TAB 6 MG PO (22:05)
[2022-01-12] MEDS: Gabapentin 100 MG CAP PO (22:14)
[2022-01-13] VITALS: PULSE 94
[2022-01-13 03:53] VITALS: BP 106/66; PULSE 96; RESP 16; TEMP 36.6; O2SAT 99
[2022-01-13] MEDS: Levothyroxine 25 MCG TAB PO (05:10)
[2022-01-13 06:15] LABS: Abs Immature Grans 0.02 10^3/uL (0.0-0.06); Absolute Basophil Count 0.04 10^3/uL (0.0-0.2); Absolute Eosinophil Count 0.15 10^3/uL (0.0-0.7); Absolute Lymphocyte Count 2.05 10^3/uL (1.2-3.4); Absolute Monocyte Count 0.58 10^3/uL (0.1-0.8); Absolute Neutrophil Count 2.64 10^3/uL (1.2-6.7); Basophils % 0.7; Eosinophils % 2.7; HCT 38.1 % (36.0-46.0); HGB 11.9 g/dL (11.2-15.7); Immature Grans % 0.4; Lymphocytes % 37.4; MCHC 31.2 % (32.0-36.0); MCV 93 fL (80-95); MPV 10.2 fL (8.0-11.0); Monocytes % 10.6; Neutrophils % 48.2; Platelet Count 144 10^3/uL (130-400); RDW 16.4 % (11.7-14.6); RDW-SD 56.2 fL; WBC 5.48 10^3/uL (4.4-10.8)
[2022-01-13 06:30] LABS: Anion Gap 8.2 mmol/L (3-11); BUN 35 mg/dL (7-18); CO2 27.8 mmol/L (21.0-32.0); CREATININE 1.4 mg/dL (0.55-1.02); Chloride 103 mmol/L (98-107); Estimated GFR 38.51 (mL/min/1.73m2); Glucose 121 mg/dL (74-106); Potassium 3.7 mmol/L (3.5-5.1); Sodium 139 mmol/L (136-145)
[2022-01-13 07:09] VITALS: PULSE 82
[2022-01-13 07:13] VITALS: BP 103/76; PULSE 77; RESP 19; TEMP 36.5; O2SAT 99
[2022-01-13] MEDS: Metoprolol 12.5 MG TAB PO (09:24)
[2022-01-13] MEDS: buPROPion-XL 150 MG TABCR 300 MG PO (09:24)
[2022-01-13] MEDS: Ferrous Gluconate 324 MG TAB PO (09:25)
[2022-01-13] MEDS: Cyanocobalamin 500 MCG TAB 1000 MCG PO (09:25)
[2022-01-13] MEDS: Spironolactone 25 MG TAB PO (09:25)
[2022-01-13] MEDS: Aspirin E.C. 81 MG TABEC PO (09:25)
[2022-01-13] MEDS: Apixaban 5 MG TAB PO (09:25)
[2022-01-13] MEDS: Omeprazole 20 MG CAPCR PO (09:25)
[2022-01-13] MEDS: Atorvastatin 40 MG TAB PO (09:25)
[2022-01-13] MEDS: Furosemide 40 MG/4 ML VIAL IVP (09:25)
[2022-01-13] MEDS: Calcium 600mg/Vit D 200U TAB 1 TAB PO (09:25)
[2022-01-13] MEDS: ARIPiprazole 2 MG TAB PO (09:25)
[2022-01-13 11:22] VITALS: BP 139/89; PULSE 64; RESP 18; TEMP 36.4; O2SAT 99
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
[2022-01-13 13:41] VITALS: PULSE 96
--- NOTE | 2022-01-13 15:02 | PT.INTREAT ---
Date of service: 01/13/22 Time of Service: 10:12 PT Notes Visit Reasons: CHF, AFIB RVR Inpatient Physical Therapy Treatment Note [facility] Date: 01/13/2022 PRECAUTIONS: Activity as tolerated SUBJECTIVE: Arlin is pleasant and agreeable to participating in PT. She reports that she wants to go home but is concerned about the redness and swelling in her legs. (Her concerns were reported to the IT PROJECT COORDINATOR.) OBJECTIVE: PAIN: No c/o pain BED MOBILITY/TRANSFERS Sit-supine: I with HOB flat Supine-sit: I with HOB flat Sit-stand: S Stand-sit: S GAIT Assistive Device: SPC Weight bearing: Full Assist: SBA Distance: 150' Deviation: Short steps, several standing rests t/o THEREX: Patient was instructed in a LE strengthening program, completed in a seated position, to include: ankle pumps, LAQ, hip flexion and hip abduction. ASSESSMENT: Patient tolerated session well, without complaint of pain nor increased fatigue. She demonstrates steady gait and pacing, although does require several standing rests. PLAN: Patient to discharge to home later today, per provider. TREATMENT CODE/TIME: 24 minutes; 20874, [id number] (10:12)
--- NOTE | 2022-01-13 17:19 | CMDISCH_ITS ---
- If Service Date Differs Date of service: 01/13/22 Time of Service: 17:19 LACE Index Scoring Tool - Questions: Length of Stay (in days): 3 Acuity (Admit via E.D.?): Yes Comorbidities: Previous M.I., Congestive Heart Failure E.D. Visits: 10 - Answers: Total Score: 13 Risk of Readmission: High Risk Care Management Discharge Reason for Hospitalization: CHF, AFIB, RVR Discharge Plan: Arlin will return home today with no new services. She goes to [facility], and will resume their services in a day or two. GURDEEP provided a medical clearance letter to [place] per provider. CM coordinated a ride home via private vehicle. She will follow up with her PCP and discharge plan of care. Patient/Family Education Needs: Review discharge instructions and limitations, discussion of self care needs including ask me three. Services Needed at Discharge: Transportation (RCT private vehicle)
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
--- NOTE | 2022-01-14 08:58 | NUR.NOTE ---
Nursing Note: Accessed patient chart to determine how many EKG orders were in the chart from the ED. There was an outstanding EKG in ordered status. There are no EKG's in the [facility] system that are outstanding. EKG order was deleted.
== END 2022-01-13 14:35 | disposition home or self-care (01) | DRG 308 ==
LOC: ER 18:08 → ICU 18:26 → MS 01-11 09:31
PROVIDERS: Nurse Practitioner Acute Care; Nurse Practitioner Family; Admitting Provider Internal Medicine; Emergency Provider Student in an Organized Health Care Education/Training Program; PCP Family Medicine; Visit Provider Internal Medicine
DX: I50.33 Acute on chronic diastolic (congestive) heart failure (principal); I48.91 Unspecified atrial fibrillation; I25.10 Atherosclerotic heart disease of native coronary artery without angina pectoris; F32.A Depression, unspecified; E03.9 Hypothyroidism, unspecified; Z79.01 Long term (current) use of anticoagulants; Z79.82 Long term (current) use of aspirin; I25.2 Old myocardial infarction; R29.6 Repeated falls; M47.816 Spondylosis without myelopathy or radiculopathy, lumbar region; F41.9 Anxiety disorder, unspecified; Z79.899 Other long term (current) drug therapy; K57.30 Diverticulosis of large intestine without perforation or abscess without bleeding; Z96.651 Presence of right artificial knee joint; N18.31 Chronic kidney disease, stage 3a; I34.0 Nonrheumatic mitral (valve) insufficiency
CPT/HCPCS: 36415; 80048; 80053; 87635; 93005; 94618; 96374; 96375; 97110; 97161; 97530; 99291; 71046; 83735; 83880; 84443; 84484; 85025; 93010; 99223; 99232; 99233; 99239; J1940; J1941; J3490

== ENCOUNTER 2022-01-21 13:45 | Emergency (ER) | payer OTHER, MEDICAID, SELFPAY ==
--- NOTE | 2022-01-21 13:45 | RT.EKG_ITS ---
APPROVED REPORT Exam: Resting ECG Reason for Exam: chest pain Patient Location: E HR:112 bpm ECG Measurements Heart Rate 112 AXIS [place] [id number] P [id number] QRSd 93 QRS -29 QT 373 T 86 QTc 510 Conclusion Atrial fibrillation...V-rate 91-138, irreg A-activity Low voltage, extremity leads...all extremity leads <0.5mV Prolonged QT interval...QTc >500mS
[2022-01-21 13:54] VITALS: BP 131/72; PULSE 115; RESP 17; TEMP 36.4; O2SAT 100
--- NOTE | 2022-01-21 14:15 | DI.RAD_ITS ---
Exam(s) XR SHOULDER RT COMPLETE 2+V EXAM: XR SHOULDER RT COMPLETE 2+V CLINICAL HISTORY: right shoulder pain with radiation to chest. TECHNIQUE: 2D digital imaging was performed of the right shoulder. Images were obtained. AP, Gra bibiana, Y-view and axillary views were obtained. COMPARISON: CR RIGHT SHOULDER COMPLETE from 03/21/2008 CR,XR XR SHOULDER RT COMPLETE 2+V from 09/22/2021 CR XR SHOULDER RT COMPLETE 2+V from 12/31/2021 FINDINGS: BONES: No acute fracture is present. No bony destructive lesion is seen. JOINTS: No dislocation present. Degenerative changes are seen at the acromioclavicular joint. The gl enohumeral joint is well maintained. There is stable alignment of the acromioclavicular joint compar ed to the prior examination. This is unchanged dating back to 2008. SOFT TISSUE: Normal. IMPRESSION: No acute abnormality. DATA REPOSITORY: RADIATION DOSE DELIVERED:
--- NOTE | 2022-01-21 14:21 | DI.RAD_ITS ---
Exam(s) XR CHEST 1V IN DI DEPT EXAM: XR CHEST 1V IN DI DEPT CLINICAL HISTORY: right shoulder pain TECHNIQUE: 2D digital imaging was performed of the chest. One image was obtained. An AP view was ob tained. COMPARISON: CR,XR XR CHEST 1V IN DI DEPT from 03/05/2019 FINDINGS: MEDIASTINUM: Normal. HEART: Cardiomegaly. PULMONARY VASCULATURE: Normal. LUNGS: Clear. PLEURAL SPACE: No pleural effusion or pneumothorax. BONE:Within normal limits for the patient's age. OTHER FINDINGS:Normal. IMPRESSION: No acute pulmonary findings. DATA REPOSITORY: RADIATION DOSE DELIVERED:
[2022-01-21 14:54] LABS: Abs Immature Grans 0.02 10^3/uL (0.0-0.06); Absolute Basophil Count 0.03 10^3/uL (0.0-0.2); Absolute Eosinophil Count 0.16 10^3/uL (0.0-0.7); Absolute Lymphocyte Count 1.93 10^3/uL (1.2-3.4); Absolute Monocyte Count 0.54 10^3/uL (0.1-0.8); Absolute Neutrophil Count 2.98 10^3/uL (1.2-6.7); Basophils % 0.5; Eosinophils % 2.8; HCT 39.6 % (36.0-46.0); HGB 12.5 g/dL (11.2-15.7); Immature Grans % 0.4; Lymphocytes % 34.1; MCH 29.3 pg (27.0-33.0); MCHC 31.6 % (32.0-36.0); MCV 93 fL (80-95); Monocytes % 9.5; Neutrophils % 52.7; Platelet Count 159 10^3/uL (130-400); RBC 4.26 10^6/uL (3.93-5.22); RDW-SD 54.4 fL; WBC 5.66 10^3/uL (4.4-10.8)
[2022-01-21] MEDS: oxyCODONE 5 MG TAB PO (14:54)
[2022-01-21 15:12] LABS: ALT 27 U/L (14-59); AST 29 U/L (15-37); Albumin 3.5 g/dL (3.4-5.0); Alkaline Phosphatase 123 U/L (46-116); BUN 29 mg/dL (7-18); Bilirubin, Total 0.4 mg/dL (0.2-1.0); CREATININE 1.6 mg/dL (0.55-1.02); Chloride 105 mmol/L (98-107); Estimated GFR 32.81 (mL/min/1.73m2); Glucose 117 mg/dL (74-106); Potassium 3.7 mmol/L (3.5-5.1); Sodium 143 mmol/L (136-145); Total Protein 7.6 g/dL (6.4-8.2); Troponin I < 50 ng/L (<or=60)
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
--- NOTE | 2022-01-21 16:00 | RT.EKG_ITS ---
APPROVED REPORT Exam: Resting ECG Reason for Exam: arm pain Patient Location: E HR:84 bpm ECG Measurements Heart Rate 84 AXIS IA [id number] P [id number] QRSd 95 QRS -27 QT 368 T 34 QTc 435 Conclusion Atrial fibrillation...? atrial activity Inferior infarct, old...Q >35mS, II III aVF
[2022-01-21 17:40] LABS: Troponin I < 50 ng/L (<or=60)
[2022-01-21 18:53] VITALS: BP 118/61; PULSE 90; RESP 16; TEMP 36.6; O2SAT 100
== END 2022-01-21 18:59 | disposition home or self-care (01) ==
PROVIDERS: Physician Assistant; Emergency Provider Registered Nurse Emergency; PCP Family Medicine
DX: M25.511 Pain in right shoulder (principal); I48.91 Unspecified atrial fibrillation; Z79.01 Long term (current) use of anticoagulants; Z79.82 Long term (current) use of aspirin
CPT/HCPCS: 36415; 80053; 93005; 96374; 99284; 71045; 73030; 84484; 85025; 93010; 99285; J0131

== ENCOUNTER 2022-02-12 01:22 | Outpatient (CLI) | payer OTHER, MEDICAID, SELFPAY ==
--- NOTE | 2022-02-12 10:15 | DI.US_ITS ---
APPROVED REPORT EXAM: Comprehensive 2D, Doppler, and color-flow Echocardiogram Patient Location: Out-Patient Nursery Rn: Darcy Jules RDCS (AE) Indications: CAD, Pulmonary HTN Other Information Study Quality: Fair. Technically limited study due to body habitus, inability to position patient exa m done supine, pain with scanning. Conclusion Technically difficult but adequate study. The patient is in atrial fibrillation with [id number] va riation Normal left ventricular size and systolic function. Ejection fraction is 50 to 55%. There are no se gmental wall motion abnormalities The right ventricle is normal in size and function The left atrium is moderately dilated. The right atrium is mildly dilated Aortic valve is sclerotic without stenosis or regurgitation Mild mitral annular calcification. Moderate mitral regurgitation Normal tricuspid valve with mild regurgitation. Estimated right ventricular systolic pressure is 24 mmHg Wall motion Left Ventricle The left ventricle is normal size. Left ventricular systolic function borderline There is normal left ventricular wall thickness. There are no segmental wall motion abnormalities There is no ventricular septal defect visualized. LVEF is 50-55%. Right Ventricle Right ventricle is grossly normal in size. Right ventricular systolic function is grossly normal. The RVSP is 24.3 mmHg. Atria Left atrium is moderately dilated. Right atrium is mildly dilated. The interatrial septum is intact w ith no evidence for an atrial septal defect. Aortic Valve The Aortic valve is sclerotic. Aortic valve is trileaflet. There is no aortic valvular stenosis. No a ortic regurgitation is present. Mitral Valve Mild mitral annular calcification. No evidence of mitral valve stenosis. Moderate mitral regurgitatio n. Tricuspid Valve The tricuspid valve is normal in structure. There is no tricuspid valve stenosis. Mild tricuspid regu rgitation. Pulmonic Valve The pulmonary valve is normal in structure. There is no pulmonic valvular stenosis. Trace pulmonic re gurgitation. Great Vessels The aortic root is normal in size. The ascending aorta is normal. IVC is normal in size and collapses >50% with inspiration. Pericardium There is no pericardial effusion. 2D Dimensions IVSD d PLAX 0.91 cm F: 0.6-1.0 LV Vol A2C d MOD 95.0 mL LVPW d PLAX 0.90 cm F: 0.6 - 1.0 LV Vol A4C d MOD 83.3 mL LVID d PLAX 4.70 cm F: 3.8 - 5.2 LA vol/ BSA A4C s A-L 54.8 mL/m2 LVDs 3.50 cm F: 2.2 - 3.5 LA Area A4C s MOD 27.98 cm2 Ao Root d 3.03 cm F: 2.7 - 3.3 LV EF A4C MOD 50.8 % RA Area A4C 19.06 cm2 LV EF A2C MOD 49.6 % RA Vol/ BSA A4C s A-L 29.5 mL/m2 LV EF Biplane MOD 51.1 % Ao Asc Diam d 3.21 cm F: 2.3 - 3.1 SV 46.18 mL LV EF Teichholz 49.5 % SV Index 25.69 mL/m2 LVEF (Swartz's) 51.13 % F: 54 - 74 LV Volume 70.28 mL F: 46 - 106 LV Volume Index 39.04 mL/m2 F: 29 - 61 LV Vol Biplane MOD 90.3 mL FS 25.00 % M-Mode TAPSE 1.61 cm (M/F) >1.7 LV Diastology MV E' medial 0.106 (>0.07 m/s) MV E Vmax 1.23 (0.4-1.3 m/s) LV E/e MED 11.55 (<14) MV E/E' medial 11.59 Aortic Valve LVOT Area 2.90 cm2 AoV Area Vmax 2.33 cm2 LVOT Vmax 0.76 m/s AoV Area/ BSA (Vmax) 1.30 cm2/m2 LVOT Mean Tl. 0.60 m/s CLIFTON Mean Tl. 2.46 cm2 LVOT Peak Grad 2.3 mmHg CLIFTON Mean Tl. Index 1.37 cm2/m2 LVOT Mean Grad 1.5 mmHg LVOT VTI 0.141 m LVOT Diam s 1.90 cm AoV Vmax 0.94 m/s Velocity Ratio 0.81 AoV Mean Tl. 0.70 m/s AoV Peak Grad 3.5 mmHg LVOT SV 40.75 mL AoV Mean Grad 2.1 mmHg AoV VTI 0.166 m AoV Area VTI 2.46 cm2 AoV Area/ BSA (VTI) 1.37 cm/m2 Mitral Valve MV DT 120 (160-240 msec) MR Vmax 4.50 m/s MV PHT 35 msec MR VTI 1.433 m MV Area PHT 6.35 cm2 MR Peak Grad 80.9 mmHg MV VTI 0.290 m MR Mean Grad 53.2 mmHg MV VTI Annulus 0.298 m MR PISA Radius 0.49 cm MV Area VTI 1.44 (4.0-6.0 cm2) MR EROA 0.12 cm2 MR Aliasing Velocity 0.35 m/s MR PISA 1.53 cm2 Pulmonary Valve PV Vmax 0.66 (0.5-1.5 m/s) RVOT Peak Gr. 1.06 mmHg PV Peak Grad 1.8 mmHg RVOT Mean Gr. 0.55 mmHg PV Mean Grad 0.9 mmHg RVOT VTI 0.094 m PV VTI 0.126 m RVOT Vmax 0.51 m/s Tricuspid Valve TR Peak Grad 21.3 mmHg TR Vmax 2.31 m/s RA Pressure 3.00 mmHg RVSP (TR) 24.3 mmHg
== END 2022-02-12 01:42 ==
LOC: DI 01:22
PROVIDERS: PCP Family Medicine; Visit Provider Family Medicine
DX: I25.10 Atherosclerotic heart disease of native coronary artery without angina pectoris (principal); I27.20 Pulmonary hypertension, unspecified
CPT/HCPCS: 93306

== ENCOUNTER 2022-03-07 17:56 | Outpatient (REF) | payer OTHER, MEDICAID, SELFPAY ==
[2022-03-07 19:09] LABS: Vitamin B12 1426 pg/mL (193-986)
== END 2022-03-07 17:57 | disposition home or self-care (01) ==
LOC: NCHCN 17:56
PROVIDERS: PCP Family Medicine; Visit Provider Family Medicine
DX: R41.3 Other amnesia (principal)
CPT/HCPCS: 82607

== ENCOUNTER 2022-04-12 10:26 | Observation (INO) | payer OTHER, MEDICAID, SELFPAY ==
[2022-04-12] VITALS (63 sets, daily range): BP systolic 78–124; BP diastolic 52–77; PULSE 54–134; RESP 10–36; TEMP 36.3–36.7; O2SAT 97–100
--- NOTE | 2022-04-12 10:30 | DI.CT_ITS ---
Exam(s) CT HEAD CERVICAL SPINE WO EXAM: CT HEAD CERVICAL SPINE WO CLINICAL HISTORY: fall, confusion. TECHNIQUE: Imaging Protocol: Axial computed tomography images with coronal and sagittal reformatted images were created and reviewed COMPARISON: CT CT HEAD WO from 09/22/2021 FINDINGS: The examination is limited due to patient motion artifact. CT Head: Ventricles and Extra axial spaces: Normal in size and morphology for the patient's age. Hemorrhage: None. Cerebral parenchyma: There is no evidence of an acute territorial infarct. There are areas of decrea sed attenuation in the white matter consistent with small vessel ischemic disease. Old lacunar infar cts are seen in the cerebellum. Midline shift: None. Brainstem/Cerebellum: Normal. Calvarium: Normal. Visualized Paranasal sinuses/Mastoids: Clear. Soft Tissues: Unremarkable. CT Cervical Spine: Bones: No acute fracture or subluxation. Degenerative changes are seen in the spine. Soft Tissues: Unremarkable. Lung Apices: Clear. IMPRESSION: 1. No acute intracranial process. 2. No acute fracture or subluxation in the cervical spine. RADIATION DOSE DELIVERED: 1,452.36mGy.cm Total DLP DATA REPOSITORY: All CT scans at this facility are submitted to the National Radiology Data Registry (NRDR) Dose Index Registry (DIR) with the [employer] (ACR). RADIATION OPTIMIZATION: All CT scans at this facility use at least one of these dose optimization te chniques: automated exposure control; mA and/or kV adjustment per patient size (includes targeted exa ms where dose is matched to clinical indication); or iterative reconstruction.
--- NOTE | 2022-04-12 10:30 | RT.EKG_ITS ---
APPROVED REPORT Exam: Resting ECG Reason for Exam: afib Patient Location: E HR:96 bpm ECG Measurements Heart Rate 96 AXIS PA [id number] P [id number] QRSd 98 QRS -40 QT 329 T 151 QTc 417 Conclusion Atrial fibrillation Paired ventricular premature complexes. Inferior infarct, old...Q >35mS, II III aVF Nonspecific T abnormalities, lateral leads...T <-0.10mV, I aVL V5 V6
[2022-04-12 11:21] LABS: Abs Immature Grans 0.05 10^3/uL (0.0-0.06); Absolute Basophil Count 0.03 10^3/uL (0.0-0.2); Absolute Eosinophil Count 0.07 10^3/uL (0.0-0.7); Absolute Monocyte Count 0.51 10^3/uL (0.1-0.8); Absolute Neutrophil Count 7.03 10^3/uL (1.2-6.7); Basophils % 0.3; Eosinophils % 0.8; HCT 50.6 % (36.0-46.0); HGB 16.4 g/dL (11.2-15.7); Immature Grans % 0.6; Lymphocytes % 12.5; MCH 29.4 pg (27.0-33.0); MCHC 32.4 % (32.0-36.0); MCV 91 fL (80-95); MPV 10.9 fL (8.0-11.0); Monocytes % 5.8; Platelet Count 133 10^3/uL (130-400); RBC 5.58 10^6/uL (3.93-5.22); RDW 15.3 % (11.7-14.6); RDW-SD 50.7 fL; WBC 8.79 10^3/uL (4.4-10.8)
[2022-04-12 11:48] LABS: Bilirubin Negative (Negative); Blood Negative (Negative); Clarity Clear (Clear); Glucose 250 mg/dL (Negative); Ketones Negative (Negative); Leukocyte Esterase Negative (Negative); Nitrite Negative (Negative); Specific Gravity 1.015 (1.005-1.025); Urobilinogen 0.2 mg/dL (Up to 0.2)
[2022-04-12] MEDS: Lactated Ringers 1,000 ML 1000 ML IV (11:49)
--- NOTE | 2022-04-12 11:59 | DI.CT_ITS ---
Exam(s) CT CHEST/ABD/PEL W EXAM: CT CHEST/ABD/PEL W CLINICAL HISTORY: weakness, confused TECHNIQUE: Imaging Protocol: Axial computed tomography images with coronal and sagittal reformatted images were created and reviewed CONTRAST MATERIAL: Intravenous: Omnipaque 350 contrast volume:100 mL Oral: No COMPARISON: CT CT CHEST PE CTA from 09/26/[address] CHEST WO from 10/19/2021 FINDINGS: The examination is limited due to patient motion artifact. CHEST: Tracheobronchial tree: Patent where visualized. Pulmonary parenchyma: No consolidation or dominant measurable mass. No architectural distortion. Ther e is a calcified granuloma in the lingula. Visualized thyroid gland: Unremarkable. Mediastinum and Aisha: No dominant adenopathy or fluid collection. The esophagus is unremarkable. Pleura: No effusion or pneumothorax. Heart: Mild cardiomegaly. No coronary artery calcifications are seen. No pericardial effusion. Pulmonary arteries: Due to the bolus timing, evaluation for pulmonary emboli is suboptimal in the seg mental and subsegmental pulmonary arteries. No large central pulmonary embolus is seen. Aorta: Thoracic aorta non-dilated. Atherosclerosis. Lymph nodes: Within normal limits. Soft tissues: Unremarkable. Bones:Within normal limits for the patient's age. There is anterior subluxation of the glenohumeral joint. ABDOMEN: Liver: Normal density. No measurable mass. Portal, Superior Mesenteric, and Splenic Veins: Unremarkable. Gallbladder and Biliary Tract: No radiodense calculus or dilation. Pancreas: Normal density, no abnormal calcifications or inflammatory process. Spleen: Normal. Adrenals: No masses seen. Kidneys: Normal size, contour and axis. No radiodense stones or obstructive uropathy. There is a simp le cysts seen in each kidney. No follow-up is recommended. Abdominal Aorta: Abdominal portion non-dilated. Atherosclerosis is present. Bowel: There is diverticulosis of the colon but no evidence of acute diverticulitis. There is no aman dence of bowel obstruction or bowel wall thickening. No evidence of appendicitis. Peritoneal Cavity: No ascites, collection or mesenteric inflammatory response. No free air. Lymph Nodes: Within normal limits. Bones: Within normal limits for the patient's age. Soft Tissues: There is a fat containing umbilical hernia. PELVIS: Bladder: Symmetric distention, no gross wall thickening. Reproductive Organs: Status post hysterectomy. Lymph Nodes: Within normal limits. Bones: Within normal limits. IMPRESSION: 1. No acute abdominal or pelvic process. 2. No acute pulmonary process. RADIATION DOSE DELIVERED: 941.6mGy.cm Total DLP DATA REPOSITORY: All CT scans at this facility are submitted to the National Radiology Data Registry (NRDR) Dose Index Registry (DIR) with the [employer] (ACR). RADIATION OPTIMIZATION: All CT scans at this facility use at least one of these dose optimization te chniques: automated exposure control; mA and/or kV adjustment per patient size (includes targeted exa ms where dose is matched to clinical indication); or iterative reconstruction.
[2022-04-12] MEDS: levoFLOXacin 500 MG/100 ML BAG 100 MG IVPB (12:10)
[2022-04-12 12:25] LABS: COVID-19 PCR Negative (Negative); Influenza A PCR Negative (Negative); Influenza B PCR Negative (Negative); RSV PCR Negative (Negative)
[2022-04-12 12:26] LABS: Source Nasopharynx
[2022-04-12] MEDS: Omnipaque 350 MG/ML 100 ML BTL IJ (12:50)
[2022-04-12] MEDS: Normal Saline - Diluent 50 ML VIAL IJ (12:51)
[2022-04-12] MEDS: Normal Saline Flush 10 ML SYR IVP ×2 (12:51→18:07)
--- NOTE | 2022-04-12 13:34 | DI.VRAD_ITS ---
PROCEDURE INFORMATION: Exam: CT Head Without Contrast Exam date and time: 04/12/2022 12:42 PM Age: 76 years old Clinical indication: Other: Fall, confusion TECHNIQUE: Imaging protocol: Computed tomography of the head without contrast. Radiation optimization: All CT scans at this facility use at least one of these dose optimization techniques: automated exposure control; mA and/or kV adjustment per patient size (includes targeted exams where dose is matched to clinical indication); or iterative reconstruction. COMPARISON: MR BRAIN WO 01/23/2022 10:36 FINDINGS: Brain: Small vessel ischemic white matter changes of aging. Old left cerebellar infarct again noted. Punctate hypodensities in the right cerebellum consistent with lacunar infarcts similar to prior MRI. No intracranial hemorrhage. No mass effect. Prominent cortical sulci similar to prior MRI. Cerebral ventricles: Stable mild ventriculomegaly. Paranasal sinuses: Visualized sinuses are unremarkable. No fluid levels. Mastoid air cells: Visualized mastoid air cells are well aerated. Orbital cavities: Prior bilateral globe surgery. Dental: The patient is edentulous. Bones/joints: Hyperostosis frontalis interna. Degenerative changes of the C1-C2 articulation. Soft tissues: Soft tissue swelling over the right occipital region. Vasculature: Atherosclerotic disease. IMPRESSION: 1. No acute intracranial abnormality. 2. Small vessel ischemic white matter disease of aging. Old bilateral cerebellar infarcts. PROCEDURE INFORMATION: Exam: CT Cervical Spine Without Contrast Exam date and time: 04/12/2022 12:42 PM Age: 76 years old Clinical indication: Other: Fall, confusion TECHNIQUE: Imaging protocol: Computed tomography of the cervical spine without contrast. Radiation optimization: All CT scans at this facility use at least one of these dose optimization techniques: automated exposure control; mA and/or kV adjustment per patient size (includes targeted exams where dose is matched to clinical indication); or iterative reconstruction. COMPARISON: CT HEAD CERVICAL SPINE WO 01/18/2022 00:59 FINDINGS: Bones/joints: Multilevel degenerative changes of the cervical spine and visualized upper thoracic spine. Stable degenerative changes of the C1-C2 articulation. Asymmetric narrowing of the right C2-C3, and C3-C4 neural foramen. Disc space narrowing and degenerative changes of the endplates with associated osteophytes at C5-C6 and C6-C7. Narrowing of the neural foramina bilaterally at C5-C6 and C6-C7. Grade 1 anterolisthesis at C7-T1 similar to prior study. Degenerative changes of the upper thoracic spine with disc space narrowing at T1-2, T2-3, T3-4. No evidence for acute bony injury. Multilevel facet arthropathy. Lungs: Lung apices are normal. Thyroid: Heterogeneity of the right and left thyroid gland with hypodensities. Vasculature: Atherosclerotic disease. Soft tissues: Unremarkable. IMPRESSION: 1. No acute findings. 2. Multilevel degenerative changes of the cervical and visualized thoracic spine as discussed above, similar to prior study. Dictated and Authenticated by: Marianela Kauffman MD. Ordering:LUISA Gao MD
--- NOTE | 2022-04-12 13:44 | DI.VRAD_ITS ---
PROCEDURE INFORMATION: Exam: CT Chest With Contrast; Diagnostic Exam date and time: 04/12/2022 12:55 PM Age: 76 years old Clinical indication: Other: Weakness, confused TECHNIQUE: Imaging protocol: Diagnostic computed tomography of the chest with contrast. 3D rendering (Not supervised by radiologist): MIP and/or 3D reconstructed images were created by the technologist. Radiation optimization: All CT scans at this facility use at least one of these dose optimization techniques: automated exposure control; mA and/or kV adjustment per patient size (includes targeted exams where dose is matched to clinical indication); or iterative reconstruction. Contrast material: OMNIPAQUE 350; Contrast volume: 100 ml; Contrast route: INTRAVENOUS (IV); COMPARISON: CT CHEST WO 10/19/2021 9:37 PM FINDINGS: Lungs: Small benign calcified granulomas are present in the left lung. No pulmonary infiltrates or suspicious pulmonary nodules. Pleural spaces: Unremarkable. No pneumothorax. No pleural effusion. Heart: Heart is enlarged. No significant coronary artery calcification. Lymph nodes: Unremarkable. No enlarged lymph nodes. Vasculature: Mild calcification of the aorta. No thoracic aortic aneurysm. Bones/joints: There is a right shoulder joint effusion. The humeral head is subluxed anteriorly. No fractures are seen in the chest. Chronic degenerative changes are present in the spine. Soft tissues: Unremarkable. IMPRESSION: No acute abnormality in the chest. PROCEDURE INFORMATION: Exam: CT Abdomen And Pelvis With Contrast Exam date and time: 04/12/2022 12:55 PM Age: 76 years old Clinical indication: Other: Weakness, confused TECHNIQUE: Imaging protocol: Computed tomography of the abdomen and pelvis with contrast. 3D rendering (Not supervised by radiologist): MIP and/or 3D reconstructed images were created by the technologist. Radiation optimization: All CT scans at this facility use at least one of these dose optimization techniques: automated exposure control; mA and/or kV adjustment per patient size (includes targeted exams where dose is matched to clinical indication); or iterative reconstruction. Contrast material: OMNIPAQUE 350; Contrast volume: 100 ml; Contrast route: INTRAVENOUS (IV); COMPARISON: CT CHEST PE ABD PELVIS W 09/20/2020 6:29 PM FINDINGS: Liver: Normal. No mass. Gallbladder and bile ducts: Normal. No calcified stones. No ductal dilation. Pancreas: There is a stable 7 mm cyst in the tail of the pancreas. Otherwise the pancreas is atrophic. There is no pancreatic ductal dilatation. Spleen: Normal. No splenomegaly. Adrenal glands: Normal. No mass. Kidneys and ureters: Normal. No hydronephrosis. Stomach and bowel: Sigmoid diverticulosis. No diverticulitis. No bowel obstruction or dilatation. Appendix: No evidence of appendicitis. Intraperitoneal space: Unremarkable. No free air. No significant fluid collection. Vasculature: Unremarkable. No abdominal aortic aneurysm. Lymph nodes: Unremarkable. No enlarged lymph nodes. Urinary bladder: Unremarkable as visualized. Reproductive: Hysterectomy. Bones/joints: Chronic degenerative changes are present in the spine. No acute bony abnormality. Soft tissues: Small uncomplicated fat containing umbilical hernia. IMPRESSION: No acute abnormality. Dictated and Authenticated by: Anthony Brambila MD. Ordering:LUISA Gao MD
[2022-04-12 14:05] LABS: ALT 24 U/L (14-59); AST 26 U/L (15-37); Albumin 2.7 g/dL (3.4-5.0); Alkaline Phosphatase 89 U/L (46-116); Anion Gap 6.5 mmol/L (3-11); BUN 30 mg/dL (7-18); Bilirubin, Total 0.8 mg/dL (0.2-1.0); CO2 31.5 mmol/L (21.0-32.0); Calcium 8.6 mg/dL (8.5-10.1); Chloride 101 mmol/L (98-107); Glucose 77 mg/dL (74-106); NT-proBNP 1661 pg/mL (<300); Potassium 3.2 mmol/L (3.5-5.1); Sodium 139 mmol/L (136-145); TSH (W/Ref FT4) 1.66 uIU/mL (0.36-3.74); Total Protein 5.9 g/dL (6.4-8.2); Troponin I 52 ng/L (<or=60)
--- NOTE | 2022-04-12 14:30 | RT.EKG_ITS ---
APPROVED REPORT Exam: Resting ECG Reason for Exam: 2nd trop Patient Location: E HR:96 bpm ECG Measurements Heart Rate 96 AXIS CA [id number] P [id number] QRSd 93 QRS -33 QT 359 T 172 QTc 454 Conclusion Atrial fibrillation. Inferior infarct, old...Q >35mS, II III aVF Nonspecific T abnormalities, lateral leads...T <-0.10mV, I aVL V5 V6
[2022-04-12 14:58] LABS: Lactate 1.8 mmol/L (0.6-1.4)
[2022-04-12 15:18] LABS: Troponin I 59 ng/L (<or=60)
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
[2022-04-12 15:32] LABS: Procalcitonin < 0.1 ng/mL
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
[2022-04-12] MEDS: Lactated Ringers 500 ML IV (16:24)
[2022-04-12] MEDS: POTASSIUM CHLORIDE 20 MEQ/100 ML BAG 50 MEQ IVPB ×2 (18:04→20:13)
[2022-04-12] MEDS: Metoprolol 5 MG/5 ML VIAL 2.5 MG IVP (18:05)
[2022-04-12] MEDS: Apixaban 5 MG TAB PO (20:20)
[2022-04-12] MEDS: Melatonin 3 MG TAB 6 MG PO (21:45)
[2022-04-12] MEDS: Acetaminophen 325 MG TAB PO (23:34)
[2022-04-13] VITALS (12 sets, daily range): BP systolic 82–104; BP diastolic 55–76; PULSE 76–98; RESP 14–19; TEMP 35.8–36.3; O2SAT 97–99
[2022-04-13 06:56] LABS: Abs Immature Grans 0.04 10^3/uL (0.0-0.06); Absolute Basophil Count 0.03 10^3/uL (0.0-0.2); Absolute Eosinophil Count 0.11 10^3/uL (0.0-0.7); Absolute Lymphocyte Count 2.39 10^3/uL (1.2-3.4); Absolute Neutrophil Count 5.06 10^3/uL (1.2-6.7); Basophils % 0.4; Eosinophils % 1.3; HCT 44.2 % (36.0-46.0); HGB 14.4 g/dL (11.2-15.7); Immature Grans % 0.5; MCH 29.7 pg (27.0-33.0); MCHC 32.6 % (32.0-36.0); MCV 91 fL (80-95); MPV 11.1 fL (8.0-11.0); Monocytes % 7.3; Neutrophils % 61.5; Platelet Count 123 10^3/uL (130-400); RBC 4.85 10^6/uL (3.93-5.22); RDW 15.9 % (11.7-14.6); RDW-SD 53.1 fL; WBC 8.23 10^3/uL (4.4-10.8)
[2022-04-13 07:06] LABS: Anion Gap 8.9 mmol/L (3-11); BUN 29 mg/dL (7-18); CO2 24.1 mmol/L (21.0-32.0); CREATININE 2.1 mg/dL (0.55-1.02); Chloride 103 mmol/L (98-107); Estimated GFR 23.67 (mL/min/1.73m2); Glucose 89 mg/dL (74-106); Potassium 4.9 mmol/L (3.5-5.1); Sodium 136 mmol/L (136-145)
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
[2022-04-13] MEDS: Cyanocobalamin 100 MCG TABLET 1000 MCG PO (07:41)
[2022-04-13 07:42] LABS: Lab Add On Test DONE
[2022-04-13] MEDS: Aspirin E.C. 81 MG TABEC PO (07:42)
[2022-04-13] MEDS: Ferrous Gluconate 324 MG TAB PO (07:42)
[2022-04-13] MEDS: Omeprazole 20 MG CAPCR PO (07:42)
[2022-04-13] MEDS: Atorvastatin 40 MG TAB PO (07:42)
[2022-04-13] MEDS: Apixaban 5 MG TAB PO ×2 (07:42→20:24)
[2022-04-13] MEDS: Levothyroxine 25 MCG TAB PO (07:42)
[2022-04-13] MEDS: buPROPion-CR 150 MG TABCR 300 MG PO (07:42)
[2022-04-13] MEDS: ARIPiprazole 2 MG TAB PO (07:42)
[2022-04-13] MEDS: Lactated Ringers 500 ML IV (07:44)
[2022-04-13] MEDS: Normal Saline Flush 10 ML SYR IVP (07:45)
[2022-04-13 07:53] LABS: Creatine Kinase 196 U/L (26-192)
--- NOTE | 2022-04-13 18:59 | PGE_ITS ---
Date of Service Date of service: 04/13/22 Time of Service: 18:59 Assessment and Plan Assessment and plan (1) A-fib: Status: Chronic Assessment and plan: admit to telemetry Afib 80's-110's rate controlled will continue home metoprolol anticoagulated on apixaban (2) Dehydration: Status: Resolved Assessment and plan: IVF; oral fluids - bustamante catheter s/t decreased UO and retention Encourage oral fluids - she does not drink much without prompting even though it is infront of her and available. (3) Weakness: Status: Acute Assessment and plan: Continues to feel weak; IVF, she is eating well, encourage oral fluids. (4) Renal insufficiency: Assessment and plan: Creatinine is 2.1 - she has chronic renal insufficiency stage 3a. (5) Hypothyroid: Assessment and plan: TSH 1.66, continue outpatient levothyroxine (6) CAD (coronary artery disease): Assessment and plan: continue statin, beta carmela and ASA. (7) Hypokalemia: Status: Resolved Assessment and plan: K+ 4.9 on spironalactone and furosemide - both held repeat levels in am (8) DVT prophylaxis: Status: Deleted Assessment and plan: On apixaban. (9) Discharge planning issues: Status: Deleted Assessment and plan: Planning to d/c home when medically stable - she lives alone +/-Home services v SNF - possible due to weakness will benefit from PT discussed with Dr Jonas Subjective Subjective Patient reports: no new complaints, pain is less, tolerating a regular diet, voiding w/o difficulty (Indwelling urinary catheter for accurate I/O and she did have some urinary retention ~ 350 ml), bowel movement and afebrile; denies flatus, diarrhea, blood in stool, nausea, vomiting or shortness of breath Interval history since last seen: Awake in the chair, alert, states she continues to feel very weak. Denies CP/SOB Exam Const General: cooperative and no acute distress Eyes Conjunctivae: normal conjunctivae Sclera: normal sclerae Neck Neck: trachea midline and supple Resp Auscultation: no rhonchi and no wheezes Cardio Rhythm: abnormal rhythm irregularly irregular GI Palpation: soft, no guarding, no masses and nontender Neuro General: patient alert, patient awake and patient oriented x3 Extrem General: normal to inspection, full ROM, no calf tenderness, no cyanosis and no edema Psych Appearance: grossly normal Mental Status: mental status grossly normal Objective Last Vital Signs Temp 36.0 C L 04/13/22 15:34 Pulse 93 H 04/13/22 15:34 Resp 16 04/13/22 15:34 BP 104/76 04/13/22 15:34 Pulse Ox 99 04/13/22 15:34 Laboratory Results - last 24 hr 04/13/22 04/13/22 04/13/22 06:05 06:05 06:05 WBC 8.23 RBC 4.85 Hgb 14.4 D Hct 44.2 MCV 91 MCH 29.7 MCHC 32.6 RDW 15.9 H Plt Count 123 L MPV 11.1 H Immature Gran % 0.5 Neutrophils % 61.5 Lymphocytes % 29.0 Monocytes % 7.3 Eosinophils % 1.3 Basophils % 0.4 Nucleated RBC % 0.0 Absolute Neutrophils 5.06 Absolute Lymphocytes 2.39 Absolute Monocytes 0.60 Absolute Eosinophils 0.11 Absolute Basophils 0.03 Sodium 136 Potassium 4.9 D Chloride 103 Carbon Dioxide 24.1 Anion Gap 8.9 BUN 29 H Creatinine 2.1 H Est GFR (CKD-EPI 2020) 23.67 Glucose 89 Calcium 9.0 Magnesium 2.0 Creatine Kinase Add-On Test Request DONE 04/13/22 06:05 WBC RBC Hgb Hct MCV MCH MCHC RDW Plt Count MPV Immature Gran % Neutrophils % Lymphocytes % Monocytes % Eosinophils % Basophils % Nucleated RBC % Absolute Neutrophils Absolute Lymphocytes Absolute Monocytes Absolute Eosinophils Absolute Basophils Sodium Potassium Chloride Carbon Dioxide Anion Gap BUN Creatinine Est GFR (CKD-EPI 2020) Glucose Calcium Magnesium Creatine Kinase 196 H Add-On Test Request Time Spent with Patient Time Spent with Patient: 35-49 minutes Time was spent: preparing to see the patient(eg.review tests), obtaining and/or reviewing separately otained hiistory, ordering medications,tests, procedures, referring, communicating with other health emergency care attendant, indepentently interpreting results, counseling the patient and care coordination
[2022-04-13] MEDS: Melatonin 3 MG TAB 6 MG PO (20:24)
[2022-04-13] MEDS: Mylanta Suspension 30 ML CUP PO (20:30)
[2022-04-13] MEDS: Zolpidem 5 MG TAB PO (21:03)
[2022-04-14] VITALS (9 sets, daily range): BP systolic 93–118; BP diastolic 61–73; PULSE 64–126; RESP 14–18; TEMP 36.1–36.9; O2SAT 97–99
[2022-04-14 06:07] LABS: Abs Immature Grans 0.02 10^3/uL (0.0-0.06); Absolute Basophil Count 0.02 10^3/uL (0.0-0.2); Absolute Eosinophil Count 0.09 10^3/uL (0.0-0.7); Absolute Lymphocyte Count 1.93 10^3/uL (1.2-3.4); Absolute Neutrophil Count 4.42 10^3/uL (1.2-6.7); Basophils % 0.3; Eosinophils % 1.3; HCT 40.2 % (36.0-46.0); Immature Grans % 0.3; Lymphocytes % 27.7; MCH 29.5 pg (27.0-33.0); MCHC 32.3 % (32.0-36.0); MCV 91 fL (80-95); MPV 10.8 fL (8.0-11.0); Monocytes % 7.2; Neutrophils % 63.2; Platelet Count 102 10^3/uL (130-400); RDW 15.9 % (11.7-14.6); RDW-SD 53.7 fL; WBC 6.98 10^3/uL (4.4-10.8)
[2022-04-14 06:22] LABS: Anion Gap 6.2 mmol/L (3-11); BUN 25 mg/dL (7-18); CO2 28.8 mmol/L (21.0-32.0); CREATININE 1.5 mg/dL (0.55-1.02); Calcium 8.8 mg/dL (8.5-10.1); Chloride 106 mmol/L (98-107); Estimated GFR 35.45 (mL/min/1.73m2); Glucose 98 mg/dL (74-106); Magnesium 1.9 mg/dL (1.8-2.4); Potassium 3.7 mmol/L (3.5-5.1); Sodium 141 mmol/L (136-145)
--- NOTE | 2022-04-14 08:20 | NUR.NOTE ---
Nursing Note: Accessed patient chart to determine how many EKG orders were in the chart from the ED. There was an outstanding EKG in ordered status. There are no EKG's in the [employer] system that are outstanding. EKG order was deleted.
[2022-04-14] MEDS: Metoprolol 5 MG/5 ML VIAL 2.5 MG IVP (08:25)
[2022-04-14] MEDS: Atorvastatin 40 MG TAB PO (08:27)
[2022-04-14] MEDS: ARIPiprazole 2 MG TAB PO (08:27)
[2022-04-14] MEDS: Apixaban 5 MG TAB PO ×2 (08:27→19:22)
[2022-04-14] MEDS: Normal Saline Flush 10 ML SYR IVP (08:27)
[2022-04-14] MEDS: Aspirin E.C. 81 MG TABEC PO (08:27)
[2022-04-14] MEDS: buPROPion-CR 150 MG TABCR 300 MG PO (08:28)
[2022-04-14] MEDS: Metoprolol CR 25 MG TABCR PO (08:29)
[2022-04-14] MEDS: Omeprazole 20 MG CAPCR PO (08:29)
[2022-04-14] MEDS: Ferrous Gluconate 324 MG TAB PO (08:29)
[2022-04-14] MEDS: Levothyroxine 25 MCG TAB PO (08:29)
[2022-04-14] MEDS: Acetaminophen 325 MG TAB PO (08:56)
[2022-04-14] MEDS: Cyanocobalamin 500 MCG TAB 1000 MCG PO (08:56)
--- NOTE | 2022-04-14 11:00 | W.PM.PROGNOT ---
Date of Service Date of service: 04/14/22 Time of Service: 11:00 Assessment and Plan Assessment and plan (1) A-fib: Status: Chronic Assessment and plan: admit to telemetry Afib 80's-110's rate controlled will continue home metoprolol anticoagulated on apixaban Increased HR overnight - one dose of metoprolol 2.5 mg given and HR has been below 100 bpm - she has not had any complaints of CP, SOB or palpitaitons. (2) Dehydration: Status: Acute Assessment and plan: Oral fluids - bustamante catheter s/t decreased UO and retention Encourage oral fluids - she does not drink much without prompting even though it is infront of her and available. (3) Weakness: Status: Acute Assessment and plan: Continues to feel weak; oral fluids, she is eating well, encourage oral fluids. (4) Renal insufficiency: Assessment and plan: Creatinine is 1.5 today - improved from yesterday - she has chronic renal insufficiency stage 3a. (5) Hypothyroid: Assessment and plan: TSH 1.66, continue outpatient levothyroxine (6) CAD (coronary artery disease): Assessment and plan: continue statin, beta carmela and ASA. (7) Hypokalemia: Status: Resolved Assessment and plan: K+ 3.7 today on spironalactone and furosemide - both held repeat levels in am (8) DVT prophylaxis: Status: Deleted Assessment and plan: On apixaban. (9) Discharge planning issues: Status: Deleted Assessment and plan: Planning to d/c to SNF for rehab; she lives alone, she is in agreement with this plan, as is her daughter. discussed with Dr Jonas Subjective Subjective Patient reports: no new complaints, pain is less, tolerating a regular diet, voiding w/o difficulty, bowel movement and afebrile; denies diarrhea, blood in stool, nausea, vomiting or shortness of breath Interval history since last seen: Arlin reports feeling better today, she states she feels stronger and agrees that SNF would benefit her and is willing to go. Care mgrs are working on referrals. Exam Const General: cooperative, comfortable and no acute distress Nutritional Appearance: well nourished and obese Orientation: alert, awake and oriented x3 HENMT Head: normal to inspection Eyes Conjunctivae: normal conjunctivae Sclera: normal sclerae Neck Neck: trachea midline and supple Resp Effort & Inspection: normal respiratory effort and able to speak in complete sentences Auscultation: no rhonchi and no wheezes Cardio Rhythm: abnormal rhythm irregularly irregular GI Palpation: soft, no guarding, no masses and nontender Neuro General: patient alert, patient awake and patient oriented x3 Extrem General: normal to inspection, full ROM, no calf tenderness, no cyanosis and no edema Psych Appearance: grossly normal Mental Status: mental status grossly normal Objective Last Vital Signs Temp 36.6 C 04/14/22 08:01 Pulse 126 H 04/14/22 08:25 Resp 18 04/14/22 08:01 BP 118/73 04/14/22 08:25 Pulse Ox 97 04/14/22 08:01 Laboratory Results - last 24 hr 04/14/22 04/14/22 05:40 05:40 WBC 6.98 RBC 4.40 Hgb 13.0 Hct 40.2 MCV 91 MCH 29.5 MCHC 32.3 RDW 15.9 H Plt Count 102 L MPV 10.8 Immature Gran % 0.3 Neutrophils % 63.2 Lymphocytes % 27.7 Monocytes % 7.2 Eosinophils % 1.3 Basophils % 0.3 Nucleated RBC % 0.0 Absolute Neutrophils 4.42 Absolute Lymphocytes 1.93 Absolute Monocytes 0.50 Absolute Eosinophils 0.09 Absolute Basophils 0.02 Sodium 141 Potassium 3.7 D Chloride 106 Carbon Dioxide 28.8 Anion Gap 6.2 BUN 25 H Creatinine 1.5 H Est GFR (CKD-EPI 2020) 35.45 Glucose 98 Calcium 8.8 Magnesium 1.9 Reviewed Pertinent PMH: Yes Time Spent with Patient Time Spent with Patient: 25-34 minutes Time was spent: preparing to see the patient(eg.review tests), obtaining and/or reviewing separately otained hiistory, ordering medications,tests, procedures, referring, communicating with other health physician assistant primary care, indepentently interpreting results, counseling the patient and care coordination
[2022-04-14] MEDS: Calcium 600mg/Vit D 200U TAB 1 TAB PO (11:50)
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
--- NOTE | 2022-04-14 12:39 | PDOC.CMPRO ---
- If Service Date Differs Date of service: 04/14/22 Time of Service: 12:39 Care Management Progress Note S/O: Arlin was sitting up in her bed when CM met with her. She stated that she is feeling ok, except she still feels very weak. She stated that she would like to go to short term rehab to get stronger prior to returning home, as she lives alone. Arlin requested that a referral be sent to [facility]. Later, CM met with Arlin again with her daughter, Cass. CM discussed potential barriers to placement, such as her observation stay, although some facilities can apply for a waiver of the three night inpatient stay rule. CM sent the referral to [facility], who responded with a potential bed offer, pending insurance approval. CM also discussed with Arlin and Cass the alternative option for Arlin to return home with services, if her insurance does not approve the short term rehab stay. CM will continue to follow. A: Arlin is a 76 year old female admitted to [facility] on 04/12/22 for weakness. P: Arlin has been accepted at [facility] for short term rehab, pending insurance approval. She will likely transfer via facility w/c van, once she is medically ready for discharge. She will follow up with her PCP and discharge plan of care. CM will continue to follow.
[2022-04-14 18:38] LABS: Source Nasal/Nares
[2022-04-14 19:26] LABS: COVID-19 PCR Negative (Negative)
[2022-04-14] MEDS: Zolpidem 5 MG TAB PO (21:56)
[2022-04-14] MEDS: Melatonin 3 MG TAB 6 MG PO (21:56)
[2022-04-15 01:38] VITALS: PULSE 84
[2022-04-15] MEDS: Levothyroxine 25 MCG TAB PO (06:19)
[2022-04-15 06:30] LABS: Abs Immature Grans 0.04 10^3/uL (0.0-0.06); Absolute Basophil Count 0.04 10^3/uL (0.0-0.2); Absolute Lymphocyte Count 2.22 10^3/uL (1.2-3.4); Absolute Neutrophil Count 3.81 10^3/uL (1.2-6.7); Basophils % 0.6; Eosinophils % 1.5; HCT 40.6 % (36.0-46.0); HGB 12.9 g/dL (11.2-15.7); Immature Grans % 0.6; Lymphocytes % 33.1; MCH 29.4 pg (27.0-33.0); MCHC 31.8 % (32.0-36.0); MCV 93 fL (80-95); MPV 10.5 fL (8.0-11.0); Monocytes % 7.5; Neutrophils % 56.7; Platelet Count 110 10^3/uL (130-400); RBC 4.39 10^6/uL (3.93-5.22); RDW 16.2 % (11.7-14.6); RDW-SD 55.3 fL; WBC 6.71 10^3/uL (4.4-10.8)
[2022-04-15 06:39] LABS: Anion Gap 4.9 mmol/L (3-11); BUN 27 mg/dL (7-18); CO2 28.1 mmol/L (21.0-32.0); CREATININE 1.4 mg/dL (0.55-1.02); Calcium 8.7 mg/dL (8.5-10.1); Chloride 108 mmol/L (98-107); Estimated GFR 38.51 (mL/min/1.73m2); Glucose 100 mg/dL (74-106); Magnesium 2.1 mg/dL (1.8-2.4); Potassium 3.9 mmol/L (3.5-5.1); Sodium 141 mmol/L (136-145)
[2022-04-15 07:19] VITALS: BP 102/64; PULSE 87; RESP 16; TEMP 35.9; O2SAT 97
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
[2022-04-15] MEDS: Atorvastatin 40 MG TAB PO (09:14)
[2022-04-15] MEDS: ARIPiprazole 2 MG TAB PO (09:14)
[2022-04-15] MEDS: Aspirin E.C. 81 MG TABEC PO (09:14)
[2022-04-15] MEDS: Apixaban 5 MG TAB PO (09:14)
[2022-04-15] MEDS: Cyanocobalamin 500 MCG TAB 1000 MCG PO (09:15)
[2022-04-15] MEDS: Metoprolol CR 25 MG TABCR PO (09:15)
[2022-04-15] MEDS: Ferrous Gluconate 324 MG TAB PO (09:15)
[2022-04-15] MEDS: buPROPion-CR 150 MG TABCR 300 MG PO (09:15)
[2022-04-15] MEDS: Calcium 600mg/Vit D 200U TAB 1 TAB PO (09:15)
[2022-04-15] MEDS: Omeprazole 20 MG CAPCR PO (09:16)
[2022-04-15] MEDS: Normal Saline Flush 10 ML SYR IVP (09:16)
--- NOTE | 2022-04-15 10:43 | PT.INTREAT ---
Date of service: 04/15/22 Time of Service: 09:18 PT Notes Visit Reasons: Weak Inpatient Physical Therapy Treatment Note [facility] Date: 04/15/2022 PRECAUTIONS: Fall, activity as tolerated SUBJECTIVE: Arlin is pleasant and agreeable to participating in PT this morning. She reports that she continues to feel weak and feels that she would benefit from SNF-level rehab placement prior to returning to home where she lives alone. OBJECTIVE: PAIN: No c/o pain BED MOBILITY/TRANSFERS Sit-stand: SBA Stand-sit: SBA GAIT Assistive Device: FWW Weight bearing: Full Assist: SBA Distance: 60' x2 Deviation: Slow pacing, cueing for increased step height/length, seated rest x1, c/o increased fatigue ASSESSMENT: Patient tolerated session with complaint of increased fatigue, although was able to tolerate a progression in gait distance with FWW support and seated rest x1. She continues to demonstrates global weakness and deconditioning. PLAN: Patient to discharge to SNF-level rehab today, per provider. TREATMENT CODE/TIME: 24 minutes; 83197 x2 (09:18)
[2022-04-15 11:06] VITALS: BP 92/69; PULSE 88; RESP 16; TEMP 36.5; O2SAT 100
[2022-04-15 11:28] VITALS: PULSE 77
--- NOTE | 2022-04-15 11:36 | NUR.NOTE ---
Nursing Note: report called to Tawny at [facility].
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
[2022-04-15 12:17] VITALS: PULSE 89
--- NOTE | 2022-04-15 12:52 | PDOC.CMDIS ---
- If Service Date Differs Date of service: 04/15/22 Time of Service: 12:52 LACE Index Scoring Tool - Questions: Length of Stay (in days): 3 Acuity (Admit via E.D.?): Yes Comorbidities: Previous M.I., Congestive Heart Failure E.D. Visits: 11 - Answers: Total Score: 13 Risk of Readmission: High Risk Care Management Discharge Reason for Hospitalization: Weakness. Discharge Plan: Arlin will transfer to [facility] today for short term rehab prior to returning home. She will transport via facility w/c van, coordinated by CM. She will follow up with her PCP and discharge plan of care. She is happy to be going to rehab. Patient/Family Education Needs: Review discharge instructions and limitations, discussion of self care needs including ask me three. Services Needed at Discharge: [facility] Facility ([facility]), Transportation (facility w/c van)
--- NOTE | 2022-04-15 14:57 | PT.INDS ---
PT Notes Visit Reasons: Weak Inpatient Physical Therapy Discharge Summary Date: 04/15/22 Dates of Service: 04/14/22 through 04/15/22 This is a clinical summary of care provided for the duration of dates listed above. No charge was made in the completion of this documentation. Referring Doctor:Tha Ramirez NP PT Orders: PT CONSULT: Non-urgent, limited ability Precautions: Standard, fall risk Patient Profile/Admitting Diagnosis:??76-year-old female presented to the [facility] emergency department with report of weakness, confusion, and fall on 04/12.?Normal CT of the head, chest abdomen and pelvis. She was admitted to the medical floor for IV fluids and further evaluation. Diagnosis of A-Fib and dehydration. Assessment: Patient discharged by attending physician and transferred to [facility] today for short term rehab prior to returning home. Was able to ambulate 60' x2 with FWW. Goals: Goals X1 week 1. Supine-Sit close supervision - Not met 2. Sit-Supine close supervision - Not met 3. Sit-Stand close supervision at RW - SBA 4. Stand-Sit close supervision at RW - SBA 5. Bed-Chair close supervision at RW - Not tested 6. Chair-Bed close supervision at RW - Not tested 7. Gait close supervision 50 ft, household distance, fair balance - Met 8. Independent with home exercise program - None given TREATMENT CODE/TIME: No charge Thank you for the opportunity to participate in the care of this patient.
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
== END 2022-04-15 12:40 | disposition skilled nursing facility (03) ==
LOC: ER 15:48 → MS 16:45
PROVIDERS: Nurse Practitioner Family; Admitting Provider Internal Medicine; Emergency Provider Physician Assistant; PCP Family Medicine; Visit Provider Internal Medicine
DX: E86.0 Dehydration (principal); I48.20 Chronic atrial fibrillation, unspecified; R53.1 Weakness; I50.32 Chronic diastolic (congestive) heart failure; I25.2 Old myocardial infarction; Z79.01 Long term (current) use of anticoagulants; N18.31 Chronic kidney disease, stage 3a; E03.9 Hypothyroidism, unspecified; E87.6 Hypokalemia; I25.10 Atherosclerotic heart disease of native coronary artery without angina pectoris; Z20.822 Contact with and (suspected) exposure to COVID-19; R41.0 Disorientation, unspecified; N28.9 Disorder of kidney and ureter, unspecified; F41.9 Anxiety disorder, unspecified; F32.A Depression, unspecified; R29.6 Repeated falls; I34.0 Nonrheumatic mitral (valve) insufficiency; K57.30 Diverticulosis of large intestine without perforation or abscess without bleeding; Z79.899 Other long term (current) drug therapy; W19.XXXA Unspecified fall, initial encounter; R33.9 Retention of urine, unspecified
CPT/HCPCS: 36415; 51701; 74177; 80048; 80053; 82550; 84145; 86900; 86901; 87040; 87635; 87637; 93005; 96361; 96365; 96366; 96375; 96376; 97163; 97166; 97530; 97535; 99285; 70450; 71260; 72125; 81003; 83605; 83735; 83880; 84443; 84484; 85025; 93010; 99232; 99239; G0378; J1956; J3480; J3490

== ENCOUNTER → 2022-04-29 13:26 | Outpatient (BNVA) | payer OTHER, MEDICAID, SELFPAY | PROVIDERS: PCP Family Medicine; Referring Provider Family Medicine; Visit Provider Student in an Organized Health Care Education/Training Program | DX: M12.811 Other specific arthropathies, not elsewhere classified, right shoulder (principal) | CPT/HCPCS: 99203; 99213 ==

== ENCOUNTER 2022-05-14 15:29 | Outpatient (REF) | payer OTHER, MEDICAID, SELFPAY ==
[2022-05-14 20:27] LABS: Iron 47 ug/dL (50-170); Total Iron Binding Capacity 272 ug/dL (250-450); Transferrin Sat 17 % (15-50)
[2022-05-14 20:34] LABS: ALT 19 U/L (14-59); AST 21 U/L (15-37); Albumin 3.1 g/dL (3.4-5.0); Alkaline Phosphatase 112 U/L (46-116); Anion Gap 9.5 mmol/L (3-11); BUN 14 mg/dL (7-18); Bilirubin, Total 0.5 mg/dL (0.2-1.0); CO2 28.5 mmol/L (21.0-32.0); CREATININE 1.5 mg/dL (0.55-1.02); Calcium 8.7 mg/dL (8.5-10.1); Calculated LDL 70 mg/dL (<100); Chloride 103 mmol/L (98-107); Cholesterol 148 mg/dL (<200); Estimated GFR 35.45 (mL/min/1.73m2); Ferritin 199 ng/mL (8-252); Glucose 111 mg/dL (74-106); HDL Cholesterol 64 mg/dL (40-60); Magnesium 2.3 mg/dL (1.8-2.4); Potassium 3.5 mmol/L (3.5-5.1); Sodium 141 mmol/L (136-145); Total Protein 6.8 g/dL (6.4-8.2); Triglyceride 72 mg/dL (<150)
[2022-05-14 20:57] LABS: NT-proBNP 5663 pg/mL (<300)
== END 2022-05-14 15:30 | disposition home or self-care (01) ==
LOC: NCHCN 15:29
PROVIDERS: PCP Family Medicine; Visit Provider Family Medicine
DX: N18.30 Chronic kidney disease, stage 3 unspecified (principal); Z86.2 Personal history of diseases of the blood and blood-forming organs and certain disorders involving the immune mechanism; R60.0 Localized edema; I10 Essential (primary) hypertension; I50.9 Heart failure, unspecified; R74.8 Abnormal levels of other serum enzymes; I25.10 Atherosclerotic heart disease of native coronary artery without angina pectoris
CPT/HCPCS: 80053; 80061; 82728; 83540; 83550; 83735; 83880

== ENCOUNTER → 2022-05-16 11:00 | Outpatient (BNVA) | payer OTHER, MEDICAID, SELFPAY | PROVIDERS: PCP Family Medicine; Visit Provider Internal Medicine Cardiovascular Disease | DX: I48.21 Permanent atrial fibrillation (principal); Z79.01 Long term (current) use of anticoagulants; Z91.14 Patient's other noncompliance with medication regimen; I50.32 Chronic diastolic (congestive) heart failure; I34.0 Nonrheumatic mitral (valve) insufficiency | CPT/HCPCS: 99214 ==

== ENCOUNTER → 2022-06-19 09:33 | Outpatient (BNVA) | payer OTHER, MEDICAID, SELFPAY | PROVIDERS: PCP Family Medicine; Referring Provider Family Medicine; Visit Provider Internal Medicine Cardiovascular Disease | DX: I48.91 Unspecified atrial fibrillation (principal); I50.32 Chronic diastolic (congestive) heart failure; Z79.01 Long term (current) use of anticoagulants | CPT/HCPCS: 99212; 99213 ==

== ENCOUNTER 2022-06-26 01:52 | Outpatient (CLI) | payer OTHER, MEDICAID, SELFPAY ==
--- NOTE | 2022-06-26 10:40 | DI.MRI_ITS ---
Exam(s) MR UPPER JOINT RT WO EXAM: MR UPPER JOINT RT WO CLINICAL HISTORY: ? RTC TEAR,RT SHOULDER ARTHROPATHY,M12.811 TECHNIQUE: Multiplanar multisequence MRI of the shoulder was performed. COMPARISON: CR XR SHOULDER RT COMPLETE 2+V from 01/21/2022 FINDINGS: There is significant motion artifact on all sequences MARROW:There is no evidence fracture but there is prominent bone edema in the humeral head and neck a nd osseous glenoid and there is an element of upward subluxation of the humeral head and diminution o f the subacromial space. ROTATOR CUFF MECHANISM: AC JOINT/ACROMIUM: Mild degenerative changes in the AC joint.. There is no evidence of os acromiale. Supraspinatus: There is a large full-thickness tear of the supraspinatus with retraction musculotendi nous junction to the medial 3rd of the humeral head. There is significant atrophy of the supraspinat us muscle belly. Infraspinatus: Mostly intact but also exhibits significant atrophy of the muscle belly. Teres Minor: Intact. No evidence of tear nor muscle atrophy. Subscapularis/anterior cuff: Full-thickness tearing. Atrophy. BICEPS TENDON: Not identified within the intertubercular groove although this may be related to motio n. Nevertheless, significantly attenuated. LABRUM: Superior labrum is torn. Posterior labrum somewhat deficient. Anterior labrum is torn. Inf erior labrum deficient. GLENOHUMERAL JOINT: Prominent joint effusion and prominent synovial thickening. Joint effusion is in continuity with the subacromial space and subdeltoid bursal space. Significant cartilage loss but n o prominent osteophytes. IMPRESSION: 1. There is high-grade full-thickness tearing and retraction of the supraspinatus as well as the ante rior cuff-subscapularis. Significant atrophy of these 2 muscles evident. The infraspinatus tendon a ppears intact but the muscle is atrophied. 2. There is superior subluxation of the humeral head in the osseous glenoid with abundant bone edema in the humeral head and neck and osseous glenoid. 3. There is a moderate size glenohumeral joint effusion which is in continuity with the subacromial/s ubdeltoid bursa space and there is significant synovial thickening in the glenohumeral joint. 4. Significant cartilage loss multilevel labral tearing and deficiency. The biceps tendon does also difficult to identify possibly related to the amount of motion here but most probably also related t o tearing of this structure. DATA REPOSITORY:
== END 2022-06-26 02:12 ==
PROVIDERS: PCP Family Medicine; Visit Provider Student in an Organized Health Care Education/Training Program
DX: M75.121 Complete rotator cuff tear or rupture of right shoulder, not specified as traumatic (principal)
CPT/HCPCS: 73221

== ENCOUNTER → 2022-07-08 09:51 | Outpatient (BNVA) | payer OTHER, MEDICAID, SELFPAY | PROVIDERS: PCP Family Medicine; Referring Provider Family Medicine; Visit Provider Student in an Organized Health Care Education/Training Program | DX: M12.811 Other specific arthropathies, not elsewhere classified, right shoulder (principal) | CPT/HCPCS: 20610; 99213; J1030 ==

== ENCOUNTER 2022-07-10 09:31 | Emergency (ER) | payer OTHER, MEDICAID, SELFPAY ==
[2022-07-10 09:54] VITALS: BP 118/84; PULSE 85; RESP 18; TEMP 36.1; O2SAT 100
--- NOTE | 2022-07-10 10:00 | DI.US_ITS ---
Exam(s) US EXTREMITY VENOUS BI EXAM: US EXTREMITY VENOUS BI CLINICAL HISTORY: bilateral leg swelling, r/o dvt. TECHNIQUE: Bilateral lower extremity venous ultrasound performed using grayscale, color-flow, and sp ectral Doppler analysis. COMPARISON: No exams were available for comparison FINDINGS: The right common femoral, femoral and popliteal veins demonstrate normal compressibility, augmentatio n, and color Doppler. The posterior tibial and peroneal veins are patent but not adequately visualize d to exclude nonocclusive thrombus. The saphenofemoral junction is unremarkable. There is no eviden ce of a Lopez's cyst. There is edema seen in the soft tissues bilaterally. The left common femoral, femoral and popliteal veins demonstrate normal compressibility, augmentation , and color Doppler. The posterior tibialis veins are patent. The peroneal veins are not adequately visualized. The saphenofemoral junction is unremarkable. There is no evidence of a Lopez's cyst. Th ere is edema seen in the soft tissues bilaterally. IMPRESSION: 1. Within the limitations of the examination, there is no evidence of a lower extremity DVT. 2. Findings were discussed with the emergency department at 12:05 p.m. on 07/10/2022. DATA REPOSITORY:
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
[2022-07-10 12:57] LABS: Abs Immature Grans 0.02 10^3/uL (0.0-0.06); Absolute Basophil Count 0.05 10^3/uL (0.0-0.2); Absolute Eosinophil Count 0.12 10^3/uL (0.0-0.7); Absolute Lymphocyte Count 1.65 10^3/uL (1.2-3.4); Absolute Monocyte Count 0.37 10^3/uL (0.1-0.8); Absolute Neutrophil Count 3.74 10^3/uL (1.2-6.7); Basophils % 0.8; HCT 37.8 % (36.0-46.0); HGB 11.6 g/dL (11.2-15.7); Immature Grans % 0.3; Lymphocytes % 27.7; MCH 30.2 pg (27.0-33.0); MCHC 30.7 % (32.0-36.0); MCV 98 fL (80-95); MPV 10.7 fL (8.0-11.0); Monocytes % 6.2; Platelet Count 142 10^3/uL (130-400); RBC 3.84 10^6/uL (3.93-5.22); RDW 14.9 % (11.7-14.6); RDW-SD 53.9 fL; WBC 5.95 10^3/uL (4.4-10.8)
[2022-07-10 13:17] LABS: ALT 33 U/L (14-59); AST 30 U/L (15-37); Albumin 3.4 g/dL (3.4-5.0); Alkaline Phosphatase 121 U/L (46-116); Anion Gap 7.7 mmol/L (3-11); BUN 41 mg/dL (7-18); Bilirubin, Total 0.5 mg/dL (0.2-1.0); CO2 28.3 mmol/L (21.0-32.0); CREATININE 1.6 mg/dL (0.55-1.02); Chloride 106 mmol/L (98-107); Estimated GFR 32.81 (mL/min/1.73m2); Glucose 80 mg/dL (74-106); Sodium 142 mmol/L (136-145); Total Protein 7.4 g/dL (6.4-8.2)
[2022-07-10] MEDS: Furosemide 20 MG TAB 40 MG PO (14:13)
[2022-07-10] MEDS: Furosemide 20 MG TAB PO (14:13)
--- NOTE | 2022-07-10 15:01 | NUR.NOTE ---
Nursing Note: Referral faxed to PCP for follow up leg swelling, ThursdayJuly 14
== END 2022-07-10 14:22 | disposition home or self-care (01) ==
PROVIDERS: Emergency Provider Physician Assistant; PCP Family Medicine
DX: R60.9 Edema, unspecified (principal)
CPT/HCPCS: 36415; 80053; 99284; 85025; 93970; 99283

== ENCOUNTER 2022-08-03 18:47 | Outpatient (REF) | payer OTHER, MEDICAID, SELFPAY ==
[2022-08-03 19:05] LABS: Anion Gap 10.1 mmol/L (3-11); BUN 43 mg/dL (7-18); CO2 29.9 mmol/L (21.0-32.0); CREATININE 1.8 mg/dL (0.55-1.02); Calcium 8.8 mg/dL (8.5-10.1); Chloride 105 mmol/L (98-107); Estimated GFR 28.48 (mL/min/1.73m2); Glucose 88 mg/dL (74-106); Potassium 3.8 mmol/L (3.5-5.1); Sodium 145 mmol/L (136-145)
== END 2022-08-03 18:48 | disposition home or self-care (01) ==
LOC: NCHCN 18:47
PROVIDERS: PCP Family Medicine; Visit Provider Family Medicine
DX: N18.30 Chronic kidney disease, stage 3 unspecified (principal); R60.0 Localized edema
CPT/HCPCS: 80048

== ENCOUNTER 2022-08-06 10:05 | Outpatient (CLI) | payer OTHER, MEDICAID, SELFPAY ==
--- NOTE | 2022-08-06 | DI.RAD_ITS ---
Exam(s) XR TOE LT GREAT EXAM: XR TOE LT GREAT CLINICAL HISTORY: LEFT TOE PAIN-[id number]. TECHNIQUE: 2D digital imaging was performed. COMPARISON: No exams were available for comparison FINDINGS: BONES: No acute fracture is present. No bony destructive lesion is seen. There is a prior amputatio n of the distal phalanx of the great toe. JOINTS: There is no dislocation. There are degenerative changes seen in the foot characterized by rylie int space narrowing and bony hypertrophy. The findings are most marked at the articulation of the na vicular and the medial cuneiform and the 1st and 2nd metatarsophalangeal joints. SOFT TISSUE: Normal. IMPRESSION: 1. No radiographic findings to suggest osteomyelitis. 2. Degenerative changes in the foot. 3. 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 DATA REPOSITORY: RADIATION DOSE DELIVERED:
== END 2022-08-06 10:25 ==
LOC: DI 10:12
PROVIDERS: PCP Family Medicine; Visit Provider Physician Assistant
DX: M19.072 Primary osteoarthritis, left ankle and foot
CPT/HCPCS: 73660

== ENCOUNTER 2022-08-08 12:00 | Observation (INO) | payer OTHER, MEDICAID, SELFPAY ==
[2022-08-08] VITALS (54 sets, daily range): BP systolic 95–128; BP diastolic 58–85; PULSE 55–156; RESP 0–27; TEMP 36–36.8; O2SAT 96–100
--- NOTE | 2022-08-08 11:45 | RT.EKG_ITS ---
APPROVED REPORT Exam: Resting ECG Reason for Exam: Chest pain Patient Location: E HR:91 bpm ECG Measurements Heart Rate 91 AXIS TN [id number] P [id number] QRSd 95 QRS -6 QT 388 T 69 QTc 479 Conclusion Atrial fibrillation...? atrial activity Nonspecific T abnormalities, lateral leads...T <-0.10mV, I aVL V5 V6
[2022-08-08 12:39] LABS: Abs Immature Grans 0.03 10^3/uL (0.0-0.06); Absolute Basophil Count 0.04 10^3/uL (0.0-0.2); Absolute Eosinophil Count 0.12 10^3/uL (0.0-0.7); Absolute Lymphocyte Count 1.92 10^3/uL (1.2-3.4); Absolute Monocyte Count 0.56 10^3/uL (0.1-0.8); Absolute Neutrophil Count 4.41 10^3/uL (1.2-6.7); Basophils % 0.6; Eosinophils % 1.7; HCT 42.1 % (36.0-46.0); HGB 13.3 g/dL (11.2-15.7); Immature Grans % 0.4; Lymphocytes % 27.1; MCHC 31.6 % (32.0-36.0); MCV 92 fL (80-95); Monocytes % 7.9; Neutrophils % 62.3; Platelet Count 144 10^3/uL (130-400); RBC 4.59 10^6/uL (3.93-5.22); RDW 14.6 % (11.7-14.6); RDW-SD 49.3 fL; WBC 7.08 10^3/uL (4.4-10.8)
--- NOTE | 2022-08-08 12:45 | DI.RAD_ITS ---
Exam(s) XR CHEST 2V PA LATERAL EXAM: XR CHEST 2V PA LATERAL CLINICAL HISTORY: chest pain TECHNIQUE: 2D digital imaging was performed of the chest. Two images were obtained. PA and lateral views were obtained. COMPARISON: CR,XR XR CHEST 2V PA LATERAL from 01/10/2022 FINDINGS: MEDIASTINUM: Normal. HEART: Upper limits of normal in size. PULMONARY VASCULATURE: Normal. LUNGS: Clear. PLEURAL SPACE: No pleural effusion or pneumothorax. BONE:Within normal limits for the patient's age. OTHER FINDINGS:Normal. IMPRESSION: No acute pulmonary findings. DATA REPOSITORY: RADIATION DOSE DELIVERED:
[2022-08-08 12:51] LABS: INR 1.1 (0.9-1.1); PTT Activated 28.8 sec (21.5-31.9); Prothrombin Time 10.9 sec (9.3-11.0)
[2022-08-08] MEDS: Acetaminophen 500 MG TAB PO (12:51)
[2022-08-08] MEDS: Mylanta Suspension 30 ML CUP PO (12:51)
[2022-08-08 13:00] LABS: ALT 26 U/L (14-59); AST 37 U/L (15-37); Albumin 3.1 g/dL (3.4-5.0); Alkaline Phosphatase 113 U/L (46-116); Anion Gap 8.1 mmol/L (3-11); BUN 38 mg/dL (7-18); Bilirubin, Total 0.6 mg/dL (0.2-1.0); CO2 27.9 mmol/L (21.0-32.0); CREATININE 1.6 mg/dL (0.55-1.02); Calcium 8.5 mg/dL (8.5-10.1); Chloride 106 mmol/L (98-107); Estimated GFR 32.81 (mL/min/1.73m2); Glucose 93 mg/dL (74-106); Magnesium 2.4 mg/dL (1.8-2.4); Potassium 4.2 mmol/L (3.5-5.1); Sodium 142 mmol/L (136-145); Total Protein 7.2 g/dL (6.4-8.2); Troponin I < 50 ng/L (<or=60)
[2022-08-08 13:04] LABS: NT-proBNP 2040 pg/mL (<300)
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
[2022-08-08 16:01] LABS: Troponin I < 50 ng/L (<or=60)
--- NOTE | 2022-08-08 16:45 | W.EDPROG ---
Date of service: 08/08/22 Time of Service: 16:45 Medical Decision Making Care signed out by DARYN Bautista with plan to follow-up on delta troponin reassess patient for disposition. Troponin negative. EKG shows atrial fibrillation 91 bpm with nonspecific T wave abnormalities, flattening lateral leads. Patient has heart score of 5 which is moderate. Plan to hospitalize as observation, plan for serial enzymes and continued cardiac monitoring. I spoke with hospitalist, discussed ED presentation and course, they will admit the patient. Sign Out Sign Out Data: Sign Out Comment: Patient signed out pending second Trop with suspicion of outpatient follow-up for further investigation of patient's substernal chest pain Last updated by Adan Bautista NP at 08/08/22 15:43 Discharge Plan Disposition Patient Disposition: Admit to [facility] Condition: Serious Discharge Details Clinical Impression: Chest pain Admit Date/Time: 08/08/22 17:05 Admit Provider: Nino Pineda Attending Provider: Nino Pineda Primary Care Provider: Hemanth Chaudhary ED Provider: Lamberto Song Discharge Data Discharge Date/Time-TO BE ENTERED AT DEPARTURE: 08/08/22 18:04
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
[2022-08-08] MEDS: Torsemide 20 MG TAB PO (19:43)
[2022-08-08] MEDS: Metoprolol CR 25 MG TABCR PO (19:43)
[2022-08-08] MEDS: Apixaban 5 MG TAB PO (19:44)
[2022-08-08 20:30] LABS: Troponin I < 50 ng/L (<or=60)
[2022-08-08] MEDS: Melatonin 3 MG TAB 5 MG PO (22:10)
[2022-08-09 03:57] VITALS: BP 110/75; PULSE 78; RESP 18; TEMP 36.5; O2SAT 98
[2022-08-09 07:17] VITALS: PULSE 75
[2022-08-09 07:31] VITALS: BP 91/61; PULSE 84; TEMP 35.9; O2SAT 98
[2022-08-09] MEDS: ARIPiprazole 2 MG TAB PO (07:44)
[2022-08-09] MEDS: Atorvastatin 40 MG TAB PO (07:44)
[2022-08-09] MEDS: Spironolactone 25 MG TAB PO (07:44)
[2022-08-09] MEDS: Aspirin E.C. 81 MG TABEC PO (07:44)
[2022-08-09] MEDS: Apixaban 5 MG TAB PO (07:45)
[2022-08-09] MEDS: Metoprolol CR 25 MG TABCR PO (07:45)
[2022-08-09] MEDS: Empaglifozin 10 MG TAB PO (07:45)
[2022-08-09] MEDS: Acetaminophen 325 MG TAB PO (07:45)
[2022-08-09] MEDS: Omeprazole 20 MG CAPCR PO (07:49)
[2022-08-09] MEDS: Normal Saline Flush 10 ML SYR IVP (07:49)
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
[2022-08-09 09:28] VITALS: PULSE 85
[2022-08-09 10:59] VITALS: BP 107/67; PULSE 72; O2SAT 99
== END 2022-08-09 11:22 | disposition home or self-care (01) ==
LOC: ER 17:42 → MS 18:05
PROVIDERS: Nurse Practitioner Family; Admitting Provider Family Medicine; Emergency Provider Student in an Organized Health Care Education/Training Program; PCP Family Medicine; Visit Provider Family Medicine
DX: I48.91 Unspecified atrial fibrillation (principal); R07.89 Other chest pain; I50.32 Chronic diastolic (congestive) heart failure; Z79.01 Long term (current) use of anticoagulants; Z79.899 Other long term (current) drug therapy; I11.0 Hypertensive heart disease with heart failure; I27.20 Pulmonary hypertension, unspecified; R41.89 Other symptoms and signs involving cognitive functions and awareness; R53.1 Weakness; I25.2 Old myocardial infarction; I25.10 Atherosclerotic heart disease of native coronary artery without angina pectoris; F32.A Depression, unspecified; R29.6 Repeated falls; F41.9 Anxiety disorder, unspecified; M47.816 Spondylosis without myelopathy or radiculopathy, lumbar region
CPT/HCPCS: 36415; 80053; 93005; 99285; 71046; 83735; 83880; 84484; 85025; 85610; 85730; 93010; 99222; 99238; G0378

== ENCOUNTER 2022-08-30 14:29 | Emergency (ER) | payer OTHER, MEDICAID, SELFPAY ==
[2022-08-30 14:30] VITALS: BP 108/59; PULSE 58; RESP 16; TEMP 36.6; O2SAT 96
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
--- NOTE | 2022-08-30 14:45 | DI.CT_ITS ---
Exam(s) CT HEAD WO EXAM: CT HEAD WO CLINICAL HISTORY: fall. TECHNIQUE: Imaging Protocol: Axial computed tomography images with coronal and sagittal reformatted images were created and reviewed COMPARISON: CT CT HEAD CERVICAL SPINE WO from 04/12/2022 FINDINGS: There are no skull fractures. There is no fluid in the visualized paranasal sinuses. There is no evidence of intracranial hemorrhage, mass effect, or shift of midline structures. There are no extra-axial fluid collections. The ventricles are not enlarged or shifted and there is no blo od within the ventricular system nor within the basal cisterns. Again noted is abundant bilateral periventricular hypodensity consistent with chronic small vessel di sease, unchanged from March 2022. No obvious new territorial infarction evident. IMPRESSION: No acute intracranial findings on this noninfused CT scan of the brain. Prominent chronic small-vessel white matter ischemic changes are again noted and unchanged from CT sc an of 04/12/2022. RADIATION DOSE DELIVERED: 701.2mGy.cm Total DLP DATA REPOSITORY: All CT scans at this facility are submitted to the National Radiology Data Registry (NRDR) Dose Index Registry (DIR) with the [employer] ([employer]). RADIATION OPTIMIZATION: All CT scans at this facility use at least one of these dose optimization te chniques: automated exposure control; mA and/or kV adjustment per patient size (includes targeted exa ms where dose is matched to clinical indication); or iterative reconstruction.
--- NOTE | 2022-08-30 14:46 | NUR.NOTE ---
Nursing Note: ambulates without issue with MD celine notified
--- NOTE | 2022-08-30 15:45 | DI.VRAD_ITS ---
PROCEDURE INFORMATION: Exam: CT Head Without Contrast Exam date and time: 08/30/2022 3:22 PM Age: 76 years old Clinical indication: Injury or trauma; Blunt trauma (contusions or hematomas); Patient HX: Fall, on thinners TECHNIQUE: Imaging protocol: Computed tomography of the head without contrast. COMPARISON: CT HEAD CERVICAL SPINE WO 04/12/2022 12:42 PM FINDINGS: Brain: Cerebral volume loss noted. There is left focal gliosis in the cerebellar hemisphere, unchanged. Scattered areas of decreased attenuation in the deep periventricular white matter consistent with small vessel ischemic change. No evidence for acute intracranial hemorrhage. Cerebral ventricles: No ventriculomegaly. Paranasal sinuses: Visualized sinuses are unremarkable. No fluid levels. Mastoid air cells: Visualized mastoid air cells are well aerated. Bones/joints: Unremarkable. No acute fracture. Soft tissues: Unremarkable. IMPRESSION: Senescent changes noted. No acute intracranial abnormality. Dictated and Authenticated by: Wendi Espinal MD. Ordering:NEPTALI Wolf MD
[2022-08-30 17:00] VITALS: BP 110/64; PULSE 61; RESP 16; TEMP 36.6; O2SAT 97
== END 2022-08-30 17:05 | disposition home or self-care (01) ==
PROVIDERS: Emergency Provider Emergency Medicine; PCP Family Medicine
DX: S60.512A Abrasion of left hand, initial encounter (principal); S60.511A Abrasion of right hand, initial encounter; W19.XXXA Unspecified fall, initial encounter
CPT/HCPCS: 99284; 70450; 99283

== ENCOUNTER → 2022-09-02 08:32 | Outpatient (BNVA) | payer OTHER, MEDICAID, SELFPAY | PROVIDERS: PCP Family Medicine; Referring Provider Family Medicine; Visit Provider Student in an Organized Health Care Education/Training Program | DX: M12.811 Other specific arthropathies, not elsewhere classified, right shoulder (principal) | CPT/HCPCS: 99213 ==

== ENCOUNTER 2022-09-19 11:28 | Outpatient (CLI) | payer OTHER, MEDICAID, SELFPAY ==
--- NOTE | 2022-09-19 | DI.US_ITS ---
Exam(s) US LOWER EXTREMITY VENOUS RT EXAM: US LOWER EXTREMITY VENOUS RT CLINICAL HISTORY: pain in rt lower leg, M79.661, cellulitis, L03.90, ? DVT TECHNIQUE: Grayscale, color, and doppler imaging of the deep venous system of the right lower extrem ity was performed. COMPARISON: US US EXTREMITY VENOUS BI from 07/10/2022 FINDINGS: There is no evidence of intraluminal thrombus and there is normal compression and augmentation demons trated within the common femoral vein, femoral vein, and popliteal vein. In the ipsilateral calf the interrogated veins also exhibit normal compression/ augmentation properti es. The ipsilateral saphenofemoral junction is patent. IMPRESSION: 1. No evidence of DVT in the right lower extremity. DATA REPOSITORY:
== END 2022-09-19 11:48 ==
PROVIDERS: PCP Family Medicine; Visit Provider Nurse Practitioner Family
DX: M79.661 Pain in right lower leg (principal)
CPT/HCPCS: 93971

== ENCOUNTER 2022-09-21 14:32 | Emergency (ER) | payer OTHER, MEDICAID, SELFPAY ==
[2022-09-21] VITALS (50 sets, daily range): BP systolic 94–123; BP diastolic 45–94; PULSE 63–107; RESP 10–28; TEMP 36.5; O2SAT 96–100
--- NOTE | 2022-09-21 14:30 | RT.EKG_ITS ---
APPROVED REPORT Exam: Resting ECG Reason for Exam: rapid heart rate Patient Location: E HR:92 bpm ECG Measurements Heart Rate 92 AXIS MS [id number] P [id number] QRSd 92 QRS -29 QT 363 T 136 QTc 450 Conclusion Atrial fibrillation...? atrial activity Inferior infarct, old...Q >35mS, II III aVF Nonspecific T abnormalities, lateral leads...T <-0.10mV, I aVL V5 V6 No STEMI
[2022-09-21 16:07] LABS: Abs Immature Grans 0.02 10^3/uL (0.0-0.06); Absolute Basophil Count 0.05 10^3/uL (0.0-0.2); Absolute Eosinophil Count 0.09 10^3/uL (0.0-0.7); Absolute Lymphocyte Count 1.98 10^3/uL (1.2-3.4); Absolute Neutrophil Count 3.91 10^3/uL (1.2-6.7); Basophils % 0.8; Eosinophils % 1.4; HCT 38.1 % (36.0-46.0); HGB 12.2 g/dL (11.2-15.7); Immature Grans % 0.3; Lymphocytes % 29.8; MCH 29.1 pg (27.0-33.0); MCV 91 fL (80-95); MPV 9.7 fL (8.0-11.0); Neutrophils % 58.7; Platelet Count 222 10^3/uL (130-400); RBC 4.19 10^6/uL (3.93-5.22); RDW 18.3 % (11.7-14.6); RDW-SD 59.9 fL; WBC 6.65 10^3/uL (4.4-10.8)
[2022-09-21 16:12] LABS: ALT 25 U/L (14-59); AST 34 U/L (15-37); Albumin 3.1 g/dL (3.4-5.0); Alkaline Phosphatase 118 U/L (46-116); Anion Gap 12.2 mmol/L (3-11); BUN 46 mg/dL (7-18); Bilirubin, Total 0.5 mg/dL (0.2-1.0); CO2 22.8 mmol/L (21.0-32.0); CREATININE 2.2 mg/dL (0.55-1.02); Chloride 101 mmol/L (98-107); Estimated GFR 22.25 (mL/min/1.73m2); Glucose 95 mg/dL (74-106); Potassium 4.3 mmol/L (3.5-5.1); Sodium 136 mmol/L (136-145); Total Protein 7.4 g/dL (6.4-8.2)
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
[2022-09-21 16:15] LABS: Troponin I < 50 ng/L (<or=60)
[2022-09-21 19:08] LABS: Troponin I < 50 ng/L (<or=60)
== END 2022-09-21 19:46 | disposition home or self-care (01) ==
PROVIDERS: Emergency Provider Physician Assistant; PCP Family Medicine
DX: I48.91 Unspecified atrial fibrillation (principal); W19.XXXA Unspecified fall, initial encounter; I25.10 Atherosclerotic heart disease of native coronary artery without angina pectoris; I50.32 Chronic diastolic (congestive) heart failure
CPT/HCPCS: 36415; 80053; 93005; 99283; 84484; 85025; 93010

== ENCOUNTER 2022-09-22 20:03 | Observation (INO) | payer OTHER, MEDICAID, SELFPAY ==
[2022-09-22] VITALS (43 sets, daily range): BP systolic 81–117; BP diastolic 49–88; PULSE 64–143; RESP 13–36; TEMP 36.6; O2SAT 97–100
--- NOTE | 2022-09-22 19:45 | RT.EKG_ITS ---
APPROVED REPORT Exam: Resting ECG Reason for Exam: dizziness Patient Location: E HR:98 bpm ECG Measurements Heart Rate 98 [place] [id number] P [id number] QRSd 92 QRS -30 QT 352 T 68 QTc 451 Conclusion Atrial fibrillation...? atrial activity Inferior infarct, old...Q >35mS, II III aVF Physician: no stemi
--- NOTE | 2022-09-22 20:00 | DI.CT_ITS ---
Exam(s) CT HEAD CERV SPINE FACIAL WO EXAM: CT HEAD CERV SPINE FACIAL WO CLINICAL HISTORY: fall, hit head, on thinners. TECHNIQUE: Imaging Protocol: Axial computed tomography images with coronal and sagittal reformatted images were created and reviewed COMPARISON: CT CT HEAD CERVICAL SPINE WO from 04/12/[address] HEAD WO from 08/30/2022 FINDINGS: CT Head: Ventricles and Extra axial spaces: Normal in size and morphology for the patient's age. Hemorrhage: None. Cerebral parenchyma: There is no evidence of an acute territorial infarct. There are areas of decrea sed attenuation in the white matter consistent with small vessel ischemic disease. There is an area of encephalomalacia in the left cerebellum. Midline shift: None. Brainstem/Cerebellum: Normal. Calvarium: Normal. Visualized Paranasal sinuses/Mastoids: Clear. Soft Tissues: Unremarkable. CT Face: Facial Bones: No definite fracture is noted in facial bones. Sinuses and Mastoids: Unremarkable. Globes, extraocular muscles, optic nerves and retrobulbar fat: Normal. Upper aerodigestive tract: Normal. Mandible and bilateral temporomandibular joints: Normal. Soft tissues: Normal. CT Cervical Spine: Bones: No acute fracture or subluxation. Degenerative changes are present throughout the cervical spi ne. Soft Tissues: There are several hypodensities in the thyroid gland. The largest measures 9 mm. No f ollow-up is recommended. Lung Apices: Clear. IMPRESSION: 1. No acute intracranial process. 2. No acute fracture or subluxation in the cervical spine. 3. No acute facial fracture. RADIATION DOSE DELIVERED: 2,378.16mGy.cm Total DLP DATA REPOSITORY: All CT scans at this facility are submitted to the National Radiology Data Registry (NRDR) Dose Index Registry (DIR) with the [employer] (ACR). RADIATION OPTIMIZATION: All CT scans at this facility use at least one of these dose optimization te chniques: automated exposure control; mA and/or kV adjustment per patient size (includes targeted exa ms where dose is matched to clinical indication); or iterative reconstruction.
[2022-09-22 20:20] LABS: Abs Immature Grans 0.03 10^3/uL (0.0-0.06); Absolute Basophil Count 0.03 10^3/uL (0.0-0.2); Absolute Eosinophil Count 0.08 10^3/uL (0.0-0.7); Absolute Lymphocyte Count 2.02 10^3/uL (1.2-3.4); Absolute Monocyte Count 0.56 10^3/uL (0.1-0.8); Absolute Neutrophil Count 3.87 10^3/uL (1.2-6.7); Basophils % 0.5; Eosinophils % 1.2; HCT 40.1 % (36.0-46.0); HGB 12.8 g/dL (11.2-15.7); Immature Grans % 0.5; Lymphocytes % 30.7; MCHC 31.9 % (32.0-36.0); MCV 91 fL (80-95); MPV 9.4 fL (8.0-11.0); Monocytes % 8.5; Neutrophils % 58.6; Platelet Count 234 10^3/uL (130-400); RBC 4.42 10^6/uL (3.93-5.22); RDW 18.2 % (11.7-14.6); RDW-SD 60.2 fL; WBC 6.59 10^3/uL (4.4-10.8)
[2022-09-22 20:34] LABS: INR 1.1 (0.9-1.1); PTT Activated 27.8 sec (21.5-31.9); Prothrombin Time 10.9 sec (9.3-11.0)
[2022-09-22 20:36] LABS: ALT 28 U/L (14-59); AST 31 U/L (15-37); Albumin 3.3 g/dL (3.4-5.0); Alkaline Phosphatase 119 U/L (46-116); Anion Gap 13.1 mmol/L (3-11); BUN 56 mg/dL (7-18); Bilirubin, Total 0.6 mg/dL (0.2-1.0); CO2 20.9 mmol/L (21.0-32.0); CREATININE 2.9 mg/dL (0.55-1.02); Calcium 9.1 mg/dL (8.5-10.1); Chloride 99 mmol/L (98-107); Estimated GFR 15.97 (mL/min/1.73m2); Glucose 117 mg/dL (74-106); Potassium 4.5 mmol/L (3.5-5.1); Sodium 133 mmol/L (136-145); Total Protein 7.7 g/dL (6.4-8.2)
[2022-09-22 20:55] LABS: Bilirubin Negative (Negative); Blood Moderate (Negative); Clarity Cloudy (Clear); Glucose 250 mg/dL (Negative); Ketones Negative (Negative); Leukocyte Esterase Small (Negative); Nitrite Negative (Negative); Urobilinogen 0.2 mg/dL (Up to 0.2); pH 5.5 (5-8)
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
[2022-09-22] MEDS: Normal Saline 500 ML IV (21:00)
[2022-09-22 21:04] LABS: Epithelial Cells Moderate HPF (Negative); WBC 0-2 HPF (0-5)
[2022-09-22 21:05] LABS: Bacteria Many HPF (Negative); C & S Indicated? No/Sq. Contamination; Casts Negative LPF (Negative); Crystals Negative HPF (Negative); Mucus Negative (Negative); Other Cells Rare Renal (Negative)
--- NOTE | 2022-09-22 22:01 | DI.VRAD_ITS ---
PROCEDURE INFORMATION: Exam: CT Head Without Contrast Exam date and time: 09/22/2022 9:02 PM Age: 77 years old Clinical indication: Injury or trauma; Blunt trauma (contusions or hematomas); Consciousness not specified; Maxilla; Injury date: 09/22/22; Injury details: Fall, hit head, on thinners TECHNIQUE: Imaging protocol: Computed tomography of the head without contrast. Radiation optimization: All CT scans at this facility use at least one of these dose optimization techniques: automated exposure control; mA and/or kV adjustment per patient size (includes targeted exams where dose is matched to clinical indication); or iterative reconstruction. COMPARISON: CT HEAD WO 08/30/2022 3:22 PM FINDINGS: Brain: Moderate generalized cerebral atrophy. Diffuse periventricular white matter hypoattenuation compatible with chronic microvascular ischemic changes. No intracranial mass, hemorrhage or evidence of acute ischemia. Cerebral ventricles: No ventriculomegaly. Paranasal sinuses: Visualized sinuses are unremarkable. No fluid levels. Mastoid air cells: Visualized mastoid air cells are well aerated. Bones/joints: Unremarkable. No acute fracture. Soft tissues: Unremarkable. IMPRESSION: No acute intracranial abnormality PROCEDURE INFORMATION: Exam: CT Maxillofacial Without Contrast Exam date and time: 09/22/2022 9:02 PM Age: 77 years old Clinical indication: Injury or trauma; Blunt trauma (contusions or hematomas); Consciousness not specified; Maxilla; Injury date: 09/22/22; Injury details: Fall, hit head, on thinners TECHNIQUE: Imaging protocol: Computed tomography of the face without contrast. Radiation optimization: All CT scans at this facility use at least one of these dose optimization techniques: automated exposure control; mA and/or kV adjustment per patient size (includes targeted exams where dose is matched to clinical indication); or iterative reconstruction. COMPARISON: CT HEAD WO 08/30/2022 3:22 PM FINDINGS: Orbital cavities: Orbits are normal. Globes are unremarkable. Bones/joints: No acute fracture. Paranasal sinuses: Normal. No air-fluid levels. Soft tissues: Unremarkable. IMPRESSION: No acute findings. PROCEDURE INFORMATION: Exam: CT Cervical Spine Without Contrast Exam date and time: 09/22/2022 9:02 PM Age: 77 years old Clinical indication: Injury or trauma; Blunt trauma (contusions or hematomas); Consciousness not specified; Maxilla; Injury date: 09/22/22; Injury details: Fall, hit head, on thinners TECHNIQUE: Imaging protocol: Computed tomography of the cervical spine without contrast. COMPARISON: CT HEAD CERVICAL SPINE WO 04/12/2022 12:42 PM FINDINGS: Bones/joints: Significant arthritic changes are present at the atlantoaxial joint as well as the C5-C6 and C6-C7 disc levels. Moderate multilevel facet arthropathy. No significant spondylolisthesis. No acute fracture. Lungs: Lung apices are normal. Soft tissues: Unremarkable. IMPRESSION: No acute abnormality. Multilevel arthritic changes as noted. Dictated and Authenticated by: Sung Lancaster MD. Ordering:YOUSIF Hood MD
[2022-09-22] MEDS: Normal Saline 1,000 ML 75 ML IV (22:58)
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
[2022-09-23] VITALS (13 sets, daily range): BP systolic 88–127; BP diastolic 59–84; PULSE 70–102; RESP 15–20; TEMP 35.6–36.8; O2SAT 96–100
[2022-09-23] MEDS: Melatonin 3 MG TAB 9 MG PO ×2 (01:30→20:51)
[2022-09-23] MEDS: Levothyroxine 25 MCG TAB PO (05:08)
[2022-09-23 06:46] LABS: BUN 47 mg/dL (7-18); CREATININE 2.4 mg/dL (0.55-1.02); Estimated GFR 20.04 (mL/min/1.73m2)
[2022-09-23] MEDS: Lactated Ringers 1,000 ML 100 ML IV (07:31)
[2022-09-23] MEDS: Omeprazole 20 MG CAPCR PO (07:31)
[2022-09-23] MEDS: Atorvastatin 40 MG TAB PO (08:56)
[2022-09-23] MEDS: Empaglifozin 10 MG TAB PO (08:56)
[2022-09-23] MEDS: Cyanocobalamin 500 MCG TAB 1000 MCG PO (08:56)
[2022-09-23] MEDS: ARIPiprazole 2 MG TAB PO (08:56)
[2022-09-23] MEDS: Gabapentin 100 MG CAP PO ×2 (08:56→19:35)
[2022-09-23] MEDS: Apixaban 5 MG TAB PO ×2 (08:56→19:34)
[2022-09-23] MEDS: Aspirin E.C. 81 MG TABEC PO (08:56)
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
[2022-09-23] MEDS: Acetaminophen 325 MG TAB 650 MG PO (11:28)
--- NOTE | 2022-09-23 13:14 | PGE_ITS ---
Date of Service Date of service: 09/23/22 Time of Service: 17:31 Assessment and Plan Assessment and plan (1) Cellulitis of right lower extremity: Status: Acute Assessment and plan: Being treated out patient - took 5d of cephalexin with no improvement. Started on Bactrim, continued single strength BID due to renal fxn and Creat 2.5, this is day 3 of 5 she had outpt US of RLE no DVT Leg is warm, indurated, no erythema, painful to touch WBC 6.59, will check CRP and Procal tomorrow (2) Dehydration: Status: Resolved Assessment and plan: Hold diuretics Encourage oral fluids - she does not drink much without prompting even though it is in front of her and available. LR 500 ml given today, lungs clear (3) Atrial fibrillation: Status: Chronic Assessment and plan: Continue apixaban No heart complaints, no tele needed at this time, monitor HR (4) Fall: Status: Acute Assessment and plan: Multiple falls at home that seem to be increasing in frequency - both knees are bruised PT ordered (5) Weakness: Status: Acute Assessment and plan: Continues to feel weak; she is eating well, encourage oral fluids. (6) Renal insufficiency: Assessment and plan: Creatinine is 2.3 today - improved from yesterday 2.9 - she has chronic renal insufficiency stage 3a. (7) Hypothyroid: Assessment and plan: Last TSH 04/12/22 - 1.66, continue outpatient levothyroxine (8) CAD (coronary artery disease): Assessment and plan: continue statin, beta carmela and ASA. (9) DVT prophylaxis: Status: Chronic Assessment and plan: On apixaban. (10) Discharge planning issues: Status: Chronic Assessment and plan: She was discharged from the hospital previously to SNF for rehab; she lives alone, she was in agreement with this plan, as was her daughter. Home v SNF discussed with Dr Radford Subjective Subjective Patient reports: no new complaints, pain is less, tolerating a regular diet, voiding w/o difficulty and afebrile; denies diarrhea, nausea, vomiting or shortness of breath Exam Narrative Exam Narrative: General: A,A Ox3, Calm, no apparent distress, well developed, pleasant and cooperative Head Size/Shape: normocephalic, atraumatic Eyes Pupils: PERRLA Extraocular Mobility: intact and symmetrical Conjunctiva: non-injected, anicteric, no discharge Ears, Nose, Throat Nares: patent bilaterally Oral Cavity: moist Neck: no masses, no crepitus Lymph Nodes: no cervical lymphadenopathy Respiratory Respiratory Effort: no dyspnea Auscultation: clear to auscultation bilaterally, normal breath sounds, no wheezing, no rales/crackles Cardiovascular Heart Auscultation: regular rate and rhythm, normal S1, normal S2, no murmurs, no rubs, no gallops, Pulse Quality: +2 equal bilaterally, location(s) radial Abdomen Inspection and Palpation: soft, non-tender, non-distended, no hepatosplenomegaly Musculoskeletal System Joints, Bones, and Muscles: no deformities Extremities: warm and well-perfused, no cyanosis, capillary refill <2 seconds right lower leg swollen, indurated, no erythema noted Skin Skin Inspection: no rash, skin tears on bilateral dorsal aspect of the hands, no bruising Neurological Motor: normal tone, normal strength, moving all extremities equally Psychiatric: good insight, good judgement, normal mood and affect Objective Last Vital Signs Temp 36.6 C 09/23/22 11:29 Pulse 75 09/23/22 11:29 Resp 16 09/23/22 11:29 BP 102/64 09/23/22 11:29 Pulse Ox 99 09/23/22 11:29 Laboratory Results - last 24 hr 09/22/22 09/22/22 09/22/22 20:10 20:10 20:10 WBC 6.59 RBC 4.42 Hgb 12.8 Hct 40.1 MCV 91 MCH 29.0 MCHC 31.9 L RDW 18.2 H Plt Count 234 MPV 9.4 Immature Gran % 0.5 Neutrophils % 58.6 Lymphocytes % 30.7 Monocytes % 8.5 Eosinophils % 1.2 Basophils % 0.5 Nucleated RBC % 0.0 Absolute Neutrophils 3.87 Absolute Lymphocytes 2.02 Absolute Monocytes 0.56 Absolute Eosinophils 0.08 Absolute Basophils 0.03 PT 10.9 INR 1.1 APTT 27.8 Sodium 133 L Potassium 4.5 Chloride 99 Carbon Dioxide 20.9 L Anion Gap 13.1 H BUN 56 H Creatinine 2.9 H Est GFR (CKD-EPI 2020) 15.97 Glucose 117 H Calcium 9.1 Total Bilirubin 0.6 AST 31 ALT 28 Alkaline Phosphatase 119 H Total Protein 7.7 Albumin 3.3 L Urine Color Urine Clarity Urine pH Ur Specific [place] Urine Protein Urine Ketones Urine Blood Urine Nitrite Urine Bilirubin Urine Urobilinogen Ur Leukocyte Esterase Urine RBC Urine WBC Ur Epithelial Cells Urine Crystals Urine Bacteria Urine Casts Urine Mucus Urine Other Ur Culture Indicated? Urine Glucose 09/22/22 09/23/22 20:49 06:16 WBC RBC Hgb Hct MCV MCH MCHC RDW Plt Count MPV Immature Gran % Neutrophils % Lymphocytes % Monocytes % Eosinophils % Basophils % Nucleated RBC % Absolute Neutrophils Absolute Lymphocytes Absolute Monocytes Absolute Eosinophils Absolute Basophils PT INR APTT Sodium Potassium Chloride Carbon Dioxide Anion Gap BUN 47 H Creatinine 2.4 H Est GFR (CKD-EPI 2020) 20.04 Glucose Calcium Total Bilirubin AST ALT Alkaline Phosphatase Total Protein Albumin Urine Color Yellow Urine Clarity Cloudy Urine pH 5.5 Ur Specific [place] 1.010 Urine Protein Negative Urine Ketones Negative Urine Blood Moderate H Urine Nitrite Negative Urine Bilirubin Negative Urine Urobilinogen 0.2 Ur Leukocyte Esterase Small H Urine RBC 5-10 H Urine WBC 0-2 Ur Epithelial Cells Moderate Urine Crystals Negative Urine Bacteria Many Urine Casts Negative Urine Mucus Negative Urine Other Rare Renal Ur Culture Indicated? No/Sq. Contamination Urine Glucose 250 H Time Spent with Patient Time Spent with Patient: 25-34 minutes Time was spent: preparing to see the patient(eg.review tests), ordering medications,tests, procedures, referring, communicating with other health home care attendant, indepentently interpreting results, counseling the patient and care coordination
[2022-09-23 14:43] LABS: Anion Gap 10.1 mmol/L (3-11); BUN 48 mg/dL (7-18); CO2 21.9 mmol/L (21.0-32.0); CREATININE 2.3 mg/dL (0.55-1.02); Calcium 8.7 mg/dL (8.5-10.1); Chloride 104 mmol/L (98-107); Estimated GFR 21.09 (mL/min/1.73m2); Glucose 104 mg/dL (74-106); Potassium 4.2 mmol/L (3.5-5.1); Sodium 136 mmol/L (136-145)
--- NOTE | 2022-09-23 15:19 | PT.INTREAT ---
Date of service: 09/23/22 Time of Service: 13:29 PT Notes Visit Reasons: fall, dehydration Inpatient Physical Therapy Treatment Note [facility] Date: [] PRECAUTIONS:[] SUBJECTIVE: [] OBJECTIVE: [] PAIN: [] BED MOBILITY/TRANSFERS Rolling L/R: [] Supine-sit: [] Sit-supine: [] Sit-stand: [] Stand-sit: [] Bed-Chair: [] Chair-bed: [] GAIT Assistive Device: [] Weight bearing: [] Assist: [] Distance: [] Deviation: [] VITALS: [] THEREX: [] STAIRS:[] ASSESSMENT: [] PLAN: [] TREATMENT CODE/TIME: []
[2022-09-24] VITALS (7 sets, daily range): BP systolic 88–126; BP diastolic 58–98; PULSE 60–101; RESP 16–18; TEMP 35.9–36.3; O2SAT 96–100
--- NOTE | 2022-09-24 | DI.RAD_ITS ---
Exam(s) XR KNEE RT 3V AP,LAT,GINGER EXAM: XR KNEE RT 3V AP,LAT,GINGER CLINICAL HISTORY: trauma. TECHNIQUE: 2D digital imaging was performed. Three views. COMPARISON: None FINDINGS: BONES: A total knee prosthesis is in place. The alignment appears satisfactory. No acute fracture i s present. No bony destructive lesion is seen. Enthesophyte quadriceps insertion on the patella. JOINTS: The knee is normally aligned. No joint effusion is seen. SOFT TISSUE: Normal. Chronic appearing anterior soft tissue calcifications. IMPRESSION: No acute abnormality. Right knee prosthesis is unremarkable. DATA REPOSITORY: RADIATION DOSE DELIVERED:
[2022-09-24] MEDS: Levothyroxine 25 MCG TAB PO (06:28)
[2022-09-24 07:06] LABS: Abs Immature Grans 0.03 10^3/uL (0.0-0.06); Absolute Basophil Count 0.03 10^3/uL (0.0-0.2); Absolute Eosinophil Count 0.13 10^3/uL (0.0-0.7); Absolute Lymphocyte Count 1.62 10^3/uL (1.2-3.4); Absolute Monocyte Count 0.56 10^3/uL (0.1-0.8); Absolute Neutrophil Count 2.96 10^3/uL (1.2-6.7); Basophils % 0.6; Eosinophils % 2.4; HCT 36.3 % (36.0-46.0); HGB 11.2 g/dL (11.2-15.7); Immature Grans % 0.6; Lymphocytes % 30.4; MCH 28.7 pg (27.0-33.0); MCHC 30.9 % (32.0-36.0); MCV 93 fL (80-95); MPV 9.4 fL (8.0-11.0); Monocytes % 10.5; Neutrophils % 55.5; Platelet Count 185 10^3/uL (130-400); RDW 18.6 % (11.7-14.6); RDW-SD 63.4 fL; WBC 5.33 10^3/uL (4.4-10.8)
[2022-09-24 07:25] LABS: BUN 44 mg/dL (7-18); C-Reactive Protein 0.39 mg/dL (0.0-0.3); CREATININE 1.7 mg/dL (0.55-1.02); Calcium 8.8 mg/dL (8.5-10.1); Chloride 113 mmol/L (98-107); Estimated GFR 30.32 (mL/min/1.73m2); Glucose 114 mg/dL (74-106); Magnesium 2.7 mg/dL (1.8-2.4); Potassium 4.4 mmol/L (3.5-5.1); Sodium 143 mmol/L (136-145)
[2022-09-24] MEDS: Atorvastatin 40 MG TAB PO (07:25)
[2022-09-24] MEDS: Apixaban 5 MG TAB PO ×2 (07:25→19:55)
[2022-09-24] MEDS: Cyanocobalamin 500 MCG TAB 1000 MCG PO (07:25)
[2022-09-24] MEDS: ARIPiprazole 2 MG TAB PO (07:25)
[2022-09-24] MEDS: Omeprazole 20 MG CAPCR PO (07:25)
[2022-09-24] MEDS: Empaglifozin 10 MG TAB PO (07:26)
[2022-09-24] MEDS: Aspirin E.C. 81 MG TABEC PO (07:26)
[2022-09-24 07:46] LABS: Procalcitonin < 0.1 ng/mL
--- NOTE | 2022-09-24 08:58 | NUR.NOTE ---
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
[2022-09-24] MEDS: Acetaminophen 325 MG TAB 650 MG PO ×2 (10:34→19:56)
[2022-09-24] MEDS: levoFLOXacin 500 MG, levoFLOXacin 250 MG 750 MG PO (12:32)
--- NOTE | 2022-09-24 14:41 | W.PM.PROGNOT ---
Date of Service Date of service: 09/24/22 Time of Service: 14:41 Assessment and Plan Assessment and plan (1) Cellulitis of right lower extremity: Status: Acute Assessment and plan: failed keflex and bactrim started on levaquin today (d/t allergy profile) US of RLE no DVT Leg is warm, indurated, light erythema and painful to touch follow inflammatory markers (2) Atrial fibrillation: Status: Chronic Assessment and plan: Continue apixaban rate controlled no tele needed at this time (3) Fall: Status: Acute Assessment and plan: Multiple falls at home that seem to be increasing in frequency - both knees are bruised PT ordered xray right knee. (4) Weakness: Status: Acute Assessment and plan: Continues to feel weak; she is eating well, encourage oral fluids. (5) Renal insufficiency: Assessment and plan: she has chronic renal insufficiency stage 3a Avoid nephrotoxic drugs renal dosing as needed Follow kidney function. (6) Hypothyroid: Assessment and plan: Last TSH 04/12/22 - 1.66, continue outpatient levothyroxine (7) CAD (coronary artery disease): Assessment and plan: continue statin, beta carmela and ASA. (8) DVT prophylaxis: Status: Chronic Assessment and plan: On apixaban. (9) Discharge planning issues: Status: Chronic Assessment and plan: She was discharged from the hospital previously to SNF for rehab; she lives alone, she was in agreement with this plan, as was her daughter. Home v SNF will change to inpatient status having failed 2 attempts at oral treatment with no improvement. discussed with Dr Pineda Subjective Subjective Patient reports: still having pain, tolerating liquids well, tolerating a regular diet and afebrile Exam Const General: cooperative, comfortable and no acute distress Nutritional Appearance: overweight Orientation: alert, awake and oriented x3 HENMT Head: normal to inspection, normocephalic and atraumatic Mouth: oral mucosae normal Chest Chest: normal inspection of the chest Resp Effort & Inspection: normal respiratory effort Cardio Rate: regular rate Rhythm: regular rhythm and other (good strong pedal pulse) GI Inspection: normal to inspection Skin General skin exam: ecchymosis (Various areas on lower extremities multiple stages of healing) Lesions: no lesions Rashes: rashes noted (Mild erythema to right lower extremity above ankle to below knee) Other: Old surgical incision across right knee Neuro General: patient alert, patient awake and patient oriented x3 Extrem General: full ROM (No pain to knee with passive range of motion) and pedal edema (Trace bilaterally) Objective Last Vital Signs Temp 36.3 C L 09/24/22 07:21 Pulse 78 09/24/22 10:14 Resp 16 09/24/22 06:52 BP 88/58 L 09/24/22 10:14 Pulse Ox 100 09/24/22 07:21 Laboratory Results - last 24 hr 09/23/22 09/24/22 09/24/22 14:08 06:30 06:30 WBC RBC Hgb Hct MCV MCH MCHC RDW Plt Count MPV Immature Gran % Neutrophils % Lymphocytes % Monocytes % Eosinophils % Basophils % Nucleated RBC % Absolute Neutrophils Absolute Lymphocytes Absolute Monocytes Absolute Eosinophils Absolute Basophils Sodium 136 143 Potassium 4.2 4.4 Chloride 104 113 H Carbon Dioxide 21.9 23.0 Anion Gap 10.1 7.0 BUN 48 H 44 H Creatinine 2.3 H 1.7 H Est GFR (CKD-EPI 2020) 21.09 30.32 Glucose 104 114 H Calcium 8.7 8.8 Magnesium 2.7 H C-Reactive Protein 0.39 H Procalcitonin < 0.1 09/24/22 06:30 WBC 5.33 RBC 3.90 L Hgb 11.2 Hct 36.3 MCV 93 MCH 28.7 MCHC 30.9 L RDW 18.6 H Plt Count 185 MPV 9.4 Immature Gran % 0.6 Neutrophils % 55.5 Lymphocytes % 30.4 Monocytes % 10.5 Eosinophils % 2.4 Basophils % 0.6 Nucleated RBC % 0.0 Absolute Neutrophils 2.96 Absolute Lymphocytes 1.62 Absolute Monocytes 0.56 Absolute Eosinophils 0.13 Absolute Basophils 0.03 Sodium Potassium Chloride Carbon Dioxide Anion Gap BUN Creatinine Est GFR (CKD-EPI 2020) Glucose Calcium Magnesium C-Reactive Protein Procalcitonin Time Spent with Patient Time Spent with Patient: 25-34 minutes Time was spent: preparing to see the patient(eg.review tests), obtaining and/or reviewing separately otained hiistory, ordering medications,tests, procedures, referring, communicating with other health inspector health care facilities and counseling the patient
--- NOTE | 2022-09-24 14:44 | PDOC.CMPRO ---
Date of service: 09/24/22 Time of Service: 14:44 Care Management Progress Note Progress Note Text Progress Note Text: S/O:Arlin was sitting up in a chair when CM met with her. She informed CM that she is really tired. She stated that she did not sleep well due to the pain in her right leg/knee. An Xray of the knee was done which failed to identify any abnormalities. Arlin does have a cellulitis in the lower part of her leg and antibiotic therapy was initiated with Levofloxacin. Arlin had a PT evaluation yesterday and it was recommended that she have home health PT upon discharge. A: Arlin is a 77 year old woman admitted with dehydration on 09/22/22 P:Arlin will likely be discharged home with no new services. She will follow up with her community providers and transport with family. CM will continue to support Arlin and her discharge needs.
--- NOTE | 2022-09-24 15:45 | PHA.ACLINAW ---
Pharmacy Clinical Inervention - Renal Dosing Renal Dosing: BUN 44 mg/dL (7-18) H 09/24/22 06:30 Creatinine 1.7 mg/dL (0.55-1.02) H 09/24/22 06:30 Medications needing adjustments: Intervened (eCrCl 27 ml/min) List of meds needing interventions: levaquin was changed from q24h dosing to q48h dosing - Anticoagulation Anticoagulation: Hgb 11.2 g/dL (11.2-15.7) 09/24/22 06:30 Hct 36.3 % (36.0-46.0) 09/24/22 06:30 Plt Count 185 10^3/uL (130-400) 09/24/22 06:30 INR 1.1 (0.9-1.1) 09/22/22 20:10 Creatinine 1.7 mg/dL (0.55-1.02) H 09/24/22 06:30 Therapeutic Anticoagulation: Reviewed Medications: Apixaban - Opiate Usage Evaluate Pain Scale/Pains Meds: N/A Scheduled Bowel Reg ordered if on Opiates?: No - Relevant Labs Electrolytes, C-Reactive P, ESR: Reviewed - DM Control DM Control: Glucose 114 mg/dL (74-106) H 09/24/22 06:30 Insulin Dosing: N/A - Cardiac Review EF%, GASTON's, B-Blockers, Diuretics: Reviewed - QTc Review If Elevated: Reviewed List meds needing interventions: QTc 451 on admission - IV to PO Switch IV Medications: Reviewed - Home Meds Home Med List reviewed: Intervened Relevent Home Meds Not ordered & why?: completed, had to adjust metoprolol and torsemide dose; note ordered: torsemide (dehydration), wellbutrin - added to MAR with approval of provider - Current Meds Current Medication Order Review: Reviewed - Pharmacy Antibiotic Review Relevant Labs: Relevant Labs 09/24/22 09/24/22 06:30 06:30 C-Reactive Protein 0.39 H Procalcitonin < 0.1 Pharmacy Antibiotic Activity: 48 hour review (changed from bactrim (failed OP) to levaquin PO for cellulitis)
[2022-09-24] MEDS: buPROPion-XL 150 MG TABCR 300 MG PO (16:09)
--- NOTE | 2022-09-24 16:42 | PT.INNT ---
Date of service: 09/24/22 Time of Service: 11:00 PT Notes Visit Reasons: fall, dehydration Patient refuses therapy at 11, 11:50, and 14:52 stating she does not feel well, feels her leg is getting worse, very fatigued today. Afternoon also very anxious about her new contact precaution status, as her grandsons visited yesterday and she hopes that she did not have anything contagious that they were exposed to.
[2022-09-24] MEDS: Gabapentin 100 MG CAP PO (19:57)
[2022-09-24] MEDS: Melatonin 3 MG TAB 9 MG PO (20:45)
[2022-09-25 04:45] VITALS: BP 103/63; PULSE 81; RESP 16; TEMP 36; O2SAT 96
[2022-09-25] MEDS: Acetaminophen 325 MG TAB 650 MG PO ×3 (05:52→20:27)
[2022-09-25] MEDS: Levothyroxine 25 MCG TAB PO (06:00)
[2022-09-25] MEDS: Omeprazole 20 MG CAPCR PO (07:10)
[2022-09-25 07:50] VITALS: BP 102/74; BP 112/81; BP 117/75; PULSE 103; PULSE 105; PULSE 88; RESP 16; TEMP 36.7; O2SAT 100
[2022-09-25 08:35] LABS: Anion Gap 7.8 mmol/L (3-11); BUN 29 mg/dL (7-18); CO2 23.2 mmol/L (21.0-32.0); CREATININE 1.5 mg/dL (0.55-1.02); Chloride 109 mmol/L (98-107); Estimated GFR 35.23 (mL/min/1.73m2); Glucose 113 mg/dL (74-106); Potassium 4.3 mmol/L (3.5-5.1); Sodium 140 mmol/L (136-145)
[2022-09-25] MEDS: Apixaban 5 MG TAB PO ×2 (08:56→20:28)
[2022-09-25] MEDS: buPROPion-XL 150 MG TABCR 300 MG PO (08:56)
[2022-09-25] MEDS: Empaglifozin 10 MG TAB PO (08:57)
[2022-09-25] MEDS: ARIPiprazole 2 MG TAB PO (08:58)
[2022-09-25] MEDS: Metoprolol CR 50 MG TABCR PO (08:58)
[2022-09-25] MEDS: Aspirin E.C. 81 MG TABEC PO (08:58)
[2022-09-25] MEDS: Atorvastatin 40 MG TAB PO (08:58)
[2022-09-25] MEDS: Cyanocobalamin 500 MCG TAB 1000 MCG PO (08:59)
--- NOTE | 2022-09-25 09:00 | PDOC.CMPRO ---
Date of service: 09/25/22 Time of Service: 09:00 Care Management Progress Note Progress Note Text Progress Note Text: S/O:Arlin was sitting up in a chair when CM met with her. She continues to complain of pain in her right leg. It was bothering her so much yesterday that she declined to work with PT both morning and afternoon. Arlin informed CM that this morning she did walk to the hallway and back although she was uncomfortable doing so. CM to follow. A: Arlin is a 77 year old woman admitted with dehydration on 09/22/22 P:Arlin will likely be discharged home with no new services. She will follow up with her community providers and transport with family. CM will continue to support Arlin and her discharge needs.
[2022-09-25 10:29] LABS: Absolute Neutrophil Count 2.79 10^3/uL (1.2-6.7); HGB 10.9 g/dL (11.2-15.7); MCH 29.9 pg (27.0-33.0); MCHC 32.1 % (32.0-36.0); MCV 93 fL (80-95); MPV 9.2 fL (8.0-11.0); Neutrophils % 53.7; Platelet Count 189 10^3/uL (130-400); RBC 3.65 10^6/uL (3.93-5.22); RDW 18.8 % (11.7-14.6); RDW-SD 63.7 fL; WBC 5.19 10^3/uL (4.4-10.8)
[2022-09-25 10:30] LABS: Abs Immature Grans 0.04 10^3/uL (0.0-0.06); Absolute Basophil Count 0.02 10^3/uL (0.0-0.2); Absolute Eosinophil Count 0.13 10^3/uL (0.0-0.7); Absolute Lymphocyte Count 1.78 10^3/uL (1.2-3.4); Absolute Monocyte Count 0.43 10^3/uL (0.1-0.8); Basophils % 0.4; Eosinophils % 2.5; Immature Grans % 0.8; Lymphocytes % 34.3; Monocytes % 8.3
--- NOTE | 2022-09-25 11:05 | PT.INTREAT ---
Date of service: 09/25/22 Time of Service: 10:50 PT Notes Visit Reasons: fall, dehydration Inpatient Physical Therapy Treatment Note [facility] Date: 09/25/22 PRECAUTIONS: Fall, standard, activity as tolerated, contact precautions. SUBJECTIVE: Patient appears down, reports her leg doesn't seem to be getting any better. Sitting up in chair. Agreeable to therapy. AFTERNOON: patient appears less down, sitting up in chair, agreeable to therapy. OBJECTIVE: PAIN: 8 RLE, does not worsen with ambulation. AFTERNOON: same, but with new pain at lateral Achilles' tendon of LLE. Reported to TAYLOR Stover. BED MOBILITY/TRANSFERS Sit-stand: SBA Stand-sit: SBA Bed-Chair: SBA Chair-bed: SBA GAIT Assistive Device: FWW Weight bearing: full Assist: SBA Distance: 200 feet AFTERNOON 250 feet Deviation: antalgic gait pattern with left leg leading and right leg stepping to, more pronounced in the afternoon. VITALS: monitored by nursing staff ASSESSMENT: Patient tolerates therapy well, is resting comfortably in recliner at end of session with CONNOR alarm in place and active. PLAN: Continue global strengthening per plan of care until patient is medically cleared for discharge. TREATMENT CODE/TIME: [id number] Gait 13 minutes beginning at 10:50, [id number] 11 minutes beginning at 14:56
--- NOTE | 2022-09-25 15:22 | W.PM.PROGNOT ---
Date of Service Date of service: 09/25/22 Time of Service: 15:22 Assessment and Plan Assessment and plan (1) Cellulitis of right lower extremity: Status: Acute Assessment and plan: improving on levaquin day 2 (d/t allergy profile), after failing keflex and bactrim US of RLE no DVT continue elevation follow inflammatory markers (2) Atrial fibrillation: Status: Chronic Assessment and plan: Continue apixaban rate controlled no tele needed at this time (3) Fall: Status: Acute Assessment and plan: Multiple falls at home that seem to be increasing in frequency - both knees are bruised PT ordered xray right knee. (4) Weakness: Status: Acute Assessment and plan: Continues to feel weak; she is eating well, encourage oral fluids. (5) Renal insufficiency: Assessment and plan: she has chronic renal insufficiency stage 3a Avoid nephrotoxic drugs renal dosing as needed Follow kidney function. (6) Hypothyroid: Assessment and plan: Last TSH 04/12/22 - 1.66, continue outpatient levothyroxine (7) CAD (coronary artery disease): Assessment and plan: continue statin, beta carmela and ASA. (8) DVT prophylaxis: Status: Chronic Assessment and plan: On apixaban. (9) Discharge planning issues: Status: Chronic Assessment and plan: want to go home, plan with home health tomorrow if continues to improve discussed with Dr Pineda Subjective Subjective Patient reports: no new complaints and afebrile Interval history since last seen: improved erythema, warmth and swelling, patient continues to report no improvement in pain but better ambulating today Exam Const General: cooperative, comfortable and no acute distress Nutritional Appearance: overweight Orientation: alert, awake and oriented x3 HENWI Head: normal to inspection, normocephalic and atraumatic Mouth: oral mucosae normal Chest Chest: normal inspection of the chest Resp Effort & Inspection: normal respiratory effort Cardio Rate: regular rate Rhythm: regular rhythm and other (good strong pedal pulse) GI Inspection: normal to inspection Skin General skin exam: ecchymosis (Various areas on lower extremities multiple stages of healing) Lesions: no lesions Rashes: rashes noted (Mild erythema to right lower extremity above ankle to below knee) Other: Old surgical incision across right knee Neuro General: patient alert, patient awake and patient oriented x3 Extrem General: full ROM (No pain to knee with passive range of motion) and pedal edema (Trace bilaterally) Objective Last Vital Signs Temp 36.7 C 09/25/22 07:50 Pulse 103 H 09/25/22 07:50 Resp 16 09/25/22 07:50 BP 102/74 09/25/22 07:50 Pulse Ox 100 09/25/22 07:50 Laboratory Results - last 24 hr 09/25/22 09/25/22 07:21 07:21 WBC 5.19 RBC 3.65 L Hgb 10.9 L Hct 34.0 L MCV 93 MCH 29.9 MCHC 32.1 RDW 18.8 H Plt Count 189 MPV 9.2 Immature Gran % 0.8 Neutrophils % 53.7 Lymphocytes % 34.3 Monocytes % 8.3 Eosinophils % 2.5 Basophils % 0.4 Nucleated RBC % 0.0 Absolute Neutrophils 2.79 Absolute Lymphocytes 1.78 Absolute Monocytes 0.43 Absolute Eosinophils 0.13 Absolute Basophils 0.02 Sodium 140 Potassium 4.3 Chloride 109 H Carbon Dioxide 23.2 Anion Gap 7.8 BUN 29 H Creatinine 1.5 H Est GFR (CKD-EPI 2020) 35.23 Glucose 113 H Calcium 9.0 Time Spent with Patient Time Spent with Patient: 25-34 minutes Time was spent: preparing to see the patient(eg.review tests), obtaining and/or reviewing separately otained hiistory, ordering medications,tests, procedures, counseling the patient and care coordination
--- NOTE | 2022-09-25 16:14 | CHAPLAIN ---
Arlin was up in the chair when I visited. She said her leg is still hurting her. Her daughter was in to visit during the day as she works nights. Arlin asked for a amadou abigail which I got for her.
[2022-09-25 16:17] VITALS: BP 95/60; PULSE 85; TEMP 36.9; O2SAT 100
[2022-09-25] MEDS: Gabapentin 100 MG CAP PO (20:27)
[2022-09-25] MEDS: Melatonin 3 MG TAB 9 MG PO (20:28)
[2022-09-25 23:39] VITALS: BP 90/50; PULSE 91; RESP 20; TEMP 36.7; O2SAT 97
[2022-09-26 03:52] VITALS: BP 126/88; PULSE 81; RESP 16; TEMP 36.2; O2SAT 100
[2022-09-26] MEDS: Levothyroxine 25 MCG TAB PO (05:41)
[2022-09-26 07:12] VITALS: BP 98/60; PULSE 78; RESP 16; TEMP 36.5; O2SAT 100
[2022-09-26] MEDS: buPROPion-XL 150 MG TABCR 300 MG PO (08:06)
[2022-09-26] MEDS: Aspirin E.C. 81 MG TABEC PO (08:06)
[2022-09-26] MEDS: Acetaminophen 325 MG TAB 650 MG PO (08:06)
[2022-09-26] MEDS: Cyanocobalamin 500 MCG TAB 1000 MCG PO (08:07)
[2022-09-26] MEDS: Omeprazole 20 MG CAPCR PO (08:07)
[2022-09-26] MEDS: Apixaban 5 MG TAB PO (08:07)
[2022-09-26] MEDS: Metoprolol CR 50 MG TABCR PO (08:07)
[2022-09-26] MEDS: Atorvastatin 40 MG TAB PO (08:07)
[2022-09-26] MEDS: Empaglifozin 10 MG TAB PO (08:07)
[2022-09-26] MEDS: ARIPiprazole 2 MG TAB PO (08:08)
--- NOTE | 2022-09-26 10:18 | PDOC.CMPRO ---
Date of service: 09/26/22 Time of Service: 10:18 Care Management Progress Note Progress Note Text Progress Note Text: S/O:Arlin was sitting up in a chair when CM met with her. A: Arlin is a 77 year old woman admitted with dehydration on 09/22/22 P:Arlin will likely be discharged home with no new services. She will follow up with her community providers and transport with family. CM will continue to support Arlin and her discharge needs.
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
[2022-09-26] MEDS: levoFLOXacin 500 MG, levoFLOXacin 250 MG 750 MG PO (12:11)
--- NOTE | 2022-09-26 15:13 | PT.INTREAT ---
Date of service: 09/26/22 Time of Service: 11:27 PT Notes Visit Reasons: fall, dehydration Inpatient Physical Therapy Treatment Note [facility] Date: 09/26/22 PRECAUTIONS: Fall, standard, activity as tolerated. SUBJECTIVE: Patient reports still not feeling any better, however affect is less frustrated than yesterday. Sitting in recliner with feet down, agreeable to therapy. OBJECTIVE: PAIN: Reports 09/25, no change with ambulation. BED MOBILITY/TRANSFERS Sit-stand: independent Stand-sit: independent Bed-Chair: independent Chair-bed: independent THEREX: Ambulation Assistive Device: FWW Weight bearing: full Assist: independent Distance: 325 feet Deviation: antalgic gait pattern, step to pattern with right leg leading. Patient takes several standing rest breaks due to being short of breath. ASSESSMENT: Patient tolerates therapy well. Is resting in recliner with feet down, CONNOR alarm active, call bernal within reach at end of therapy. PLAN: Continue global strengthening per plan of care until patient is medically cleared for discharge. TREATMENT CODE/TIME: 08403 ther ex 20 minutes beginning at 11:27
--- NOTE | 2022-09-26 15:14 | PDOC.CMDIS ---
Date of service: 09/26/22 Time of Service: 15:14 LACE Index Scoring Tool Questions: Length of Stay (in days): 4 - 6 Was the patient admitted via the E.D.?: Yes Comorbidities: Previous M.I. and Congestive Heart Failure E.D. Visits: 6 Answers: Total Score: 14 Risk of Readmission: High Risk Care Management Discharge Plan Reason for Hospitalization: fall and syncope Discharge Plan: Arlin will return home with a resumption of caregiver services and will resume attending [facility]. Arlin will follow up with her PCP and plan of care and transport with family. [facility] was notified of the discharge by CM and the need to resume services starting this evening. Patient/Family Education Needs: Review of discharge instructions, limitations, activity, follow up plan, discuss Ask Me Three
--- NOTE | 2022-09-29 13:19 | INDS_ITS ---
PT Notes Visit Reasons: fall, dehydration Physical Therapy Inpatient Discharge Summary Treatment Dates: 09/23/2022 - 09/26/22 Referring Doctor: Hernesto Funes MD PT Orders: PT CONSULT: Limited ability Precautions: Fall. Standard. Activity as tolerated. This document serves as a summary of care. No PT services were prov ided on this date. Patient Profile/Admitting Diagnosis: Arlin is a 77-year-old female who presented to the ED on 09/22/2022 due to a mechanincal fall suspected to be precipitated by orthostasis. She participated in 4 sessions of PT intervention, and demonstrated sufficient safety and mobiltiy to allow for safe return home with caregiver support. Social History/Home Situation: Patient lives alone in an apartment with a ramp to enter.? Goes to [facility] [employer] [employer] during the day from Mondays through Fridays. Daughter lives close by and checks on his mother from time to time. ? Independent with all mobility ADLs using 4WW. Equipment Owned/DME: 4WW, FWW, SPC Subjective: none obtained Objective: ROM: Right Upper Extremity: ? Shoulder Flexion about 90 degrees with pain at end of range at 3-4/10. Shoulder abduction allows up to 80 degrees. Elbow flexion WFL. Wrist flexion WFL. Functional opening and closing of hand WFL. Left Upper Extremity:? Shoulder Flexion WFL. Shoulder abduction WFL. Elbow flexion WFL. Wrist flexion WFL. Functional opening and closing of hand WFL. Right Lower Extremity: Hip flexion lacks the last 25% of AROM. Hip abduction lacks the last 25% of AROM. Knee flexion 30 degrees to 90 with pain at end of range. Ankle dorsiflexion to neutral only. Ankle plantarflexion WFL. Left Lower Extremity: Hip flexion WFL. Hip abduction WFL. Knee flexion WFL. Ankle dorsiflexion 10 degrees beyond nuetral. Ankle plantarflexion WFL. Strength: Right Upper Extremity: Shoulder flexors 3-/5. Shoulder abductors 3-/5. Elbow flexors 4/5. Elbow extensors 4/5. Consulting Solution Director strong. Left Upper Extremity: Shoulder flexors 4-/5. Shoulder abductors 4-/5. Elbow flexors 4/5. Elbow extensors 4/5. Consulting Solution Director strong. Right Lower Extremity: Hip flexors 4-/5. Hip abductors 4-/5. Knee flexors 3-/5. Knee extensors 3-/5. Ankle dorsiflexors 3-/5. Ankle plantarflexors 4/5. Left Lower Extremity: Hip flexors 4/5. Hip abductors 4/5. Knee flexors 4/5. Knee extensors 4/5. Ankle dorsiflexors 3-/5. Ankle plantarflexors 4/5. BED MOBILITY/TRANSFERS? Sit-stand: independent? Stand-sit: independent ? Bed-Chair: independent ? Chair-bed: independent ? Assistive Device: FWW? Weight bearing: full Assist: independent ? Distance:? 325 feet? Deviation: antalgic gait pattern, step to pattern with right leg leading. Patient required several standing rest breaks due to being short of breath. ? Balance: Static Sitting: Normal Dynamic Sitting: Normal Static Standing: fair Dynamic Standing: Fair Assessment: Arlin was able to demonstrate improvements in safety and mobility, sufficient to allow for safe return home with caregiver support. Goals: Goals X1 week 1. Supine-Sit independent (met) 2. Sit-Supine independent (met) 3. Sit-Stand independent (met) 4. Stand-Sit independent with FWW (met) 5. Bed-Chair independent with FWW (met) 6. Chair-Bed independent with FWW (met) 7. Independent gait on level surface with use of FWW for at least 300 feet without report of pain nor dyspnea (met) 8. Good static and dynamic standing balance/tolerance (progressing toward) DISCHARGE RECOMMENDATIONS: [] ? Home with continued caregiver support TREATMENT CODE/TIME: none Thank you for the opportunity to participate in the care of this patient. Haleigh Osborne PT, DPT [facility] [place], [place]
== END 2022-09-26 13:40 | disposition home health service (06) ==
LOC: ER 09-23 00:18 → MS 09-23 00:21
PROVIDERS: Internal Medicine; Nurse Practitioner Acute Care; Nurse Practitioner Family; Admitting Provider General Practice; Emergency Provider Student in an Organized Health Care Education/Training Program; PCP Family Medicine; Visit Provider General Practice
DX: L03.115 Cellulitis of right lower limb; I48.91 Unspecified atrial fibrillation; Z79.899 Other long term (current) drug therapy; N17.9 Acute kidney failure, unspecified; E86.0 Dehydration; S00.83XA Contusion of other part of head, initial encounter; S50.311A Abrasion of right elbow, initial encounter; W01.198A Fall on same level from slipping, tripping and stumbling with subsequent striking against other object, initial encounter; I27.20 Pulmonary hypertension, unspecified; R41.89 Other symptoms and signs involving cognitive functions and awareness; I50.32 Chronic diastolic (congestive) heart failure; R53.1 Weakness; R26.2 Difficulty in walking, not elsewhere classified; I25.10 Atherosclerotic heart disease of native coronary artery without angina pectoris; I25.2 Old myocardial infarction; Z79.01 Long term (current) use of anticoagulants; E03.9 Hypothyroidism, unspecified
CPT/HCPCS: 36415; 73562; 80048; 80053; 84145; 84520; 87081; 93005; 96360; 96361; 97110; 97116; 97162; 99285; 70450; 70486; 72125; 81003; 81015; 82565; 83735; 85025; 85610; 85730; 86140; 93010; 99221; 99232; 99233; 99239; G0378

== ENCOUNTER 2022-10-19 23:57 | Emergency (ER) | payer OTHER, MEDICAID, SELFPAY ==
--- NOTE | 2022-10-19 23:45 | RT.EKG_ITS ---
APPROVED REPORT Exam: Resting ECG Reason for Exam: sob Patient Location: E HR:108 bpm ECG Measurements Heart Rate 108 AXIS HI 144 P 0 QRSd 92 QRS -20 QT 359 T 81 QTc 473 Conclusion Sinus tachycardia with irregular rate...V-rate 82-136, variation>10% afib rvr, non ischemic
[2022-10-20] VITALS (20 sets, daily range): BP systolic 96–115; BP diastolic 55–79; PULSE 53–107; RESP 11–20; TEMP 36.9; O2SAT 96–99
--- NOTE | 2022-10-20 | DI.CT_ITS ---
Exam(s) CT HEAD WO EXAM: CT HEAD WO CLINICAL HISTORY: trip and fall from standing, on AC. TECHNIQUE: Imaging Protocol: Axial computed tomography images with coronal and sagittal reformatted images were created and reviewed COMPARISON: CT CT HEAD CERV SPINE FACIAL WO from 09/22/2022 FINDINGS: Ventricles and Extra axial spaces: Normal in size and morphology for the patient's age. Hemorrhage: None. Cerebral parenchyma: No acute territorial infarct. There areas of decreased attenuation in the white matter most consistent with small vessel ischemic disease. 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 Midline shift: None. Brainstem/Cerebellum: Normal. Calvarium: Normal. Visualized Paranasal sinuses/Mastoids: Clear. Soft Tissues: Unremarkable. IMPRESSION: No acute intracranial process. RADIATION DOSE DELIVERED: 795.93mGy.cm Total DLP DATA REPOSITORY: All CT scans at this facility are submitted to the National Radiology Data Registry (NRDR) Dose Index Registry (DIR) with the [employer] (ACR). RADIATION OPTIMIZATION: All CT scans at this facility use at least one of these dose optimization te chniques: automated exposure control; mA and/or kV adjustment per patient size (includes targeted exa ms where dose is matched to clinical indication); or iterative reconstruction.
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
--- NOTE | 2022-10-20 01:24 | DI.VRAD_ITS ---
PROCEDURE INFORMATION: Exam: CT Head Without Contrast Exam date and time: 10/20/2022 12:41 AM Age: 77 years old Clinical indication: Syncope and collapse TECHNIQUE: Imaging protocol: Computed tomography of the head without contrast. COMPARISON: CT HEAD CERV SPINE FACIAL WO 09/22/2022 9:02 PM FINDINGS: Brain: Focal area of encephalomalacia within the left cerebellar hemisphere consistent with old infarct unchanged compared to the prior study of 09/22/2022. There is moderate diffuse heterogeneity of the white matter attenuation, consistent with chronic white matter microangiopathic ischemic changes. There is moderate diffuse cerebral atrophy present. There is no evidence of intracranial hemorrhage. There is no evidence of acute intracranial injury or other pathologic process. There is no evidence of an acute ischemic event. Cerebral ventricles: The ventricular system demonstrates mild to moderate diffuse compensatory enlargement. Paranasal sinuses: There is no evidence of fluid levels, mucoperiosteal thickening, or opacification to suggest acute or chronic sinusitis. Mastoid air cells: The mastoid aircells are normal. Orbital cavities: The orbits are normal without evidence of fracture. There is no evidence of retro-bulbar hemorrhage. There is no evidence of globe or lens injury. Bones/joints: The bony cranium shows no evidence of injury or other acute pathologic processes. Soft tissues: The extracranial soft tissues are normal. Vasculature: Vascular calcifications seen consistent with chronic atherosclerotic cerebrovascular disease. IMPRESSION: 1. No evidence of an acute intracranial abnormality. Old left cerebellar infarct. 2. There is moderate age-related atrophy and chronic white matter ischemic changes, with compensatory ventricular dilation. Dictated and Authenticated by: Daryl Barroso MD. Ordering:HERBERT Oneill MD
== END 2022-10-20 02:27 | disposition home or self-care (01) ==
PROVIDERS: Emergency Provider Emergency Medicine; PCP Family Medicine
DX: S09.90XA Unspecified injury of head, initial encounter (principal); R06.02 Shortness of breath; W01.0XXA Fall on same level from slipping, tripping and stumbling without subsequent striking against object, initial encounter; Z79.01 Long term (current) use of anticoagulants; I48.91 Unspecified atrial fibrillation
CPT/HCPCS: 93005; 99284; 70450; 93010

== ENCOUNTER 2022-10-30 16:26 | Outpatient (REF) | payer OTHER, MEDICAID, SELFPAY ==
[2022-10-30 18:06] LABS: Bilirubin Negative (Negative); Blood Negative (Negative); Clarity Clear (Clear); Glucose 500 mg/dL (Negative); Ketones Negative (Negative); Leukocyte Esterase Negative (Negative); Nitrite Negative (Negative); Specific Gravity 1.015 (1.005-1.025); Urobilinogen 0.2 mg/dL (Up to 0.2)
== END 2022-10-30 16:27 | disposition home or self-care (01) ==
LOC: NCHCN 16:26
PROVIDERS: PCP Family Medicine; Visit Provider Family Medicine
DX: R32 Unspecified urinary incontinence (principal); Z87.448 Personal history of other diseases of urinary system; R82.998 Other abnormal findings in urine
CPT/HCPCS: 81003

== ENCOUNTER 2022-11-18 17:59 | Outpatient (REF) | payer OTHER, MEDICAID, SELFPAY ==
[2022-11-18 19:46] LABS: HCT 45.9 % (36.0-46.0); HGB 14.6 g/dL (11.2-15.7); MCH 29.9 pg (27.0-33.0); MCHC 31.8 % (32.0-36.0); MCV 94 fL (80-95); MPV 10.9 fL (8.0-11.0); Platelet Count 164 10^3/uL (130-400); RBC 4.89 10^6/uL (3.93-5.22); RDW 16.7 % (11.7-14.6); RDW-SD 57.6 fL
[2022-11-18 19:58] LABS: ALT 35 U/L (14-59); AST 29 U/L (15-37); Albumin 3.7 g/dL (3.4-5.0); Alkaline Phosphatase 120 U/L (46-116); Anion Gap 12.1 mmol/L (3-11); BUN 39 mg/dL (7-18); CO2 24.9 mmol/L (21.0-32.0); CREATININE 2.3 mg/dL (0.55-1.02); Calcium 9.4 mg/dL (8.5-10.1); Chloride 98 mmol/L (98-107); Estimated GFR 21.09 (mL/min/1.73m2); Glucose 119 mg/dL (74-106); Magnesium 2.3 mg/dL (1.8-2.4); PHOSPHORUS 4.5 mg/dL (2.6-4.7); Potassium 4.4 mmol/L (3.5-5.1); Sodium 135 mmol/L (136-145); Total Protein 7.1 g/dL (6.4-8.2)
[2022-11-18 20:19] LABS: Bilirubin, Total 0.7 mg/dL (0.2-1.0)
[2022-11-18 20:32] LABS: Vitamin D 25 Total 74.4 ng/mL (30-100)
[2022-11-18 21:26] LABS: Iron 89 ug/dL (50-170); Total Iron Binding Capacity 373 ug/dL (250-450); Transferrin Sat 24 % (15-50)
[2022-11-19 18:20] LABS: Parathyroid Hormone,Intact 244 pg/mL (19-88)
== END 2022-11-18 18:00 | disposition home or self-care (01) ==
LOC: NCHCN 17:59
PROVIDERS: PCP Family Medicine; Visit Provider Family Medicine
DX: D64.9 Anemia, unspecified (principal); Z68.37 Body mass index [BMI] 37.0-37.9, adult; N18.32 Chronic kidney disease, stage 3b
CPT/HCPCS: 80053; 82306; 85027; 83540; 83550; 83735; 83970; 84100

== ENCOUNTER 2022-12-03 11:40 | Emergency (ER) | payer OTHER, MEDICAID, SELFPAY ==
[2022-12-03] VITALS (42 sets, daily range): BP systolic 99–182; BP diastolic 55–154; PULSE 63–118; RESP 12–32; TEMP 36.1; O2SAT 80–100
--- NOTE | 2022-12-03 11:45 | RT.EKG_ITS ---
APPROVED REPORT Exam: Resting ECG Reason for Exam: dizzy, weak Patient Location: E HR:100 bpm ECG Measurements Heart Rate 100 AXIS [place] [id number] P [id number] QRSd 101 QRS -10 QT 362 T 63 QTc 468 Conclusion Atrial fibrillation...? atrial activity afib, normal axis, normal intervals, non ischemic
[2022-12-03 12:39] LABS: Abs Immature Grans 0.03 10^3/uL (0.0-0.06); Absolute Basophil Count 0.04 10^3/uL (0.0-0.2); Absolute Monocyte Count 0.61 10^3/uL (0.1-0.8); Absolute Neutrophil Count 3.36 10^3/uL (1.2-6.7); Basophils % 0.6; Eosinophils % 1.6; HCT 44.2 % (36.0-46.0); Immature Grans % 0.5; Lymphocytes % 35.7; MCH 30.4 pg (27.0-33.0); MCHC 31.7 % (32.0-36.0); MCV 96 fL (80-95); MPV 9.7 fL (8.0-11.0); Monocytes % 9.5; Neutrophils % 52.1; Platelet Count 157 10^3/uL (130-400); RBC 4.61 10^6/uL (3.93-5.22); RDW 16.7 % (11.7-14.6); RDW-SD 58.2 fL; WBC 6.44 10^3/uL (4.4-10.8)
[2022-12-03 13:28] LABS: ALT 25 U/L (14-59); AST 35 U/L (15-37); Albumin 2.9 g/dL (3.4-5.0); Alkaline Phosphatase 83 U/L (46-116); Anion Gap 8.9 mmol/L (3-11); BUN 41 mg/dL (7-18); Bilirubin, Total 0.8 mg/dL (0.2-1.0); CO2 25.1 mmol/L (21.0-32.0); CREATININE 2.1 mg/dL (0.55-1.02); Calcium 8.5 mg/dL (8.5-10.1); Chloride 105 mmol/L (98-107); Estimated GFR 23.53 (mL/min/1.73m2); Glucose 87 mg/dL (74-106); Magnesium 2.3 mg/dL (1.8-2.4); Potassium 4.3 mmol/L (3.5-5.1); Sodium 139 mmol/L (136-145); TSH 2.68 uIU/mL (0.36-3.74); Total Protein 6.5 g/dL (6.4-8.2); Troponin I < 50 ng/L (<or=60)
--- NOTE | 2022-12-03 13:30 | DI.RAD_ITS ---
Exam(s) XR CHEST 2V PA LATERAL EXAM: XR CHEST 2V PA LATERAL CLINICAL HISTORY: shortness of breath TECHNIQUE: 2D digital imaging was performed of the chest. Two images were obtained. PA and lateral views were obtained. COMPARISON: CR XR CHEST 2V PA LATERAL from 08/08/2022 FINDINGS: MEDIASTINUM: Normal. HEART: Cardiomegaly. PULMONARY VASCULATURE: Normal. LUNGS: Clear. PLEURAL SPACE: No pleural effusion or pneumothorax. BONE:Within normal limits for the patient's age. OTHER FINDINGS:Normal. IMPRESSION: No acute pulmonary findings. DATA REPOSITORY: RADIATION DOSE DELIVERED:
[2022-12-03 13:34] LABS: Bilirubin Negative (Negative); Blood Trace-intact (Negative); Clarity Clear (Clear); Glucose 250 mg/dL (Negative); Ketones Negative (Negative); Leukocyte Esterase Trace (Negative); Nitrite Negative (Negative); Specific Gravity 1.015 (1.005-1.025); Urobilinogen 0.2 mg/dL (Up to 0.2)
[2022-12-03 13:44] LABS: Bacteria Rare HPF (Negative); C & S Indicated? Yes; Casts Negative LPF (Negative); Crystals Negative HPF (Negative); Epithelial Cells Few HPF (Negative); Mucus Negative (Negative); RBC 0-2 HPF (0-2); WBC 0-2 HPF (0-5)
[2022-12-03] MEDS: Lactated Ringers 500 ML IV ×2 (14:00→15:51)
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
--- NOTE | 2022-12-03 17:37 | NUR.NOTE ---
Daughter Cass was called to come and forklift picker the patient. [phone] Nursing Note:
--- NOTE | 2022-12-04 16:57 | NUR.NOTE ---
Accessed pt chart to print note for fax to Home Health. Nursing Note:
== END 2022-12-03 16:28 | disposition home or self-care (01) ==
PROVIDERS: Emergency Provider Physician Assistant; PCP Family Medicine
DX: R53.81 Other malaise (principal); I48.91 Unspecified atrial fibrillation; I51.7 Cardiomegaly; I11.0 Hypertensive heart disease with heart failure; I50.23 Acute on chronic systolic (congestive) heart failure; I25.10 Atherosclerotic heart disease of native coronary artery without angina pectoris; I25.2 Old myocardial infarction; Z79.01 Long term (current) use of anticoagulants; Z79.82 Long term (current) use of aspirin
CPT/HCPCS: 80053; 93005; 97161; 97530; 99283; 71046; 81003; 81015; 83735; 84443; 84484; 85025; 87086; 93010

== ENCOUNTER 2022-12-06 08:22 | Inpatient (IN) | payer OTHER, MEDICAID, SELFPAY ==
[2022-12-06] VITALS (19 sets, daily range): BP systolic 78–135; BP diastolic 50–95; PULSE 43–117; RESP 14–20; TEMP 35.7–36.6; O2SAT 98–100
--- NOTE | 2022-12-06 08:15 | DI.RAD_ITS ---
Exam(s) XR PORTABLE CHEST AP EXAM: XR PORTABLE CHEST AP CLINICAL HISTORY: SYNCOPE. TECHNIQUE: 2D digital imaging was performed. COMPARISON: CR XR CHEST 2V PA LATERAL from 12/03/2022 FINDINGS: Single AP portable view. Cardiomegaly again noted. Mediastinum is not widened. Lungs are clear. No infiltrates nor obvious pleural effusions. IMPRESSION: No acute pulmonary findings on this single AP portable view of the chest. Cardiomegaly again noted. DATA REPOSITORY: RADIATION DOSE DELIVERED:
--- NOTE | 2022-12-06 08:15 | DI.CT_ITS ---
Exam(s) CT HEAD WO EXAM: CT HEAD WO CLINICAL HISTORY: FALL. TECHNIQUE: Imaging Protocol: Axial computed tomography images with coronal and sagittal reformatted images were created and reviewed COMPARISON: CT CT HEAD WO from 10/20/2022 FINDINGS: There are no skull fractures. Hyperostosis frontalis interna again noted. There is no fluid in the visualized paranasal sinuses. There is no evidence of intracranial hemorrhage, mass effect, or shift of midline structures. There are no extra-axial fluid collections. The ventricles are not enlarged or shifted and there is no blo od within the ventricular system nor within the basal cisterns. Again noted is prior infarct in the left cerebellar hemisphere and there is again noted abundant bila teral periventricular hypodensity consistent with chronic small vessel disease. IMPRESSION: No acute intracranial findings on this noninfused CT scan of the brain. Chronic small-vessel white m atter periventricular ischemic changes again noted as well as evidence of prior remote left cerebella r hemisphere infarct. If clinically indicated MRI with diffusion imaging can be performed. RADIATION DOSE DELIVERED: Total DLP DATA REPOSITORY: All CT scans at this facility are submitted to the National Radiology Data Registry (NRDR) Dose Index Registry (DIR) with the [employer] ([employer]). RADIATION OPTIMIZATION: All CT scans at this facility use at least one of these dose optimization te chniques: automated exposure control; mA and/or kV adjustment per patient size (includes targeted exa ms where dose is matched to clinical indication); or iterative reconstruction.
--- NOTE | 2022-12-06 08:15 | DI.RAD_ITS ---
Exam(s) XR PELVIS AP EXAM: XR PELVIS AP CLINICAL HISTORY: FALL. TECHNIQUE: 2D digital imaging was performed. COMPARISON: CR,XR XR HIP LT COMPLETE AP PELVIS from 04/27/2021 FINDINGS: Single view. No evidence of pelvic nor hip fracture. No hip joint space narrowing. SI joints unremarkable. Dege nerative disc disease noted in the lumbar spine. IMPRESSION: No acute fractures evident. DATA REPOSITORY: RADIATION DOSE DELIVERED:
--- NOTE | 2022-12-06 08:30 | RT.EKG_ITS ---
APPROVED REPORT Exam: Resting ECG Reason for Exam: chest pain Patient Location: E HR:84 bpm ECG Measurements Heart Rate 84 AXIS RI [id number] P [id number] QRSd 96 QRS -24 QT 347 T 158 QTc 410 Conclusion atrial fib, rate controlled. no acute ST segment changes Compared to prior, no concerning changes.
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
--- NOTE | 2022-12-06 08:45 | DI.RAD_ITS ---
Exam(s) XR SHOULDER LT COMPLETE 2+V EXAM: XR SHOULDER LT COMPLETE 2+V CLINICAL HISTORY: shoulder pain. TECHNIQUE: 2D digital imaging was performed. COMPARISON: CR XR SHOULDER RT COMPLETE 2+V from 01/21/2022 FINDINGS: 3 views No evidence of acute fracture or dislocation but there is an element of upward subluxation of the hum eral head in the osseous glenoid fossa and diminution of the subacromial space. This is often associ ated rotator cuff thickness tear. No abnormal soft tissue calcifications evident. AC joint unremark able. Minimal degenerative changes in the glenohumeral joint. No osseous lesions. IMPRESSION: Mild upward subluxation of the humeral head in the osseous glenoid. This may be related to significa nt rotator cuff tearing. No acute fracture evident. DATA REPOSITORY: RADIATION DOSE DELIVERED:
--- NOTE | 2022-12-06 09:13 | DI.VRAD_ITS ---
PROCEDURE INFORMATION: Exam: CT Head Without Contrast Exam date and time: 12/06/2022 8:44 AM Age: 77 years old Clinical indication: Injury or trauma; Fall; Work related; Blunt trauma (contusions or hematomas) TECHNIQUE: Imaging protocol: Computed tomography of the head without contrast. COMPARISON: CT HEAD WO 10/20/2022 12:41 AM FINDINGS: Brain: No acute intracranial hemorrhage.. There is mild diffuse heterogeneity of the white matter attenuation, consistent with chronic white matter ischemic changes. Mild cerebral atrophy. Well delineated low-attenuation in the left cerebellum may represent prior infarction Cerebral ventricles: No ventriculomegaly. Paranasal sinuses: Visualized sinuses are unremarkable. No fluid levels. Mastoid air cells: Visualized mastoid air cells are well aerated. Bones/joints: Benign hyperostosis frontalis is present. Soft tissues: Lipoma in the midline series 2, image 38 IMPRESSION: No acute intracranial hemorrhage.. Dictated and Authenticated by: Garcia Ramos MD. Ordering:[facility] Carlotta Sesay MD
--- NOTE | 2022-12-06 09:15 | DI.VRAD_ITS ---
PROCEDURE INFORMATION: Exam: XR Chest Exam date and time: 12/06/2022 8:34 AM Age: 77 years old Clinical indication: Sternal or substernal pain TECHNIQUE: Imaging protocol: Radiologic exam of the chest. Views: 1 view. COMPARISON: CR XR CHEST 2V PA LATERAL 12/03/2022 1:57 PM FINDINGS: Lungs: Left basilar atelectasis No consolidation. Pleural spaces: Unremarkable. No pleural effusion. No pneumothorax. Heart/Mediastinum: Unremarkable. No cardiomegaly. Bones/joints: Degenerative changes in the right glenohumeral joint IMPRESSION: No acute findings. Dictated and Authenticated by: Garcia Ramos MD. Ordering:NoeKELLY Sesay MD
--- NOTE | 2022-12-06 09:16 | DI.VRAD_ITS ---
PROCEDURE INFORMATION: Exam: XR Left Shoulder Exam date and time: 12/06/2022 8:59 AM Age: 77 years old Clinical indication: Injury or trauma; Fall; Blunt trauma (contusions or hematomas); Shoulder; Left TECHNIQUE: Imaging protocol: Radiologic exam of the left shoulder. Views: 2 or more views. COMPARISON: CR XR SHOULDER LT COMPLETE 2+V 02/22/2020 12:42 AM FINDINGS: Bones/joints: Degenerative changes in the acromioclavicular joint and glenohumeral joint. There is no evidence of acute fracture.There is no evidence of malalignment or dislocation. Soft tissues: Normal. IMPRESSION: There is no evidence of acute fracture.There is no evidence of malalignment or dislocation. Dictated and Authenticated by: Garcia Ramos MD. Ordering:ANNABELLA Sesay MD
--- NOTE | 2022-12-06 09:17 | DI.VRAD_ITS ---
PROCEDURE INFORMATION: Exam: XR Pelvis Exam date and time: 12/06/2022 8:57 AM Age: 77 years old Clinical indication: Injury or trauma; Fall; Blunt trauma (contusions or hematomas); Right; Hip TECHNIQUE: Imaging protocol: Radiologic exam of the pelvis. Views: 1 or 2 view. COMPARISON: CT CHEST/ABD/PEL W 04/12/2022 12:55 PM FINDINGS: Bones/joints: Degenerative changes in both hips and sacroiliac joints. There is no evidence of acute fracture in any of the visualized osseous structures.. There is no evidence of malalignment or dislocation of any visualized joint. Soft tissues: Unremarkable. IMPRESSION: 1. There is no evidence of acute fracture in any of the visualized osseous structures.. 2. There is no evidence of malalignment or dislocation of any visualized joint. Dictated and Authenticated by: Garcia Ramos MD. Ordering:ANNABELLA Sesay MD
[2022-12-06 10:07] LABS: Abs Immature Grans 0.04 10^3/uL (0.0-0.06); Absolute Basophil Count 0.04 10^3/uL (0.0-0.2); Absolute Lymphocyte Count 1.58 10^3/uL (1.2-3.4); Absolute Monocyte Count 0.37 10^3/uL (0.1-0.8); Absolute Neutrophil Count 3.69 10^3/uL (1.2-6.7); Basophils % 0.7; Eosinophils % 1.7; HCT 44.1 % (36.0-46.0); Immature Grans % 0.7; Lymphocytes % 27.1; MCH 30.8 pg (27.0-33.0); MCHC 31.7 % (32.0-36.0); MCV 97 fL (80-95); MPV 9.7 fL (8.0-11.0); Monocytes % 6.4; Neutrophils % 63.4; Platelet Count 147 10^3/uL (130-400); RBC 4.54 10^6/uL (3.93-5.22); RDW 16.8 % (11.7-14.6); RDW-SD 58.8 fL; WBC 5.82 10^3/uL (4.4-10.8)
[2022-12-06 10:36] LABS: ALT 28 U/L (14-59); AST 41 U/L (15-37); Albumin 3.7 g/dL (3.4-5.0); Alkaline Phosphatase 101 U/L (46-116); Anion Gap 7.8 mmol/L (3-11); BUN 37 mg/dL (7-18); Bilirubin, Total 1.1 mg/dL (0.2-1.0); CO2 27.2 mmol/L (21.0-32.0); CREATININE 2.2 mg/dL (0.55-1.02); Calcium 9.9 mg/dL (8.5-10.1); Chloride 101 mmol/L (98-107); Estimated GFR 22.25 (mL/min/1.73m2); Glucose 85 mg/dL (74-106); NT-proBNP 4640 pg/mL (<300); Potassium 4.4 mmol/L (3.5-5.1); Sodium 136 mmol/L (136-145); Total Protein 7.9 g/dL (6.4-8.2); Troponin I < 50 ng/L (<or=60)
[2022-12-06 10:49] LABS: Source Nasal/Nares
[2022-12-06] MEDS: Furosemide 100 MG/10 ML VIAL 80 MG IVP (11:25)
[2022-12-06 11:30] LABS: COVID-19 PCR Negative (Negative)
[2022-12-06 13:12] LABS: Lab Add On Test DONE
[2022-12-06] MEDS: Acetaminophen 325 MG TAB PO (14:18)
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
[2022-12-06] MEDS: Lactated Ringers 250 ML IV ×2 (15:17→17:09)
[2022-12-06] MEDS: Lidocaine 5% Patch 1 PATCH TP (17:08)
[2022-12-06] MEDS: Lactated Ringers 500 ML IV (18:33)
[2022-12-06] MEDS: Apixaban 5 MG TAB PO (19:33)
[2022-12-06] MEDS: Atorvastatin 40 MG TAB PO (21:19)
[2022-12-06] MEDS: Melatonin 3 MG TAB 6 MG PO (21:20)
[2022-12-06] MEDS: Lactated Ringers 500 ML 75 ML IV (21:49)
[2022-12-06] MEDS: traMADol 50 MG TAB PO (23:45)
[2022-12-07] VITALS (11 sets, daily range): BP systolic 84–100; BP diastolic 57–67; PULSE 75–100; RESP 16–18; TEMP 35.4–36.4; O2SAT 94–100
[2022-12-07] MEDS: Levothyroxine 25 MCG TAB PO (05:24)
[2022-12-07 06:45] LABS: Abs Immature Grans 0.02 10^3/uL (0.0-0.06); Absolute Basophil Count 0.03 10^3/uL (0.0-0.2); Absolute Monocyte Count 0.55 10^3/uL (0.1-0.8); Absolute Neutrophil Count 2.69 10^3/uL (1.2-6.7); Basophils % 0.6; Eosinophils % 1.9; HCT 36.8 % (36.0-46.0); HGB 11.8 g/dL (11.2-15.7); Immature Grans % 0.4; Lymphocytes % 35.9; MCH 31.6 pg (27.0-33.0); MCHC 32.1 % (32.0-36.0); MCV 99 fL (80-95); MPV 9.9 fL (8.0-11.0); Monocytes % 10.4; Neutrophils % 50.8; Platelet Count 117 10^3/uL (130-400); RBC 3.73 10^6/uL (3.93-5.22); RDW 17.2 % (11.7-14.6); RDW-SD 61.4 fL; WBC 5.29 10^3/uL (4.4-10.8)
[2022-12-07 07:18] LABS: Anion Gap 8.3 mmol/L (3-11); BUN 34 mg/dL (7-18); CO2 26.7 mmol/L (21.0-32.0); Calcium 9.2 mg/dL (8.5-10.1); Chloride 104 mmol/L (98-107); Estimated GFR 24.94 (mL/min/1.73m2); Glucose 118 mg/dL (74-106); Magnesium 2.4 mg/dL (1.8-2.4); Sodium 139 mmol/L (136-145)
[2022-12-07] MEDS: Empaglifozin 10 MG TAB PO (07:45)
[2022-12-07] MEDS: Omeprazole 20 MG CAPCR PO (07:45)
[2022-12-07] MEDS: Calcium 600mg/Vit D 200U TAB 1 TAB PO (07:45)
[2022-12-07] MEDS: Ferrous Gluconate 324 MG TAB PO (07:45)
[2022-12-07] MEDS: Acetaminophen 325 MG TAB 1000 MG PO (07:46)
[2022-12-07 07:49] LABS: Lab Add On Test DONE
[2022-12-07 08:18] LABS: Procalcitonin < 0.1 ng/mL
[2022-12-07] MEDS: ARIPiprazole 2 MG TAB PO (08:53)
[2022-12-07] MEDS: buPROPion-XL 150 MG TABCR 300 MG PO (08:53)
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
[2022-12-07] MEDS: Cyanocobalamin 500 MCG TAB 1000 MCG PO (09:22)
[2022-12-07] MEDS: Lactated Ringers 250 ML IV ×2 (11:39→20:02)
[2022-12-07 12:31] LABS: HCT 39.6 % (36.0-46.0); HGB 12.4 g/dL (11.2-15.7)
[2022-12-07] MEDS: Lidocaine 5% Patch 1 PATCH TP (17:06)
[2022-12-07] MEDS: Acetaminophen 500 MG TAB 1000 MG PO (18:28)
--- NOTE | 2022-12-07 19:45 | W.PM.PROGNOT ---
Date of Service Date of service: 12/07/22 Time of Service: 19:45 Assessment and Plan Assessment and plan (1) Fall: Status: Acute Assessment and plan: Unwitnessed. Cannot rule out near-sycnope/syncope. The patient has been persistently hypotensive post IV furosemide 80 mg in the ER yesterday. Continue to try to match I/Os while monitoring BP. No acute events on tele. Monitor orthostatic VS. Hold off on further diuresis for now. (2) Orthostatic hypotension: Status: Acute Assessment and plan: As above (3) Chronic diastolic heart failure: Status: Chronic Assessment and plan: As above (4) A-fib: Status: Chronic Assessment and plan: Rate controlled. Monitor on tele. Continue apixaban, toprol XL. TSH ok. (5) Shoulder subluxation, left: Status: Acute Assessment and plan: C/s ortho on Thursday (none in house until then). Pain management with tylenol, prn tramadol. Curiously, the patient is reporting pain in her right shoulder, not left. (6) Closed head injury: Status: Acute Assessment and plan: She is on anticoagulation, which makes her falls higher risk. Doing well - no behaviors or confusion observed. Continue neurochecks. (7) Musculoskeletal chest pain: Status: Acute Assessment and plan: Continue tylenol, lidocaine patches, tramadol prn. (8) DVT prophylaxis: Status: Acute Assessment and plan: On therapeutic apixaban (9) Discharge planning issues: Status: Acute Assessment and plan: DNR/DNI as verified with the patient. Subjective Subjective Interval history since last seen: C/o misternal chest pain (reproducible with palpation) and R shoulder pain. A little dizzy. Denies SOB, n/v. Exam Narrative Exam Narrative: General: Pleasant elderly female is asleep, wakes up easily, A&ox3, no dyspnea/tachypnea/cyanosis laying flat in bed on RA HEENT: EOMI, MMM Cardiovascular: irregularly irregular rhythm, no m/r/g. Lower mid-chest wall is exquisitely tender to palpation Lungs: CTAB Gastrointestinal: soft, nontender, nondisstended Extremities: 1+ BLE edema, symmetric, no c/c, 1+ pedal pulses B, R shoulder appears elevated, TTP Objective Last Vital Signs Temp 35.4 C L 12/07/22 15:33 Pulse 85 12/07/22 15:33 Resp 18 12/07/22 15:33 BP 92/62 L 12/07/22 16:07 Pulse Ox 100 12/07/22 15:33 Laboratory Results - last 24 hr 12/07/22 12/07/22 06:25 12:24 WBC 5.29 RBC 3.73 L Hgb 11.8 D 12.4 Hct 36.8 39.6 MCV 99 H MCH 31.6 MCHC 32.1 RDW 17.2 H Plt Count 117 L MPV 9.9 Immature Gran % 0.4 Neutrophils % 50.8 Lymphocytes % 35.9 Monocytes % 10.4 Eosinophils % 1.9 Basophils % 0.6 Nucleated RBC % 0.0 Absolute Neutrophils 2.69 Absolute Lymphocytes 1.90 Absolute Monocytes 0.55 Absolute Eosinophils 0.10 Absolute Basophils 0.03 VBG Lactate 2.0 H Sodium 139 Potassium 4.0 Chloride 104 Carbon Dioxide 26.7 Anion Gap 8.3 BUN 34 H Creatinine 2.0 H Est GFR (CKD-EPI 2020) 24.94 Glucose 118 H Calcium 9.2 Magnesium 2.4 Procalcitonin < 0.1 Add-On Test Request DONE Time Spent with Patient Time Spent with Patient: 25-34 minutes Time was spent: preparing to see the patient(eg.review tests), obtaining and/or reviewing separately otained hiistory, ordering medications,tests, procedures, referring, communicating with other health animal care specialist, indepentently interpreting results, counseling the patient and care coordination
[2022-12-07] MEDS: Apixaban 5 MG TAB PO (20:18)
[2022-12-07] MEDS: Atorvastatin 40 MG TAB PO (20:18)
[2022-12-07] MEDS: Melatonin 3 MG TAB 6 MG PO (20:18)
[2022-12-07] MEDS: Gabapentin 100 MG CAP PO (20:18)
[2022-12-07] MEDS: traMADol 50 MG TAB PO (20:19)
[2022-12-08] VITALS (8 sets, daily range): BP systolic 92–122; BP diastolic 60–79; PULSE 71–98; RESP 16–22; TEMP 35.9–36.8; O2SAT 97–100
--- NOTE | 2022-12-08 | DI.RAD_ITS ---
Exam(s) XR SHOULDER RT COMPLETE 2+V EXAM: XR SHOULDER RT COMPLETE 2+V CLINICAL HISTORY: right shoulder pain, h/o RTC arthropathy. TECHNIQUE: 2D digital imaging was performed. Five views. Portable COMPARISON: CR XR SHOULDER RT COMPLETE 2+V from 12/31/2021 MR MR UPPER JOINT RT WO from 06/26/2022 CR XR CHEST 2V PA LATERAL from 12/03/2022 CR,XR XR SHOULDER LT COMPLETE 2+V from 12/06/2022 CR,XR XR PORTABLE CHEST AP from 12/06/2022 FINDINGS: Exam limited by patient immobility. BONES: No acute fracture is present. deformity the humeral head with some flattening at the articula r surface. Erosions seen both superiorly and medially.. This appears unchanged from prior chest x-r ay but appears new when compared 2021 shoulder x-rays.. JOINTS: No dislocation present. Degenerative changes AC joint and glenohumeral joint. The glenohume ral joint is not optimally profiled. Periarticular spurring. Humeral head articulates with the unde rsurface of the acromion, consistent with chronic rotator cuff tear SOFT TISSUE: Normal. IMPRESSION: Limited exam. Erosions at the superior and medial aspects of the humeral head. Degenerative changes of the glenohumeral joint. Chronic rotator cuff tear. DATA REPOSITORY: RADIATION DOSE DELIVERED:
[2022-12-08] MEDS: Levothyroxine 25 MCG TAB PO (05:29)
[2022-12-08] MEDS: Lidocaine Patch Removal 1 EACH TP (05:29)
[2022-12-08] MEDS: Acetaminophen 500 MG TAB 1000 MG PO (05:29)
[2022-12-08 07:08] LABS: Abs Immature Grans 0.02 10^3/uL (0.0-0.06); Absolute Basophil Count 0.04 10^3/uL (0.0-0.2); Absolute Eosinophil Count 0.12 10^3/uL (0.0-0.7); Absolute Lymphocyte Count 1.98 10^3/uL (1.2-3.4); Absolute Monocyte Count 0.49 10^3/uL (0.1-0.8); Absolute Neutrophil Count 2.95 10^3/uL (1.2-6.7); Basophils % 0.7; Eosinophils % 2.1; HCT 33.7 % (36.0-46.0); HGB 10.9 g/dL (11.2-15.7); Immature Grans % 0.4; Lymphocytes % 35.4; MCH 31.7 pg (27.0-33.0); MCHC 32.3 % (32.0-36.0); MCV 98 fL (80-95); MPV 9.7 fL (8.0-11.0); Monocytes % 8.8; Neutrophils % 52.6; Platelet Count 121 10^3/uL (130-400); RBC 3.44 10^6/uL (3.93-5.22); RDW 17.3 % (11.7-14.6); RDW-SD 61.4 fL
[2022-12-08] MEDS: Ferrous Gluconate 324 MG TAB PO (07:44)
[2022-12-08] MEDS: Omeprazole 20 MG CAPCR PO (07:44)
[2022-12-08] MEDS: Apixaban 5 MG TAB PO ×2 (07:44→21:03)
[2022-12-08] MEDS: buPROPion-XL 150 MG TABCR PO (07:44)
[2022-12-08] MEDS: ARIPiprazole 2 MG TAB PO (07:44)
[2022-12-08] MEDS: Metoprolol CR 50 MG TABCR PO (07:44)
[2022-12-08] MEDS: Aspirin E.C. 81 MG TABEC PO (07:44)
[2022-12-08] MEDS: Cyanocobalamin 500 MCG TAB 1000 MCG PO (07:44)
[2022-12-08] MEDS: Empaglifozin 10 MG TAB PO (07:45)
[2022-12-08] MEDS: Calcium 600mg/Vit D 200U TAB 1 TAB PO (07:45)
[2022-12-08 07:59] LABS: Anion Gap 7.4 mmol/L (3-11); BUN 30 mg/dL (7-18); CO2 25.6 mmol/L (21.0-32.0); CREATININE 1.5 mg/dL (0.55-1.02); Calcium 8.7 mg/dL (8.5-10.1); Chloride 105 mmol/L (98-107); Estimated GFR 35.23 (mL/min/1.73m2); Ferritin 74 ng/mL (8-252); Folate 9.8 ng/mL (8.6-20.0); Glucose 111 mg/dL (74-106); Magnesium 2.2 mg/dL (1.8-2.4); Potassium 3.9 mmol/L (3.5-5.1); Sodium 138 mmol/L (136-145); Vitamin B12 1771 pg/mL (193-986)
--- NOTE | 2022-12-08 08:00 | DI.US_ITS ---
APPROVED REPORT EXAM: Comprehensive 2D, Doppler, and color-flow Echocardiogram Patient Location: In-Patient Shredded Filler Cutter Operator: Hector Fraire RDCS (AE) Indications: ?syncope, orthostasis Other Information Study Quality: Adequate. Technically limited study due to inability to position patient, inability to apply compression due to patient's paiin. Conclusion Normal left ventricular wall thickness and chamber size. Ejection fraction is 55%. Wall motion is n ormal Normal right ventricular size and systolic function Both atria are dilated There are no structural valvular abnormalities There is moderate mitral and tricuspid regurgitation Estimated right ventricular systolic pressure is 27 mmHg Wall motion Left Ventricle The left ventricle is normal size. The left ventricular systolic function is normal. The left ventric ular ejection fraction is within the normal range. There is normal left ventricular wall thickness. T here is normal LV segmental wall motion. There is no ventricular septal defect visualized. LVEF is 55 %. Right Ventricle The right ventricle is normal size. Right ventricular systolic function is grossly normal. The RVSP i s 27.4 mmHg. Atria Left atrium is severely dilated. Right atrium is severely dilated. The interatrial septum is intact w ith no evidence for an atrial septal defect. Aortic Valve The aortic valve is normal in structure. Aortic valve is trileaflet. There is no aortic valvular sten osis. No aortic regurgitation is present. Mitral Valve The mitral valve is normal in structure. No evidence of mitral valve stenosis. Moderate mitral regurg itation. Tricuspid Valve The tricuspid valve is normal in structure. There is no tricuspid valve stenosis. Moderate tricuspid regurgitation. Pulmonic Valve The pulmonary valve is normal in structure. There is no pulmonic valvular stenosis. Trace pulmonic re gurgitation. Great Vessels The aortic root is normal in size. Ascending aorta is not well visualized. Aortic arch is not well vi sualized. IVC is normal in size and collapses >50% with inspiration. Pericardium There is no pericardial effusion. 2D Dimensions IVSD d PLAX 0.81 cm F: 0.6-1.0 Ao Root d 2.71 cm F: 2.7 - 3.3 LVPW d PLAX 0.82 cm F: 0.6 - 1.0 LVID d PLAX 3.72 cm F: 3.8 - 5.2 LVDs 2.68 cm F: 2.2 - 3.5 LV EF Teichholz 55.0 % FS 27.99 % LV EDV (Teich) 59.0 mL LV ESV (Teich) 26.5 mL Stroke Vol Index (Teich) 17.26 M-Mode TAPSE 2.37 cm (M/F) >1.7 Auto EF LV EDV A4C 58.1 mL LV EDV A2C 62.1 mL LV EDV BP LV ESV A4C 28.4 mL LV ESV A2C 27.4 mL LV ESV BP LVEF(%) A4C 51.1 % LVEF(%) A2C 55.9 % LVEF(%) BP LV SV A4C 29.7 ml LV SV A2C 34.7 ml LV SV BP LV CO A4C 1.6 L/min LV CO A2C 1.3 L/min LV CO BP HR A4C 52.39 BPM HR A2C 37.46 BPM LV EDV Index (BP) LA Volume LA Length A4C 6.4 cm LA Length A2C LA Area A4C s 24.54 cm2 LA Area A2C s LA Vol A4C A-L 79.65 mL LA Vol A2C A-L LA Vol Biplane A-L LA Vol A4C MOD 73.4 mL LA Vol A2C MOD LA Vol BP MOD RA Volume RA Area A4C 23.1 cm2 RA ESV A4C (A-L) 76.1mL RA Vol/BSA A4C A-L RA Length A4C 6.0 cm RA ESV A4C (MOD) 72.2mL LV Diastology MV E' medial 0.118 (>0.07 m/s) MV E Vmax 1.17 (0.4-1.3 m/s) MV E/E' MED 9.93 (<14) MV E' lateral 0.113 (>0.1 m/s) MV E/E' LAT 10.36 (<14) MV E' Average 0.116 m/s MV E/E'(average) 10.14 Aortic Valve AoV Vmax 0.91 m/s LVOT Vmax 0.76 m/s AoV Peak Grad 3.3 mmHg LVOT Peak Grad 2.3 mmHg AoV Area (Vmax) 2.36 cm2 LVOT VTI 0.163 m AoV VTI 0.197 m LVOT Mean Grad 1.2 mmHg AoV Mean Tl. 0.64 m/s LVOT SV 46.37 mL AoV Mean Grad 1.9 mmHg LVOT Diam s 1.90 cm AoV Area (VTI) 2.35 cm2 Velocity Ratio 0.84 Mitral Valve MV DT 160 (160-240 msec) MR Vmax 4.06 m/s MV Vmax TIPS 1.06 m/s MR VTI 1.588 m MV Mean Grad 1.6 (<2mmHg) MR Peak Grad 66.0 mmHg MV VTI 0.202 m MR Mean Grad 49.2 mmHg MR PISA Radius 0.46 cm MR Aliasing Velocity 0.30 m/s Pulmonary Valve PV Vmax 0.65 (0.5-1.5 m/s) RVOT Vmax 0.49 m/s PV Peak Grad 1.7 mmHg RVOT Peak Gr. 1.0 mmHg PV Mean Tl 0.42 m/s RVOT VTI 0.095 m PV Mean Grad 0.8 mmHg RVOT Mean Gr. 0.5 mmHg Tricuspid Valve RA Pressure 3.00 mmHg TR Vmax 2.47 m/s TR Peak Grad 24.4 mmHg RVSP (TR) 27.4 mmHg
[2022-12-08 08:06] LABS: Iron 38 ug/dL (50-170); Total Iron Binding Capacity 310 ug/dL (250-450); Transferrin Sat 12 % (15-50)
--- NOTE | 2022-12-08 09:37 | NUR.NOTE ---
Accessed pt chart to determine EKG orders; duplicate was cancelled. Nursing Note:
--- NOTE | 2022-12-08 10:10 | CMPROGNOTE_ITS ---
Date of service: 12/08/22 Time of Service: 10:11 Care Management Progress Note Progress Note Text Progress Note Text: S/O:Arlin was sitting up in a chair when CM met with her. She was pleasant and cooperative and engaged easily with CM. Arlin informed CM that she is feeling much better than when she arrived. She stated that she has had CHF ever since she had a heart attack about 4 years ago. Arlin has a lot of support on the community. She has CFC and has caregivers from 8-9 am each day and from 5-7 pm as well. They help with bathing, dressing and prepare her dinner. Arlin also goes to [facility] daily and expressed that she loves the progr am. She has been attending for about 2 years. Clinically, Arlin is doing better. She was hypotensive yesterday but today her SBP has been between 102 and the 120s. A:Arlin is a 77 year old woman admitted with CHF and syncope P: Anticipate Arlin will return home with a resumption of her caregiver support. She will be driven home by family via private vehicle. She will follow up with her PCP and discharge plan of care. CM will follow and continue to assess for discharge concerns. :
--- NOTE | 2022-12-08 16:27 | PGE_ITS ---
Date of Service Date of service: 12/08/22 Time of Service: 16:27 Assessment and Plan Assessment and plan (1) Fall: Status: Acute Assessment and plan: Unwitnessed. Cannot rule out near-sycnope/syncope. Patient was given Lasix in the emergency department for presumed CHF. Infection is not in acute congestive heart failure. Subsequently she had hypotension. Hypotension has since resolved with IV fluids. Echocardiogram was performed showed normal left ventricular size and wall thickness and normal LVEF 55% with no wall motion maladies. RV size and function was normal. Both atria are dilated. She has moderate mitral and tricuspid regurgitation but within normal RVSP of 27 mm (2) Orthostatic hypotension: Status: Acute Assessment and plan: As above (3) Chronic diastolic heart failure: Status: Chronic Assessment and plan: As above (4) A-fib: Status: Chronic Assessment and plan: Rate controlled. Monitor on tele. Continue apixaban, toprol XL. TSH ok. Qualifiers: Atrial fibrillation type: longstanding persistent Qualified Code(s): I48.11 - Longstanding persistent atrial fibrillation (5) Musculoskeletal chest pain: Status: Acute Assessment and plan: Continue tylenol, lidocaine patches, tramadol prn. (6) DVT prophylaxis: Status: Acute Assessment and plan: On therapeutic apixaban (7) Discharge planning issues: Status: Acute Assessment and plan: DNR/DNI as verified with the patient. (8) Rotator cuff arthropathy of right shoulder: Status: Acute Assessment and plan: I discussed her case with Dr. Juan Marley who knows of her case as the patient is a known patient to their group and has been followed by Dr. Bui. Dr. Marley she has been scheduled back in September with rotator cuff surgery. We will get x-rays of her right shoulder. Apparently her left shoulder has been x-rayed and reportedly showed subluxation. He will review her current x-ray findings make a decision about corticosteroid injection versus holding off until she can have surgery. I told him I do not know about her medical feasibility for surgery given her valvular heart disease and her atrial fibrillation. I would defer to her PCP and her labor delivery rn regarding preoperative evaluation. Subjective Subjective Interval history since last seen: Patient is feeling better today. No further dizziness this afternoon. Orthostatic vitals have improved after IV fluid hydration. Patient remains on telemetry and rhythm remains atrial fibrillation which appears to be a chronic condition for her. Review of telemetry shows rates ranging between 70s to low 100s. Symptoms of been heme-negative. She remains on Eliquis for anticoagulation and Toprol-XL For rate control. Patient has had chronic shoulder pains from previous torn rotator cuff. Right shoulder worse than the left. She has previously seen orthopedic surgeon and apparently had been scheduled for outpatient surgery. And asked Dr. Juan Marley to see her and see if we can get her some relief as she is not dependent on use of a walker to ambulate has difficulty with use of her right shoulder. Exam Narrative Exam Narrative: Obese elderly white female sitting up in her chair she is alert and oriented person place time circumstance. Right shoulder appears to be abnormal with anterior subluxation she is unable to abduct and extend the arm overhead. Lungs are clear to auscultation Heart is irregularly irregular at a controlled rate, chest wall remains tender to palpation secondary to chest wall contusion from her fall. Abdomen is obese soft nontender Extremities no peripheral edema Objective Last Vital Signs Temp 36.2 C L 12/08/22 15:00 Pulse 78 12/08/22 15:00 Resp 18 12/08/22 15:00 BP 120/61 12/08/22 15:00 Pulse Ox 99 12/08/22 15:00 Laboratory Results - last 24 hr 12/08/22 06:42 WBC 5.60 RBC 3.44 L Hgb 10.9 L Hct 33.7 L MCV 98 H MCH 31.7 MCHC 32.3 RDW 17.3 H Plt Count 121 L MPV 9.7 Immature Gran % 0.4 Neutrophils % 52.6 Lymphocytes % 35.4 Monocytes % 8.8 Eosinophils % 2.1 Basophils % 0.7 Nucleated RBC % 0.0 Absolute Neutrophils 2.95 Absolute Lymphocytes 1.98 Absolute Monocytes 0.49 Absolute Eosinophils 0.12 Absolute Basophils 0.04 Sodium 138 Potassium 3.9 Chloride 105 Carbon Dioxide 25.6 Anion Gap 7.4 BUN 30 H Creatinine 1.5 H Est GFR (CKD-EPI 2020) 35.23 Glucose 111 H Calcium 8.7 Magnesium 2.2 Iron 38 L TIBC 310 Transferrin % Sat 12 L Ferritin 74 Vitamin B12 1771 H Folate 9.8 Time Spent with Patient Time Spent with Patient: 35-49 minutes Time was spent: preparing to see the patient(eg.review tests), obtaining and/or reviewing separately otained hiistory, ordering medications,tests, procedures, referring, communicating with other health healthcare corporate account director, indepentently interpreting results, counseling the patient and care coordination
[2022-12-08] MEDS: Lidocaine 5% Patch 1 PATCH TP (17:50)
--- NOTE | 2022-12-08 20:43 | DI.VRAD_ITS ---
PROCEDURE INFORMATION: Exam: XR Right Shoulder Exam date and time: 12/08/2022 7:58 PM Age: 77 years old Clinical indication: Right; Prior surgery; Surgery date: 6+ months; Surgery type: Rtc arthropathy unknown when; Patient HX: R shoulder pain; Additional info: Images done portably per [facility] nurse TECHNIQUE: Imaging protocol: Radiologic exam of the right shoulder. Views: 2 or more views. COMPARISON: CR XR SHOULDER RT COMPLETE 2+V 01/21/2022 3:52 PM FINDINGS: Bones/joints: Degenerative changes in the acromioclavicular joint and glenohumeral joint. There is no evidence of acute fracture.There is no evidence of malalignment or dislocation. Narrowing of the subacromial space consistent with impingement syndrome. Soft tissues: Normal. IMPRESSION: 1. There is no evidence of acute fracture.There is no evidence of malalignment or dislocation. 2. Narrowing of the subacromial space consistent with impingement syndrome. Dictated and Authenticated by: Garcia Ramos MD. Ordering:BRADLEY Martinez MD
[2022-12-08] MEDS: Melatonin 3 MG TAB 6 MG PO (21:03)
[2022-12-08] MEDS: traMADol 50 MG TAB PO (21:03)
[2022-12-08] MEDS: Atorvastatin 40 MG TAB PO (21:03)
[2022-12-09] VITALS (7 sets, daily range): BP systolic 74–118; BP diastolic 52–88; PULSE 52–98; RESP 18–20; TEMP 34.6–36.6; O2SAT 86–99
--- NOTE | 2022-12-09 | DI.CT_ITS ---
Exam(s) CT UPPER EXTREMITY RT WO EXAM: CT UPPER EXTREMITY RT WO CLINICAL HISTORY: Right rotator cuff arthropathy. TECHNIQUE: Imaging Protocol: Axial computed tomography images with coronal and sagittal reformatted images were created and reviewed. COMPARISON: CR,XR XR SHOULDER RT COMPLETE 2+V from 12/08/2022 FINDINGS: There is a large joint effusion. Few loose bodies are present.. There are severe degenerative changes of the glenohumeral joint. There is flattening of the medial h umeral head and adjacent deformity of the glenoid.. Subchondral cysts present. There is also flatte lindsay at the superior humeral head where it articulates with the undersurface of the acromion.. There is severe supraspinatus muscle atrophy. There is also on severe infraspinatus and subscapularis mu scle atrophy. Multiple small bony densities seen superior to humeral head. The heart is enlarged. The lungs show respiratory motion but appear grossly clear. IMPRESSION: Severe degenerative changes of the glenohumeral joint. Chronic rotator cuff tear with severe muscle atrophy of the supraspinatus, infraspinatus and subscapu bobby muscles. RADIATION DOSE DELIVERED: Total DLP Total DLP DATA REPOSITORY: All CT scans at this facility are submitted to the National Radiology Data Registry (NRDR) Dose Index Registry (DIR) with the [employer] (ACR). RADIATION OPTIMIZATION: All CT scans at this facility use at least one of these dose optimization te chniques: automated exposure control; mA and/or kV adjustment per patient size (includes targeted exa ms where dose is matched to clinical indication); or iterative reconstruction.
[2022-12-09] MEDS: Acetaminophen 500 MG TAB 1000 MG PO ×2 (02:19→22:45)
[2022-12-09] MEDS: Gabapentin 100 MG CAP PO ×2 (02:19→22:45)
[2022-12-09] MEDS: Omeprazole 20 MG CAPCR PO (06:46)
[2022-12-09] MEDS: Levothyroxine 25 MCG TAB PO (06:46)
[2022-12-09] MEDS: Lidocaine Patch Removal 1 EACH TP (06:47)
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
[2022-12-09 07:33] LABS: Creatine Kinase 35 U/L (26-192)
[2022-12-09] MEDS: Metoprolol CR 50 MG TABCR PO (09:15)
[2022-12-09] MEDS: Aspirin E.C. 81 MG TABEC PO (09:15)
[2022-12-09] MEDS: Empaglifozin 10 MG TAB PO (09:18)
[2022-12-09] MEDS: buPROPion-XL 150 MG TABCR PO (09:18)
[2022-12-09] MEDS: Apixaban 5 MG TAB PO ×2 (09:18→19:27)
[2022-12-09] MEDS: Midodrine 2.5 MG TAB PO ×3 (09:18→19:27)
[2022-12-09] MEDS: Ferrous Gluconate 324 MG TAB PO (09:18)
[2022-12-09] MEDS: ARIPiprazole 2 MG TAB PO (09:18)
[2022-12-09] MEDS: Cyanocobalamin 500 MCG TAB 1000 MCG PO (09:18)
[2022-12-09] MEDS: Calcium 600mg/Vit D 200U TAB 1 TAB PO (09:18)
--- NOTE | 2022-12-09 09:18 | CMPROGNOTE_ITS ---
Date of service: 12/09/22 Time of Service: 09:19 Care Management Progress Note Progress Note Text Progress Note Text: S/O:Arlin was sitting up in a chair when CM met with her. She was smiling and appeared to be in good spirits. Arlin informed CM that she is likely going to be discharged tomorrow and had some questions. Transportation will be coordinated by CM through [facility]. If she has any new prescriptions, CM will request a stop at her pharmacy. Arlin stated that she continues to feel better. She stated that her goal for today is to ambulate in the hallway more. She understands that she must have a nurse or PT with her. A:Arlin is a 77 year old woman admitted with CHF and syncope P: Anticipate Arlin will return home with a resumption of her caregiver support. She will also have new home health orders for RN and PT. Arlin will be driven home by family via private vehicle. She will follow up with her PCP and discharge plan of care. CM will follow and continue to assess for discharge concerns.
--- NOTE | 2022-12-09 13:15 | PGE_ITS ---
Date of Service Date of service: 12/09/22 Time of Service: 13:15 Assessment and Plan Assessment and plan (1) Fall: Status: Acute Assessment and plan: unwitnessed fall at home w/ chest wall contusion and worsening shoulder pains (has chronic limitations d/t bilateral rotator cuff tears); orthostasis has improved after she received iv fluids (after initial large dose of iv lasix was given in the ED for alleged acute on chronic HF exacerbation. At this time she appears to be euvolemic to slightly volume overloaded as evidenced by increasing bilateral leg edema although she is not pulmonary congested. Echocardiogram was performed showed normal left ventricular size and wall thickness and normal LVEF 55% with no wall motion maladies. RV size and function was normal. Both atria are dilated. She has moderate mitral and tricuspid regurgitation but within normal RVSP of 27 mm I will resume her torsemide and her spironolactone but at reduced doses. She had been on torsemide 60 mg daily and spironolactone 50 mg daily. I will start her at torsemide 20 mg and spironlolactone 25 mg daily Qualifiers: Encounter type: initial encounter Qualified Code(s): W19.XXXA - Unspecified fall, initial encounter (2) Orthostatic hypotension: Status: Acute Assessment and plan: As above (3) Chronic diastolic heart failure: Status: Chronic Assessment and plan: As above (4) A-fib: Status: Chronic Assessment and plan: Rate controlled. Monitor on tele. Continue apixaban, toprol XL. TSH ok. Qualifiers: Atrial fibrillation type: longstanding persistent Qualified Code(s): I48.11 - Longstanding persistent atrial fibrillation (5) Musculoskeletal chest pain: Status: Acute Assessment and plan: Continue tylenol, lidocaine patches, tramadol prn. (6) DVT prophylaxis: Status: Acute Assessment and plan: On therapeutic apixaban (7) Rotator cuff arthropathy of right shoulder: Status: Acute Assessment and plan: treat w/ topical voltaren gel, lidocaine and oral tylenol. avoid NSAID in setting of CKD and HF. follow up w/ orthopedics as outpatient. If she is not going to have surgery then consider steroid injection of shoulders. (8) Discharge planning issues: Status: Acute Assessment and plan: DNR/DNI as verified with the patient. I anticipate dc home tomorrow; awaiting P.T. re-evaluation and recommendations Subjective Subjective Interval history since last seen: Patient denies any dyspnea. She denies having any P.T. involvement today. I did not see any new notes since 12/07. Still awaiting ortho consults recommendations. She did have CT of her RUE which shows similar problem of chronic rotator cuff tear on the right similar to her problems on the left. As for her chest wall pain that is improving and was caused by her fall at home. I think she is nearing being ready for dc home. I would like P.T. input on her safety at home. As for her shoulders, she can follow up w/ orthopedic surgeon as outpatient. I will defer to her PCP regarding preoperative evaluation and whether or not she is medical candidate for surgery. Exam Narrative Exam Narrative: Arlin is alert and oriented x 3, no acute distresss CW is less tender today than yesterday Lungs: clear to ausculatation Heart: irregularly irregular, but controlled rate (telemetry overnight showed rates in the 70's upward of 100 but no sustained tachycardia Abdomen: obese, soft, nondistended, nontender Legs/feet: 2+ edema, dependent discoloration; no erythema but diffuse cyanosis Objective Last Vital Signs Temp 34.6 C L 12/09/22 10:59 Pulse 87 12/09/22 10:59 Resp 18 12/09/22 10:59 BP 118/88 12/09/22 10:59 Pulse Ox 99 12/09/22 10:59 Laboratory Results - last 24 hr 12/09/22 06:15 Creatine Kinase 35 Time Spent with Patient Time Spent with Patient: 35-49 minutes Time was spent: preparing to see the patient(eg.review tests), ordering medications,tests, procedures, referring, communicating with other health career based intervention coordinator, indepentently interpreting results, counseling the patient and care coordination
[2022-12-09] MEDS: Spironolactone 25 MG TAB PO (14:19)
[2022-12-09] MEDS: Torsemide 20 MG TAB PO (14:19)
--- NOTE | 2022-12-09 15:01 | PT.INTREAT ---
Date of service: 12/09/22 Time of Service: 14:39 PT Notes Visit Reasons: unwitnessed fall,?syncope, CHF Inpatient Physical Therapy Treatment Note [facility] Date: 12/09/22 PRECAUTIONS: Fall, standard, activity as tolerated. SUBJECTIVE: Patient reports that she was here at [facility] just a little bit ago and remembers this clinician from last time. Also reports that she hasn't been walking in 2 or 3 days. OBJECTIVE: Patient sitting up in chair, [employer] just brought a snack of cottage cheese and amadou abigail. ? PAIN: none reported. VITALS: monitored by nursing staff.? BED MOBILITY/TRANSFERS? Rolling L/R: not assessed Supine-sit: not assessed ? Sit-supine: not assessed ? Sit-stand: independent ? Stand-sit: independent ? Bed-Chair: independent ? Chair-bed: independent Patient also participated in a standing hygiene activity to simulate functioning in home environment. No LOB noted, no dizziness reported. Static standing balance appears to be WFL. Provided skilled cues and instruction on performance and technique throughout. Gait Training ([id number]): Direct one-on-one instruction and skilled instruction in: [] employing an assistive device [] modified weight-bearing status [] movement sequencing [] turning and movement with proper form [] Provided verbal cues for equipment management and technique [] Provided instruction in gait pattern [x] Patient education regarding pacing and breathing techniques to maximize activity tolerance? GAIT? Assistive Device: FWW. Patient reports that she has both a FWW and a 4WW at home. ? Weight bearing: full Assist: SBA ? Distance:? 200 feet ? Deviation: Slow shuffling gait. Reduced stride length, reduced step height. Posture hinged forward at hip. Frequent standing rests of no more than 10 seconds each. ? ASSESSMENT:? Patient tolerates therapy well, although she reports significant fatigue after ambulation and is notably short of breath. Recovers quickly. States that she would not have to walk that far at home, that there are multiple places to rest around her house. PLAN: Continue global strengthening per plan of care until patient is medically cleared for discharge. TREATMENT CODE/TIME: 19 minutes beginning at 14:39
--- NOTE | 2022-12-09 16:26 | CHAPLAIN ---
Arlin was sitting up in the chair when I visited. She was wearing her clothes. She told me she thinks she'll be discharged tomorrow after being admitted on Thursday. Arlin said she fell at home and that's why she here - to figure out why she fell. She got a phone call while I was there. Arlin was pleasant and easily engaged in conversation. I explained my role nad offered support.[id number]kkkkkkkkkkkkkkkkkkkkkkkkkkkkkkkkkkkkkkkkkkkkkkkkkkkkkkkkkkkkkkkkkkkkkkkkkkkkkkkkkkkkkkkkkkkkkkkkkkkkkkkkkkkkkkkkkkkkkkkkkkkkkkkkkkkkkkkkkkkkkkkkkkkkkkkkkkkkkkkkkkkkkkkkkkkkkkkkkkkkkkkkkkkkkkkkkkkkkkkkkkkk kkkkkkkkkkkkkkkkkkkkkkkkkkkkkkkkkkkkkkkkkkkkkkkkkkkkkkkkkkkkkkkkkkkkkkkkkkkkkkkkkkkkkkkkkkkkkkkkkkkkkkkkkkkkkkkkkkkkkkkkkkkkkkkkkkkkkkkkkkkkkkkkkkkkkkkkkkkkkkkkkkk
[2022-12-09] MEDS: Diclofenac 1% Gel 100 GM TUBE TP ×2 (16:36→19:28)
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
[2022-12-09] MEDS: Lidocaine 5% Patch 1 PATCH TP (17:28)
[2022-12-09] MEDS: traMADol 50 MG TAB PO (19:27)
[2022-12-09] MEDS: Melatonin 3 MG TAB 6 MG PO (19:31)
[2022-12-09] MEDS: Atorvastatin 40 MG TAB PO (19:31)
[2022-12-10] MEDS: Lidocaine Patch Removal 1 EACH TP (05:56)
[2022-12-10] MEDS: Levothyroxine 25 MCG TAB PO (05:56)
[2022-12-10 06:56] VITALS: BP 107/72; PULSE 78; RESP 20; TEMP 36; O2SAT 100
[2022-12-10] MEDS: Midodrine 2.5 MG TAB 5 MG PO ×3 (08:29→20:14)
[2022-12-10] MEDS: Diclofenac 1% Gel 100 GM TUBE TP ×4 (08:29→20:14)
[2022-12-10] MEDS: Calcium 600mg/Vit D 200U TAB 1 TAB PO (08:29)
[2022-12-10] MEDS: Cyanocobalamin 500 MCG TAB 1000 MCG PO (08:29)
[2022-12-10] MEDS: Apixaban 5 MG TAB PO ×2 (08:30→20:14)
[2022-12-10] MEDS: Aspirin E.C. 81 MG TABEC PO (08:30)
[2022-12-10] MEDS: ARIPiprazole 2 MG TAB PO (08:30)
[2022-12-10] MEDS: Torsemide 20 MG TAB PO (08:30)
[2022-12-10] MEDS: Empaglifozin 10 MG TAB PO (08:30)
[2022-12-10] MEDS: Spironolactone 25 MG TAB PO (08:30)
[2022-12-10] MEDS: Ferrous Gluconate 324 MG TAB PO (08:31)
[2022-12-10] MEDS: buPROPion-XL 150 MG TABCR PO (08:31)
[2022-12-10] MEDS: Omeprazole 20 MG CAPCR PO (08:31)
--- NOTE | 2022-12-10 08:47 | CMPROGNOTE_ITS ---
Date of service: 12/10/22 Time of Service: 08:47 Care Management Progress Note Progress Note Text Progress Note Text: S/O:Arlin was sitting up in a chair when CM met with her; she was lightly dozing at the time. CM discussed the fact that Arlin would not be able to discharge home today as her blood pressures are still quite low. She expressed disappointment but stated that she did not want to go home and then have to come right back, so it would be OK. Arlin's SBPs have been running in the 70s to 90s, with an occasional reading between 110 and 120. Medication changes are being made and she will be monitored for one more day. Both PT and the clinical coordinator from her PCP's office have contacted CM to express concern about Arlin's safety at home. CM contacted Shari Brennan, Arlin's telephonic nurse case manager for [facility] at [facility] to discuss. She shared the same concerns but stated that to date, Arlin has not been willing to consider any other options. Arlin states that she likes where she lives and if she can't live alone, she will go stay with her daughter. Shari confirmed that that plan has been discussed but that all of her daughter's bedrooms are on the second floor and Arlin cannot manage stairs. Her daughter would have to move and has been unable to find suitable housing for the 2 of them. As Arlin has [facility], highest needs, she is well supported. At discharge new home health services for nursing and PT will be ordered. Shari will continue to have discussions with Arlin about alternative, potentially safer, living arrangements, such as an [facility] home. A:Arlin is a 77 year old woman admitted with CHF and syncope P: Anticipate Arlin will return home with a resumption of her caregiver support. She will also have new home health orders for RN and PT. Arlin will be driven home by family via private vehicle. She will follow up with her PCP and discharge plan of care. CM will follow and continue to assess for discharge concerns.
[2022-12-10 09:16] VITALS: BP 87/64; BP 93/67; BP 98/65; PULSE 60; PULSE 74; PULSE 77
--- NOTE | 2022-12-10 10:15 | PT.INTREAT ---
Date of service: 12/10/22 Time of Service: 09:54 PT Notes Visit Reasons: unwitnessed fall,?syncope, CHF Inpatient Physical Therapy Treatment Note [facility] Date: 12/10/22 PRECAUTIONS: Fall, standard, activity as tolerated. SUBJECTIVE: Patient reports that she expects to go home today, feels excited to go home. OBJECTIVE: Patient sitting up in recliner with feet down. Agreeable to therapy. ? PAIN: Reports pain in the middle of her lower chest where she says she hit the table when she fell. Calls it sore. VITALS: monitored by nursing staff. ? ? ? BED MOBILITY/TRANSFERS? Rolling L/R: not assessed Supine-sit: not assessed ? Sit-supine: not assessed ? Sit-stand: SBA ? Stand-sit: SBA? Bed-Chair: SBA ? Chair-bed: SBA ? Therapeutic Exercises ([id number]): Direct one-on-one instruction in therapeutic exercises to develop strength, endurance, range of motion and flexibility. Ambulation ? Assistive Device: FWW ? Weight bearing: Full Assist: SBA ? Distance:? 75 feet, seated rest, 125 feet with multiple standing rests. ? Deviation: Short step length, reduced step height, kyphotic posture, wide MACRINA, feet externally rotated. Patient reports being scared she will fall. Denies dizziness or feelings of instability in her legs, just simply afraid of falling. ? Provided skilled instruction in proper exercise performance Provided skilled manual cues to facilitate proper muscle recruitment and/or form. ASSESSMENT:? Patient tolerates therapy well, no LOB, no SOB. Returns to sit up in recliner at end of treatment session. Reports that sitting so far reclined feels as though it is putting pressure on the sore area of her chest, requests an additional pillow. PATIENT IS A HIGH FALL RISK. Per conversation with DPT Anahy Mcfarland, patient would benefit from a SNF stay for balance training, strengthening. Patient has come to the ED at [facility] several times in recent memory due to falls. PLAN: Continue global strengthening per plan of care until patient is medically cleared for discharge. Ideally, patient would discharge to a SNF for continued skilled rehab. TREATMENT CODE/TIME: 20 minutes beginning at 9:54.
[2022-12-10] MEDS: Lactated Ringers 500 ML 125 ML IV (11:50)
[2022-12-10 14:00] LABS: Anion Gap 7.1 mmol/L (3-11); BUN 38 mg/dL (7-18); CO2 25.9 mmol/L (21.0-32.0); CREATININE 1.8 mg/dL (0.55-1.02); Calcium 9.3 mg/dL (8.5-10.1); Chloride 106 mmol/L (98-107); Estimated GFR 28.31 (mL/min/1.73m2); Glucose 109 mg/dL (74-106); Magnesium 2.5 mg/dL (1.8-2.4); Potassium 4.4 mmol/L (3.5-5.1); Sodium 139 mmol/L (136-145)
[2022-12-10 15:08] VITALS: BP 87/59; PULSE 61; RESP 22; TEMP 36.4; O2SAT 100
--- NOTE | 2022-12-10 15:33 | PGE_ITS ---
Date of Service Date of service: 12/10/22 Time of Service: 15:33 Assessment and Plan Assessment and plan (1) Fall: Status: Acute Assessment and plan: unwitnessed fall at home w/ chest wall contusion and worsening shoulder pains (has chronic limitations d/t bilateral rotator cuff tears); orthostasis has improved after she received iv fluids (after initial large dose of iv lasix was given in the ED for alleged acute on chronic HF exacerbation. Difficult to assess her volume status but resumption of her diuretics yesterday has only worsened her orthostasis. I have cancelled her diuretics and now am giving her some judicious fluids back (1 liter LR) Echocardiogram was performed showed normal left ventricular size and wall thickness and normal LVEF 55% with no wall motion maladies. RV size and function was normal. Both atria are dilated. She has moderate mitral and tricuspid regurgitation but within normal RVSP of 27 mm Qualifiers: Encounter type: initial encounter Qualified Code(s): W19.XXXA - Unspecified fall, initial encounter (2) Orthostatic hypotension: Status: Acute Assessment and plan: As above (3) Chronic diastolic heart failure: Status: Chronic Assessment and plan: As above (4) A-fib: Status: Chronic Assessment and plan: Rate controlled. Monitor on tele. Continue apixaban, toprol XL. May need to decrease her Toprol XL in light of her orthostatic hypotension. TSH ok. Qualifiers: Atrial fibrillation type: longstanding persistent Qualified Code(s): I48.11 - Longstanding persistent atrial fibrillation (5) Musculoskeletal chest pain: Status: Acute Assessment and plan: Continue tylenol, lidocaine patches, tramadol prn. (6) DVT prophylaxis: Status: Acute Assessment and plan: On therapeutic apixaban (7) Rotator cuff arthropathy of right shoulder: Status: Acute Assessment and plan: treat w/ topical voltaren gel, lidocaine and oral tylenol. avoid NSAID in setting of CKD and HF. follow up w/ orthopedics as outpatient. If she is not going to have surgery then consider steroid injection of shoulders. Dr. Marley and Dr. Bui have evaluated her. The plan is for optimizing her medical conditions, dc her home and have her follow w/ her PCP and once she is medically optimized her PCP can decide if she is medically stable for surgery. Right now her volume status is too labile to consider surgery this admission. (8) Discharge planning issues: Status: Acute Assessment and plan: DNR/DNI as verified with the patient. I anticipate dc home tomorrow; awaiting P.T. re-evaluation and recommendations Subjective Subjective Interval history since last seen: Arlin still has orthostatic hypotension although she seems less symptomatic. She will remain here for another day while I adjust her midodrine and give her more IV fluids. I had resumed her home diuretics but have had to stop these. Exam Narrative Exam Narrative: Arlin is sitting up in her chair watching PBS, she is alert and in no distress, denies any pain or dyspnea or dizziness LUngs: clear Heart: irregularly irregular at controlled rate abdomen: benign Legs: 1+ edema, she needs LEXI hose applied (already has been ordered) Objective Last Vital Signs Temp 36.4 C L 12/10/22 15:08 Pulse 61 12/10/22 15:08 Resp 22 12/10/22 15:08 BP 87/59 L 12/10/22 15:08 Pulse Ox 100 12/10/22 15:08 Laboratory Results - last 24 hr 12/10/22 06:35 Sodium 139 Potassium 4.4 Chloride 106 Carbon Dioxide 25.9 Anion Gap 7.1 BUN 38 H Creatinine 1.8 H Est GFR (CKD-EPI 2020) 28.31 Glucose 109 H Calcium 9.3 Magnesium 2.5 H Time Spent with Patient Time Spent with Patient: 35-49 minutes Time was spent: preparing to see the patient(eg.review tests), ordering medications,tests, procedures, referring, communicating with other health resident caregiver (discussions w/ ortho), indepentently interpreting results, counseling the patient and care coordination
[2022-12-10] MEDS: Lidocaine 5% Patch 1 PATCH TP (18:57)
[2022-12-10 19:28] VITALS: BP 93/63; PULSE 88; RESP 20; TEMP 36; O2SAT 100
[2022-12-10] MEDS: Melatonin 3 MG TAB 6 MG PO (20:15)
[2022-12-10] MEDS: Atorvastatin 40 MG TAB PO (20:16)
[2022-12-10 23:19] VITALS: BP 97/63; PULSE 81; RESP 16; TEMP 35.9; O2SAT 99
[2022-12-11] MEDS: Levothyroxine 25 MCG TAB PO (06:27)
[2022-12-11] MEDS: Lidocaine Patch Removal 1 EACH TP (06:42)
[2022-12-11 07:22] VITALS: BP 93/63; PULSE 79; RESP 16; TEMP 36.1; O2SAT 99
[2022-12-11 07:33] LABS: Abs Immature Grans 0.03 10^3/uL (0.0-0.06); Absolute Basophil Count 0.04 10^3/uL (0.0-0.2); Absolute Eosinophil Count 0.14 10^3/uL (0.0-0.7); Absolute Lymphocyte Count 2.27 10^3/uL (1.2-3.4); Absolute Monocyte Count 0.43 10^3/uL (0.1-0.8); Absolute Neutrophil Count 3.11 10^3/uL (1.2-6.7); Basophils % 0.7; Eosinophils % 2.3; HCT 38.8 % (36.0-46.0); HGB 12.3 g/dL (11.2-15.7); Immature Grans % 0.5; Lymphocytes % 37.7; MCH 31.3 pg (27.0-33.0); MCHC 31.7 % (32.0-36.0); MCV 99 fL (80-95); MPV 9.7 fL (8.0-11.0); Monocytes % 7.1; Neutrophils % 51.7; Platelet Count 137 10^3/uL (130-400); RBC 3.93 10^6/uL (3.93-5.22); RDW 17.6 % (11.7-14.6); WBC 6.02 10^3/uL (4.4-10.8)
[2022-12-11] MEDS: Cyanocobalamin 500 MCG TAB 1000 MCG PO (07:47)
[2022-12-11] MEDS: Midodrine 2.5 MG TAB 5 MG PO (07:47)
[2022-12-11] MEDS: Calcium 600mg/Vit D 200U TAB 1 TAB PO (07:48)
[2022-12-11] MEDS: buPROPion-XL 150 MG TABCR PO (07:48)
[2022-12-11] MEDS: Apixaban 5 MG TAB PO (07:48)
[2022-12-11] MEDS: ARIPiprazole 2 MG TAB PO (07:48)
[2022-12-11] MEDS: Omeprazole 20 MG CAPCR PO (07:49)
[2022-12-11] MEDS: Aspirin E.C. 81 MG TABEC PO (07:49)
[2022-12-11] MEDS: Empaglifozin 10 MG TAB PO (07:49)
[2022-12-11] MEDS: Ferrous Gluconate 324 MG TAB PO (07:49)
[2022-12-11] MEDS: Diclofenac 1% Gel 100 GM TUBE TP ×2 (07:49→13:04)
[2022-12-11 07:52] LABS: Anion Gap 7.1 mmol/L (3-11); BUN 42 mg/dL (7-18); CO2 25.9 mmol/L (21.0-32.0); CREATININE 1.6 mg/dL (0.55-1.02); Calcium 9.4 mg/dL (8.5-10.1); Chloride 106 mmol/L (98-107); Glucose 94 mg/dL (74-106); Potassium 4.6 mmol/L (3.5-5.1); Sodium 139 mmol/L (136-145)
--- NOTE | 2022-12-11 08:43 | PDOC.CMPRO ---
Date of service: 12/11/22 Time of Service: 08:44 Care Management Progress Note Progress Note Text Progress Note Text: S/O:Arlin was sitting up in a chair when CM met with her A:Arlin is a 77 year old woman admitted with CHF and syncope P: Anticipate Arlin will return home with a resumption of her caregiver support. She will also have new home health orders for RN and PT. Arlin will be driven home by family via private vehicle. She will follow up with her PCP and discharge plan of care. CM will follow and continue to assess for discharge concerns.
[2022-12-11 11:29] VITALS: BP 114/60; PULSE 89; RESP 18; TEMP 36.5; O2SAT 99
[2022-12-11 11:52] VITALS: BP 114/60; BP 118/87; PULSE 52; PULSE 89
--- NOTE | 2022-12-11 12:09 | PT.INTREAT ---
Date of service: 12/11/22 Time of Service: 09:02 PT Notes Visit Reasons: unwitnessed fall,?syncope, CHF Inpatient Physical Therapy Treatment Note [facility] Date: 12/11/22 PRECAUTIONS: Fall, standard, activity as tolerated. SUBJECTIVE: Patient reports she expects to go home today. OBJECTIVE: Patient sitting up in chair, agreeable to therapy. ? PAIN: none reported. VITALS: monitored by nursing staff. ? BED MOBILITY/TRANSFERS? Rolling L/R: independent Supine-sit: independent ? Sit-supine: independent ? Sit-stand: independent ? Stand-sit: independent ? Bed-Chair: independent ? Chair-bed: independent ? Therapeutic Exercises ([id number]): Direct one-on-one instruction in therapeutic exercises to develop strength, endurance, range of motion and flexibility. Ambulation ? Assistive Device: FWW? Weight bearing: full Assist: SBA ? Distance:? 200 feet ? Deviation: multiple standing rests, reduced step length. ? Provided skilled instruction in proper exercise performance Provided skilled manual cues to facilitate proper muscle recruitment and/or form. ASSESSMENT:? Patient tolerates therapy well, no c/o SOB, no c/o increased pain. Returns to chair at end of treatment session. PLAN: Continue global strengthening per plan of care until patient is medically cleared for discharge. TREATMENT CODE/TIME: 10 minutes beginning at 9:02
--- NOTE | 2022-12-11 13:10 | PDOC.HHF2F_ITS ---
Home Health Referral Home Health Orders Clinical synopsis of why skilled professionals are needed: Patient needs home health nursing to assess her medication changes and her response those changes which was made due her orthostatic hypotension associated w/ a fall and this was due to dehydration from over diuretic use in treatment of her chronic diastolic heart failure. She needs P.T. to evaluate and treat her for her balance, gait instability and general weakness from her conditions. Medical diagnosis necessitation home health referral: atrial fibrillation, HFPEF, bilateral shoulder chronic rotator cuff tears and arthropathy, CKD Registered Nurse: Check all that apply Instruct on new or changed medication(s)/assess compliance: Ordered Assess for exacerbation of medical condition, instruct patient/caregivers on signs and symptoms to report for early detection: Ordered Physical Therapist: Check all that apply Increase strength & endurance for safe mobility at home: Ordered To design/establish home maintenance program: Ordered Fall reduction therapy program for patient with history of frequent falls: Ordered Home safety evaluation and teaching/gait training including stair management (if applicable): Ordered Cloth Mercerizer Operator: Assist with community resources: Ordered Assist with skilled nursing care planning: Ordered Home Bound Status Requires the aid of supportive device (check all that apply): Walker Describe why leaving home would require a considerable and taxing effort: Side effects from pain medication (sedation/drowsiness) and Safety Concerns: describe (frequent falls, orthostatic hypotension) Encounter Date and Reason: I certify that a FTF encounter for this patient was performed on December 11, 2022 and that such encounter was related to the primary reason the patient requires home health services. The encounter was conducted in the following manner: * By me as the certifying physician, BUSINESS PROCESS EXPERT, PA or * By an inpatient physician, BUSINESS PROCESS EXPERT or PA during an inpatient stay who communicated findings to me, Certification And Authentication I certify that I composed the above information based on my clinical judgment relating to this patient's medical condition and, if applicable, clinical findings communicated to me by the NPP or inpatient physician who performed the FTF encounter. Name of Provider that will be monitoring home health services: Hemanth Chaudhary
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
--- NOTE | 2022-12-11 15:28 | PDOC.CMDIS ---
Date of service: 12/11/22 Time of Service: 15:30 LACE Index Scoring Tool Questions: Length of Stay (in days): 4 - 6 Was the patient admitted via the E.D.?: Yes Comorbidities: Previous M.I., Congestive Heart Failure and Liver or Renal Disease E.D. Visits: 8 Answers: Total Score: 16 Risk of Readmission: High Risk Care Management Discharge Plan Reason for Hospitalization: fall/syncope, CHF Discharge Plan: Arlin will return home with a resumption of her caregiver support. She will also have new home health orders for RN and PT. Arlin will be driven home via RCT coordinated by CM. She will follow up with her PCP and discharge plan of care. Patient/Family Education Needs: Review discharge instructions and limitations, discussion of self care needs including ask me three. Services Needed at Discharge: Home Health Care Services
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
== END 2022-12-11 14:41 | disposition home health service (06) | DRG 312 ==
LOC: ER 10:56 → MS 12:56
PROVIDERS: Internal Medicine; Admitting Provider Internal Medicine; Emergency Provider Emergency Medicine; PCP Family Medicine; Visit Provider Internal Medicine
DX: I95.1 Orthostatic hypotension (principal); I50.32 Chronic diastolic (congestive) heart failure; I48.20 Chronic atrial fibrillation, unspecified; N17.9 Acute kidney failure, unspecified; S00.03XA Contusion of scalp, initial encounter; W18.39XA Other fall on same level, initial encounter; Z91.81 History of falling; S43.082A Other subluxation of left shoulder joint, initial encounter; Z66 Do not resuscitate; G89.11 Acute pain due to trauma; R07.89 Other chest pain; I27.20 Pulmonary hypertension, unspecified; R53.81 Other malaise; E86.0 Dehydration; R53.1 Weakness; I25.2 Old myocardial infarction; F41.9 Anxiety disorder, unspecified; M54.9 Dorsalgia, unspecified; I25.10 Atherosclerotic heart disease of native coronary artery without angina pectoris; F32.A Depression, unspecified; E03.9 Hypothyroidism, unspecified; I34.0 Nonrheumatic mitral (valve) insufficiency; E66.9 Obesity, unspecified; H90.3 Sensorineural hearing loss, bilateral; K57.30 Diverticulosis of large intestine without perforation or abscess without bleeding; M47.816 Spondylosis without myelopathy or radiculopathy, lumbar region; S09.8XXA Other specified injuries of head, initial encounter; M75.101 Unspecified rotator cuff tear or rupture of right shoulder, not specified as traumatic; G89.29 Other chronic pain; M75.102 Unspecified rotator cuff tear or rupture of left shoulder, not specified as traumatic
CPT/HCPCS: 00123; 36415; 80048; 80053; 82550; 84145; 87635; 93005; 93306; 97110; 97116; 97162; 99223; 99285; 70450; 71045; 72170; 73030; 73200; 82607; 82728; 82746; 83540; 83550; 83605; 83735; 83880; 84443; 84484; 85014; 85018; 85025; 93010; 99232; 99233; 99239; G0378; J1940; J3490

== ENCOUNTER 2023-01-20 16:35 | Outpatient (REF) | payer OTHER, MEDICAID, SELFPAY ==
[2023-01-20 15:56] LABS: Anion Gap 7.7 mmol/L (3-11); BUN 24 mg/dL (7-18); CO2 31.3 mmol/L (21.0-32.0); CREATININE 1.7 mg/dL (0.55-1.02); Calcium 9.3 mg/dL (8.5-10.1); Chloride 105 mmol/L (98-107); Estimated GFR 30.32 (mL/min/1.73m2); Glucose 90 mg/dL (74-106); Magnesium 2.3 mg/dL (1.8-2.4); Potassium 3.8 mmol/L (3.5-5.1); Sodium 144 mmol/L (136-145)
== END 2023-01-20 16:36 | disposition home or self-care (01) ==
LOC: NCHCN 16:35
PROVIDERS: PCP Family Medicine; Visit Provider Family Medicine
DX: I50.9 Heart failure, unspecified (principal)
CPT/HCPCS: 80048; 83735

== ENCOUNTER 2023-01-22 08:41 | Outpatient (CLI) | payer OTHER, MEDICAID, SELFPAY ==
--- NOTE | 2023-01-19 09:11 | W.CARDEVENT ---
Date of service: 01/19/23 Time of Service: 09:11 Cardiac Event Recorder Referring Provider:: Hemanth Chaudhary Indications:: Syncope Cardiac Event Note: This is a cardiac event monitor ordered for syncope. Patient was monitored for 17 hours and 41 minutes Atrial fibrillation was present throughout with a heart rate of 107 on average. Maximum heart rate was 170, minimum was 79 There were rare premature ventricular contractions
== END 2023-01-22 15:16 | disposition home or self-care (01) ==
LOC: CARDOPNVT 15:16
PROVIDERS: PCP Family Medicine; Visit Provider Internal Medicine Cardiovascular Disease
DX: R55 Syncope and collapse (principal)
CPT/HCPCS: 93270; 93272

== ENCOUNTER 2023-03-05 12:33 | Outpatient (REF) | payer OTHER, MEDICAID, SELFPAY ==
[2023-03-05 15:34] LABS: Anion Gap 13.1 mmol/L (3-11); BUN 32 mg/dL (7-18); CO2 29.9 mmol/L (21.0-32.0); Calcium 9.3 mg/dL (8.5-10.1); Chloride 105 mmol/L (98-107); Estimated GFR 24.94 (mL/min/1.73m2); Glucose 82 mg/dL (74-106); Potassium 3.1 mmol/L (3.5-5.1); Sodium 148 mmol/L (136-145)
== END 2023-03-05 12:34 | disposition home or self-care (01) ==
LOC: NCHCN 12:33
PROVIDERS: PCP Family Medicine; Visit Provider Family Medicine
DX: I50.32 Chronic diastolic (congestive) heart failure (principal)
CPT/HCPCS: 80048; 83735

== ENCOUNTER 2023-03-24 10:01 | Emergency (ER) | payer OTHER, MEDICAID, SELFPAY ==
[2023-03-24] VITALS (17 sets, daily range): BP systolic 99–128; BP diastolic 54–84; PULSE 74–98; RESP 12–17; TEMP 36.5; O2SAT 99–100
--- NOTE | 2023-03-24 10:15 | DI.RAD_ITS ---
Exam(s) XR ELBOW LT COMPLETE EXAM: XR ELBOW LT COMPLETE CLINICAL HISTORY: fall, skin tear elbow, pain. TECHNIQUE: 2D digital imaging was performed. Three views. COMPARISON: CR XR ELBOW RT COMPLETE from 06/19/2020 FINDINGS: BONES: No acute fracture is present. No bony destructive lesion is seen. JOINTS: The elbow is normally aligned. No joint effusion is seen. Mild degenerative changes. SOFT TISSUE: Normal. IMPRESSION: No acute abnormality. DATA REPOSITORY: RADIATION DOSE DELIVERED:
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
--- NOTE | 2023-03-24 11:32 | DI.CT_ITS ---
Exam(s) CT HEAD WO EXAM: CT HEAD WO CLINICAL HISTORY: fall, on AC. TECHNIQUE: Imaging Protocol: Axial computed tomography images with coronal and sagittal reformatted images were created and reviewed COMPARISON: CT CT HEAD WO from 12/06/2022 FINDINGS: Ventricles and Extra axial spaces: Normal in size and morphology for the patient's age. Hemorrhage: None. Cerebral parenchyma: No evidence of acute infarct or mass. Prominent white matter changes of small vessel disease. Midline shift: None. 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 Calvarium: Prominent hyperostosis frontalis interna. Visualized Paranasal sinuses:Clear. Mastoids: Clear. Soft Tissues: Unremarkable. ORBITS: Unremarkable. PITUITARY: Normal. IMPRESSION: No acute intracranial process. RADIATION DOSE DELIVERED: 842.02mGy.cm Total DLP DATA REPOSITORY: All CT scans at this facility are submitted to the National Radiology Data Registry (NRDR) Dose Index Registry (DIR) with the [employer] (A[employer]). RADIATION OPTIMIZATION: All CT scans at this facility use at least one of these dose optimization te chniques: automated exposure control; mA and/or kV adjustment per patient size (includes targeted exa ms where dose is matched to clinical indication); or iterative reconstruction.
--- NOTE | 2023-03-28 08:40 | NUR.NOTE ---
Accessed Pt chart to check to see if this was the patient that left with a wheelchair. She is the correct patient.
--- NOTE | 2023-03-28 09:22 | NUR.NOTE ---
Accessed Pt chart a second time, to obtain address for the jeevan to [facility] and retrieving a missing wheelchair.
== END 2023-03-24 13:00 | disposition home or self-care (01) ==
PROVIDERS: Emergency Provider Emergency Medicine; PCP Family Medicine
DX: R42 Dizziness and giddiness (principal); I11.0 Hypertensive heart disease with heart failure; I50.23 Acute on chronic systolic (congestive) heart failure; I25.2 Old myocardial infarction; I25.10 Atherosclerotic heart disease of native coronary artery without angina pectoris; I48.91 Unspecified atrial fibrillation; Z79.01 Long term (current) use of anticoagulants; Z79.82 Long term (current) use of aspirin
CPT/HCPCS: 99284; 70450; 73080; 99283

== ENCOUNTER 2023-04-14 13:51 | Outpatient (REF) | payer OTHER, MEDICAID, SELFPAY ==
[2023-04-14 15:46] LABS: Anion Gap 11.2 mmol/L (3-11); BUN 27 mg/dL (7-18); CO2 27.8 mmol/L (21.0-32.0); CREATININE 2.1 mg/dL (0.55-1.02); Calcium 9.2 mg/dL (8.5-10.1); Chloride 106 mmol/L (98-107); Estimated GFR 23.53 (mL/min/1.73m2); Glucose 89 mg/dL (74-106); Sodium 145 mmol/L (136-145)
== END 2023-04-14 13:52 | disposition home or self-care (01) ==
LOC: NCHCN 13:51
PROVIDERS: PCP Family Medicine; Referring Provider Family Medicine; Visit Provider Family Medicine
DX: E87.6 Hypokalemia (principal)
CPT/HCPCS: 80048

== ENCOUNTER 2023-04-24 18:58 | Emergency (ER) | payer OTHER, MEDICAID, SELFPAY ==
--- NOTE | 2023-04-24 19:00 | DI.RAD_ITS ---
Exam(s) XR SHOULDER LT COMPLETE 2+V EXAM: XR SHOULDER LT COMPLETE 2+V CLINICAL HISTORY: fall, left shoulder pain. TECHNIQUE: 2D digital imaging was performed of the left shoulder. Four images were obtained. AP, G rashey and Y views were obtained. COMPARISON: CR,XR XR SHOULDER RT COMPLETE 2+V from 12/08/2022 FINDINGS: BONES: No acute fracture is present. No bony destructive lesion is seen. The bones are osteopenic. JOINTS: No dislocation present. Degenerative changes are seen at the acromioclavicular joint. SOFT TISSUE: The visualized lung is clear. IMPRESSION: No acute fracture or dislocation. DATA REPOSITORY: RADIATION DOSE DELIVERED:
--- NOTE | 2023-04-24 19:00 | DI.CT_ITS ---
Exam(s) CT HEAD CERVICAL SPINE WO EXAM: CT HEAD CERVICAL SPINE WO CLINICAL HISTORY: fall, hit head, on blood thinners, r/o bleed. TECHNIQUE: Imaging Protocol: Axial computed tomography images with coronal and sagittal reformatted images were created and reviewed COMPARISON: CT CT HEAD CERVICAL SPINE WO from 04/12/[address] HEAD WO from 08/30/[address] HEAD CERV SPINE FACIAL WO from 09/22/[address] HEAD WO from 10/20/[address] HEAD WO from 12/06/[address] HEAD WO from 03/24/2023 FINDINGS: CT Head: Ventricles and Extra axial spaces: Normal in size and morphology for the patient's age. Hemorrhage: None. Cerebral parenchyma: There are areas of decreased attenuation in the white matter consistent with sma ll vessel ischemic disease. No acute territorial infarct or mass effect is identified. Midline shift: None. Brainstem/Cerebellum: Normal. Calvarium: Normal. Visualized Paranasal sinuses/Mastoids: Clear. Soft Tissues: Unremarkable. CT Cervical Spine: Bones: No acute fracture or subluxation. Age-appropriate degenerative changes are seen throughout the cervical spine. There is anterolisthesis of C6 on C7 and C7 on T1. Soft Tissues: Unremarkable. Lung Apices: Clear. IMPRESSION: 1. No acute intracranial process. 2. No acute fracture or subluxation in the cervical spine. RADIATION DOSE DELIVERED: Total DLP DATA REPOSITORY: All CT scans at this facility are submitted to the National Radiology Data Registry (NRDR) Dose Index Registry (DIR) with the [employer] (ACR). RADIATION OPTIMIZATION: All CT scans at this facility use at least one of these dose optimization te chniques: automated exposure control; mA and/or kV adjustment per patient size (includes targeted exa ms where dose is matched to clinical indication); or iterative reconstruction.
--- NOTE | 2023-04-24 19:00 | DI.RAD_ITS ---
Exam(s) XR ELBOW LT COMPLETE EXAM: XR ELBOW LT COMPLETE CLINICAL HISTORY: fall, left elbow pain. TECHNIQUE: 2D digital imaging was performed of the left elbow. Three images were obtained. AP, lat eral and oblique views were obtained. COMPARISON: CR XR ELBOW LT COMPLETE from 03/24/2023 FINDINGS: BONES: No acute fracture is present. No bony destructive lesion is seen. JOINTS: The elbow is normally aligned. No joint effusion is seen. SOFT TISSUE: Normal. IMPRESSION: No acute fracture or dislocation. DATA REPOSITORY: RADIATION DOSE DELIVERED:
[2023-04-24 19:05] VITALS: BP 122/97; PULSE 80; RESP 16; TEMP 36.9; O2SAT 96
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
--- NOTE | 2023-04-24 19:59 | DI.VRAD_ITS ---
PROCEDURE INFORMATION: Exam: CT Head Without Contrast Exam date and time: 04/24/2023 7:31 PM Age: 77 years old Clinical indication: Injury or trauma; Blunt trauma (contusions or hematomas); Consciousness not specified; Injury details: Fall, hit head, on blood thinners, R/O bleed TECHNIQUE: Imaging protocol: Computed tomography of the head without contrast. COMPARISON: CT HEAD WO 03/24/2023 11:22 AM FINDINGS: Brain: Prominence of cerebral sulci reflects diffuse cerebral atrophy. Poorly marginated hypodensities seen throughout the deep and periventricular white matter of both cerebral hemispheres are consistent with underlying microvascular ischemic changes with multiple chronic ischemic insults also again evident involving the cerebellar hemispheres bilaterally. There is no evidence of acute transcortical infarction or recent intracranial hemorrhage. Cerebral ventricles: No midline shift or hydrocephalus. Paranasal sinuses: Grossly clear throughout. Mastoid air cells: Grossly clear bilaterally. Bones/joints: Bony calvarium and skull base are intact and no acute fractures are detected. Soft tissues: Unremarkable. IMPRESSION: Cerebral atrophy and underlying microvascular ischemic changes with no evidence of acute transcortical infarction, recent intracranial hemorrhage or hydrocephalus. No acute intracranial process is detected. PROCEDURE INFORMATION: Exam: CT Cervical Spine Without Contrast Exam date and time: 04/24/2023 7:31 PM Age: 77 years old Clinical indication: Injury or trauma; Blunt trauma (contusions or hematomas); Consciousness not specified; Injury details: Fall, hit head, on blood thinners, R/O bleed TECHNIQUE: Imaging protocol: Computed tomography of the cervical spine without contrast. COMPARISON: CT HEAD WO 03/24/2023 11:22 AM FINDINGS: Bones/joints: There is arthrosis involving the anterior atlantodental interval with loss of joint space and marginal osteophyte formation and the odontoid process is grossly intact. There is grade 1 anterolisthesis of C4 upon C5 and there is gross preservation of vertebral body height throughout cervical levels with no vertebral body fractures or other significant subluxations detected. Changes of facet arthropathy are most advanced between C3 and C5 on the right and between C2 and C5 on the left with no acute fractures detected involving the posterior elements of the cervical spine. Discs/Spinal canal/Neural foramina: Loss of disc space height with posterior osteocartilaginous ridging is most significant at C5-C6 resulting in canal narrowing and possible mass-effect upon the ventral cord which could be better evaluated with MRI. Uncovertebral and facet changes produce foraminal distortions/narrowings at scattered cervical levels. Lungs: No pneumothorax or consolidation detected at the lung apices. Soft tissues: Unremarkable. IMPRESSION: Cervical spondylosis with central canal and foraminal narrowing as above. No acute cervical fractures are detected. Dictated and Authenticated by: Rick Garrison MD. Ordering:YOUSIF Hood MD
--- NOTE | 2023-04-24 20:05 | DI.VRAD_ITS ---
PROCEDURE INFORMATION: Exam: XR Left Shoulder Exam date and time: 04/24/2023 7:48 PM Age: 77 years old Clinical indication: Injury or trauma; Fall; Blunt trauma (contusions or hematomas); Shoulder and elbow; Left; Additional info: Fall, hit head, on blood thinners, R/O bleed TECHNIQUE: Imaging protocol: Radiologic exam of the left shoulder. Views: 2 or more views. COMPARISON: CR XR SHOULDER LT COMPLETE 2+V 12/06/2022 8:59 AM FINDINGS: Bones/joints: There is bony demineralization with no evidence of acute fracture or dislocation. Soft tissues: Unremarkable. IMPRESSION: No acute fracture is seen. Dictated and Authenticated by: Rick Garrison MD. Ordering:YOUSIF Hood MD
--- NOTE | 2023-04-24 20:06 | DI.VRAD_ITS ---
PROCEDURE INFORMATION: Exam: XR Left Elbow Exam date and time: 04/24/2023 7:39 PM Age: 77 years old Clinical indication: Injury or trauma; Fall; Blunt trauma (contusions or hematomas); Shoulder and elbow; Left; Additional info: Fall, hit head, on blood thinners, R/O bleed TECHNIQUE: Imaging protocol: Radiologic exam of the left elbow. Views: 3 or more views. COMPARISON: CR XR ELBOW LT COMPLETE 03/24/2023 11:31 AM FINDINGS: Bones/joints: Normal trabecular architecture is seen throughout with no acute fractures detected. Soft tissues: Unremarkable. IMPRESSION: No acute fracture is seen. Dictated and Authenticated by: Rick Garrison MD. Ordering:YOUSIF Hood MD
[2023-04-24] MEDS: Diclofenac 1% Gel 100 GM TUBE TP (20:25)
[2023-04-24 20:31] VITALS: BP 99/68; PULSE 75; RESP 16; TEMP 36.7; O2SAT 100
== END 2023-04-24 20:38 | disposition home or self-care (01) ==
LOC: ER 20:33
PROVIDERS: Emergency Provider Student in an Organized Health Care Education/Training Program; PCP Family Medicine
DX: M25.522 Pain in left elbow (principal); S43.402A Unspecified sprain of left shoulder joint, initial encounter; I11.0 Hypertensive heart disease with heart failure; I50.31 Acute diastolic (congestive) heart failure; I25.10 Atherosclerotic heart disease of native coronary artery without angina pectoris; I25.2 Old myocardial infarction; I48.91 Unspecified atrial fibrillation; Z79.82 Long term (current) use of aspirin; Z79.01 Long term (current) use of anticoagulants; W18.39XA Other fall on same level, initial encounter; Y93.54 Activity, bowling; Y92.39 Other specified sports and athletic area as the place of occurrence of the external cause
CPT/HCPCS: 99284; 70450; 72125; 73030; 73080

== ENCOUNTER 2023-05-20 13:00 | Outpatient (REF) | payer OTHER, MEDICAID, SELFPAY ==
[2023-05-20 15:18] LABS: Abs Immature Grans 0.02 10^3/uL (0.0-0.06); Absolute Basophil Count 0.04 10^3/uL (0.0-0.2); Absolute Eosinophil Count 0.18 10^3/uL (0.0-0.7); Absolute Lymphocyte Count 1.82 10^3/uL (1.2-3.4); Absolute Monocyte Count 0.54 10^3/uL (0.1-0.8); Absolute Neutrophil Count 2.82 10^3/uL (1.2-6.7); Basophils % 0.7; Eosinophils % 3.3; HCT 35.6 % (36.0-46.0); HGB 10.6 g/dL (11.2-15.7); Immature Grans % 0.4; Lymphocytes % 33.6; MCH 26.6 pg (27.0-33.0); MCHC 29.8 % (32.0-36.0); MCV 89 fL (80-95); MPV 10.1 fL (8.0-11.0); Platelet Count 167 10^3/uL (130-400); RBC 3.99 10^6/uL (3.93-5.22); RDW 19.5 % (11.7-14.6); RDW-SD 64.4 fL; WBC 5.42 10^3/uL (4.4-10.8)
[2023-05-20 15:34] LABS: Uric Acid 6.5 mg/dL (2.6-6.0)
== END 2023-05-20 13:01 | disposition home or self-care (01) ==
LOC: NCHCN 13:00
PROVIDERS: PCP Family Medicine; Visit Provider Student in an Organized Health Care Education/Training Program
DX: M79.672 Pain in left foot (principal)
CPT/HCPCS: 84550; 85025

== ENCOUNTER → 2023-06-08 13:43 | Outpatient (BNVA) | payer OTHER, MEDICAID, SELFPAY | PROVIDERS: PCP Family Medicine; Referring Provider Family Medicine; Visit Provider Podiatrist | DX: M79.672 Pain in left foot (principal); I12.9 Hypertensive chronic kidney disease with stage 1 through stage 4 chronic kidney disease, or unspecified chronic kidney disease; N18.4 Chronic kidney disease, stage 4 (severe); S98.112A Complete traumatic amputation of left great toe, initial encounter; L84 Corns and callosities; L97.521 Non-pressure chronic ulcer of other part of left foot limited to breakdown of skin; I70.203 Unspecified atherosclerosis of native arteries of extremities, bilateral legs | CPT/HCPCS: 11055; 97597 ==

== ENCOUNTER 2023-06-11 11:04 | Emergency (ER) | payer OTHER, MEDICAID, SELFPAY ==
[2023-06-11] VITALS (17 sets, daily range): BP systolic 108–141; BP diastolic 61–115; PULSE 82–121; RESP 14–27; TEMP 36.7; O2SAT 98–99
--- NOTE | 2023-06-11 11:00 | DI.CT_ITS ---
Exam(s) CT HEAD CERVICAL SPINE WO EXAM: CT HEAD CERVICAL SPINE WO CLINICAL HISTORY: fall. TECHNIQUE: Imaging Protocol: Axial computed tomography images with coronal and sagittal reformatted images were created and reviewed COMPARISON: No exams were available for comparison FINDINGS: BRAIN: There are no skull fractures nor fluid in the visualized paranasal sinuses. Again noted is evidence of prior left cerebellar infarcts. There is no evidence of intracranial hemorrhage, mass effect, or shift of midline structures. There are no extra-axial fluid collections. The ventricles are not enlarged or shifted and there is no blo od within the ventricular system nor within the basal cisterns. Again noted is unchanged bilateral periventricular hypodensity consistent with chronic small vessel d isease. CERVICAL SPINE: There is no evidence of fracture nor listhesis. No significant prevertebral soft tissue swelling. Multilevel disc space narrowing noted. 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 There is no evidence of intracranial hemorrhage. No evidence of cervical spine fracture, malalignment, nor acute compromise of the cervical spinal can al. Report called to ER physician. RADIATION DOSE DELIVERED: 1,329.02mGy.cm Total DLP DATA REPOSITORY: All CT scans at this facility are submitted to the National Radiology Data Registry (NRDR) Dose Index Registry (DIR) with the [employer] (A[employer]). RADIATION OPTIMIZATION: All CT scans at this facility use at least one of these dose optimization te chniques: automated exposure control; mA and/or kV adjustment per patient size (includes targeted exa ms where dose is matched to clinical indication); or iterative reconstruction.
--- NOTE | 2023-06-11 11:00 | RT.EKG_ITS ---
APPROVED REPORT Exam: Resting ECG Reason for Exam: AFIB Patient Location: E HR:96 bpm ECG Measurements Heart Rate 96 AXIS VT [id number] P [id number] QRSd 92 QRS -7 QT 387 T 31 QTc 489 Conclusion Atrial fibrillation. +PVC
--- NOTE | 2023-06-11 11:00 | DI.RAD_ITS ---
Exam(s) XR HIP PELVIS ADULT BL EXAM: XR HIP PELVIS ADULT BL CLINICAL HISTORY: fall. TECHNIQUE: 2D digital imaging was performed. COMPARISON: No exams were available for comparison FINDINGS: 3 views No evidence of pelvic nor hip fracture. No obvious degenerative changes in the hips. Degenerative d isc disease incidentally noted in the lumbar spine. IMPRESSION: No fractures evident in the pelvis and hips. DATA REPOSITORY: RADIATION DOSE DELIVERED:
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
[2023-06-11 11:49] LABS: Abs Immature Grans 0.01 10^3/uL (0.0-0.06); Absolute Basophil Count 0.04 10^3/uL (0.0-0.2); Absolute Eosinophil Count 0.16 10^3/uL (0.0-0.7); Absolute Lymphocyte Count 1.48 10^3/uL (1.2-3.4); Absolute Monocyte Count 0.44 10^3/uL (0.1-0.8); Absolute Neutrophil Count 2.82 10^3/uL (1.2-6.7); Basophils % 0.8; Eosinophils % 3.2; HCT 34.7 % (36.0-46.0); HGB 10.2 g/dL (11.2-15.7); Immature Grans % 0.2; Lymphocytes % 29.9; MCH 26.1 pg (27.0-33.0); MCHC 29.4 % (32.0-36.0); MCV 89 fL (80-95); MPV 9.6 fL (8.0-11.0); Monocytes % 8.9; Platelet Count 170 10^3/uL (130-400); RBC 3.91 10^6/uL (3.93-5.22); RDW 17.7 % (11.7-14.6); RDW-SD 58.4 fL; WBC 4.95 10^3/uL (4.4-10.8)
[2023-06-11 12:02] LABS: ALT 23 U/L (14-59); AST 21 U/L (15-37); Albumin 3.5 g/dL (3.4-5.0); Alkaline Phosphatase 125 U/L (46-116); Anion Gap 9.1 mmol/L (3-11); BUN 29 mg/dL (7-18); Bilirubin, Total 0.6 mg/dL (0.2-1.0); CO2 29.9 mmol/L (21.0-32.0); CREATININE 1.9 mg/dL (0.55-1.02); Calcium 8.9 mg/dL (8.5-10.1); Chloride 107 mmol/L (98-107); Estimated GFR 26.53 (mL/min/1.73m2); Glucose 92 mg/dL (74-106); NT-proBNP 3651 pg/mL (<300); Sodium 146 mmol/L (136-145); Total Protein 7.4 g/dL (6.4-8.2)
[2023-06-11 12:29] LABS: INR 1.2 (0.9-1.1); Prothrombin Time 11.6 sec (9.1-11.1)
== END 2023-06-11 13:01 | disposition home or self-care (01) ==
PROVIDERS: Emergency Provider Emergency Medicine; PCP Family Medicine
DX: I48.91 Unspecified atrial fibrillation (principal); I25.10 Atherosclerotic heart disease of native coronary artery without angina pectoris; I25.2 Old myocardial infarction; I13.0 Hypertensive heart and chronic kidney disease with heart failure and stage 1 through stage 4 chronic kidney disease, or unspecified chronic kidney disease; N18.4 Chronic kidney disease, stage 4 (severe); I50.23 Acute on chronic systolic (congestive) heart failure; Z79.82 Long term (current) use of aspirin; Z79.01 Long term (current) use of anticoagulants; Z91.81 History of falling
CPT/HCPCS: 73521; 80053; 93005; 99284; 70450; 72125; 83880; 85025; 85610; 93010

== ENCOUNTER 2023-06-22 13:54 | Outpatient (REF) | payer OTHER, MEDICAID, SELFPAY ==
[2023-06-22 15:45] LABS: Abs Immature Grans 0.01 10^3/uL (0.0-0.06); Absolute Basophil Count 0.05 10^3/uL (0.0-0.2); Absolute Lymphocyte Count 1.83 10^3/uL (1.2-3.4); Absolute Monocyte Count 0.51 10^3/uL (0.1-0.8); Absolute Neutrophil Count 2.66 10^3/uL (1.2-6.7); Eosinophils % 3.8 %; HCT 31.6 % (36.0-46.0); HGB 9.7 g/dL (11.2-15.7); Immature Grans % 0.2 %; Lymphocytes % 34.8 %; MCH 25.9 pg (27.0-33.0); MCHC 30.7 % (32.0-36.0); MCV 85 fL (80-95); MPV 10.7 fL (8.0-11.0); Monocytes % 9.7 %; Neutrophils % 50.5 %; Platelet Count 164 10^3/uL (130-400); RBC 3.74 10^6/uL (3.93-5.22); RDW 17.3 % (11.7-14.6); RDW-SD 53.4 fL; WBC 5.26 10^3/uL (4.4-10.8)
[2023-06-22 15:49] LABS: Anion Gap 12.2 mmol/L (3-11); BUN 33 mg/dL (7-18); CO2 23.8 mmol/L (21.0-32.0); Calcium 8.4 mg/dL (8.5-10.1); Chloride 106 mmol/L (98-107); Estimated GFR 24.94 (mL/min/1.73m2); Glucose 90 mg/dL (74-106); Potassium 4.1 mmol/L (3.5-5.1); Sodium 142 mmol/L (136-145)
== END 2023-06-22 13:55 | disposition home or self-care (01) ==
LOC: NCHCN 13:54
PROVIDERS: PCP Student in an Organized Health Care Education/Training Program; Visit Provider Student in an Organized Health Care Education/Training Program
DX: D64.9 Anemia, unspecified (principal)
CPT/HCPCS: 80048; 85025

== ENCOUNTER → 2023-06-24 09:55 | Outpatient (BNVA) | payer OTHER, MEDICAID, SELFPAY | PROVIDERS: PCP Student in an Organized Health Care Education/Training Program; Referring Provider Family Medicine; Visit Provider Student in an Organized Health Care Education/Training Program | DX: M75.102 Unspecified rotator cuff tear or rupture of left shoulder, not specified as traumatic (principal); M12.812 Other specific arthropathies, not elsewhere classified, left shoulder | CPT/HCPCS: 20610; J1010 ==

== ENCOUNTER → 2023-07-06 14:34 | Outpatient (BNVA) | payer OTHER, MEDICAID, SELFPAY | PROVIDERS: PCP Student in an Organized Health Care Education/Training Program; Referring Provider Family Medicine; Visit Provider Podiatrist | DX: M79.672 Pain in left foot; I12.9 Hypertensive chronic kidney disease with stage 1 through stage 4 chronic kidney disease, or unspecified chronic kidney disease; N18.4 Chronic kidney disease, stage 4 (severe); S98.112D Complete traumatic amputation of left great toe, subsequent encounter; L84 Corns and callosities; L97.521 Non-pressure chronic ulcer of other part of left foot limited to breakdown of skin; I70.203 Unspecified atherosclerosis of native arteries of extremities, bilateral legs; X58.XXXD Exposure to other specified factors, subsequent encounter | CPT/HCPCS: 11056 ==

== ENCOUNTER 2023-07-07 12:32 | Outpatient (REF) | payer OTHER, MEDICAID, SELFPAY ==
[2023-07-07 15:46] LABS: Iron 29 ug/dL (50-170); Total Iron Binding Capacity 452 ug/dL (250-450); Transferrin Sat 6 % (15-50)
[2023-07-07 16:15] LABS: Ferritin 39 ng/mL (8-252); Folate 16.6 ng/mL (8.6-20.0)
[2023-07-07 16:17] LABS: Vitamin B12 > 2000 pg/mL (193-986)
== END 2023-07-07 12:33 | disposition home or self-care (01) ==
LOC: NCHCN 12:32
PROVIDERS: PCP Student in an Organized Health Care Education/Training Program; Visit Provider Student in an Organized Health Care Education/Training Program
DX: D64.9 Anemia, unspecified (principal)
CPT/HCPCS: 82607; 82728; 82746; 83540; 83550

== ENCOUNTER 2023-07-31 11:03 | Outpatient (REF) | payer OTHER, MEDICAID, SELFPAY ==
[2023-07-31 16:07] LABS: Abs Immature Grans 0.01 10^3/uL (0.0-0.06); Absolute Basophil Count 0.04 10^3/uL (0.0-0.2); Absolute Eosinophil Count 0.18 10^3/uL (0.0-0.7); Absolute Lymphocyte Count 1.58 10^3/uL (1.2-3.4); Absolute Monocyte Count 0.58 10^3/uL (0.1-0.8); Basophils % 0.7 %; HCT 40.2 % (36.0-46.0); HGB 11.7 g/dL (11.2-15.7); Immature Grans % 0.2 %; Lymphocytes % 25.9 %; MCH 25.1 pg (27.0-33.0); MCHC 29.1 % (32.0-36.0); MCV 86 fL (80-95); MPV 10.3 fL (8.0-11.0); Monocytes % 9.5 %; Neutrophils % 60.7 %; Platelet Count 167 10^3/uL (130-400); RBC 4.66 10^6/uL (3.93-5.22); RDW 21.2 % (11.7-14.6); RDW-SD 65.1 fL; WBC 6.09 10^3/uL (4.4-10.8)
[2023-07-31 16:16] LABS: Anisocytosis 1+; Diff Comment RBC Morph Reviewed
[2023-07-31 16:31] LABS: Iron 126 ug/dL (50-170); Total Iron Binding Capacity 394 ug/dL (250-450); Transferrin Sat 32 % (15-50)
[2023-07-31 16:38] LABS: BUN 33 mg/dL (7-18); CREATININE 2.1 mg/dL (0.55-1.02); Calcium 8.9 mg/dL (8.5-10.1); Chloride 105 mmol/L (98-107); Estimated GFR 23.53 (mL/min/1.73m2); Ferritin 51 ng/mL (8-252); Glucose 99 mg/dL (74-106); Potassium 3.7 mmol/L (3.5-5.1); Sodium 144 mmol/L (136-145)
== END 2023-07-31 11:04 | disposition home or self-care (01) ==
LOC: NCHCN 11:03
PROVIDERS: PCP Student in an Organized Health Care Education/Training Program; Visit Provider Student in an Organized Health Care Education/Training Program
DX: D64.9 Anemia, unspecified (principal)
CPT/HCPCS: 80048; 82728; 83540; 83550; 85025

== ENCOUNTER → 2023-09-01 09:54 | Outpatient (BNVA) | payer OTHER, MEDICAID, SELFPAY | PROVIDERS: PCP Student in an Organized Health Care Education/Training Program; Referring Provider Student in an Organized Health Care Education/Training Program; Visit Provider Surgery | DX: R19.5 Other fecal abnormalities (principal); D64.9 Anemia, unspecified; I12.9 Hypertensive chronic kidney disease with stage 1 through stage 4 chronic kidney disease, or unspecified chronic kidney disease; N18.4 Chronic kidney disease, stage 4 (severe) | CPT/HCPCS: 99214 ==

== ENCOUNTER 2023-09-17 22:09 | Inpatient (IN) | payer OTHER, MEDICAID, SELFPAY ==
[2023-09-17] VITALS (30 sets, daily range): BP systolic 112; BP diastolic 46; PULSE 117–127; RESP 16–29; TEMP 37.5; O2SAT 96–98
--- NOTE | 2023-09-17 22:00 | RT.EKG_ITS ---
APPROVED REPORT Exam: Resting ECG Reason for Exam: afib Patient Location: E HR:119 bpm ECG Measurements Heart Rate 119 AXIS NC [id number] P [id number] QRSd 86 QRS -37 QT 325 T [id number] QTc 457 Conclusion Atrial fibrillation...? atrial activity Ventricular premature complex...V complex w/ short R-R interval Inferior infarct, age indeterminate...Q>35mS, T neg, II III aVF Nonspecific T abnormalities, lateral leads...T <-0.10mV, I aVL V5 V6 There are no significant changes compared to prior EKG performed on 06/11/2023 at 11:42.
--- NOTE | 2023-09-17 22:15 | DI.CT_ITS ---
Exam(s) CT HEAD CERVICAL SPINE WO EXAM: CT HEAD CERVICAL SPINE WO CLINICAL HISTORY: fall, head and neck pain, anticoagulated. TECHNIQUE: Imaging Protocol: Axial computed tomography images with coronal and sagittal reformatted images were created and reviewed COMPARISON: CT CT HEAD CERVICAL SPINE WO from 06/11/2023 FINDINGS: Head CT Ventricles and Extra axial spaces: Normal in size and morphology for the patient's age. Hemorrhage: None. Cerebral parenchyma: No evidence of mass or acute infarct. Prominent white matter changes of small vessel disease. Midline shift: None. 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 Calvarium: Normal. Visualized Paranasal sinuses/Mastoids: Clear. Soft tissues: Unremarkable. Cervical Spine CT BONES: Vertebral body heights are maintained. Alignment is normal. There is no evidence of acute frac ture. Advanced degenerative disc changes and facet degenerative changes are seen, greatest at C1-2, with th ere is thinning of the anterior arch of C1 and surrounding pannus. Degenerative changes also present at C5-6 and C6-7.. SOFT TISSUES: No paraspinal hematoma. The airway appears intact. Carotid artery calcifications. No pneumothorax is seen at the lung apices. IMPRESSION: Head CT: No acute abnormality. C-spine CT: Degenerative changes, no acute abnormality. RADIATION DOSE DELIVERED: Total DLP DATA REPOSITORY: All CT scans at this facility are submitted to the National Radiology Data Registry (NRDR) Dose Index Registry (DIR) with the [employer] ([employer]). RADIATION OPTIMIZATION: All CT scans at this facility use at least one of these dose optimization te chniques: automated exposure control; mA and/or kV adjustment per patient size (includes targeted exa ms where dose is matched to clinical indication); or iterative reconstruction.
--- NOTE | 2023-09-17 22:18 | DI.CT_ITS ---
Exam(s) CT CHEST/ABD/PEL WO EXAM: CT CHEST/ABD/PEL WO CLINICAL HISTORY: fall, chest and back pain, pelvis pain. TECHNIQUE: Imaging Protocol: Axial computed tomography images with coronal and sagittal reformatted images were created and reviewed CONTRAST MATERIAL: Intravenous: Omnipaque 350 Contrast volume:100 ml Oral: / no COMPARISON: CT CT CHEST/ABD/PEL W from 04/12/2022 FINDINGS: CHEST: Tracheobronchial tree: Patent. Pulmonary parenchyma: No consolidation or dominant measurable mass. Pleura: No effusion or pneumothorax. Mediastinum: Within normal limits. Aorta: Thoracic portion non-dilated. Pulmonary arteries: No visible emboli. Heart: No pericardial effusion. Mildly enlarged. Bones: Old bilateral rib fractures. No lytic or blastic lesions.No acute fractures. Severe degenera tive changes of the right shoulder. Soft tissues: Unremarkable. ABDOMEN and PELVIS: Liver: Normal density. No measurable mass. Gallbladder and biliary tract: No evidence of stones or wall thickening. No biliary dilatation. Pancreas: Normal density, no abnormal calcifications or inflammatory process. Spleen: Normal. Kidneys: Normal size, contour and axis. No radiodense stones. No obstructive uropathy. No suspicious masses seen. Adrenal glands: No masses seen. Aorta: Abdominal portion non-dilated. Lymph nodes: Within normal limits. Soft tissues: Fatty containing umbilical hernia. Bladder: Unremarkable. Bowel: Sigmoid diverticulosis. Wall thickening and inflammatory changes surrounding the mid sigmoid suspicious for diverticulitis. Appendix normal. Peritoneal cavity: No ascites. No focal collection. No mesenteric inflammatory response. No free ai r. Bones: Advanced degenerative changes in the spine. Reproductive organs: Status post hysterectomy. IMPRESSION: No acute posttraumatic abnormality in the chest, abdomen or pelvis. Diverticulosis and inflammation around the mid sigmoid which may indicate diverticulitis. Clinical c orrelation recommended. RADIATION DOSE DELIVERED: Total DLP DATA REPOSITORY: All CT scans at this facility are submitted to the National Radiology Data Registry (NRDR) Dose Index Registry (DIR) with the [employer] (ACR). RADIATION OPTIMIZATION: All CT scans at this facility use at least one of these dose optimization te chniques: automated exposure control; mA and/or kV adjustment per patient size (includes targeted exa ms where dose is matched to clinical indication); or iterative reconstruction.
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
[2023-09-17 22:53] LABS: Abs Immature Grans 0.06 10^3/uL (0.0-0.06); Absolute Basophil Count 0.04 10^3/uL (0.0-0.2); Absolute Eosinophil Count 0.08 10^3/uL (0.0-0.7); Absolute Lymphocyte Count 1.69 10^3/uL (1.2-3.4); Absolute Monocyte Count 1.08 10^3/uL (0.1-0.8); Absolute Neutrophil Count 7.74 10^3/uL (1.2-6.7); Basophils % 0.4 %; Eosinophils % 0.7 %; HCT 38.1 % (36.0-46.0); HGB 11.7 g/dL (11.2-15.7); Immature Grans % 0.6 %; Lymphocytes % 15.8 %; MCH 27.9 pg (27.0-33.0); MCHC 30.7 % (32.0-36.0); MCV 91 fL (80-95); MPV 9.9 fL (8.0-11.0); Monocytes % 10.1 %; Neutrophils % 72.4 %; Platelet Count 132 10^3/uL (130-400); RDW 22.6 % (11.7-14.6); RDW-SD 73.7 fL; WBC 10.69 10^3/uL (4.4-10.8)
[2023-09-17 23:08] LABS: ALT 23 U/L (14-59); AST 33 U/L (15-37); Alkaline Phosphatase 113 U/L (46-116); Anion Gap 10.4 mmol/L (3-11); BUN 25 mg/dL (7-18); Bilirubin, Total 0.85 mg/dL (0.2-1.0); CO2 25.6 mmol/L (21.0-32.0); CREATININE 2.2 mg/dL (0.55-1.02); Calcium 8.4 mg/dL (8.5-10.1); Chloride 107 mmol/L (98-107); Estimated GFR 22.11 (mL/min/1.73m2); Glucose 103 mg/dL (74-106); Magnesium 2.1 mg/dL (1.8-2.4); Potassium 4.3 mmol/L (3.5-5.1); Sodium 143 mmol/L (136-145); Total Protein 6.5 g/dL (6.4-8.2)
[2023-09-17 23:09] LABS: Anisocytosis 1+
[2023-09-17 23:44] LABS: Bilirubin Negative (Negative); Blood Trace-intact (Negative); Clarity Clear (Clear); Glucose 250 mg/dL (Negative); Ketones Negative (Negative); Leukocyte Esterase Negative (Negative); Nitrite Negative (Negative); Specific Gravity 1.015 (1.005-1.025); Urobilinogen 0.2 mg/dL (Up to 0.2)
[2023-09-17 23:46] LABS: Bacteria Few HPF (Negative); C & S Indicated? No; Casts Negative LPF (Negative); Crystals Negative HPF (Negative); Epithelial Cells Rare HPF (Negative); Mucus Negative (Negative); RBC 0-2 HPF (0-2); WBC Negative HPF (0-5)
[2023-09-18] VITALS (137 sets, daily range): BP systolic 85–146; BP diastolic 53–127; PULSE 62–121; RESP 0–36; TEMP 36–37; O2SAT 95–100
--- NOTE | 2023-09-18 01:39 | DI.VRAD_ITS ---
PROCEDURE INFORMATION: Exam: CT Head Without Contrast Exam date and time: 09/17/2023 11:53 PM Age: 78 years old Clinical indication: Injury or trauma; Blunt trauma (contusions or hematomas); Injury details: Fall, head and neck pain, anticoagulated TECHNIQUE: Imaging protocol: Computed tomography of the head without contrast. COMPARISON: CT HEAD CERVICAL SPINE WO 06/11/2023 11:53 AM FINDINGS: Brain: Bilateral periventricular white matter and centrum semiovale hypodensities consistent with chronic ischemic small disease. Old left cerebellar infarct. No recent infarct, intracranial bleed or mass effect. Cerebral ventricles: No ventriculomegaly. Paranasal sinuses: Visualized sinuses are unremarkable. No fluid levels. Mastoid air cells: Visualized mastoid air cells are well aerated. Orbital cavities: Post bilateral cataract surgery. Bones: Bilateral hyperostosis frontalis. Soft tissues: Unremarkable. IMPRESSION: No intracranial posttraumatic changes. PROCEDURE INFORMATION: Exam: CT Cervical Spine Without Contrast Exam date and time: 09/17/2023 11:53 PM Age: 78 years old Clinical indication: Injury or trauma; Blunt trauma (contusions or hematomas); Injury details: Fall, head and neck pain, anticoagulated TECHNIQUE: Imaging protocol: Computed tomography of the cervical spine without contrast. COMPARISON: CT HEAD CERVICAL SPINE WO 06/11/2023 11:53 AM FINDINGS: Bones: Mild anterolisthesis of C4 over C5. CPPD changes around the dens with calcified pannus causing mild anterior compression of thecal sac. Mild anterolisthesis of C7 over T1. Moderate narrowing of the C5-C6 and C6-C7 discs with anterior and posterior osteophytes. No acute fracture. Lungs: Lung apices are normal. Thyroid: There is a 7 mm hypodense left thyroid nodule. Vasculature: Bilateral carotid artery calcifications. Soft tissues: Unremarkable. IMPRESSION: No posttraumatic changes in the cervical spine. Dictated and Authenticated by: Marshal Goff MD. Ordering:JENNY Alvarado MD
--- NOTE | 2023-09-18 03:32 | DI.VRAD_ITS ---
PROCEDURE INFORMATION: Exam: CT Chest Without Contrast; Diagnostic Exam date and time: 09/18/2023 12:02 AM Age: 78 years old Clinical indication: Injury or trauma; Generalized; Blunt trauma (contusions or hematomas); Injury details: Fall, chest and back pain, pelvis pain TECHNIQUE: Imaging protocol: Diagnostic computed tomography of the chest without contrast. 3D rendering (Not supervised by radiologist): MIP and/or 3D reconstructed images were created by the technologist. COMPARISON: CT CHEST/ABD/PEL W 12/04/2022 12:55 FINDINGS: Lungs: Calcified granulomas in the left lung. No airspace consolidation or ground-glass opacities. Pleural spaces: No pleural effusion or pneumothorax. Heart: Unremarkable. No cardiomegaly. No pericardial effusion. Lymph nodes: Unremarkable. No enlarged lymph nodes. Vasculature: Unremarkable. No aortic aneurysm. Bones/joints: Old rib fractures bilaterally. No acute fracture. Soft tissues: Unremarkable. IMPRESSION: No acute traumatic findings. PROCEDURE INFORMATION: Exam: CT Abdomen And Pelvis Without Contrast Exam date and time: 09/18/2023 12:02 AM Age: 78 years old Clinical indication: Injury or trauma; Generalized; Blunt trauma (contusions or hematomas); Injury details: Fall, chest and back pain, pelvis pain TECHNIQUE: Imaging protocol: Computed tomography of the abdomen and pelvis without contrast. 3D rendering (Not supervised by radiologist): MIP and/or 3D reconstructed images were created by the technologist. COMPARISON: CT CHEST/ABD/PEL W 12/04/2022 12:55 FINDINGS: Liver: Normal. No mass. Gallbladder and biliary ducts: Normal. No calcified stones. No ductal dilation. Pancreas: Normal. No ductal dilation. Spleen: Normal. No splenomegaly. Adrenal glands: Normal. No mass. Kidneys and ureters: Normal. No hydronephrosis. Stomach and bowel: No evidence of bowel obstruction. There is a segment of luminal narrowing and mucosal thickening and inflammation of the distal sigmoid colon. See for example series 3, image 90. There is extensive colonic diverticulosis. Appendix: No evidence of appendicitis. Intraperitoneal space: Fluid stranding in the pelvis. No free air. Vasculature: Unremarkable. No abdominal aortic aneurysm. Lymph nodes: Unremarkable. No enlarged lymph nodes. Urinary bladder: Unremarkable as visualized. Reproductive: Hysterectomy. Bones/joints: Degenerative disc disease of the lumbar spine. No acute fracture. Soft tissues: Umbilical hernia containing fat. IMPRESSION: 1. No acute traumatic findings. 2. Possible diverticulitis or neoplasm of the distal sigmoid colon as above. Dictated and Authenticated by: Rene Candelaria MD. Ordering:JENNY Alvarado MD
[2023-09-18] MEDS: metroNIDAZOLE 500 MG/100 ML BAG 100 MG IVPB ×4 (04:10→21:51)
[2023-09-18] MEDS: CIPROFLOXACIN 400 MG/200 ML BAG 200 MG IVPB ×2 (04:10→15:32)
[2023-09-18] MEDS: Normal Saline Flush 10 ML SYR IVP ×2 (05:49→19:48)
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
[2023-09-18] MEDS: Lactated Ringers 1,000 ML 85 ML IV (08:45)
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
[2023-09-18] MEDS: buPROPion-XL 150 MG TABCR 300 MG PO (09:28)
[2023-09-18] MEDS: Cyanocobalamin 500 MCG TAB 1000 MCG PO (09:28)
[2023-09-18] MEDS: Atorvastatin 40 MG TAB PO (09:29)
[2023-09-18] MEDS: Omeprazole 20 MG CAPCR PO (09:29)
[2023-09-18] MEDS: Levothyroxine 25 MCG TAB PO (09:29)
[2023-09-18] MEDS: ARIPiprazole 5 MG TAB PO (09:29)
--- NOTE | 2023-09-18 09:31 | PT.INIE ---
Date of service: 09/18/23 Time of Service: 10:45 PT Notes Visit Reasons: fall, weakness, acute diverticulitis Date: 09/18/23 Referring Doctor: Hernesto Trent PT Orders: PT CONSULT: Exacerbation Chronic Cond Precautions: Fall risk, standard Patient Profile/Admitting Diagnosis: 78-year-old female patient who lives alone and has had recent falls about 1 month ago and then last evening and additionally found to have diverticulitis when evaluated in the ED last night. She is seen by the [facility] but has no other support living alone. Social History/Home Situation: Lives in a private apartment with a ramp to enter, visited by [facility] nursing, has a daughter that purchases her groceries for her, nursing preps meal for her. Admits to high fall frequency 1x ev 2-3 months, this time she felt due to feeling light headed. Equipment Owned/DME: RW, but does not use it in her home as her apt is small, and walker is too big. SPC in apartment. Subjective: Suffers from bilateral chronic shoulder pain. Some soreness on butt from where she fell. Feels weak overall, and has bee noting lately that going from sit to stand is very challenging, and pushing with her arm is even getting more difficult. Objective: General Observation: Sitting at EOB, no bed alarm in place, finishing breakfast. 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 Fatigues quickly. Balance: Static Sitting: Good Dynamic Sitting: Fair Static Standing: Fair Dynamic Standing: Poor Stage 4 Balance Test Time (seconds) Feet together 5 Partial tandem 0 Tandem 0 One foot 0 Special Tests: Mobility Limitations Standardized Measure [facility] AM-PAC 6 clicks Basic Mobility Inpatient Short Form: 57% disability Informed Consent/Education: Patient instructed in purpose of PT consult and plan of care. Treatment: Initial evaluation 45014 Assessment: Patient is a 78 year old female referred to physical therapy services with reason for PT evaluation of mobility deficits in presence of progressive weakness and high fall frequency admitted with actue diverticulities, in setting of CKD, HR, A-fib, and B veronica RC pathology. Patient presents with with strength, balance, and gait impairments, and functional ambulation endurance loss related to acute and chronic medical issues. She requires skilled PT intervention to maximize safety mobility to allow for safe transition home, or determination of placement otherwise, once medically stable, and attend to below deficits. Impairment level findings: Balance impairment Global weakness Gait impairment Mobility deficits Impairments are contributing to the following functional limitations: Assistance with transfers, bed mobility, and gait unsteadiness and confidence loss Unable to perform basic household ADL activities at premorbid level Patient is assessed as moderate complexity based on the following: History: See PMH in patient H&P in addition to above mentioned medical conditions Examination: impairment and functional limitations as noted above Presentation: Evolving Decision Making: Moderate Goals: Goals X1 week 1. Supine-Sit : Independent 2. Sit-Supine : Independent 3. Sit-Stand : Independent 4. Stand-Sit :Independent 5. Bed-Chair : Independent 6. Chair-Bed : Independent 7. Gait : 100 ft RW Independent Plan of Care/Treatment Plan: 1-2x/day, 7 days/week x 1 week. Plan of care has been reviewed with the INSULATOR HELPER providing the service under Physical Therapy direction. Initiate Physical Therapy intervention for strengthening, bed mobility, transfers, gait, stairs, balance training, use of assistive device. DISCHARGE RECOMMENDATIONS: Home with resumption of services. If above goals not met for transition home, SNF placement necessary. TREATMENT CODE/TIME: 87451, 20 min, [id number] Christen Radn, MPT [facility]
[2023-09-18] MEDS: Acetaminophen 325 MG TAB PO (10:36)
--- NOTE | 2023-09-18 12:59 | PHA.REVIEW2 ---
Pharmacy Admission Review Admission Clinical Review Admission Pharmacy Review: Acute diverticulitis (Acute) Weakness (Acute) Abnormal liver enzymes (Acute) Atherosclerosis of artery of both lower extremities (Acute) Ulcer of left foot, limited to breakdown of skin (Acute) Orthostatic hypotension (Acute) Cognitive impairment (Acute) propoxyphene HCl (From Darvon) Allergy (Intermediate, Verified 09/17/23 22:16) rash,itchy amoxicillin (From Augmentin) Adverse Reaction (Intermediate, Verified 09/17/23 22:16) unknown cephalexin Adverse Reaction (Intermediate, Verified 09/17/23 22:16) unknown clavulanic acid (From Augmentin) Adverse Reaction (Intermediate, Verified 09/17/23 22:16) unknown lisinopril Adverse Reaction (Intermediate, Verified 09/17/23 22:16) cough Resuscitation Status DNR/DNI Height 5 ft 4 in Weight 84 kg Pharmacy Admission Review Renal Dosing Renal Dosing: BUN 25 mg/dL (7-18) H 09/17/23 20:45 Creatinine 2.2 mg/dL (0.55-1.02) H 09/17/23 20:45 Medications needing adjustments: Intervened (CrCl 21.34 mL/min) List of meds needing interventions: Changed gabapentin order from TID to BID due to CrCl < 30 Anticoagulation Anticoagulation: Hgb 11.7 g/dL (11.2-15.7) 09/17/23 20:45 Hct 38.1 % (36.0-46.0) 09/17/23 20:45 Plt Count 132 10^3/uL (130-400) 09/17/23 20:45 Creatinine 2.2 mg/dL (0.55-1.02) H 09/17/23 20:45 DVT Prophylaxis: Intervened (order was put in for 5mg BID, changed to 2.5mg based on most recent fill history and SCr/age) Medications: Enoxaparin (2.5mg PO BID) Relevant Labs Relevant Labs: Sodium 143 mmol/L (136-145) 09/17/23 20:45 Potassium 4.3 mmol/L (3.5-5.1) 09/17/23 20:45 Chloride 107 mmol/L (98-107) 09/17/23 20:45 Magnesium 2.1 mg/dL (1.8-2.4) 09/17/23 20:45 Electrolytes, C-Reactive P, ESR: Reviewed (No new labs for today) Cardiac Review Cardiac Review: Blood Pressure 90/68 1131 Blood Pressure 85/53 1124 Blood Pressure 91/58 0733 Blood Pressure 88/60 0636 Blood Pressure 85/60 0519 Blood Pressure 127/70 0443 Blood Pressure 146/127 0135 BP, HR, EF%: Reviewed (HR WNL) QTc Review QTc: Reviewed (457 from 09/17/23) IV to PO Switch IV Medications: Reviewed (ciprofloxacin and metronidazole) Home Meds Home Med List reviewed: Intervened Relevent Home Meds Not ordered & why?: Tramadol (PRN), calcitriol (order put in then DC'd by provider), aspirin calcitriol (order put in then DC'd by provider), calcium carbonate calcitriol (order put in then DC'd by provider) and ferrous sulfate calcitriol (order put in then DC'd by provider) Updated home med list as follows (based on external fill history): changed Eliquis from 5mg to 2.5mg Changed metoprolol from 50mg daily to 25mg daily changed Abilify from 2mg daily to 5mg daily Changed ferrous sulfate from daily to every other day Current Meds Current Medication Order Review: Intervened Comments: Changed timing of omeprazole from 0830 to 0730 based on pharmacy protocol Pharmacy Antibiotic Review Relevant Labs: WBC 10.69 10^3/uL (4.4-10.8) 09/17/23 20:45 Temperature 36.2 C Temperature 37.0 C Temperature 36.4 C Pharmacy Antibiotic Activity: C/S review and Reviewed, no change Comments: Patient is on ciprofloxacin and metronidazole, day 1, for diverticulitis. Current dosing is okay with renal function. Patient has documented allergy to penicillin. No cultures pending.
--- NOTE | 2023-09-18 14:12 | PT.INTREAT ---
PT Notes Visit Reasons: fall, weakness, acute diverticulitis Inpatient Physical Therapy Treatment Note Date: 09/18/23 PRECAUTIONS: Fall.?Standard.?Activity as tolerated. SUBJECTIVE: Arlin is agreeable to doing some exercise, anxious to more strength for sit to stand. OBJECTIVE:? Patient found with nursing just begin to sit on toilet ? BED MOBILITY/TRANSFERS Commode-stand: Min A x 1? Sit-stand: CGA Stand-sit: CGA ? Bed-Chair: CGA Chair-bed: CGA ? GAIT? Assistive Device: FWW ? Weight bearing: WBAT Assist: CGA Distance:? 30 feet x 1, 15 x 1 Therapeutic Exercises (58141): Direct one-on-one instruction in therapeutic exercises to develop strength, endurance, range of motion and flexibility: 30 minutes Seated knee extension x10 Standing march x 10 at RW Standing mini HR x 10 at RW Standing side taps x 10 Therapeutic activities: STS x 10, standard chair Cues and instruction in proper hand position and UE support with grab bar to and from toilet, and with sitting in standard chair and on bed for safety. ASSESSMENT:?Patient tolerating session well, but quickly fatigues. She takes good precaution and steps to insure her safety to and limit falls. Movements are slow and inefficient as a result DISCHARGE PLAN: SNF vs to improve functional mobility/strength Direct treatment time 25min Total treatment time 25min Units Time 9716 Manual therapy (07530) min Therapeutic Procedures (48283) 1 15min Neurological Reeducation (05926) min Therapeutic Activity (38166) 1 10min DNI []min [] [] []min Christen Rand, MPT [facility] [place], [place]
--- NOTE | 2023-09-18 16:23 | W.PM.PROGNOT ---
Date of Service Date of service: 09/18/23 Time of Service: 16:23 Assessment and Plan Assessment and plan (1) Left lower quadrant abdominal pain: Status: Acute Assessment and plan: Secondary to diverticulitis. Continue analgesics, continue IV ciprofloxacin and Flagyl. Dr. Dawson is concerned that she may have a colon cancer in the sigmoid colon. Patient will have colonoscopy on Thursday. (2) Acute diverticulitis: Status: Acute Assessment and plan: As above (3) Chronic diastolic heart failure: Status: Chronic Assessment and plan: DC IV fluids. Increase her diuretics from every 48 hours to daily. Will give a single dose of IV Lasix tonight. (4) A-fib: Assessment and plan: Rate controlled. Monitor on tele. Continue apixaban, toprol XL. May need to decrease her Toprol XL in light of her orthostatic hypotension. TSH ok. Qualifiers: Atrial fibrillation type: longstanding persistent Qualified Code(s): I48.11 - Longstanding persistent atrial fibrillation (5) Fall: Status: Resolved Assessment and plan: unwitnessed fall at home w/ chest wall contusion and worsening shoulder pains (has chronic limitations d/t bilateral rotator cuff tears); orthostasis has improved after she received iv fluids (after initial large dose of iv lasix was given in the ED for alleged acute on chronic HF exacerbation. Difficult to assess her volume status but resumption of her diuretics yesterday has only worsened her orthostasis. I have cancelled her diuretics and now am giving her some judicious fluids back (1 liter LR) Echocardiogram was performed showed normal left ventricular size and wall thickness and normal LVEF 55% with no wall motion maladies. RV size and function was normal. Both atria are dilated. She has moderate mitral and tricuspid regurgitation but within normal RVSP of 27 mm Qualifiers: Encounter type: initial encounter Qualified Code(s): W19.XXXA - Unspecified fall, initial encounter (6) Rotator cuff arthropathy of right shoulder: Status: Acute Assessment and plan: treat w/ topical voltaren gel, lidocaine and oral tylenol. avoid NSAID in setting of CKD and HF. follow up w/ orthopedics as outpatient. If she is not going to have surgery then consider steroid injection of shoulders. Dr. Marley and Dr. Bui have evaluated her. The plan is for optimizing her medical conditions, dc her home and have her follow w/ her PCP and once she is medically optimized her PCP can decide if she is medically stable for surgery. Right now her volume status is too labile to consider surgery this admission. (7) Orthostatic hypotension: Status: Resolved Assessment and plan: As above (8) Musculoskeletal chest pain: Status: Resolved Assessment and plan: As above (9) DVT prophylaxis: Status: Deleted Assessment and plan: On therapeutic apixaban (10) Discharge planning issues: Status: Deleted Assessment and plan: Consult physical therapy while she is here in the hospital and plan for home health services upon discharge. CODE STATUS is DNR/DNI Subjective Subjective Interval history since last seen: Arlin is still complain of left lower quadrant abdominal pain but no nausea or vomiting. Dr. Dawson has seen the patient and is planning for the patient to have colonoscopy on Thursday. There is some concern that she may have a tumor of her sigmoid colon and not just a diveriticulitis. Exam Narrative Exam Narrative: Elderly white female lying in bed mild discomfort secondary to abdominal pain. When her abdomen is not being palpated she seems to be comfortable Lungs bibasilar rales Heart irregularly irregular no appreciable murmur rub Abdomen soft nondistended normal bowel sounds focalized tenderness in the left lower quadrant but no rebound tenderness or involuntary guarding Lower extremities with pitting edema 2+ no cyanosis Objective Last Vital Signs Temp 36.0 C L 09/18/23 15:27 Pulse 68 09/18/23 15:27 Resp 18 09/18/23 15:27 BP 109/60 09/18/23 15:27 Pulse Ox 100 09/18/23 15:27 Laboratory Results - last 24 hr 09/17/23 09/17/23 20:45 23:25 WBC 10.69 RBC 4.20 Hgb 11.7 Hct 38.1 MCV 91 MCH 27.9 MCHC 30.7 L RDW 22.6 H Plt Count 132 MPV 9.9 Immature Gran % 0.6 Neutrophils % 72.4 Lymphocytes % 15.8 Monocytes % 10.1 Eosinophils % 0.7 Basophils % 0.4 Nucleated RBC % 0.0 Absolute Neutrophils 7.74 H Absolute Lymphocytes 1.69 Absolute Monocytes 1.08 H Absolute Eosinophils 0.08 Absolute Basophils 0.04 Anisocytosis 1+ Sodium 143 Potassium 4.3 Chloride 107 Carbon Dioxide 25.6 Anion Gap 10.4 BUN 25 H Creatinine 2.2 H Est GFR (CKD-EPI 2020) 22.11 Glucose 103 Calcium 8.4 L Magnesium 2.1 Total Bilirubin 0.85 AST 33 ALT 23 Alkaline Phosphatase 113 Total Protein 6.5 Albumin 3.0 L Urine Color Yellow Urine Clarity Clear Urine pH 6.0 Ur Specific [place] 1.015 Urine Protein Negative Urine Ketones Negative Urine Blood Trace-intact H Urine Nitrite Negative Urine Bilirubin Negative Urine Urobilinogen 0.2 Ur Leukocyte Esterase Negative Urine RBC 0-2 Urine WBC Negative Ur Epithelial Cells Rare Urine Crystals Negative Urine Bacteria Few Urine Casts Negative Urine Mucus Negative Ur Culture Indicated? No Urine Glucose 250 H Time Spent with Patient Time Spent with Patient: >50 minutes Time was spent: preparing to see the patient(eg.review tests), obtaining and/or reviewing separately otained hiistory, ordering medications,tests, procedures, referring, communicating with other health anesthesiologist and critical care, indepentently interpreting results, counseling the patient and care coordination
[2023-09-18] MEDS: Furosemide 20 MG/2 ML VIAL IVP (19:47)
[2023-09-18] MEDS: Gabapentin 100 MG CAP PO (20:31)
[2023-09-18] MEDS: Melatonin 3 MG TAB 9 MG PO (20:31)
[2023-09-18] MEDS: Metoprolol 12.5 MG TAB PO (20:47)
[2023-09-19 03:20] VITALS: BP 88/60; PULSE 94; RESP 20; TEMP 36.6; O2SAT 97
[2023-09-19] MEDS: Normal Saline Flush 10 ML SYR IVP ×6 (03:21→23:18)
[2023-09-19] MEDS: CIPROFLOXACIN 400 MG/200 ML BAG 200 MG IVPB ×2 (03:21→16:20)
[2023-09-19] MEDS: metroNIDAZOLE 500 MG/100 ML BAG 100 MG IVPB ×4 (03:22→23:17)
[2023-09-19] MEDS: Levothyroxine 25 MCG TAB PO (05:23)
[2023-09-19 06:50] LABS: HCT 35.1 % (36.0-46.0); HGB 10.6 g/dL (11.2-15.7); MCH 27.5 pg (27.0-33.0); MCHC 30.2 % (32.0-36.0); MCV 91 fL (80-95); MPV 10.3 fL (8.0-11.0); Platelet Count 112 10^3/uL (130-400); RBC 3.85 10^6/uL (3.93-5.22); RDW 22.6 % (11.7-14.6); RDW-SD 74.2 fL; WBC 4.93 10^3/uL (4.4-10.8)
[2023-09-19 07:21] LABS: NT-proBNP 2142 pg/mL (<300)
[2023-09-19 07:26] LABS: ALT 22 U/L (14-59); AST 39 U/L (15-37); Albumin 2.6 g/dL (3.4-5.0); Alkaline Phosphatase 95 U/L (46-116); Anion Gap 8.3 mmol/L (3-11); BUN 23 mg/dL (7-18); Bilirubin, Total 0.54 mg/dL (0.2-1.0); CO2 26.7 mmol/L (21.0-32.0); CREATININE 1.9 mg/dL (0.55-1.02); Calcium 8.4 mg/dL (8.5-10.1); Chloride 106 mmol/L (98-107); Estimated GFR 26.36 (mL/min/1.73m2); Ferritin 92 ng/mL (8-252); Glucose 133 mg/dL (74-106); Potassium 3.9 mmol/L (3.5-5.1); Sodium 141 mmol/L (136-145); Total Protein 5.9 g/dL (6.4-8.2)
[2023-09-19 07:30] LABS: Hemoglobin A1C 5.2 % (<5.7)
[2023-09-19 07:37] LABS: Folate 10.4 ng/mL (8.6-20.0); Vitamin B12 1347 pg/mL (193-986)
[2023-09-19] MEDS: Spironolactone 50 MG TAB 25 MG PO (07:54)
[2023-09-19] MEDS: Omeprazole 20 MG CAPCR PO (07:54)
[2023-09-19] MEDS: Atorvastatin 40 MG TAB PO (07:54)
[2023-09-19] MEDS: Acetaminophen 325 MG TAB PO (07:54)
[2023-09-19] MEDS: buPROPion-XL 150 MG TABCR 300 MG PO (07:54)
[2023-09-19] MEDS: Docusate Sodium 100 MG CAP PO (07:55)
[2023-09-19] MEDS: ARIPiprazole 5 MG TAB PO (07:55)
[2023-09-19] MEDS: Torsemide 20 MG TAB PO (07:55)
[2023-09-19 08:28] VITALS: BP 104/78; PULSE 84; RESP 16; TEMP 36; O2SAT 100
[2023-09-19 08:34] LABS: Lab Add On Test DONE
[2023-09-19 09:04] LABS: Iron 40 ug/dL (50-170); Total Iron Binding Capacity 305 ug/dL (250-450); Transferrin Sat 13 % (15-50)
[2023-09-19] MEDS: Diclofenac 1% Gel 100 GM TUBE TP ×3 (09:12→20:13)
[2023-09-19] MEDS: Lactated Ringers 500 ML 100 ML IV (09:13)
--- NOTE | 2023-09-19 10:32 | PT.INTREAT ---
PT Notes Visit Reasons: Fall, Weakness, Acute diverticulitis Inpatient Physical Therapy Treatment Note [facility] Date: 09/19/23 SUBJECTIVE: Arlin states that she did not sleep well last night. Just got back to bed, but is willing to participate in PT. States that she will have a colonoscopy on Thursday which means prepping tomorrow. OBJECTIVE: []? VITALS: ?monitored by [facility]. Therapeutic Activities (31401y6): Direct one-on-one instruction in dynamic activities to improve functional performance. ? BED MOBILITY/TRANSFERS? Rolling L/R: S Supine-sit:CGA ? Sit-stand:CGA ? Stand-sit:CGA ? Provided skilled cues and instruction on performance and technique throughout. GAIT? Assistive Device: FWW ? Weight bearing:full Assist:SBA? Distance:? 30'x2 ? Deviation: slow with making turns. ? Therapeutic Exercises (76826a7): Direct one-on-one instruction in therapeutic exercises to develop strength, endurance, range of motion and flexibility. ? Exercises ?seated LAQ x10 standing lateral step touch x10 SSH x10 sit to stand x10 (hands on walker) Provided skilled instruction in proper exercise performance pt was toileted. Assistance required for pericare. ASSESSMENT:?tolerated session well. No LOB or SOB noted during ambulation. She was able to stand unsupported, reach for glasses and put them on without LOB. PLAN: will continue to progress her strength and functional mobility to tolerance following PT POC. TREATMENT CODE/TIME: 25 min. [id number], [id number] DISCHARGE RECOMMENDATION: home with
--- NOTE | 2023-09-19 13:01 | W.PM.PROGNOT ---
Date of Service Date of service: 09/19/23 Time of Service: 13:01 Assessment and Plan Assessment and plan (1) Left lower quadrant abdominal pain: Status: Acute Assessment and plan: Secondary to diverticulitis. Continue analgesics, continue IV ciprofloxacin and Flagyl. Dr. Dawson is concerned that she may have a colon cancer in the sigmoid colon. [facility] surgeon, Dr. Christiano Hurt, indicated he will do the colonscopy, on Thursday, continue cipro and flagyl. (2) Acute diverticulitis: Status: Deleted Assessment and plan: As above (3) Chronic diastolic heart failure: Status: Chronic Assessment and plan: Patient had some hypotension this morning. I held her diuretics and gave her a small bolus of LR x 500 mL. I will resume her prior dosing of torsemide and spironolactone q48 hr beginning tomorrow (4) A-fib: Assessment and plan: Rate controlled. Monitor on tele. Continue apixaban, Toprol XL changed by Dr. Trent to lopressor 12.5 mg bid, I will change her back to her home dose of Toprol XL 25 mg daily. Qualifiers: Atrial fibrillation type: longstanding persistent Qualified Code(s): I48.11 - Longstanding persistent atrial fibrillation (5) Fall: Status: Resolved Assessment and plan: unwitnessed fall at home w/ chest wall contusion and worsening shoulder pains (has chronic limitations d/t bilateral rotator cuff tears); orthostasis has improved after she received iv fluids (after initial large dose of iv lasix was given in the ED for alleged acute on chronic HF exacerbation. Resume diuretics to every other day. Echocardiogram was performed showed normal left ventricular size and wall thickness and normal LVEF 55% with no wall motion maladies. RV size and function was normal. Both atria are dilated. She has moderate mitral and tricuspid regurgitation but within normal RVSP of 27 mm Qualifiers: Encounter type: initial encounter Qualified Code(s): W19.XXXA - Unspecified fall, initial encounter (6) Rotator cuff arthropathy of right shoulder: Status: Acute Assessment and plan: treat w/ topical voltaren gel, lidocaine and oral tylenol. avoid NSAID in setting of CKD and HF. follow up w/ orthopedics as outpatient. If she is not going to have surgery then consider steroid injection of shoulders. Dr. Marley and Dr. Bui have evaluated her. The plan is for optimizing her medical conditions, dc her home and have her follow w/ her PCP and once she is medically optimized her PCP can decide if she is medically stable for surgery. Right now her volume status is too labile to consider surgery this admission. (7) Orthostatic hypotension: Status: Resolved Assessment and plan: As above (8) Musculoskeletal chest pain: Status: Resolved Assessment and plan: As above (9) DVT prophylaxis: Status: Deleted Assessment and plan: On therapeutic apixaban (10) Discharge planning issues: Status: Deleted Assessment and plan: Continue P.T., recommend either SNF or home health w/ P.T. upon discharge. CODE STATUS is DNR/DNI Subjective Subjective Interval history since last seen: Mrs. Kim denies any abdominal pain nausea or vomiting. She is sitting up eating her lunch. She would like her colonoscopy moved to Thursday when her daughter will be able to be her for her procedure. I spoke with the locum's surgeon who is agreeable to the change the date of her colonoscopy and he indicated he will coordinate w/ the casting house worker. Patient's remained afebrile with a normal white count. Hemoglobin is 8.7 g and has been stable from yesterday. Exam Narrative Exam Narrative: Arlin is sitting up in her chair, eating her lunch, no acute discomfort Lungs: clear Heart: RRR Abdomen: normal bowel sounds, nondistended, soft, minimal tenderness in LLQ w/out rebound tenderness or guarding Extremities: 2+edema Objective Last Vital Signs Temp 36.0 C L 09/19/23 08:28 Pulse 84 09/19/23 08:28 Resp 16 09/19/23 08:28 BP 104/78 09/19/23 08:28 Pulse Ox 100 09/19/23 08:28 Laboratory Results - last 24 hr 09/17/23 09/19/23 09/19/23 21:38 06:20 08:33 WBC 4.93 RBC 3.85 L Hgb 10.6 L Hct 35.1 L MCV 91 MCH 27.5 MCHC 30.2 L RDW 22.6 H Plt Count 112 L MPV 10.3 Sodium 141 Potassium 3.9 Chloride 106 Carbon Dioxide 26.7 Anion Gap 8.3 BUN 23 H Creatinine 1.9 H Est GFR (CKD-EPI 2020) 26.36 Glucose 133 H Hemoglobin A1c 5.2 Calcium 8.4 L Magnesium 2.0 Iron 40 L TIBC 305 Transferrin % Sat 13 L Ferritin 92 Total Bilirubin 0.54 AST 39 H ALT 22 Alkaline Phosphatase 95 C-Reactive Protein 6.30 H NT-Pro-B Natriuret Pep 2142 H Total Protein 5.9 L Albumin 2.6 L Vitamin B12 1347 H Folate 10.4 TSH 3.20 Add-On Test Request DONE Time Spent with Patient Time Spent with Patient: 25-34 minutes Time was spent: preparing to see the patient(eg.review tests), ordering medications,tests, procedures, referring, communicating with other health career development engineer, indepentently interpreting results, counseling the patient and care coordination
--- NOTE | 2023-09-19 13:24 | PGE_ITS ---
Date of Service Date of service: 09/19/23 Time of Service: 13:25 Assessment and Plan Assessment and plan (1) Abnormal CT scan, sigmoid colon: Status: Acute Assessment and plan: Possible diverticulitis vs sigmoid mass - We are planning for a colonoscopy for further evaluation. I had a lengthy discussion with the patient and her daughter (by phone) regarding the patients status, imaging findings, and various options moving forward. At this time, they would like to proceed with a colonoscopy to obtain additional information. They did request that the procedure be scheduled on Thursday or later so that her daughter could return from vacation. I spoke with the Hospitalist, Dr. Radford, who felt this was a reasonable request. I then spoke with the camp housekeeper to reschedule the procedure for Thursday late morning or afternoon. She indicated that this would be addressed on Thursday, but would not be an issue. Subjective Subjective Patient reports: no new complaints, feels better, tolerating a regular diet and bowel movement Exam Const General: cooperative, healthy appearing, comfortable and no acute distress Nutritional Appearance: well nourished Orientation: alert, awake and oriented x3 Eyes Sclera: sclerae normal Resp Effort & Inspection: normal respiratory effort and able to speak in complete sentences GI Palpation: soft, no guarding, not rigid and nontender Neuro General: patient alert, patient awake and patient oriented x3 Speech: speech normal Objective Last Vital Signs Temp 36.0 C L 09/19/23 08:28 Pulse 84 09/19/23 08:28 Resp 16 09/19/23 08:28 BP 104/78 09/19/23 08:28 Pulse Ox 100 09/19/23 08:28 Laboratory Results - last 24 hr 09/17/23 09/19/23 09/19/23 21:38 06:20 08:33 WBC 4.93 RBC 3.85 L Hgb 10.6 L Hct 35.1 L MCV 91 MCH 27.5 MCHC 30.2 L RDW 22.6 H Plt Count 112 L MPV 10.3 Sodium 141 Potassium 3.9 Chloride 106 Carbon Dioxide 26.7 Anion Gap 8.3 BUN 23 H Creatinine 1.9 H Est GFR (CKD-EPI 2020) 26.36 Glucose 133 H Hemoglobin A1c 5.2 Calcium 8.4 L Magnesium 2.0 Iron 40 L TIBC 305 Transferrin % Sat 13 L Ferritin 92 Total Bilirubin 0.54 AST 39 H ALT 22 Alkaline Phosphatase 95 C-Reactive Protein 6.30 H NT-Pro-B Natriuret Pep 2142 H Total Protein 5.9 L Albumin 2.6 L Vitamin B12 1347 H Folate 10.4 TSH 3.20 Add-On Test Request DONE Reviewed Pertinent PMH: Yes Time Spent with Patient Time Spent with Patient: 35-49 minutes Time was spent: preparing to see the patient(eg.review tests), obtaining and/or reviewing separately otained hiistory, referring, communicating with other [facility] pet caregiver, indepentently interpreting results, counseling the patient and care coordination
[2023-09-19 15:56] VITALS: BP 93/67; PULSE 88; RESP 17; TEMP 36.1; O2SAT 100
[2023-09-19 19:38] VITALS: BP 93/54; PULSE 95; RESP 20; TEMP 36.3; O2SAT 97
[2023-09-19] MEDS: Metoprolol 12.5 MG TAB PO (20:13)
[2023-09-19] MEDS: Melatonin 3 MG TAB 9 MG PO (20:13)
[2023-09-19] MEDS: Gabapentin 100 MG CAP PO (20:20)
[2023-09-19 23:10] VITALS: BP 90/57; PULSE 85; RESP 18; TEMP 36.3; O2SAT 98
[2023-09-20 03:06] VITALS: BP 88/51; PULSE 78; RESP 16; TEMP 35.9; O2SAT 97
[2023-09-20] MEDS: Normal Saline Flush 10 ML SYR IVP ×3 (04:15→15:42)
[2023-09-20] MEDS: metroNIDAZOLE 500 MG/100 ML BAG 100 MG IVPB ×3 (04:16→22:27)
[2023-09-20] MEDS: CIPROFLOXACIN 400 MG/200 ML BAG 200 MG IVPB ×2 (04:16→20:24)
[2023-09-20] MEDS: Gabapentin 100 MG CAP PO ×2 (05:19→20:24)
[2023-09-20] MEDS: Levothyroxine 25 MCG TAB PO (05:19)
[2023-09-20] MEDS: Acetaminophen 325 MG TAB PO (06:26)
[2023-09-20] MEDS: Omeprazole 20 MG CAPCR PO (06:26)
[2023-09-20 06:59] LABS: Abs Immature Grans 0.04 10^3/uL (0.0-0.06); Absolute Basophil Count 0.05 10^3/uL (0.0-0.2); Absolute Eosinophil Count 0.23 10^3/uL (0.0-0.7); Absolute Lymphocyte Count 1.36 10^3/uL (1.2-3.4); Absolute Monocyte Count 0.58 10^3/uL (0.1-0.8); Absolute Neutrophil Count 3.05 10^3/uL (1.2-6.7); Basophils % 0.9 %; Eosinophils % 4.3 %; HCT 38.1 % (36.0-46.0); HGB 11.9 g/dL (11.2-15.7); Immature Grans % 0.8 %; Lymphocytes % 25.6 %; MCHC 31.2 % (32.0-36.0); MCV 90 fL (80-95); MPV 10.7 fL (8.0-11.0); Monocytes % 10.9 %; Neutrophils % 57.5 %; Platelet Count 126 10^3/uL (130-400); RBC 4.25 10^6/uL (3.93-5.22); RDW 22.6 % (11.7-14.6); WBC 5.31 10^3/uL (4.4-10.8)
[2023-09-20 07:13] LABS: Anion Gap 8.1 mmol/L (3-11); BUN 23 mg/dL (7-18); CO2 26.9 mmol/L (21.0-32.0); CREATININE 1.9 mg/dL (0.55-1.02); Calcium 8.8 mg/dL (8.5-10.1); Chloride 107 mmol/L (98-107); Estimated GFR 26.36 (mL/min/1.73m2); Glucose 101 mg/dL (74-106); Potassium 3.8 mmol/L (3.5-5.1); Sodium 142 mmol/L (136-145)
[2023-09-20 07:16] VITALS: BP 108/68; PULSE 89; RESP 15; TEMP 36.1; O2SAT 100
[2023-09-20] MEDS: Metoprolol CR 25 MG TABCR PO (08:27)
[2023-09-20] MEDS: Atorvastatin 40 MG TAB PO (08:27)
[2023-09-20] MEDS: buPROPion-XL 150 MG TABCR 300 MG PO (08:27)
[2023-09-20] MEDS: ARIPiprazole 5 MG TAB PO (08:27)
--- NOTE | 2023-09-20 11:03 | W.PM.PROGNOT ---
Date of Service Date of service: 09/20/23 Time of Service: 11:03 Assessment and Plan Assessment and plan (1) Abnormal CT scan, sigmoid colon: Status: Acute Assessment and plan: The patient is currently doing well and has no complaints or concerns. She is still in agreement with the plans to proceed with a colonoscopy on Thursday. The patient's daughter should return from vacation on Thursday night and asked that the procedure be completed on Thursday, so appropriate arrangements have been made. The patient will be on a clear liquid diet on 09/21/2023, and complete her bowel prep starting in the afternoon on 09/21/2023. The patient will be made n.p.o. at midnight on 09/22/2023 in anticipation for colonoscopy later that day. She has no additional questions or concerns at this time. Subjective Subjective Patient reports: no new complaints, pain is less, tolerating liquids well and bowel movement Exam Const General: cooperative, healthy appearing, comfortable and no acute distress Resp Effort & Inspection: normal respiratory effort and not labored GI Palpation: soft, no guarding and nontender Neuro General: patient alert, patient awake and patient oriented x3 Objective Last Vital Signs Temp 36.1 C L 09/20/23 07:16 Pulse 89 09/20/23 07:16 Resp 15 09/20/23 07:16 BP 108/68 09/20/23 07:16 Pulse Ox 100 09/20/23 07:16 Laboratory Results - last 24 hr 09/20/23 06:41 WBC 5.31 RBC 4.25 Hgb 11.9 Hct 38.1 MCV 90 MCH 28.0 MCHC 31.2 L RDW 22.6 H Plt Count 126 L MPV 10.7 Immature Gran % 0.8 Neutrophils % 57.5 Lymphocytes % 25.6 Monocytes % 10.9 Eosinophils % 4.3 Basophils % 0.9 Nucleated RBC % 0.0 Absolute Neutrophils 3.05 Absolute Lymphocytes 1.36 Absolute Monocytes 0.58 Absolute Eosinophils 0.23 Absolute Basophils 0.05 Sodium 142 Potassium 3.8 Chloride 107 Carbon Dioxide 26.9 Anion Gap 8.1 BUN 23 H Creatinine 1.9 H Est GFR (CKD-EPI 2020) 26.36 Glucose 101 Calcium 8.8 Time Spent with Patient Time Spent with Patient: <25 minutes Time was spent: preparing to see the patient(eg.review tests), referring, communicating with other health physician primary care sports medicine and counseling the patient
[2023-09-20 11:12] VITALS: BP 102/57; PULSE 71; RESP 17; TEMP 36.2; O2SAT 99
--- NOTE | 2023-09-20 11:31 | PGE_ITS ---
Date of Service Date of service: 09/20/23 Time of Service: 11:31 Assessment and Plan Assessment and plan (1) Left lower quadrant abdominal pain: Status: Acute Assessment and plan: -Secondary to diverticulitis. -Continue analgesics, continue IV ciprofloxacin and Flagyl. -Dr. Dawson is concerned that she may have a colon cancer in the sigmoid colon. -[facility] surgeon, Dr. Christiano Hurt, indicated he will do the colonscopy, on Thursday, continue cipro and flagyl. (2) Acute diverticulitis: Status: Deleted Assessment and plan: -As above (3) Chronic diastolic heart failure: Status: Chronic Assessment and plan: -Patient had some hypotension morning 09/18 -improved as of 09/19. -09/18 diuretics held and gave her a small bolus of LR x 500 mL. -resume her prior dosing of torsemide and spironolactone q48 hr beginning 8/ AM (4) Fall: Status: Resolved Assessment and plan: -unwitnessed fall at home w/ chest wall contusion and worsening shoulder pains (has chronic limitations d/t bilateral rotator cuff tears); orthostasis has improved after she received iv fluids (after initial large dose of iv lasix was given in the ED for alleged acute on chronic HF exacerbation. Resume diuretics to every other day. -Echocardiogram was performed showed normal left ventricular size and wall thickness and normal LVEF 55% with no wall motion maladies. RV size and function was normal. Both atria are dilated. She has moderate mitral and tricuspid regurgitation but within normal RVSP of 27 mm Qualifiers: Encounter type: initial encounter Qualified Code(s): W19.XXXA - Unspecified fall, initial encounter (5) Rotator cuff arthropathy of right shoulder: Status: Acute Assessment and plan: -treat w/ topical voltaren gel, lidocaine and oral tylenol. avoid NSAID in setting of CKD and HF. follow up w/ orthopedics as outpatient. If she is not going to have surgery then consider steroid injection of shoulders. -Dr. Marley and Dr. Bui have evaluated her. The plan is for optimizing her medical conditions, dc her home and have her follow w/ her PCP and once she is medically optimized her PCP can decide if she is medically stable for surgery. Right now her volume status is too labile to consider surgery this admission. (6) Orthostatic hypotension: Status: Resolved Assessment and plan: -As above (7) Musculoskeletal chest pain: Status: Resolved Assessment and plan: -As above (8) DVT prophylaxis: Status: Deleted Assessment and plan: -On therapeutic apixaban (9) Discharge planning issues: Status: Deleted Assessment and plan: -Continue P.T., recommend either SNF or home health w/ P.T. upon discharge. CODE STATUS is DNR/DNI Subjective Subjective Interval history since last seen: Patient states that she is doing well today but complains of swelling in both of her legs. Otherwise she has no other complaints or concerns at this time. Exam Narrative Exam Narrative: well appearing elderly female sitting up in the chair in no acute distress, AOx4, heart RRR, lungs CTAB, abdomen soft, non-tender, non-distended, +3 pitting edema in bilateral LE Objective Last Vital Signs Temp 97.2 F L 09/20/23 11:12 Pulse 71 09/20/23 11:12 Resp 17 09/20/23 11:12 BP 102/57 L 09/20/23 11:12 Pulse Ox 99 09/20/23 11:12 Laboratory Results - last 24 hr 09/20/23 06:41 WBC 5.31 RBC 4.25 Hgb 11.9 Hct 38.1 MCV 90 MCH 28.0 MCHC 31.2 L RDW 22.6 H Plt Count 126 L MPV 10.7 Immature Gran % 0.8 Neutrophils % 57.5 Lymphocytes % 25.6 Monocytes % 10.9 Eosinophils % 4.3 Basophils % 0.9 Nucleated RBC % 0.0 Absolute Neutrophils 3.05 Absolute Lymphocytes 1.36 Absolute Monocytes 0.58 Absolute Eosinophils 0.23 Absolute Basophils 0.05 Sodium 142 Potassium 3.8 Chloride 107 Carbon Dioxide 26.9 Anion Gap 8.1 BUN 23 H Creatinine 1.9 H Est GFR (CKD-EPI 2020) 26.36 Glucose 101 Calcium 8.8 Time Spent with Patient Time Spent with Patient: >50 minutes Time was spent: preparing to see the patient(eg.review tests), obtaining and/or reviewing separately otained hiistory, ordering medications,tests, procedures, referring, communicating with other health health care sanitary technician, indepentently interpreting results, counseling the patient and care coordination
--- NOTE | 2023-09-20 11:35 | PT.INTREAT ---
PT Notes Visit Reasons: Fall, Weakness, Acute diverticulitis Inpatient Physical Therapy Treatment Note [facility] Date: 09/19/23 SUBJECTIVE: Arlin states that she did not sleep well again last night. OBJECTIVE: []? VITALS: ?monitored by nsg. Therapeutic Activities (81368o0): Direct one-on-one instruction in dynamic activities to improve functional performance. ? BED MOBILITY/TRANSFERS? pt seated in chair this am.? Sit-stand:CGA ? Stand-sit:CGA ? sit-supine: min A with LE ? Provided skilled cues and instruction on performance and technique throughout. GAIT? Assistive Device: FWW ? Weight bearing:full Assist:SBA? Distance:? 50'x2 ? Deviation: slow with making turns. ? pt was toileted x2. Assistance required for pericare. ASSESSMENT:?tolerated session well. No LOB or SOB noted during ambulation. Better endurance today with ambulation PLAN: will continue to progress her strength and functional mobility to tolerance following PT POC. TREATMENT CODE/TIME: 20 min. [id number]. DISCHARGE RECOMMENDATION: home with when medically cleared
[2023-09-20 15:16] VITALS: BP 105/69; PULSE 74; RESP 17; TEMP 35.9; O2SAT 94
[2023-09-20] MEDS: Diclofenac 1% Gel 100 GM TUBE TP ×2 (18:03→20:24)
[2023-09-20 20:10] VITALS: BP 106/66; PULSE 76; RESP 18; TEMP 36.6; O2SAT 98
[2023-09-20] MEDS: Melatonin 3 MG TAB 9 MG PO (20:24)
[2023-09-21 00:22] VITALS: BP 100/60; PULSE 88; RESP 18; TEMP 36.4; O2SAT 98
[2023-09-21] MEDS: Normal Saline Flush 10 ML SYR IVP ×2 (04:01→08:27)
[2023-09-21] MEDS: metroNIDAZOLE 500 MG/100 ML BAG 100 MG IVPB ×3 (04:01→17:30)
[2023-09-21 04:18] VITALS: BP 106/64; PULSE 66; RESP 18; TEMP 36.4; O2SAT 96
[2023-09-21] MEDS: Levothyroxine 25 MCG TAB PO (05:24)
[2023-09-21] MEDS: Omeprazole 20 MG CAPCR PO (06:35)
[2023-09-21 07:07] LABS: HCT 35.3 % (36.0-46.0); HGB 10.8 g/dL (11.2-15.7); MCH 28.2 pg (27.0-33.0); MCHC 30.6 % (32.0-36.0); MCV 92 fL (80-95); MPV 10.2 fL (8.0-11.0); Platelet Count 125 10^3/uL (130-400); RBC 3.83 10^6/uL (3.93-5.22); RDW 22.5 % (11.7-14.6); RDW-SD 75.2 fL
[2023-09-21 07:17] VITALS: BP 99/45; PULSE 92; RESP 16; TEMP 36.8; O2SAT 99
[2023-09-21 07:18] LABS: Anion Gap 5.9 mmol/L (3-11); BUN 15 mg/dL (7-18); CO2 28.1 mmol/L (21.0-32.0); CREATININE 1.6 mg/dL (0.55-1.02); Chloride 109 mmol/L (98-107); Glucose 100 mg/dL (74-106); Potassium 3.8 mmol/L (3.5-5.1); Sodium 143 mmol/L (136-145)
[2023-09-21] MEDS: ARIPiprazole 5 MG TAB PO (08:24)
[2023-09-21] MEDS: Torsemide 20 MG TAB PO (08:24)
[2023-09-21] MEDS: Atorvastatin 40 MG TAB PO (08:24)
[2023-09-21] MEDS: Docusate Sodium 100 MG CAP PO (08:25)
[2023-09-21] MEDS: CIPROFLOXACIN 400 MG/200 ML BAG 200 MG IVPB ×2 (08:25→23:33)
[2023-09-21] MEDS: Spironolactone 50 MG TAB 25 MG PO (08:25)
[2023-09-21] MEDS: Metoprolol CR 25 MG TABCR PO (08:25)
[2023-09-21] MEDS: buPROPion-XL 150 MG TABCR 300 MG PO (08:25)
[2023-09-21] MEDS: Diclofenac 1% Gel 100 GM TUBE TP ×3 (09:22→19:59)
--- NOTE | 2023-09-21 10:09 | CMPROGNOTE_ITS ---
Date of service: 09/21/23 Time of Service: 10:09 Care Management Progress Note Progress Note Text Progress Note Text: Arlin was sitting in a chair when CM met with her. Per pt, she started her colon prep and it's started to kick in. Arlin is being treated with IV Flagyl and Cipro, and is having a colonoscopy tomorrow. Arlin goes to [facility] most days and [facility] called to check on her. Discharge Potential Discharge Needs: PCP F/U Appt and Surgical F/U Appt Anticipated Barriers to Discharge: None Identified Patient/Family Education Needs: Review discharge instructions, discuss Ask Me [employer] Transportation: Private vehicle Plan: Anticipate Arlin will be discharged home with a resumption of her home caregiver services and programs. She will follow up with her PCP and plan of care and transport with [facility] vs friend/relative. CM will follow and continue to support discharge needs. SDOH(Care Management) Screening Will the Patient Participate in the Screening?: Yes Do you worry about having a steady place to live?: no Problems where you live: no known problems In the past 12 months, have you had to go without electric, gas, oil or water in your home?: no Have you or anyone in your house had to go without enough food to eat?: no Has lack of transportation kept you from medical appointments or from doing things needed for daily living?: no Has anyone in your support network made you feel unsafe for any reason?: no
--- NOTE | 2023-09-21 10:35 | W.PM.PROGNOT ---
Date of Service Date of service: 09/21/23 Time of Service: 10:36 Assessment and Plan Assessment and plan (1) Abnormal CT scan, sigmoid colon: Status: Acute Assessment and plan: The patient is scheduled for a colonoscopy tomorrow to further evaluate the area. Additional recommendations and discussed following that procedure. I reviewed the procedure and its risks with the patient today. She verbalized understanding and acceptance. No additional questions or concerns at this time. Her daughter will be returning to the area today so that we may proceed with the procedure tomorrow. Subjective Subjective Patient reports: no new complaints, feels better and tolerating liquids well Exam Const General: cooperative, healthy appearing, comfortable and no acute distress Resp Effort & Inspection: normal respiratory effort GI Palpation: soft, no guarding and nontender Neuro General: patient alert and patient awake Objective Last Vital Signs Temp 36.8 C 09/21/23 07:17 Pulse 92 H 09/21/23 07:17 Resp 16 09/21/23 07:17 BP 99/45 L 09/21/23 07:17 Pulse Ox 99 09/21/23 07:17 Laboratory Results - last 24 hr 09/21/23 06:35 WBC 3.60 L RBC 3.83 L Hgb 10.8 L Hct 35.3 L MCV 92 MCH 28.2 MCHC 30.6 L RDW 22.5 H Plt Count 125 L MPV 10.2 Sodium 143 Potassium 3.8 Chloride 109 H Carbon Dioxide 28.1 Anion Gap 5.9 BUN 15 Creatinine 1.6 H Est GFR (CKD-EPI 2020) 32.40 Glucose 100 Calcium 9.0 Time Spent with Patient Time Spent with Patient: <25 minutes Time was spent: preparing to see the patient(eg.review tests), obtaining and/or reviewing separately otained hiistory and counseling the patient
[2023-09-21 11:34] VITALS: BP 93/71; PULSE 86; RESP 15; TEMP 36.8; O2SAT 100
--- NOTE | 2023-09-21 11:48 | PT.INTREAT ---
PT Notes Visit Reasons: Fall, Weakness, Acute diverticulitis Inpatient Physical Therapy Treatment Note [facility] Date: 09/21/23 PRECAUTIONS:fall, standard SUBJECTIVE: Arlin states that her shoulders have been bothering her today. She is agreeable to PT intervention. OBJECTIVE: ?Therapeutic Exercises (48923x4): Direct one-on-one instruction in therapeutic exercises to develop strength, endurance, range of motion and flexibility. BED MOBILITY/TRANSFERS? Supine-sit: supervision ? Sit-supine: supervision ? Sit-stand: supervision, cues for technique? Stand-sit: supervision ? GAIT? Assistive Device: FWW? Weight bearing: WBAT Assist: CGA ? Distance:? 100' ? Deviation: slow, shuffling gait. C/o right shoulder pain throughout. Walker adjusted to lower height with improved comfort ? Neuromuscular Re-education (21810g7): Activities that facilitate re-education of movement balance, posture, coordination, and proprioception or kinesthetic sense, requiring skilled tactile and verbal cues ?Instructed in balance activities: small MACRINA standing, CGA, 15 seconds x 2 small MACRINA standing with head turns, 4x due to cervical discomfort standing march 30 seconds ASSESSMENT:? Good tolerance to short distance ambulation. Continue progressing as tolerated. PLAN: Continue PT intervention 1-2x/day for improved activity tolerance and reduced fall risk. TREATMENT CODE/TIME: 5791-1397; [id number] DISCHARGE RECOMMENDATION: home with HHPT
--- NOTE | 2023-09-21 12:07 | PGE_ITS ---
Date of Service Date of service: 09/21/23 Time of Service: 12:07 Assessment and Plan Assessment and plan (1) Left lower quadrant abdominal pain: Status: Acute Assessment and plan: -Secondary to diverticulitis. -Continue analgesics, continue IV ciprofloxacin and Flagyl. -Dr. Dawson is concerned that she may have a colon cancer in the sigmoid colon. -[facility] surgeon, Dr. Christiano Hurt, indicated he will do the colonscopy, on Thursday, continue cipro and flagyl. (2) Acute diverticulitis: Status: Deleted Assessment and plan: -As above (3) Chronic diastolic heart failure: Status: Chronic Assessment and plan: -Patient had some hypotension morning 09/18 -improved as of 09/19. -09/18 diuretics held and gave her a small bolus of LR x 500 mL. -resume her prior dosing of torsemide and spironolactone q48 hr beginning 8/ AM (4) Fall: Status: Resolved Assessment and plan: -unwitnessed fall at home w/ chest wall contusion and worsening shoulder pains (has chronic limitations d/t bilateral rotator cuff tears); orthostasis has improved after she received iv fluids (after initial large dose of iv lasix was given in the ED for alleged acute on chronic HF exacerbation. Resume diuretics to every other day. -Echocardiogram was performed showed normal left ventricular size and wall thickness and normal LVEF 55% with no wall motion maladies. RV size and function was normal. Both atria are dilated. She has moderate mitral and tricuspid regurgitation but within normal RVSP of 27 mm Qualifiers: Encounter type: initial encounter Qualified Code(s): W19.XXXA - Unspecified fall, initial encounter (5) Rotator cuff arthropathy of right shoulder: Status: Acute Assessment and plan: -treat w/ topical voltaren gel, lidocaine and oral tylenol. avoid NSAID in setting of CKD and HF. follow up w/ orthopedics as outpatient. If she is not going to have surgery then consider steroid injection of shoulders. -Dr. Marley and Dr. Bui have evaluated her. The plan is for optimizing her medical conditions, dc her home and have her follow w/ her PCP and once she is medically optimized her PCP can decide if she is medically stable for surgery. Right now her volume status is too labile to consider surgery this admission. (6) Orthostatic hypotension: Status: Resolved Assessment and plan: -As above (7) Musculoskeletal chest pain: Status: Resolved Assessment and plan: -As above (8) DVT prophylaxis: Status: Deleted Assessment and plan: -On therapeutic apixaban (9) Discharge planning issues: Status: Deleted Assessment and plan: -Continue P.T., recommend either SNF or home health w/ P.T. upon discharge. CODE STATUS is DNR/DNI Subjective Subjective Interval history since last seen: Patient states that she is doing well today and she understands that she will begin a bowel prep this afternoon for her scheduled colonoscopy tomorrow morning. Exam Narrative Exam Narrative: well appearing elderly female sitting up in the chair in no acute distress, AOx4, heart RRR, lungs CTAB, abdomen soft, non-tender, non-distended, +3 pitting edema in bilateral LE Objective Last Vital Signs Temp 98.2 F 09/21/23 11:34 Pulse 86 09/21/23 11:34 Resp 15 09/21/23 11:34 BP 93/71 L 09/21/23 11:34 Pulse Ox 100 09/21/23 11:34 Laboratory Results - last 24 hr 09/21/23 06:35 WBC 3.60 L RBC 3.83 L Hgb 10.8 L Hct 35.3 L MCV 92 MCH 28.2 MCHC 30.6 L RDW 22.5 H Plt Count 125 L MPV 10.2 Sodium 143 Potassium 3.8 Chloride 109 H Carbon Dioxide 28.1 Anion Gap 5.9 BUN 15 Creatinine 1.6 H Est GFR (CKD-EPI 2020) 32.40 Glucose 100 Calcium 9.0 Time Spent with Patient Time Spent with Patient: >50 minutes Time was spent: preparing to see the patient(eg.review tests), obtaining and/or reviewing separately otained hiistory, ordering medications,tests, procedures, referring, communicating with other health foster care social worker, indepentently interpreting results, counseling the patient and care coordination
--- NOTE | 2023-09-21 16:04 | PT.INTREAT ---
PT Notes Visit Reasons: Fall, Weakness, Acute diverticulitis Inpatient Physical Therapy Treatment Note [facility] Date: 09/21/2023 PRECAUTIONS: IV LUE SUBJECTIVE: pt received seated in chair with IV infusing and chair alarm in place. Pt agreeable to participating ? OBJECTIVE: ? Therapeutic Activities (62285t[]): Direct one-on-one instruction in dynamic activities to improve functional performance. ? BED MOBILITY/TRANSFERS? Sit-stand: SBA? Stand-sit: SBA ? Bed-Chair: SBA cue to manage IV tubing? Chair-bed: SBA cue to manage IV tubing Provided skilled cues and instruction on performance and technique throughout. Patient education regarding pacing and breathing techniques to maximize activity tolerance? GAIT? Assistive Device: RW ? Weight bearing: full Assist: SBA ? Distance:? 90 feet with 3 turns ? Deviation: decreased foot clearance short step length? ASSESSMENT:? Pt demonstrates fatigue in ARLEEN during ambulation after distance of 45 feet she then requires 3 standing rest during the final 45 feet. She PLAN: continue strengthening, transfers, gait and balance TREATMENT CODE/TIME: 73140p mins DISCHARGE RECOMMENDATION: home when medically stable
[2023-09-21 19:37] VITALS: BP 103/77; PULSE 90; RESP 17; TEMP 36.6; O2SAT 100
[2023-09-21 22:55] VITALS: BP 120/75; PULSE 96; RESP 17; TEMP 36.4; O2SAT 98
[2023-09-21] MEDS: Melatonin 3 MG TAB 9 MG PO (23:35)
[2023-09-21] MEDS: Gabapentin 100 MG CAP PO (23:35)
[2023-09-22] MEDS: metroNIDAZOLE 500 MG/100 ML BAG 100 MG IVPB ×4 (00:46→18:26)
[2023-09-22 03:10] VITALS: BP 113/64; PULSE 92; RESP 17; TEMP 36.6; O2SAT 98
[2023-09-22] MEDS: Normal Saline 1,000 ML 75 ML IV (06:04)
[2023-09-22] MEDS: Omeprazole 20 MG CAPCR PO (06:29)
[2023-09-22] MEDS: Levothyroxine 25 MCG TAB PO (06:29)
[2023-09-22 07:20] LABS: HCT 35.3 % (36.0-46.0); HGB 10.9 g/dL (11.2-15.7); MCHC 30.9 % (32.0-36.0); MCV 91 fL (80-95); Platelet Count 123 10^3/uL (130-400); RBC 3.89 10^6/uL (3.93-5.22); RDW-SD 73.5 fL; WBC 4.12 10^3/uL (4.4-10.8)
[2023-09-22 07:24] VITALS: BP 108/54; PULSE 97; RESP 17; TEMP 36.4; O2SAT 96
[2023-09-22 07:39] LABS: Anion Gap 10.5 mmol/L (3-11); BUN 12 mg/dL (7-18); CO2 25.5 mmol/L (21.0-32.0); CREATININE 1.7 mg/dL (0.55-1.02); Chloride 108 mmol/L (98-107); Estimated GFR 30.13 (mL/min/1.73m2); Glucose 101 mg/dL (74-106); Potassium 3.3 mmol/L (3.5-5.1); RDW 22.4 % (11.7-14.6); Sodium 144 mmol/L (136-145)
[2023-09-22] MEDS: Metoprolol CR 25 MG TABCR PO (09:15)
[2023-09-22] MEDS: Diclofenac 1% Gel 100 GM TUBE TP ×4 (09:16→19:45)
[2023-09-22 11:08] VITALS: BP 98/75; PULSE 82; RESP 18; TEMP 36.6; O2SAT 97
[2023-09-22 11:17] VITALS: BP 100/78
[2023-09-22] MEDS: CIPROFLOXACIN 400 MG/200 ML BAG 200 MG IVPB (12:13)
--- NOTE | 2023-09-22 12:23 | PT.INTREAT ---
PT Notes Visit Reasons: Fall, Weakness, Acute diverticulitis Inpatient Physical Therapy Treatment Note [facility] Date: 09/22/2023 PRECAUTIONS:IV fluids and ABX SUBJECTIVE: I have my test today and look at how swollen they are. OBJECTIVE: pt presents seated in chair with IV fluids infusing. 1+ pitting edema BLE Left > right ? PAIN: denies Therapeutic Activities (81044x7): Direct one-on-one instruction in dynamic activities to improve functional performance. ? BED MOBILITY/TRANSFERS? Sit-stand: SBA cues for hand placement? Stand-sit: SBA cues for hand placement ? Commode -Chair:? ?SBA cues for hand placement ? Chair-commode: SBA cues for hand placement Provided skilled cues and instruction on performance and technique throughout. [X] Patient education regarding pacing and breathing techniques to maximize activity tolerance? GAIT? Assistive Device: RW ? Weight bearing: Full Assist: SBA ? Distance:? 80 feet with 3 turns 90 and 180 degrees SBA 2 stand rests d/t fatigue B shoulders? Deviation: decreased step length ? Neuromuscular Re-education (44538a 1): Activities that facilitate re-education of movement balance, posture, coordination, and proprioception or kinesthetic sense, requiring skilled tactile and verbal cues ? Exercises/techniques: ? sit to stand from chair x 10 stand march with BUE support x 10 reps Stand heel raises with BUE support x 10 reps seated ankle pumps x 20 reps for edema management Provided skilled manual cues to facilitate proper muscle recruitment and/or form: X ASSESSMENT:? Arlin demonstrates impulsivity during episode of bowel urgency related to colonoscopy prep. She reported reduction in B shoulder discomfort with change in RW to a application release manager version. With increase distance she continues to report fatigue however she denied pain. Pt limited by BLE edema . PLAN: Continue with strengthening, balance functional mobility training TREATMENT CODE/TIME: 29874 x 1/ 16 minutes ; 18930 x 1 / 11 minutes DISCHARGE RECOMMENDATION: Home with prior services when medically stable.
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
--- NOTE | 2023-09-22 12:47 | PDOC.CMPRO ---
Date of service: 09/22/23 Time of Service: 12:47 Care Management Progress Note Progress Note Text Progress Note Text: Colonoscopy today, Discharge Potential Discharge Needs: PCP F/U Appt and Surgical F/U Appt Anticipated Barriers to Discharge: None Identified Patient/Family Education Needs: Review discharge instructions, discuss Ask Me Three Transportation: Private vehicle Plan: Arlin will be discharged home with a resumption of her home caregiver services and programs. She will follow up with her PCP and plan of care and transport with RCT vs friend/relative. CM will follow and continue to support discharge needs. SDOH(Care Management) Screening Will the Patient Participate in the Screening?: Yes Do you worry about having a steady place to live?: no Problems where you live: no known problems In the past 12 months, have you had to go without electric, gas, oil or water in your home?: no Have you or anyone in your house had to go without enough food to eat?: no Has lack of transportation kept you from medical appointments or from doing things needed for daily living?: no Has anyone in your support network made you feel unsafe for any reason?: no
[2023-09-22 14:16] VITALS: BMI 31.5
--- NOTE | 2023-09-22 14:48 | CMACTNOTE_ITS ---
Care Management Activity Note Activity Note Text Activity Note Text: Marvel from [facility] called to check on Arlin. She asked if Arlin would be discharged today. I couldn't answer, as no notes from colonoscopy yet. Marvel will check with HH to see if they have received the referral before she leaves this afternoon, or early tomorrow am. 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
--- NOTE | 2023-09-22 14:51 | W.PM.OP ---
Date of service: 09/22/23 Time of Service: 14:52 Operative Note Operative Note DATE OF PROCEDURE: 09/22/23 PRE-OP DIAGNOSIS: Abnormal CT scan PROCEDURE: Colonoscopy SURGEON: Christiano Silvestre ANESTHESIA TYPE: MAC Refer to Anesthesia Record ESTIMATED BLOOD LOSS: 0 PATHOLOGY: none sent COMPLICATIONS: None Patient was transported to: floor Patient's condition: stable Findings: Normal colon with diverticulosis throughout, no active diverticulitis or massed identified Procedure Description: The patient was brought to the procedure room and a timeout was performed. The patient was sedated by the SENIOR LOSS CONTROL SPECIALIST for MAC sedation. The patient was positioned in a left lateral decubitus position. A rectal exam was performed and revealed external hemorrhoids. The colonoscopy was then introduced into the rectum, and advanced under direct visualization all the way to the cecum. The cecum was identified by clear visualization of the appendiceal orifice, and the ileocecal valve. The scope was then slowly withdrawn, and the colonic mucosa was inspected throughout the entire colon. The quality of the bowel prep was marginal at best, and was 6/9 on the [place] Bowel Prep Score. The patient was noted to have diverticulosis throughout the entire colon, extending all the way to the right colon. The extent of diverticulosos was more significant in the sigmoid and left colon. Special attention was taken during inspection of the sigmoid colon. There was no evidence of mass, stricture, or active inflammation in this region. The patient did not have any evidence of polyps, masses, or mucosal changes in the colon. The scope was retroflexed in the rectum, and no large or obvious rectal masses were identified. Air was removed from the colon throughout the withdrawal process. The patient tolerated the procedure well. There were no apparent complications. There was no blood loss. There were no specimens obtained during the procedure.
--- NOTE | 2023-09-22 15:22 | W.PM.PROGNOT ---
Date of Service Date of service: 09/22/23 Time of Service: 15:23 Assessment and Plan Assessment and plan (1) Left lower quadrant abdominal pain: Status: Acute Assessment and plan: -Secondary to diverticulitis. -Continue analgesics, continue IV ciprofloxacin and Flagyl. -Dr. Dawson is concerned that she may have a colon cancer in the sigmoid colon. -[facility] surgeon, Dr. Christiano Hurt, stated that there were not acute or worisome findings on colonscopy -continue cipro and flagyl (2) Acute diverticulitis: Status: Deleted Assessment and plan: -As above (3) Chronic diastolic heart failure: Status: Chronic Assessment and plan: -Patient had some hypotension morning 09/18 -improved as of 09/19. -09/18 diuretics held and gave her a small bolus of LR x 500 mL. -resume her prior dosing of torsemide and spironolactone q48 hr beginning 8/4 AM (4) Fall: Status: Resolved Assessment and plan: -unwitnessed fall at home w/ chest wall contusion and worsening shoulder pains (has chronic limitations d/t bilateral rotator cuff tears); orthostasis has improved after she received iv fluids (after initial large dose of iv lasix was given in the ED for alleged acute on chronic HF exacerbation. Resume diuretics to every other day. -Echocardiogram was performed showed normal left ventricular size and wall thickness and normal LVEF 55% with no wall motion maladies. RV size and function was normal. Both atria are dilated. She has moderate mitral and tricuspid regurgitation but within normal RVSP of 27 mm Qualifiers: Encounter type: initial encounter Qualified Code(s): W19.XXXA - Unspecified fall, initial encounter (5) Rotator cuff arthropathy of right shoulder: Status: Acute Assessment and plan: -treat w/ topical voltaren gel, lidocaine and oral tylenol. avoid NSAID in setting of CKD and HF. follow up w/ orthopedics as outpatient. If she is not going to have surgery then consider steroid injection of shoulders. -Dr. Marley and Dr. Bui have evaluated her. The plan is for optimizing her medical conditions, dc her home and have her follow w/ her PCP and once she is medically optimized her PCP can decide if she is medically stable for surgery. Right now her volume status is too labile to consider surgery this admission. (6) Orthostatic hypotension: Status: Resolved Assessment and plan: -As above (7) Musculoskeletal chest pain: Status: Resolved Assessment and plan: -As above (8) DVT prophylaxis: Status: Deleted Assessment and plan: -On therapeutic apixaban (9) Discharge planning issues: Status: Deleted Assessment and plan: -Continue P.T., recommend either SNF or home health w/ P.T. upon discharge. CODE STATUS is DNR/DNI Subjective Subjective Interval history since last seen: Patient states that she is doing well and is happy to hear that her colonoscopy did not show any worrisome findings. She understands that she will be discharged to home first thing tomorrow morning. Exam Narrative Exam Narrative: well appearing elderly female sitting up in the chair in no acute distress, AOx4, heart RRR, lungs CTAB, abdomen soft, non-tender, non-distended, +3 pitting edema in bilateral LE Objective Last Vital Signs Temp 97.9 F 09/22/23 11:08 Pulse 82 09/22/23 11:08 Resp 18 09/22/23 11:08 BP 100/78 09/22/23 11:17 Pulse Ox 97 09/22/23 11:08 Laboratory Results - last 24 hr 09/22/23 07:12 WBC 4.12 L RBC 3.89 L Hgb 10.9 L Hct 35.3 L MCV 91 MCH 28.0 MCHC 30.9 L RDW 22.4 H Plt Count 123 L MPV 10.0 Sodium 144 Potassium 3.3 L Chloride 108 H Carbon Dioxide 25.5 Anion Gap 10.5 BUN 12 Creatinine 1.7 H Est GFR (CKD-EPI 2020) 30.13 Glucose 101 Calcium 9.0 Time Spent with Patient Time Spent with Patient: >50 minutes Time was spent: preparing to see the patient(eg.review tests), obtaining and/or reviewing separately otained hiistory, ordering medications,tests, procedures, referring, communicating with other health team primary care physician, indepentently interpreting results, counseling the patient and care coordination
[2023-09-22 15:48] VITALS: BP 100/41; PULSE 84; RESP 16; TEMP 36.3; O2SAT 93
--- NOTE | 2023-09-22 16:46 | CHAPLAIN ---
Arlin was sitting up in bed when I visited. She said she'd just returned from surgery. She had a colonoscopy, and said she wasn't quite thinking clearly. Her daughter and twin greatgrandsons had been earlier today, and Arlin enjoyed the music from the [employer] player today. Arlin shared some family history, telling me about a twin and having twin greatgrandsons. She is connected to a presybeterian in [facility], but she wasn't able to tell me which one. Arlin will likely be discharged tomorrow morning.
[2023-09-22] MEDS: Normal Saline Flush 10 ML SYR IVP ×2 (18:25→19:44)
[2023-09-22 19:17] VITALS: BP 97/63; PULSE 96; RESP 16; TEMP 36.4; O2SAT 100
[2023-09-22] MEDS: Melatonin 3 MG TAB 9 MG PO (21:13)
[2023-09-22] MEDS: Gabapentin 100 MG CAP PO (21:13)
[2023-09-23] MEDS: metroNIDAZOLE 500 MG/100 ML BAG 100 MG IVPB ×2 (00:13→06:23)
[2023-09-23] MEDS: Normal Saline Flush 10 ML SYR IVP ×4 (00:13→07:56)
[2023-09-23 00:20] VITALS: BP 120/79; PULSE 78; RESP 18; TEMP 36; O2SAT 100
[2023-09-23] MEDS: Acetaminophen 325 MG TAB PO ×2 (01:28→20:20)
[2023-09-23] MEDS: CIPROFLOXACIN 400 MG/200 ML BAG 200 MG IVPB (05:21)
[2023-09-23 06:02] VITALS: BP 108/80; PULSE 99; RESP 18; TEMP 36.3; O2SAT 99
[2023-09-23] MEDS: Levothyroxine 25 MCG TAB PO (06:23)
[2023-09-23] MEDS: Omeprazole 20 MG CAPCR PO (06:23)
--- NOTE | 2023-09-23 07:09 | W.ANESPOSTOP ---
Postoperative Evaluation Date, Time and Location Date Performed: 09/23/23 Time Performed: 07:09 Patient Location: Med/Surg Vital Signs Most Recent Imported Vital Signs: Most Recent Vital Signs Temp Pulse Resp BP Pulse Ox 36.3 C L 99 H 18 108/80 99 09/23/23 06:02 09/23/23 06:02 09/23/23 06:02 09/23/23 06:02 09/23/23 06:02 Pain Score Most Recent Pain Score: Most Recent Pain Score Pain Level [Head] 6 09/23/23 01:25 Pain Level [Generalized] 4 09/22/23 19:25 Pain Level 6 09/23/23 01:28 Assessment Mental Status: Awake (Alert & Oriented to Patient Baseline) Airway and Respiratory Function: Patent airway with normal (patient baseline) respiratory exam Cardiovascular Function: Hemodynamically Stable Hydration Status: Adequately Hydrated Nausea & Vomiting: No Nausea or Vomiting Pain: Pt. Denies Any Pain Peripheral Nerve Block: Patient did not receive a nerve block
[2023-09-23 07:13] VITALS: BP 108/66; PULSE 91; RESP 18; TEMP 36.2; O2SAT 99
[2023-09-23] MEDS: Spironolactone 50 MG TAB 25 MG PO (07:52)
[2023-09-23] MEDS: ARIPiprazole 5 MG TAB PO (07:52)
[2023-09-23] MEDS: Docusate Sodium 100 MG CAP PO (07:53)
[2023-09-23] MEDS: Metoprolol CR 25 MG TABCR PO (07:54)
[2023-09-23] MEDS: Torsemide 20 MG TAB PO (07:54)
[2023-09-23] MEDS: Atorvastatin 40 MG TAB PO (07:54)
[2023-09-23] MEDS: Diclofenac 1% Gel 100 GM TUBE TP ×4 (07:55→21:21)
[2023-09-23] MEDS: buPROPion-XL 150 MG TABCR 300 MG PO (07:55)
--- NOTE | 2023-09-23 09:30 | CMPROGNOTE_ITS ---
Date of service: 09/23/23 Time of Service: 09:30 Care Management Progress Note Progress Note Text Progress Note Text: CM met with Arlin this morning and she does not feel ready to discharge home and would prefer to discharge to SNF for STR. CM sent referrals to [facility] and the [facility]. Arlin accepted a bed offer at [facility], which is pending PA. CM will continue to follow and coordinate discharge to SNF. Discharge Potential Discharge Needs: PT Evaluation, PCP F/U Appt and Surgical F/U Appt Anticipated Barriers to Discharge: None Identified Patient/Family Education Needs: Review discharge instructions, discuss Ask Me Three Plan: Bed offer made by [facility] is pending PA. Discharge to SNF for STR, prior to returning home with resumption of services and community supports. She will follow up with her PCP and plan of care and transport via facility w/c van. CM will follow and continue to support discharge needs. SDOH(Care Management) Screening Will the Patient Participate in the Screening?: Yes Do you worry about having a steady place to live?: no Problems where you live: no known problems In the past 12 months, have you had to go without electric, gas, oil or water in your home?: no Have you or anyone in your house had to go without enough food to eat?: no Has lack of transportation kept you from medical appointments or from doing things needed for daily living?: no Has anyone in your support network made you feel unsafe for any reason?: no
--- NOTE | 2023-09-23 09:37 | PDOC.HHF2F ---
Home Health Referral Home Health Orders Clinical synopsis of why skilled professionals are needed: LE edema, diverticulitis, cognitive impairment, frequent falls Registered Nurse: Check all that apply Instruct on new or changed medication(s)/assess compliance: Ordered Assess for exacerbation of medical condition, instruct patient/caregivers on signs and symptoms to report for early detection: Ordered Physical Therapist: Check all that apply Increase strength & endurance for safe mobility at home: Ordered To design/establish home maintenance program: Ordered Fall reduction therapy program for patient with history of frequent falls: Ordered Home safety evaluation and teaching/gait training including stair management (if applicable): Ordered Embossograph Operator: Assist with community resources: Ordered Assist with care home care planning: Ordered Home Bound Status Requires the aid of supportive device (check all that apply): Walker Encounter Date and Reason: I certify that a FTF encounter for this patient was performed on September 23, 2023 and that such encounter was related to the primary reason the patient requires home health services. The encounter was conducted in the following manner: By me as the certifying physician, LIVING SUPERVISOR, PA or By an inpatient physician, LIVING SUPERVISOR or PA during an inpatient stay who communicated findings to me, Certification And Authentication I certify that I composed the above information based on my clinical judgment relating to this patient's medical condition and, if applicable, clinical findings communicated to me by the NPP or inpatient physician who performed the FTF encounter. Name of Provider that will be monitoring home health services: Lazarus Golden
[2023-09-23] MEDS: Gabapentin 100 MG CAP PO ×2 (10:06→17:36)
[2023-09-23 11:31] VITALS: BP 119/76; PULSE 90; RESP 19; TEMP 36.4; O2SAT 98
--- NOTE | 2023-09-23 12:36 | INPN_ITS ---
PT Notes Visit Reasons: Fall, Weakness, Acute diverticulitis Date: 09/23/23 Treatment Dates: 09/18/23 - 09/23/23 Precautions: Fall risk, standard Patient Profile/Admitting Diagnosis: 78-year-old female patient who lives alone and has had recent falls. Has been participating in PT intervention during acute care stay for management of diverticulitis. Social History/Home Situation: Lives in a private apartment with a ramp to enter, visited by [facility] nursing, has a daughter that purchases her groceries for her, nursing preps meal for her. Attends [employer] 5 days /week. Admits to high fall frequency. Equipment Owned/DME: RW, but does not use it in her home as her apt is small, and walker is too big. SPC in apartment. Subjective: Arlin reports that she is very fearful of returning home. States that she is afraid of falling again. States that she is feeling weak overall. Objective: General Observation: Sitting up in chair, bed alarm in place. No lines. 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 Otherwise grossly WNL Right Lower Extremity: Grossly WFL Left Lower Extremity:Grossly WFL Trunk movement: Grossly stiff and hypomobile Strength: Right Upper Extremity: Veronica 3-/5, otherwise 4/5 grossly throughout Left Upper Extremity: Veronica 3-/5, otherwise 4/5 grossly throughout Right Lower Extremity: Hip flex 3+/5, able to perform partial bridge, knee ext and flex 4/5, DF and PF 4/5 Left Lower Extremity: Hip flex 3+/5, able to perform partial bridge, knee ext and flex 4/5, DF and PF 4/5 Bed Mobility/Transfers: Supine HOB elevated 60 deg to EOB, min A x 1 Sit to stand: CG x 1, RW, cues for hand placement Stand to sit: CGA x 1 sit-supine: mod A x 1 Bed to chair: CGA x 1, RW, cues for FWW management and safety Toileting: requires max A for clothing management and self-care Gait: Ambulates 75' with FWW and CGA. Requires frequent standing rests due to fatigue. Demonstrates slow, shuffling gait. Balance: Static Sitting: Good Dynamic Sitting: Fair Static Standing: Fair Dynamic Standing: Fair Stage 4 Balance Test Time (seconds) Feet together 5 Partial tandem 0 Tandem 0 One foot 0 Informed Consent/Education: Patient instructed in purpose of PT consult and plan of care. Treatment: Therapeutic Activities (89951d3): Treatment consisted of gait and transfer training, with cues for safety and technique sit-supine with max cues, requiring mod A to LEs. Cued for scooting in bed, completing with max cues and mod A Instructed in self-care during toileting, although with continued need for max A Assessment: Patient is a 78 year old female referred to physical therapy services with reason for PT evaluation of mobility deficits in presence of progressive weakness and high fall frequency admitted with actue diverticulities, in setting of CKD, HR, A-fib, and B veronica RC pathology. She has demonstrated improvement in activity tolerance and strength, although with continued limitations in safety and independence with transfers, gait and ADLs. Although she had been making progress toward going home, she does require continued intervention to allow for safe transition back to community. She is not independent for discharge home, and recommend SNF for continued rehab once medically stable. Goals: Goals X1 week 1. Supine-Sit : Independent (NOT MET) 2. Sit-Supine : Independent(NOT MET) 3. Sit-Stand : Independent (NOT MET) 4. Stand-Sit :Independent(NOT MET) 5. Bed-Chair : Independent(NOT MET) 6. Chair-Bed : Independent(NOT MET) 7. Gait : 100 ft RW Independent (NOT MET) Plan of Care/Treatment Plan: 1-2x/day, 7 days/week x 1 week. Plan of care has been reviewed with the SUBJECT SCIENTIFIC RESEARCH providing the service under Physical Therapy direction. Initiate Physical Therapy intervention for strengthening, bed mobility, transfers, gait, stairs, balance training, use of assistive device. DISCHARGE RECOMMENDATIONS: SNF TREATMENT CODE/TIME: 08199x6 ([id number]; [id number]) Haleigh Osborne, PT, DPT [facility]
[2023-09-23] MEDS: metroNIDAZOLE 500 MG TAB PO ×2 (13:56→19:56)
--- NOTE | 2023-09-23 15:21 | PT.INNT ---
PT Notes Visit Reasons: Fall, Weakness, Acute diverticulitis Arlin declines PT intervention this afternoon. States that she just returned from showering and is exhausted.
--- NOTE | 2023-09-23 16:30 | PGE_ITS ---
Date of Service Date of service: 09/23/23 Time of Service: 16:31 Assessment and Plan Assessment and plan (1) Left lower quadrant abdominal pain: Status: Acute Assessment and plan: -Secondary to diverticulitis. -Continue analgesics, continue IV ciprofloxacin and Flagyl. -Dr. Dawson is concerned that she may have a colon cancer in the sigmoid colon. -[facility] surgeon, Dr. Christiano Hurt, stated that there were not acute or worisome findings on colonscopy -continue cipro and flagyl, now PO (2) Acute diverticulitis: Status: Deleted Assessment and plan: -As above (3) Chronic diastolic heart failure: Status: Chronic Assessment and plan: -Patient had some hypotension morning 09/18 -improved as of 09/19. -09/18 diuretics held and gave her a small bolus of LR x 500 mL. -resume her prior dosing of torsemide and spironolactone q48 hr beginning 8/4 AM (4) Fall: Status: Resolved Assessment and plan: -unwitnessed fall at home w/ chest wall contusion and worsening shoulder pains (has chronic limitations d/t bilateral rotator cuff tears); orthostasis has improved after she received iv fluids (after initial large dose of iv lasix was given in the ED for alleged acute on chronic HF exacerbation. Resume diuretics to every other day. -Echocardiogram was performed showed normal left ventricular size and wall thickness and normal LVEF 55% with no wall motion maladies. RV size and function was normal. Both atria are dilated. She has moderate mitral and tricuspid regurgitation but within normal RVSP of 27 mm Qualifiers: Encounter type: initial encounter Qualified Code(s): W19.XXXA - Unspecified fall, initial encounter (5) Rotator cuff arthropathy of right shoulder: Status: Acute Assessment and plan: -treat w/ topical voltaren gel, lidocaine and oral tylenol. avoid NSAID in setting of CKD and HF. follow up w/ orthopedics as outpatient. If she is not going to have surgery then consider steroid injection of shoulders. -Dr. Marley and Dr. Bui have evaluated her. The plan is for optimizing her medical conditions, dc her home and have her follow w/ her PCP and once she is medically optimized her PCP can decide if she is medically stable for surgery. Right now her volume status is too labile to consider surgery this admission. (6) Orthostatic hypotension: Status: Resolved Assessment and plan: -As above (7) Musculoskeletal chest pain: Status: Resolved Assessment and plan: -As above (8) DVT prophylaxis: Status: Deleted Assessment and plan: -On therapeutic apixaban (9) Discharge planning issues: Status: Deleted Assessment and plan: -Continue P.T., recommend either SNF or home health w/ P.T. upon discharge. CODE STATUS is DNR/DNI Subjective Subjective Interval history since last seen: Patent states that she is doing well today and is looking forward to going to [facility] once her insurance clears her to do so. Exam Narrative Exam Narrative: well appearing elderly female sitting up in the chair in no acute distress, AOx4, heart RRR, lungs CTAB, abdomen soft, non-tender, non-distended, +3 pitting edema in bilateral LE Objective Last Vital Signs Temp 97.5 F L 09/23/23 11:31 Pulse 90 09/23/23 11:31 Resp 19 09/23/23 11:31 BP 119/76 09/23/23 11:31 Pulse Ox 98 09/23/23 11:31 Time Spent with Patient Time Spent with Patient: >50 minutes Time was spent: preparing to see the patient(eg.review tests), obtaining and/or reviewing separately otained hiistory, ordering medications,tests, procedures, referring, communicating with other health cardiac care nurse, indepentently interpreting results, counseling the patient and care coordination
--- NOTE | 2023-09-23 19:31 | NUR.NOTE ---
Nursing Note: Report was provided to me from Cecily from [facility]. Operative report and discharge order from the provider will arrive with the patient. The pt had a ERCP, a sphincterectomy w/ balloon dilation, a balloon sweep, a stone extraction from the billiary duct, and a 7 yi plastic billiary stent was inserted. I was informed that there are many medium sized stones within the gall bladder. Vitals were stable; temp: 36.0, HR: 70, BP: 145/88, spO2: 100% RA. 1L of LR was given, fetanyl, 4mg zofran x2, and 10mg reglan.Pt has been NPO all day. A follow-up appointment has been scheduled with the surgeon to have the stent removed.
[2023-09-23 19:34] VITALS: BP 95/54; PULSE 84; RESP 16; TEMP 36.1; O2SAT 98
[2023-09-23] MEDS: Melatonin 3 MG TAB 9 MG PO (19:56)
[2023-09-23] MEDS: Ciprofloxacin 500 MG TAB PO (19:56)
[2023-09-23] MEDS: Apixaban 2.5 MG TAB PO (19:56)
[2023-09-24 02:56] VITALS: BP 99/67; PULSE 79; RESP 16; TEMP 36.1; O2SAT 98
[2023-09-24] MEDS: Levothyroxine 25 MCG TAB PO (05:13)
[2023-09-24 07:30] VITALS: BP 90/61; PULSE 85; RESP 17; TEMP 37; O2SAT 99
[2023-09-24] MEDS: Omeprazole 20 MG CAPCR PO (07:45)
[2023-09-24] MEDS: buPROPion-XL 150 MG TABCR 300 MG PO (07:45)
[2023-09-24] MEDS: Atorvastatin 40 MG TAB PO (07:45)
[2023-09-24] MEDS: metroNIDAZOLE 500 MG TAB PO ×3 (07:45→20:44)
[2023-09-24] MEDS: Metoprolol CR 25 MG TABCR PO (07:45)
[2023-09-24] MEDS: Apixaban 2.5 MG TAB PO ×2 (07:45→20:44)
[2023-09-24] MEDS: Diclofenac 1% Gel 100 GM TUBE TP ×4 (07:45→20:20)
[2023-09-24] MEDS: ARIPiprazole 5 MG TAB PO (07:45)
--- NOTE | 2023-09-24 10:27 | PT.INTREAT ---
PT Notes Visit Reasons: Fall, Weakness, Acute diverticulitis Inpatient Physical Therapy Treatment Note [facility] Date: September 24, 2023 PRECAUTIONS: SUBJECTIVE: I think I am going to rehab today OBJECTIVE: Patient sitting up in chair just completed breakfast ? PAIN: Sore right shoulder patient declined to utilize numeric pain scale Therapeutic Activities (57626o 1): Direct one-on-one instruction in dynamic activities to improve functional performance. ? BED MOBILITY/TRANSFERS? Rolling L/R: Independent with rails Supine-sit: SBA with cues for hand placement and rails? Sit-supine: Contact-guard assist with use of rail cues for technique and increased time to complete task? Sit-stand: SBA with cues for hand placement for safety? Stand-sit: SBA with cues for hand placement for safety ? Bed-Chair: SBA with cues for safe approach to surface ? Chair-bed: SBA with cues for safe approach to surface Dynamic standing balance within base of support including reaching forward to head height to complete ADL tasks including combing hair, brushing teeth with standby assist and 1 upper extremity support Provided skilled cues and instruction on performance and technique throughout. Gait Training (38414s1): Direct one-on-one instruction and skilled instruction in: turning and movement with proper form Provided verbal cues for equipment management and technique Patient education regarding pacing and breathing techniques to maximize activity tolerance? GAIT? Assistive Device: F WW ? Weight bearing: Full Assist: SBA ? Distance:?50 feet x 2; 10 feet x 3 ? Deviation: Decreased step length, increased lateral weight shifting, foot flat at weight acceptance? Therapeutic Exercises (02540d 1): Direct one-on-one instruction in therapeutic exercises to develop strength, endurance, range of motion and flexibility. ? Exercises ? Sitting: BLE LAQ, marching x 10 reps with rest between each set Stand: BLE taps to 6 inch step alternating, hip abduction, heel raises 2 sets x 5 reps with standing rest between each step? Provided skilled instruction in proper exercise performance Provided skilled manual cues to facilitate proper muscle recruitment and/or form: Glutes and quads Neuromuscular Re-education (56282x[]): Activities that facilitate re-education of movement balance, posture, coordination, and proprioception or kinesthetic sense, requiring skilled tactile and verbal cues ? Exercises/techniques: ? [] ASSESSMENT: Patient demonstrates impaired carryover of safe hand placement however is not unsteady during functional transfers despite poor hand placement. She benefits from repetition of task. She is limited by shoulder pain and limited range of motion due to rotator cuff deficits. She tolerated 30 minutes of standing tasks with to sit and rest completing seated there ex during that time. PLAN: continue with strengthening , transfer/ functional mobility and balance training TREATMENT CODE/TIME: 76308/16 minutes; 72239/21 minutes; 40884/10 minutes DISCHARGE RECOMMENDATION: d/c to SNF prior to discharge to home
[2023-09-24 11:01] VITALS: BP 110/71; PULSE 84; RESP 17; TEMP 36.1; O2SAT 98
[2023-09-24] MEDS: Gabapentin 100 MG CAP PO (11:25)
--- NOTE | 2023-09-24 14:26 | PGE_ITS ---
Date of Service Date of service: 09/24/23 Time of Service: 14:26 Assessment and Plan Assessment and plan (1) Left lower quadrant abdominal pain: Status: Acute Assessment and plan: -Secondary to diverticulitis. -Continue analgesics, continue IV ciprofloxacin and Flagyl. -Dr. Dawson was concerned that she may have a colon cancer in the sigmoid colon. -[facility] surgeon, Dr. Christiano Hurt, stated that there were not acute or worrisome findings on colonscopy -continue cipro and flagyl, now PO (2) Acute diverticulitis: Status: Deleted Assessment and plan: -As above (3) Chronic diastolic heart failure: Status: Chronic Assessment and plan: -Patient had some hypotension morning 09/18 -improved as of 09/19. -09/18 diuretics held and gave her a small bolus of LR x 500 mL. -resume her prior dosing of torsemide and spironolactone q48 hr beginning 8/4 AM (4) Fall: Status: Resolved Assessment and plan: -unwitnessed fall at home w/ chest wall contusion and worsening shoulder pains (has chronic limitations d/t bilateral rotator cuff tears); orthostasis has improved after she received iv fluids (after initial large dose of iv lasix was given in the ED for alleged acute on chronic HF exacerbation. Resume diuretics to every other day. -Echocardiogram was performed showed normal left ventricular size and wall thickness and normal LVEF 55% with no wall motion maladies. RV size and function was normal. Both atria are dilated. She has moderate mitral and tricuspid regurgitation but within normal RVSP of 27 mm Qualifiers: Encounter type: initial encounter Qualified Code(s): W19.XXXA - Unspecified fall, initial encounter (5) Rotator cuff arthropathy of right shoulder: Status: Acute Assessment and plan: -treat w/ topical voltaren gel, lidocaine and oral tylenol. avoid NSAID in setting of CKD and HF. follow up w/ orthopedics as outpatient. If she is not going to have surgery then consider steroid injection of shoulders. -Dr. Marley and Dr. Bui have evaluated her. The plan is for optimizing her medical conditions, dc her home and have her follow w/ her PCP and once she is medically optimized her PCP can decide if she is medically stable for surgery. Right now her volume status is too labile to consider surgery this admission. (6) Orthostatic hypotension: Status: Resolved Assessment and plan: -As above (7) Musculoskeletal chest pain: Status: Resolved Assessment and plan: -As above (8) DVT prophylaxis: Status: Deleted Assessment and plan: -On therapeutic apixaban (9) Discharge planning issues: Status: Deleted Assessment and plan: -Continue P.T., recommend either SNF or home health w/ P.T. upon discharge. CODE STATUS is DNR/DNI Subjective Subjective Interval history since last seen: Patient continues to state that she is doing well and is looking forward to going to rehab as soon as her insurance is approved. Exam Narrative Exam Narrative: well appearing elderly female sitting up in the chair in no acute distress, AOx4, heart RRR, lungs CTAB, abdomen soft, non-tender, non-distended, +3 pitting edema in bilateral LE Objective Last Vital Signs Temp 97.0 F L 09/24/23 11:01 Pulse 84 09/24/23 11:01 Resp 17 09/24/23 11:01 BP 110/71 09/24/23 11:01 Pulse Ox 98 09/24/23 11:01 Time Spent with Patient Time Spent with Patient: >50 minutes Time was spent: preparing to see the patient(eg.review tests), obtaining and/or reviewing separately otained hiistory, ordering medications,tests, procedures, referring, communicating with other health morning caregiver, indepentently interpreting results, counseling the patient and care coordination
[2023-09-24 14:46] VITALS: BP 97/65; PULSE 83; RESP 18; TEMP 36.4; O2SAT 95
--- NOTE | 2023-09-24 14:50 | CMPROGNOTE_ITS ---
Date of service: 09/24/23 Time of Service: 14:50 Care Management Progress Note Progress Note Text Progress Note Text: Arlin accepted a bed offer at [facility] , pending PA. Arlin continues to be pleasant, seems to enjoy interactions with staff and is working with PT to progress towards her goals. Marvel from [place] is notified of discharge plan and will follow up with her community CM to reschedule services when ready. CM will continue to follow and coordinate discharge to SNF. Discharge Potential Discharge Needs: PCP F/U Appt Anticipated Barriers to Discharge: None Identified Patient/Family Education Needs: Review discharge instructions, discuss Ask Me Three Transportation: Facility Transport Plan: Bed offer made by [facility] is pending PA. Discharge to SNF for STR, prior to returning home with resumption of services and community supports. She will follow up with her PCP and plan of care and transport via facility w/c van. CM will follow and continue to support discharge needs. SDOH(Care Management) Screening Will the Patient Participate in the Screening?: Yes Do you worry about having a steady place to live?: no Problems where you live: no known problems In the past 12 months, have you had to go without electric, gas, oil or water in your home?: no Have you or anyone in your house had to go without enough food to eat?: no Has lack of transportation kept you from medical appointments or from doing things needed for daily living?: no Has anyone in your support network made you feel unsafe for any reason?: no
--- NOTE | 2023-09-24 15:02 | PT.INTREAT ---
PT Notes Visit Reasons: Fall, Weakness, Acute diverticulitis Inpatient Physical Therapy Treatment Note [facility] Date:09/24/2023 SUBJECTIVE: I am really tired today. OBJECTIVE:seated in chair, pleasant cooperative ? PAIN: just my shoulders ache when I lift them Therapeutic Activities (75183e2): Direct one-on-one instruction in dynamic activities to improve functional performance. ? BED MOBILITY/TRANSFERS? Sit-supine: Min assist for lower extremities? Sit-stand: SBA with cues for hand placement ? Stand-sit: SBA with cues for hand placement ? Chair-bed: SBA with cues for safe approach to surface Provided skilled cues and instruction on performance and technique throughout. ? Ambulation ? Assistive Device: FWW ? Weight bearing: Fall Assist: SBA ? Distance: 25 feet x 2? Deviation: Decreased step length increased lateral weight shift ? ASSESSMENT:?Arlin demonstrates limitations in functional tasks related to shoulder pain and reduced functional activity tolerance. She is limited in her distance of ambulation due to pain and bilateral shoulders while advancing FWW. She demonstrates impaired safety awareness and judgment as indicated by poor carryover of safe hand placement technique and inconsistent safe approach to surfaces with FWW. She would benefit from further training and safe technique prior to discharge to home. PLAN: Continued skilled PT for strengthening functional mobility training balance training TREATMENT CODE/TIME: 29275/ [id number] DISCHARGE RECOMMENDATION: SNF level of care prior to home with services
--- NOTE | 2023-09-24 15:13 | CHAPLAIN ---
Arlin asked for a grinder brake lining visit today. She told me that she is going to [facility] today and is happy about that as she feels she needs more PT before going home. She said she thought she was being discharged home, so she spoke up and told the doctor that I'm not ready. Arlin said she doesn't usually speak up to doctors and she didn't want to the hospitalist to think she was angry, but she didn't feel ready to go home. The plan may not have been for a discharge home anyway. Arlin expects her daughter will visit her at [facility].
[2023-09-24 19:36] VITALS: BP 106/72; PULSE 66; RESP 20; TEMP 36.2; O2SAT 95
[2023-09-24] MEDS: Melatonin 3 MG TAB 9 MG PO (20:43)
[2023-09-24] MEDS: Ciprofloxacin 500 MG TAB PO (20:43)
[2023-09-24] MEDS: Docusate Sodium 100 MG CAP PO (20:43)
[2023-09-24] MEDS: Acetaminophen 325 MG TAB PO (20:44)
[2023-09-25] MEDS: Acetaminophen 325 MG TAB PO (01:41)
[2023-09-25 04:12] VITALS: BP 105/73; PULSE 82; RESP 18; TEMP 37; O2SAT 94
[2023-09-25] MEDS: Levothyroxine 25 MCG TAB PO (06:14)
[2023-09-25 07:33] VITALS: BP 103/66; PULSE 72; RESP 17; TEMP 36.8; O2SAT 98
[2023-09-25] MEDS: Docusate Sodium 100 MG CAP PO (08:19)
[2023-09-25] MEDS: Apixaban 2.5 MG TAB PO (08:19)
[2023-09-25] MEDS: buPROPion-XL 150 MG TABCR 300 MG PO (08:19)
[2023-09-25] MEDS: Metoprolol CR 25 MG TABCR PO (08:19)
[2023-09-25] MEDS: Torsemide 20 MG TAB PO (08:20)
[2023-09-25] MEDS: Omeprazole 20 MG CAPCR PO (08:20)
[2023-09-25] MEDS: ARIPiprazole 5 MG TAB PO (08:20)
[2023-09-25] MEDS: metroNIDAZOLE 500 MG TAB PO (08:20)
[2023-09-25] MEDS: Atorvastatin 40 MG TAB PO (08:20)
[2023-09-25] MEDS: Spironolactone 50 MG TAB 25 MG PO (08:20)
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
[2023-09-25] MEDS: Diclofenac 1% Gel 100 GM TUBE TP (08:22)
--- NOTE | 2023-09-25 10:16 | PDOC.CMDIS ---
Date of service: 09/25/23 Time of Service: 10:17 LACE Index Scoring Tool Questions: Length of Stay (in days): 7 - 13 Was the patient admitted via the E.D.?: Yes Comorbidities: Congestive Heart Failure, Chronic Pulmonary Disease and Liver or Renal Disease E.D. Visits: 4 Answers: Total Score: 17 Risk of Readmission: High Risk Care Management Discharge Plan Reason for Hospitalization: acute diverticulitis, fall, weakness Discharge Plan: Arlin is being transferred to [facility] for short term stay to increase her strength and build confidence in performing ADLs Patient/Family Education Needs: Review of discharge instructions, activity, and follow-up plan. -Arlin is fully aware of the plan to go to [facility]. Review Ask me 3. Arlin asked CM to call her daughter to let her know the plan. CM did call Cass, but had to leave a message Services Needed at Discharge: [facility] Facility and Transportation (Arlin will be transported to [facility] via [facility] SDOH Health Related Social Needs: No Data to Display
--- NOTE | 2023-09-25 10:51 | NUR.NOTE ---
Nursing Note: Report called to [facility] to VERA Cohen. All questions were answered and transfer will arrive at 11:15.
== END 2023-09-25 11:20 | disposition skilled nursing facility (03) | DRG 392 ==
LOC: ER 09-18 04:07 → MS 09-18 04:45
PROVIDERS: Family Medicine; Internal Medicine; Surgery; Admitting Provider Family Medicine; Emergency Provider Emergency Medicine; PCP Student in an Organized Health Care Education/Training Program; Visit Provider Family Medicine
PROC: 0DJD8ZZ Inspection of Lower Intestinal Tract, Via Natural or Artificial Opening Endoscopic (ICD-10-PCS; CPT 45378; principal; 2023-09-22 13:00)
DX: K57.32 Diverticulitis of large intestine without perforation or abscess without bleeding (principal); I50.32 Chronic diastolic (congestive) heart failure; I48.11 Longstanding persistent atrial fibrillation; I13.0 Hypertensive heart and chronic kidney disease with heart failure and stage 1 through stage 4 chronic kidney disease, or unspecified chronic kidney disease; N18.4 Chronic kidney disease, stage 4 (severe); I95.1 Orthostatic hypotension; R41.89 Other symptoms and signs involving cognitive functions and awareness; R29.6 Repeated falls; I27.20 Pulmonary hypertension, unspecified; I34.0 Nonrheumatic mitral (valve) insufficiency; I25.10 Atherosclerotic heart disease of native coronary artery without angina pectoris; E03.9 Hypothyroidism, unspecified; E66.9 Obesity, unspecified; Z66 Do not resuscitate; R53.1 Weakness; D64.9 Anemia, unspecified; E73.9 Lactose intolerance, unspecified; R32 Unspecified urinary incontinence; F32.A Depression, unspecified; F41.9 Anxiety disorder, unspecified; H90.3 Sensorineural hearing loss, bilateral; Z68.32 Body mass index [BMI] 32.0-32.9, adult; R07.89 Other chest pain; M75.101 Unspecified rotator cuff tear or rupture of right shoulder, not specified as traumatic; R93.3 Abnormal findings on diagnostic imaging of other parts of digestive tract; W19.XXXA Unspecified fall, initial encounter; S40.022A Contusion of left upper arm, initial encounter; S40.021A Contusion of right upper arm, initial encounter; M75.102 Unspecified rotator cuff tear or rupture of left shoulder, not specified as traumatic; M25.512 Pain in left shoulder; M25.511 Pain in right shoulder; S20.219A Contusion of unspecified front wall of thorax, initial encounter
CPT/HCPCS: 45378; 00123; 36415; 71250; 80048; 80053; 85027; 93005; 96365; 96367; 97110; 97112; 97116; 97162; 97530; 99222; 99231; 99232; 99285; 70450; 72125; 74176; 81003; 81015; 82607; 82728; 82746; 83036; 83540; 83550; 83735; 83880; 84443; 85025; 86140; 93010; 99223; 99233; 99238; J0744; J1836; J1941; J2371; J2704; J3490

== ENCOUNTER 2023-09-30 15:05 | Outpatient (REF) | payer OTHER, MEDICAID, SELFPAY ==
[2023-09-30 17:16] LABS: Abs Immature Grans 0.01 10^3/uL (0.0-0.06); Absolute Basophil Count 0.04 10^3/uL (0.0-0.2); Absolute Eosinophil Count 0.18 10^3/uL (0.0-0.7); Absolute Lymphocyte Count 1.31 10^3/uL (1.2-3.4); Absolute Monocyte Count 0.54 10^3/uL (0.1-0.8); Absolute Neutrophil Count 3.63 10^3/uL (1.2-6.7); Basophils % 0.7 %; Eosinophils % 3.2 %; HCT 36.7 % (36.0-46.0); HGB 11.3 g/dL (11.2-15.7); Immature Grans % 0.2 %; Lymphocytes % 22.9 %; MCH 28.2 pg (27.0-33.0); MCHC 30.8 % (32.0-36.0); MCV 92 fL (80-95); MPV 10.1 fL (8.0-11.0); Monocytes % 9.5 %; Neutrophils % 63.5 %; Platelet Count 176 10^3/uL (130-400); RBC 4.01 10^6/uL (3.93-5.22); RDW 21.9 % (11.7-14.6); RDW-SD 73.3 fL; WBC 5.71 10^3/uL (4.4-10.8)
[2023-09-30 17:58] LABS: Anion Gap 12.8 mmol/L (3-11); BUN 15 mg/dL (7-18); CO2 25.2 mmol/L (21.0-32.0); CREATININE 1.8 mg/dL (0.55-1.02); Calcium 8.9 mg/dL (8.5-10.1); Chloride 108 mmol/L (98-107); Estimated GFR 28.13 (mL/min/1.73m2); Glucose 115 mg/dL (74-106); Potassium 3.2 mmol/L (3.5-5.1); Sodium 146 mmol/L (136-145)
[2023-09-30 18:02] LABS: Anisocytosis 1+; Diff Comment RBC Morph Reviewed
[2023-09-30 18:33] LABS: Hemoglobin A1C 5.4 % (<5.7)
== END 2023-09-30 15:06 | disposition home or self-care (01) ==
LOC: LBN 15:05
PROVIDERS: PCP Student in an Organized Health Care Education/Training Program; Visit Provider Family Medicine
DX: K57.10 Diverticulosis of small intestine without perforation or abscess without bleeding (principal)
CPT/HCPCS: 80048; 83036; 84443; 85025

== ENCOUNTER 2023-10-15 18:59 | Outpatient (REF) | payer OTHER, MEDICAID, SELFPAY ==
[2023-10-15 17:49] LABS: ALT 23 U/L (14-59); AST 26 U/L (15-37); Albumin 3.1 g/dL (3.4-5.0); Alkaline Phosphatase 97 U/L (46-116); Anion Gap 8.9 mmol/L (3-11); BUN 20 mg/dL (7-18); Bilirubin, Total 0.63 mg/dL (0.2-1.0); CO2 31.1 mmol/L (21.0-32.0); CREATININE 1.8 mg/dL (0.55-1.02); Calcium 8.7 mg/dL (8.5-10.1); Chloride 105 mmol/L (98-107); Estimated GFR 28.13 (mL/min/1.73m2); Glucose 96 mg/dL (74-106); Potassium 3.6 mmol/L (3.5-5.1); Sodium 145 mmol/L (136-145); Total Protein 6.4 g/dL (6.4-8.2)
== END 2023-10-15 19:00 | disposition home or self-care (01) ==
LOC: LBN 18:59
PROVIDERS: PCP Student in an Organized Health Care Education/Training Program; Visit Provider Family Medicine
DX: D64.9 Anemia, unspecified (principal); I50.32 Chronic diastolic (congestive) heart failure; I13.0 Hypertensive heart and chronic kidney disease with heart failure and stage 1 through stage 4 chronic kidney disease, or unspecified chronic kidney disease; N18.4 Chronic kidney disease, stage 4 (severe); I48.11 Longstanding persistent atrial fibrillation
CPT/HCPCS: 80053

== ENCOUNTER 2023-11-25 12:53 | Outpatient (REF) | payer OTHER, MEDICAID, SELFPAY ==
[2023-11-25 13:50] LABS: Anion Gap 14.7 mmol/L (3-11); BUN 25 mg/dL (7-18); CO2 23.3 mmol/L (21.0-32.0); CREATININE 1.9 mg/dL (0.55-1.02); Calcium 8.9 mg/dL (8.5-10.1); Chloride 108 mmol/L (98-107); Estimated GFR 26.36 (mL/min/1.73m2); Glucose 116 mg/dL (74-106); Potassium 4.3 mmol/L (3.5-5.1); Sodium 146 mmol/L (136-145)
== END 2023-11-25 12:54 | disposition home or self-care (01) ==
LOC: LBN 12:53
PROVIDERS: PCP Student in an Organized Health Care Education/Training Program; Visit Provider Family Medicine
DX: I48.0 Paroxysmal atrial fibrillation (principal); M62.81 Muscle weakness (generalized); D63.1 Anemia in chronic kidney disease
CPT/HCPCS: 80048

== ENCOUNTER 2024-01-07 11:00 | Outpatient (REF) | payer OTHER, MEDICAID, SELFPAY ==
[2024-01-07 15:50] LABS: Anion Gap 9.8 mmol/L (3-11); BUN 36 mg/dL (7-18); CO2 25.2 mmol/L (21.0-32.0); Calcium 8.6 mg/dL (8.5-10.1); Chloride 107 mmol/L (98-107); Estimated GFR 24.79 (mL/min/1.73m2); FREE T4 1.25 ng/dL (0.76-1.46); Glucose 124 mg/dL (74-106); Potassium 4.2 mmol/L (3.5-5.1); Sodium 142 mmol/L (136-145); TSH 4.21 uIU/mL (0.36-3.74)
== END 2024-01-07 11:01 | disposition home or self-care (01) ==
LOC: NCHCN 11:00
PROVIDERS: PCP Student in an Organized Health Care Education/Training Program; Visit Provider Student in an Organized Health Care Education/Training Program
DX: E03.9 Hypothyroidism, unspecified (principal)
CPT/HCPCS: 80048; 84439; 84443

== ENCOUNTER → 2024-02-29 13:56 | Outpatient (BNVA) | payer MEDICARE, MEDICAID, SELFPAY | PROVIDERS: PCP Student in an Organized Health Care Education/Training Program; Referring Provider Student in an Organized Health Care Education/Training Program; Visit Provider Podiatrist | DX: Z89.412 Acquired absence of left great toe (principal); M79.672 Pain in left foot; I12.9 Hypertensive chronic kidney disease with stage 1 through stage 4 chronic kidney disease, or unspecified chronic kidney disease; N18.4 Chronic kidney disease, stage 4 (severe); L84 Corns and callosities; I70.203 Unspecified atherosclerosis of native arteries of extremities, bilateral legs; D64.9 Anemia, unspecified; I83.899 Varicose veins of unspecified lower extremity with other complications; L60.2 Onychogryphosis; M79.671 Pain in right foot | CPT/HCPCS: 11721 ==

== ENCOUNTER → 2024-03-07 09:53 | Outpatient (BNVA) | payer MEDICARE, MEDICAID, SELFPAY | PROVIDERS: PCP Student in an Organized Health Care Education/Training Program; Referring Provider Student in an Organized Health Care Education/Training Program; Visit Provider Surgery | DX: L72.9 Follicular cyst of the skin and subcutaneous tissue, unspecified (principal); L98.491 Non-pressure chronic ulcer of skin of other sites limited to breakdown of skin; Z91.89 Other specified personal risk factors, not elsewhere classified; R32 Unspecified urinary incontinence; I70.203 Unspecified atherosclerosis of native arteries of extremities, bilateral legs; I48.11 Longstanding persistent atrial fibrillation; I27.20 Pulmonary hypertension, unspecified; I50.9 Heart failure, unspecified; R26.2 Difficulty in walking, not elsewhere classified | CPT/HCPCS: 99214 ==

== ENCOUNTER → 2024-07-06 08:46 | Outpatient (BNVA) | payer MEDICARE, MEDICAID, SELFPAY | PROVIDERS: PCP Student in an Organized Health Care Education/Training Program; Referring Provider Student in an Organized Health Care Education/Training Program; Visit Provider Podiatrist | DX: M79.672 Pain in left foot (principal); M79.671 Pain in right foot; I12.9 Hypertensive chronic kidney disease with stage 1 through stage 4 chronic kidney disease, or unspecified chronic kidney disease; M18.4 Other bilateral secondary osteoarthritis of first carpometacarpal joints; Z89.412 Acquired absence of left great toe; L84 Corns and callosities; I70.203 Unspecified atherosclerosis of native arteries of extremities, bilateral legs; D64.9 Anemia, unspecified; I83.899 Varicose veins of unspecified lower extremity with other complications; L60.2 Onychogryphosis; R60.0 Localized edema; L65.9 Nonscarring hair loss, unspecified; R23.8 Other skin changes; L60.3 Nail dystrophy | CPT/HCPCS: 11721 ==

== ENCOUNTER 2024-09-15 01:56 | Outpatient (CLI) | payer MEDICARE, MEDICAID, SELFPAY ==
--- NOTE | 2024-09-15 | DI.DEXA_ITS ---
Exam(s) XR DEXA BONE DENSITY W/WO DIRK EXAM: XR DEXA BONE DENSITY W/WO DIRK CLINICAL HISTORY: Asymp Post-Olga Lidia state Z78.0 TECHNIQUE: Routine DEXA evaluation of the lumbar spine, hip, or forearm. COMPARISON: Prior DEXA scan of April 2007 FINDINGS: Performed on a scoo mobility unit. Lateral image: None available Lumbar Spine total T-score: 0.7 which is within normal limits. Prior reading in 2007 was 1.0 Hip total T-score:-2.4 which is osteopenia. Prior reading in 2007 was minus 0.2, implying significant deterioration. Independent reading at the level of the femoral neck yields T-score of -3.1 which is in the osteoporosis range. Forearm total T-score: -2.7 which is in the osteoporosis range. IMPRESSION: Bone mineral density measures in the osteoporosis range. Fracture risk is high. Note: Any spine fracture indicates 5x risk for subsequent spine fracture and 2x risk for subsequent hip fracture. World Health Organization criteria for BMD interpretation classify patients: Normal...... T- Score at or above -1.0 Osteopenic... T- Score between -1.0 and -2.5 Osteoporosis... T-Score at or below -2.5
== END 2024-09-15 02:16 ==
LOC: DI 01:56
PROVIDERS: PCP Student in an Organized Health Care Education/Training Program; Visit Provider Student in an Organized Health Care Education/Training Program
DX: Z13.820 Encounter for screening for osteoporosis (principal); Z78.0 Asymptomatic menopausal state; M81.0 Age-related osteoporosis without current pathological fracture
CPT/HCPCS: 77080

== ENCOUNTER → 2024-12-05 08:20 | Outpatient (BNVA) | payer MEDICARE, MEDICAID, SELFPAY | PROVIDERS: PCP Student in an Organized Health Care Education/Training Program; Referring Provider Student in an Organized Health Care Education/Training Program; Visit Provider Podiatrist | DX: I12.9 Hypertensive chronic kidney disease with stage 1 through stage 4 chronic kidney disease, or unspecified chronic kidney disease (principal); N18.4 Chronic kidney disease, stage 4 (severe); L84 Corns and callosities; I70.203 Unspecified atherosclerosis of native arteries of extremities, bilateral legs; I83.899 Varicose veins of unspecified lower extremity with other complications; L60.2 Onychogryphosis; R60.0 Localized edema; R09.89 Other specified symptoms and signs involving the circulatory and respiratory systems; L65.9 Nonscarring hair loss, unspecified; R23.8 Other skin changes; L60.3 Nail dystrophy; D64.9 Anemia, unspecified | CPT/HCPCS: 11721 ==